=== PATIENT | female | born 1990 | race Caucasian/White ===

== ENCOUNTER 2019-05-21 13:53 | Outpatient (CLI) | payer BC, MEDICAID, SELFPAY ==
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
== END 2019-05-21 13:54 | disposition home or self-care (01) ==
LOC: RADOUTREAD 14:00
PROVIDERS: Family Provider Family Medicine; PCP Family Medicine; Visit Provider Family Medicine
DX: Z76.89 Persons encountering health services in other specified circumstances (principal)

== ENCOUNTER 2019-06-22 12:23 | Emergency (ER) | payer BC, MEDICAID, SELFPAY ==
[2019-06-22 13:18] VITALS: BP 116/65; PULSE 75; RESP 16; TEMP 37.3; O2SAT 98; BMI 34.9
--- NOTE | 2019-06-22 17:03 | USR_ITS ---
PROCEDURE INFORMATION: Exam: US , Limited Exam date and time: 06/22/2019 6:16 PM Age: 29 years old Clinical indication: complicated by abdominal or pelvic pain; Periumbilical; Second trimester; Gestational age or lmp: 14w5d; ; Patient HX: Pain mima-umb and rlq; Additional info: Stabbing periumbilical abdominal pain TECHNIQUE: Imaging protocol: Real-time ultrasound of the maternal uterus with image documentation. Exam focused on the clinical indication. COMPARISON: US OB <= 14 weeks fetus [id number] 05/21/2019 11:31 AM FINDINGS: GESTATION: Gestation: Very limited anatomy assessment this examination. Heart rate: heart rate 150 bpm and regular. Presentation: Fetus in breech presentation. Placenta: Posterior placenta without visible previa or abruption. Amniotic fluid: Amniotic fluid appears qualitatively normal for gestational age. Umbilical cord and insertion: Three-vessel amniotic cord. BIOMETRY: Estimated gestational age: gestational age 14 weeks 4 days with estimated date of delivery 12/17/2019. Appropriate interval growth since last examination 05/21/2019. Estimated weight: Estimated weight 102 g (4 oz) measurements: measurements: measurements: Femur length 14 weeks 4 days. Abdominal circumference 14 weeks 4 days. Biparietal diameter 14 weeks 5 days. Head circumference 14 weeks 4 days. HC/AC ratio 1.20 within normal limits. CI 80.7 within normal limits. MATERNAL: Cervix: Cervix measures 4.7 cm within normal limits. Internal os closed. Left adnexa: Left ovarian dimensions 2.5 cm x 1.9 cm x 2.4 cm with a volume of 5.8 cubic cm. Small involuting corpus luteal cyst left ovary. Right ovarian dimensions 2.5 cm x 1.4 cm x 2.4 cm with a volume of 4.4 cubic cm. Positive arterial flow to Doppler and color-flow assessment both left and right ovaries. No visible adnexal mass or cystic lesion within the field of view image. US/US OB limited [id number] IMPRESSION: 1. Single intrauterine gestation in breech presentation with positive heart activity at 150 bpm. 2. age measured at 14 weeks 4 days with an PINKY of 12/17/2019. 3. Appropriate interval growth since last examination 05/21/2019. 4. weight 4 oz. 5. Both ovaries appear sonographically normal with positive arterial flow to both color Doppler assessment. 6. No visible free fluid in the pelvis.
--- NOTE | 2019-06-22 17:06 | ED_ITS ---
Entered by Symone Maher, acting as scribe for Ori Ronquillo MD Jun 22, 2019 12:23 Documented by User: Ori Ronquillo MD 06/22/19 17:40 HPI - Abdominal Pain General: Chief Complaint: Abdominal Pain Stated Complaint: 15 weeks preg/ abd pain Time Seen by Provider: 06/22/19 17:01 Source: patient Mode of arrival: ambulatory Limitations: no limitations History of Present Illness: HPI narrative: 29 yo female presents with RLQ. pt states this started yesterday. pt states she has ran a fever. pt states movement makes this worse. pt is . pt has had nausea. pt denies any other symptoms at this time. elicited complaint: abdominal pain Onset (ago): day(s) (yesterday) Pain Consistency: constant Radiation: RLQ Migration to: LLQ Relieving factors: movement Associated Symptoms: Reports fever(s) and nausea Related Data: Date of Last Menstrual Period: 03/15/19 Review of Systems General: Reports: 10 or more systems reviewed and unremarkable except in HPI and below Const: Reports: fever GI: Reports: abdominal pain and nausea PFSH ED PFSH: Social History Smoking and tobacco status: never smoked Female Reproductive History: Date of last menstrual period: 03/15/19 Physical Exam Const: COMMON NORMALS: no limitations, alert and well nourished EXAM LIMITATIONS: no altered mental status GENERAL APPEARANCE: cooperative and well developed ORIENTATION/CONSCIOUSNESS: Yes awake; not confused HENMT: COMMON NORMALS: normocephalic, head/scalp atraumatic, external ears normal and external nose normal HEAD & SCALP: normal to inspection, normocephalic and atraumatic FACE & SINUS: face symmetric NOSE: external nose normal EXTERNAL EAR: Yes external ears normal MOUTH: lip normal; no muffled voice Eye: COMMON NORMALS: EOMs intact bilaterally and conjunctivae normal GENERAL EYE: normal appearance of both eyes CONJUNCTIVA: Yes conjunctivae normal Neck/C-Spine: COMMON NORMALS: no JVD GENERAL: Yes normal visual inspection and Yes trachea midline Resp: COMMON NORMALS: normal respiratory effort, no use of accessory muscles and clear to auscultation bilaterally EFFORT & INSPECTION: Yes able to speak in complete sentences and Yes symmetric chest movement AUSCULTATION: clear to auscultation bilaterally Cardio: COMMON NORMALS: no JVD, regular rate and regular rhythm RATE: regular rate RHYTHM: regular rhythm PERIPHERAL PULSES: radial pulses present GI: COMMON NORMALS: soft to palpation INSPECTION: Yes normal to inspection PALPATION: Yes soft and Yes tender (worsened on Right than Left) Details: LLQ and RLQ Back/Pelvis: COMMON NORMALS: thoraco-lumbar ROM normal Extremity: COMMON NORMALS: normal to inspection GENERAL: Yes normal exam except as noted Neuro: COMMON NORMALS: moves all extremities, no focal motor deficits and no sensory deficits noted SENSORIUM/ORIENTATION: Yes alert Psych: COMMON NORMALS: mental status grossly normal, thought process normal, cooperative, affect normal and speech normal SPEECH: Yes normal speech THOUGHT PROCESS: normal thought process Skin: COMMON NORMALS: no rashes or lesions noted, skin turgor normal and no jaundice GENERAL SKIN EXAM: no rashes or lesions noted and turgor normal Course Vital Signs: Vital signs: Vital Signs Temperature 99.1 F 06/22/19 13:18 Pulse Rate 75 06/22/19 13:18 Respiratory Rate 16 06/22/19 13:18 Blood Pressure 116/65 06/22/19 13:18 Pulse Oximetry 98 06/22/19 13:18 MDM - Abdominal Pain Lab Data: Labs: Lab Results 06/22/19 06/22/19 06/22/19 Range/Units 16:12 17:47 17:47 WBC 11.4 H (4.0-10.0) 10^3/ uL RBC 4.29 (4.1-5.3) 10^6/u L Hgb 11.4 L (11.5-15.3) g/dL Hct 36.7 L (37.0-47.0) % MCV 85.5 (81-99) fL MCH 26.6 L (28.0-34.0) pg MCHC 31.1 (30.0-36.0) g/dL RDW 14.4 (12.1-15.1) % Plt Count 399 (130-400) 10^3/c mm MPV 9.6 (7.4-10.4) fL Neut % (Auto) 60.6 % Lymph % (Auto) 31.1 % Garfield % (Auto) 5.7 % Eos % (Auto) 2.0 % Baso % (Auto) 0.3 % Neut # (Auto) 6.9 (1.8-7.7) 10^3/u L Lymph # (Auto) 3.5 (0.8-4.8) 10^3/u L Garfield # (Auto) 0.7 (0.2-0.9) 10^3/u L Eos # (Auto) 0.2 (0.0-0.8) 10^3/u L Baso # (Auto) 0.0 (0.0-0.1) 10^3/u L Nucleated RBC % (a uto) 0 % Nucleated RBCs # 0.0 /100WBC Sodium 135 L (136-145) mmol/L Potassium 3.5 (3.5-5.1) mmol/L Chloride 103 (98-107) mmol/L Carbon Dioxide 20 L (22-29) mmol/L Anion Gap 15.5 (5-19) BUN 5 L (6-20) mg/dL Creatinine 0.6 (0.5-0.9) mg/dL GFR Calculation 116.6 (90-130) mL/min Glucose 81 (65-115) mg/dL Lactate (0.5-2.2) mmol/L Calcium 9.2 (8.5-10.5) mg/dL Total Bilirubin 0.3 (0.15-1.2) mg/dL AST 14 (0-32) U/L ALT 12 (0-33) U/L Alkaline Phosphata se 71 (35-105) IU/L Total Protein 7.1 (6.6-8.7) g/dL Albumin 3.9 (3.5-5.2) g/dL Globulin 3.2 (1.3-4.6) g/dL Lipase 31 (13-60) U/L Urine Color Yellow (Yellow) Urine Appearance Clear (CLEAR) Urine pH 5 (5-7) Ur Specific Gravit y 1.020 (1.005-1.030) Urine Protein Neg (Negative) Urine Glucose (UA) Norm (Normal) Urine Ketones Negative (Negative) Urine Blood Neg (Negative) Urine Nitrate Negative (Negative) Urine Bilirubin Neg (NEGATIVE) Urine Urobilinogen Norm (Negative) mg/dL Ur Leukocyte Mer ase Negative (Negative) 06/22/19 Range/Units 18:43 WBC (4.0-10.0) 10^3/ uL RBC (4.1-5.3) 10^6/u L Hgb (11.5-15.3) g/dL Hct (37.0-47.0) % MCV (81-99) fL MCH (28.0-34.0) pg MCHC (30.0-36.0) g/dL RDW (12.1-15.1) % Plt Count (130-400) 10^3/c mm MPV (7.4-10.4) fL Neut % (Auto) % Lymph % (Auto) % Garfield % (Auto) % Eos % (Auto) % Baso % (Auto) % Neut # (Auto) (1.8-7.7) 10^3/u L Lymph # (Auto) (0.8-4.8) 10^3/u L Garfield # (Auto) (0.2-0.9) 10^3/u L Eos # (Auto) (0.0-0.8) 10^3/u L Baso # (Auto) (0.0-0.1) 10^3/u L Nucleated RBC % (a uto) % Nucleated RBCs # /100WBC Sodium (136-145) mmol/L Potassium (3.5-5.1) mmol/L Chloride (98-107) mmol/L Carbon Dioxide (22-29) mmol/L Anion Gap (5-19) BUN (6-20) mg/dL Creatinine (0.5-0.9) mg/dL GFR Calculation (90-130) mL/min Glucose (65-115) mg/dL Lactate 0.6 (0.5-2.2) mmol/L Calcium (8.5-10.5) mg/dL Total Bilirubin (0.15-1.2) mg/dL AST (0-32) U/L ALT (0-33) U/L Alkaline Phosphata se (35-105) IU/L Total Protein (6.6-8.7) g/dL Albumin (3.5-5.2) g/dL Globulin (1.3-4.6) g/dL Lipase (13-60) U/L Urine Color (Yellow) Urine Appearance (CLEAR) Urine pH (5-7) Ur Specific Gravit y (1.005-1.030) Urine Protein (Negative) Urine Glucose (UA) (Normal) Urine Ketones (Negative) Urine Blood (Negative) Urine Nitrate (Negative) Urine Bilirubin (NEGATIVE) Urine Urobilinogen (Negative) mg/dL Ur Leukocyte Mer ase (Negative) Discharge Plan Discharge Patient Disposition: Home, Self-Care Clinical Impression: Abdominal pain affecting Condition: Stable Discharge Orders: Discharge Order (Routine); Ordered 06/22/19 Ordered By: Cortez Srivastava Referrals: Roque Rios MD [Primary Care Provider] - 1-3 days Discharge Diet: Advance as tolerated Discharge Activity: Resume usual activity Patient Instructions: Abdominal Pain (ED) Coding Level of Care Code ED Bus System Operator for Chg Fwd Exam Comprehensive Documented by User: Cortez Srivastava MD 06/22/19 21:56 HPI - Abdominal Pain General: Chief Complaint: Abdominal Pain Stated Complaint: 15 weeks preg/ abd pain Time Seen by Provider: 06/22/19 17:01 History of Present Illness: Associated Symptoms: Denies chills, diarrhea, dysuria, fever(s), nausea and vomiting Review of Systems Const: Denies: fever, chills, body aches or change in appetite Eyes: Denies: blurry vision or eye discomfort ENMT: Denies: throat pain or dental pain Card: Denies: chest pain Resp: Denies: shortness of breath GI: Denies: abdominal pain, nausea, vomiting or diarrhea : Denies: painful urination Musc: Denies: neck pain or back pain Skin/Breast: Denies: rash Neuro: Denies: headache Psych: Denies: depression Jaime/Lymph: Denies: easy bruising All/Imm: Denies: hives PFS ED PFSH: Social History Smoking and tobacco status: never smoked Course Vital Signs: Vital signs: Vital Signs Temperature 99.1 F 06/22/19 13:18 Pulse Rate 75 06/22/19 13:18 Respiratory Rate 16 06/22/19 13:18 Blood Pressure 116/65 03/02/20 13:18 Pulse Oximetry 98 06/22/19 13:18 MDM - Abdominal Pain MDM Narrative: Medical decision making narrative: Patient presents here with abdominal pain and that is likely round ligament pain. Patient's MRI showed no signs appendicitis. Her pain is improving. Patient has no signs of UTI. Patient is stable for discharge and is to return if worsening. Lab Data: Labs: Lab Results 06/22/19 06/22/19 06/22/19 Range/Units 16:12 17:47 17:47 WBC 11.4 H (4.0-10.0) 10^3/ uL RBC 4.29 (4.1-5.3) 10^6/u L Hgb 11.4 L (11.5-15.3) g/dL Hct 36.7 L (37.0-47.0) % MCV 85.5 (81-99) fL MCH 26.6 L (28.0-34.0) pg MCHC 31.1 (30.0-36.0) g/dL RDW 14.4 (12.1-15.1) % Plt Count 399 (130-400) 10^3/c mm MPV 9.6 (7.4-10.4) fL Neut % (Auto) 60.6 % Lymph % (Auto) 31.1 % Garfield % (Auto) 5.7 % Eos % (Auto) 2.0 % Baso % (Auto) 0.3 % Neut # (Auto) 6.9 (1.8-7.7) 10^3/u L Lymph # (Auto) 3.5 (0.8-4.8) 10^3/u L Garfield # (Auto) 0.7 (0.2-0.9) 10^3/u L Eos # (Auto) 0.2 (0.0-0.8) 10^3/u L Baso # (Auto) 0.0 (0.0-0.1) 10^3/u L Nucleated RBC % (a uto) 0 % Nucleated RBCs # 0.0 /100WBC Sodium 135 L (136-145) mmol/L Potassium 3.5 (3.5-5.1) mmol/L Chloride 103 (98-107) mmol/L Carbon Dioxide 20 L (22-29) mmol/L Anion Gap 15.5 (5-19) BUN 5 L (6-20) mg/dL Creatinine 0.6 (0.5-0.9) mg/dL GFR Calculation 116.6 (90-130) mL/min Glucose 81 (65-115) mg/dL Lactate (0.5-2.2) mmol/L Calcium 9.2 (8.5-10.5) mg/dL Total Bilirubin 0.3 (0.15-1.2) mg/dL AST 14 (0-32) U/L ALT 12 (0-33) U/L Alkaline Phosphata se 71 (35-105) IU/L Total Protein 7.1 (6.6-8.7) g/dL Albumin 3.9 (3.5-5.2) g/dL Globulin 3.2 (1.3-4.6) g/dL Lipase 31 (13-60) U/L Urine Color Yellow (Yellow) Urine Appearance Clear (CLEAR) Urine pH 5 (5-7) Ur Specific Gravit y 1.020 (1.005-1.030) Urine Protein Neg (Negative) Urine Glucose (UA) Norm (Normal) Urine Ketones Negative (Negative) Urine Blood Neg (Negative) Urine Nitrate Negative (Negative) Urine Bilirubin Neg (NEGATIVE) Urine Urobilinogen Norm (Negative) mg/dL Ur Leukocyte Mer ase Negative (Negative) 06/22/19 Range/Units 18:43 WBC (4.0-10.0) 10^3/ uL RBC (4.1-5.3) 10^6/u L Hgb (11.5-15.3) g/dL Hct (37.0-47.0) % MCV (81-99) fL MCH (28.0-34.0) pg MCHC (30.0-36.0) g/dL RDW (12.1-15.1) % Plt Count (130-400) 10^3/c mm MPV (7.4-10.4) fL Neut % (Auto) % Lymph % (Auto) % Garfield % (Auto) % Eos % (Auto) % Baso % (Auto) % Neut # (Auto) (1.8-7.7) 10^3/u L Lymph # (Auto) (0.8-4.8) 10^3/u L Garfield # (Auto) (0.2-0.9) 10^3/u L Eos # (Auto) (0.0-0.8) 10^3/u L Baso # (Auto) (0.0-0.1) 10^3/u L Nucleated RBC % (a uto) % Nucleated RBCs # /100WBC Sodium (136-145) mmol/L Potassium (3.5-5.1) mmol/L Chloride (98-107) mmol/L Carbon Dioxide (22-29) mmol/L Anion Gap (5-19) BUN (6-20) mg/dL Creatinine (0.5-0.9) mg/dL GFR Calculation (90-130) mL/min Glucose (65-115) mg/dL Lactate 0.6 (0.5-2.2) mmol/L Calcium (8.5-10.5) mg/dL Total Bilirubin (0.15-1.2) mg/dL AST (0-32) U/L ALT (0-33) U/L Alkaline Phosphata se (35-105) IU/L Total Protein (6.6-8.7) g/dL Albumin (3.5-5.2) g/dL Globulin (1.3-4.6) g/dL Lipase (13-60) U/L Urine Color (Yellow) Urine Appearance (CLEAR) Urine pH (5-7) Ur Specific Gravit y (1.005-1.030) Urine Protein (Negative) Urine Glucose (UA) (Normal) Urine Ketones (Negative) Urine Blood (Negative) Urine Nitrate (Negative) Urine Bilirubin (NEGATIVE) Urine Urobilinogen (Negative) mg/dL Ur Leukocyte Mer ase (Negative) Imaging Data ^: MRI: Radiologist's impression: Ordering Provider/Ordering MD: Cortez Srivastava MD Date of Service: 06/22/19 Procedure(s): MR abdomen wo con [id number] Accession Number(s): [id number] Report Number: [id number] PROCEDURE INFORMATION: Exam: MR Abdomen Without Contrast Exam date and time: 06/22/2019 7:57 PM Age: 29 years old Clinical indication: Abdominal pain; Localized; Right lower quadrant (rlq); Patient HX: Patient appendix pain; Additional info: Abd pain TECHNIQUE: Imaging protocol: MR of the abdomen without contrast. COMPARISON: MR MRCP [id number] 09/28/2018 1:10 AM FINDINGS: Liver: Limited evaluation. The exam is centered on the pelvis. Gallbladder and bile ducts: Not seen. Pancreas: Partially visualized but unremarkable.. Spleen: Partially visualized, unremarkable Adrenals: Unremarkable. No mass. Kidneys and ureters: Unremarkable. No solid mass. No hydronephrosis. Stomach and bowel: Unremarkable. Intraperitoneal space: No free fluid. Arteries: No abdominal aortic aneurysm. Reproductive: Single gravid intrauterine gestation. The placenta lies in the right fundal portion of the uterus. Bones/joints: The limited exam consist of a single axial and single coronal sequence. The appendix is seen and is normal in size. No obvious surrounding inflammation or fluid collection. Soft tissues: Unremarkable. MR/MR abdomen wo con [id number] IMPRESSION: 1. Limited study, normal-sized appendix without inflammation. 2. Gravid uterus. Discharge Plan Discharge Patient Disposition: Home, Self-Care Clinical Impression: Abdominal pain affecting Condition: Stable Discharge Orders: Discharge Order (Routine); Ordered 06/22/19 Ordered By: Cortez Srivastava Referrals: Roque Rios MD [Primary Care Provider] - 1-3 days Discharge Diet: Advance as tolerated Discharge Activity: Resume usual activity Patient Instructions: Abdominal Pain (ED) Coding Level of Care Code ED Bus System Operator for Chg Fwd Exam Comprehensive
[2019-06-22 17:14] LABS: Add Urine Microscopic? NO
--- NOTE | 2019-06-22 17:18 | USR_ITS ---
PROCEDURE INFORMATION: Exam: US Abdomen Limited, Appendix Exam date and time: 06/22/2019 6:14 PM Age: 29 years old Clinical indication: Abdominal pain; Periumbilical; Patient HX: 15 weeks . Wbc normal. Ob ltd also done. Please put these two exams together; Additional info: Rlq eval for appendicitis, 15 weeks TECHNIQUE: Imaging protocol: Real-time ultrasound of the abdomen with image documentation. Examination was focused on the appendix. COMPARISON: US abdomen limited [id number] 09/27/2018 9:15 PM FINDINGS: Appendix: Limited ultrasound of the right lower quadrant completed to assess for potential appendicitis. An inflamed appendix is not sonographically visible at this time. No visible free fluid/ascites. Uterus: Gravid uterus imaged. Fetus not adequately imaged for diagnostic detail assessment. Placenta appears to be posterior. No gross evidence for previa or abruption. US/US abdomen limited [id number] IMPRESSION: No definitive sonographic evidence to support the diagnosis of appendicitis.
[2019-06-22 17:27] LABS: Urine Appearance Clear (CLEAR); Urine Color Yellow (Yellow)
[2019-06-22 17:28] LABS: Bilirubin Urine Neg (NEGATIVE); Blood Urine Neg (Negative); Glucose Urine UA Norm (Normal); Ketones Urine Negative (Negative); Leukocyte Esterase Urine Negative (Negative); Nitrate Urine Negative (Negative); Protein Urine Neg (Negative); Urobilinogen Urine Norm (Negative); pH Urine 5 (5-7)
--- NOTE | 2019-06-22 17:38 | PC.NURSE ---
Patient denies any vaginal discharge, spotting, or bleeding at this time. Patient states she has been experiencing cramping and pain in the middle lower to right lower abdomen. Pain currently 7/10 after physician palpation/exam.
[2019-06-22] MEDS: acetaminophen 325 mg Tablet 650 MG PO (18:23)
[2019-06-22] MEDS: ondansetron 2 mg/ML SDV 2 mL 4 MG IVP (18:23)
[2019-06-22] MEDS: lactated ringers 1,000 ML 999 ML IV (18:23)
[2019-06-22 18:33] LABS: Basophils % 0.3 %; Eosinophils # 0.2 10^3/uL (0.0-0.8); Hematocrit 36.7 % (37.0-47.0); Hemoglobin 11.4 g/dL (11.5-15.3); Lymphocytes # 3.5 10^3/uL (0.8-4.8); Lymphocytes % 31.1 %; Mean Corpuscular HGB Conc 31.1 g/dL (30.0-36.0); Mean Corpuscular Hemoglobin 26.6 pg (28.0-34.0); Mean Corpuscular Volume 85.5 fL (81-99); Mean Platelet Volume 9.6 fL (7.4-10.4); Monocytes # 0.7 10^3/uL (0.2-0.9); Monocytes % 5.7 %; Neutrophils # 6.9 10^3/uL (1.8-7.7); Neutrophils % 60.6 %; Nucleated Red Blood Cells % 0 %; Platelet Count 399 10^3/cmm (130-400); Red Blood Count 4.29 10^6/uL (4.1-5.3); Red Cell Distribution Width 14.4 % (12.1-15.1); White Blood Count 11.4 10^3/uL (4.0-10.0)
[2019-06-22 18:51] LABS: Alanine Aminotransferase 12 U/L (0-33); Albumin Level 3.9 g/dL (3.5-5.2); Alkaline Phosphatase 71 IU/L (35-105); Anion Gap 15.5 (5-19); Aspartate Amino Transferase 14 U/L (0-32); Blood Urea Nitrogen 5 mg/dL (6-20); Calcium 9.2 mg/dL (8.5-10.5); Carbon Dioxide 20 mmol/L (22-29); Chloride 103 mmol/L (98-107); Globulin 3.2 g/dL (1.3-4.6); Glomerular Filtration Rate 116.6 mL/min (90-130); Glucose 81 mg/dL (65-115); Lipase 31 U/L (13-60); Potassium 3.5 mmol/L (3.5-5.1); Sodium 135 mmol/L (136-145); Total Bilirubin 0.3 mg/dL (0.15-1.2); Total Protein 7.1 g/dL (6.6-8.7)
--- NOTE | 2019-06-22 18:52 | MRR_ITS ---
PROCEDURE INFORMATION: Exam: MR Abdomen Without Contrast Exam date and time: 06/22/2019 7:57 PM Age: 29 years old Clinical indication: Abdominal pain; Localized; Right lower quadrant (rlq); Patient HX: Patient appendix pain; Additional info: Abd pain TECHNIQUE: Imaging protocol: MR of the abdomen without contrast. COMPARISON: MR MRCP [id number] 09/28/2018 1:10 AM FINDINGS: Liver: Limited evaluation. The exam is centered on the pelvis. Gallbladder and bile ducts: Not seen. Pancreas: Partially visualized but unremarkable.. Spleen: Partially visualized, unremarkable Adrenals: Unremarkable. No mass. Kidneys and ureters: Unremarkable. No solid mass. No hydronephrosis. Stomach and bowel: Unremarkable. Intraperitoneal space: No free fluid. Arteries: No abdominal aortic aneurysm. Reproductive: Single gravid intrauterine gestation. The placenta lies in the right fundal portion of the uterus. Bones/joints: The limited exam consist of a single axial and single coronal sequence. The appendix is seen and is normal in size. No obvious surrounding inflammation or fluid collection. Soft tissues: Unremarkable. MR/MR abdomen wo con [id number] IMPRESSION: 1. Limited study, normal-sized appendix without inflammation. 2. Gravid uterus.
[2019-06-22 19:09] LABS: Lactate (Lactic Acid level) 0.6 mmol/L (0.5-2.2)
== END 2019-06-22 22:19 | disposition home or self-care (01) ==
PROVIDERS: Emergency Medicine; Emergency Provider Emergency Medicine; Family Provider Family Medicine; PCP Family Medicine
DX: O26.892 Other specified pregnancy related conditions, second trimester (principal); R10.9 Unspecified abdominal pain; Z3A.14 14 weeks gestation of pregnancy
CPT/HCPCS: 36415; 74181; 76705; 76815; 80053; 81003; 83605; 83690; 85025; 96365; 96375; 99282; 99283; J2405

== ENCOUNTER 2019-08-11 16:52 | Outpatient (CLI) | payer BC, MEDICAID, SELFPAY ==
[2019-08-11 17:01] VITALS: BMI 38.2
[2019-08-11 17:22] VITALS: BP 116/71; PULSE 94
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
[2019-08-11 18:06] VITALS: BP 115/63; PULSE 85
[2019-08-11 18:06] LABS: Bilirubin Urine Neg (NEGATIVE); Blood Urine Neg (Negative); Glucose Urine UA Norm (Normal); Ketones Urine Negative (Negative); Leukocyte Esterase Urine Negative (Negative); Nitrate Urine Negative (Negative); Protein Urine Neg (Negative); Specific Gravity, Urine 1.015 (1.005-1.030); Urine Appearance Clear (CLEAR); Urine Color Yellow (Yellow); Urobilinogen Urine Norm (Negative); pH Urine 7 (5-7)
[2019-08-11 18:09] LABS: Add Urine Culture? No; Bacteria Urine TR; Squamous Epithelial Cell Urine 0-4 (0-5)
== END 2019-08-11 18:10 | disposition home or self-care (01) ==
LOC: OPOB 16:54 → OBGYN 08-12 07:50
PROVIDERS: Family Provider Family Medicine; PCP Family Medicine; Visit Provider Family Medicine
DX: O26.899 Other specified pregnancy related conditions, unspecified trimester (principal); Z3A.00 Weeks of gestation of pregnancy not specified; R10.9 Unspecified abdominal pain
CPT/HCPCS: 81001; 99211

== ENCOUNTER 2019-10-08 10:35 | Outpatient (CLI) | payer BC, MEDICAID, SELFPAY ==
--- NOTE | 2019-10-08 | US_ITS ---
WS: [id number] ABDOMINAL ULTRASOUND LIMITED REASON FOR VISIT: RT SIDED PAIN, CHECK RT KIDNEY AND APPENDIX TECHNIQUE: Grayscale and Doppler ultrasound examination of the abdomen. FINDINGS: The appendix is not well seen. There is small amount of fluid in the right pelvis There appears to be an intrauterine present. Right kidney: Right kidney measures 11.3 cm x 7.2 cm x 5.3 cm. Right kidney cortex measures 1.07 cm. The left kidney measured 11.92 x 7.06 x 5.57 cm. US/US abdomen limited [id number] IMPRESSION: The appendix is poorly seen. Small amount of fluid in the right pelvis but no evidence suspicious of rupture d appendix. A single fetus is seen. Both kidneys were normal. No hydronephrosis.
[2019-10-08 10:49] VITALS: RESP 18; TEMP 37
[2019-10-08 10:50] VITALS: BMI 40.1
[2019-10-08 10:51] VITALS: BP 127/72; PULSE 98
--- NOTE | 2019-10-08 11:06 | US_ITS ---
WS: [id number] [place] [id number] REASON FOR EXAM: RT SIDED PAIN EVALUATE PLACENTA FOR ABRUPTION FINDINGS: Posterior placenta is identified. Extends down to the lower uterus but not through the cerv ix. Cephalic presentation fetus. heart rate 141 beats for minute US/[place] [id number] IMPRESSION: Posterior placenta No definite abruption. Cephalic presentation
[2019-10-08 11:10] LABS: Bilirubin Urine Neg (NEGATIVE); Blood Urine Neg (Negative); Glucose Urine UA Norm (Normal); Ketones Urine Negative (Negative); Leukocyte Esterase Urine Negative (Negative); Nitrate Urine Negative (Negative); Protein Urine Neg (Negative); Urine Appearance Clear (CLEAR); Urine Color Yellow (Yellow); Urobilinogen Urine Norm (Negative); pH Urine 6 (5-7)
[2019-10-08 11:11] LABS: Add Urine Culture? No; Bacteria Urine TRACE; Mucus Urine TRACE; Squamous Epithelial Cell Urine 0-4 (0-5)
[2019-10-08 11:25] VITALS: BP 123/74; PULSE 96
[2019-10-08 11:26] LABS: Basophils % 0.3 %; Eosinophils # 0.1 10^3/uL (0.0-0.8); Hematocrit 30.3 % (37.0-47.0); Hemoglobin 9.1 g/dL (11.5-15.3); Lymphocytes # 2.7 10^3/uL (0.8-4.8); Lymphocytes % 20.6 %; Mean Corpuscular Hemoglobin 24.9 pg (28.0-34.0); Monocytes # 0.6 10^3/uL (0.2-0.9); Monocytes % 4.8 %; Neutrophils # 9.2 10^3/uL (1.8-7.7); Neutrophils % 71.6 %; Nucleated Red Blood Cells % 0 %; Platelet Count 421 10^3/cmm (130-400); Red Blood Count 3.65 10^6/uL (4.1-5.3); White Blood Count 12.8 10^3/uL (4.0-10.0)
[2019-10-08 11:56] VITALS: BP 0/0
[2019-10-08 12:02] VITALS: BP 113/69; PULSE 97
[2019-10-08 12:24] VITALS: BP 113/69; PULSE 97; RESP 20; TEMP 37
== END 2019-10-08 12:10 | disposition home or self-care (01) ==
LOC: OPOB 10:41 → OBGYN 10:42
PROVIDERS: Family Provider Family Medicine; PCP Family Medicine; Visit Provider Family Medicine
DX: O26.899 Other specified pregnancy related conditions, unspecified trimester (principal); Z3A.00 Weeks of gestation of pregnancy not specified; M54.9 Dorsalgia, unspecified
CPT/HCPCS: 36415; 59025; 76705; 76816; 81001; 85025; 99211

== ENCOUNTER 2019-10-09 15:23 | Outpatient (CLI) | payer BC, MEDICAID, SELFPAY ==
[2019-10-09 15:30] VITALS: BP 138/56; PULSE 93; RESP 18; TEMP 36.9; O2SAT 99
[2019-10-09 15:31] VITALS: BMI 36.4
[2019-10-09 16:04] VITALS: BP 138/56; PULSE 93
== END 2019-10-09 15:57 | disposition home or self-care (01) ==
LOC: OPOB 15:24 → OBGYN 15:26
PROVIDERS: Family Provider Family Medicine; PCP Family Medicine; Visit Provider Family Medicine
DX: O36.8190 Decreased fetal movements, unspecified trimester, not applicable or unspecified (principal); Z3A.00 Weeks of gestation of pregnancy not specified; R10.9 Unspecified abdominal pain
CPT/HCPCS: 59025; 99211

== ENCOUNTER 2019-10-09 16:02 | Emergency (ER) | payer BC, MEDICAID, SELFPAY ==
[2019-10-09] VITALS (7 sets, daily range): BP systolic 114–135; BP diastolic 58–75; PULSE 92–108; RESP 16–18; TEMP 36.9; O2SAT 97–100; BMI 40.0
--- NOTE | 2019-10-09 16:39 | USR_ITS ---
PROCEDURE INFORMATION: Exam: US Abdomen Limited, Appendix Exam date and time: 10/09/2019 5:09 PM Age: 29 years old Clinical indication: Abdominal pain; Acute; ; Additional info: Rlq pain TECHNIQUE: Imaging protocol: Real-time ultrasound of the abdomen with image documentation. Examination was focused on the appendix. COMPARISON: No relevant prior studies available. FINDINGS: Appendix: The appendix was not visualized. Intraperitoneal space: No free peritoneal fluid visualized. Uterus: Single intrauterine gestation. US/US appendix [id number] IMPRESSION: Nonvisualized appendix. No abnormality identified.
--- NOTE | 2019-10-09 16:40 | ED_ITS ---
HPI - Abdominal Pain General: Chief Complaint: Abdominal Pain Stated Complaint: 30 WEEKS PREG/SENT BY DR Rios Time Seen by Provider: 10/09/19 16:34 Source: patient Mode of arrival: ambulatory Limitations: no limitations History of Present Illness: HPI narrative: 29-year-old female patient who is 30 weeks , presents to the emergency department with right lower quadrant tenderness. Symptoms started about 3 days ago and have progressively worsened. She had an ultrasound done yesterday after she said she passed a blood clot and there was signs that she may have a kidney stone. She saw her OB today and due to persistence of her symptoms they were concerned about appendicitis so they sent her down here to be evaluated. She denies a fever, appetite has been poor in the last 3 to 5 days. She denies any urinary symptoms. MD elicited complaint: abdominal pain Onset (ago): day(s) (3) Pain Consistency: constant Location: RLQ Severity: severe Quality: stabbing Radiation: none Exacerbating factors: nothing Relieving factors: nothing Associated Symptoms: Reports anorexia; Denies chills, dysuria, fever(s), nausea and vomiting Related Data: Date of Last Menstrual Period: 03/15/19 Review of Systems General: Reports: 10 or more systems reviewed and unremarkable except in HPI and below Const: Denies: fever(s), chills or body aches Eyes: Denies: change in vision or blurry vision ENMT: Denies: throat pain, enlarged tonsils, odynophagia, hoarseness, mouth pain or swelling of lips/tongue Card: Denies: palpitations, irregular heart rhythm, edema or swelling of feet/ankles Resp: Denies: dyspnea, productive cough or non-productive cough GI: Reports: abdominal pain; Denies: nausea or vomiting : Denies: flank pain, difficulty voiding, dysuria, urinary frequency, urinary urgency or urinary hesitancy Musc: Denies: neck pain, back pain or extremity swelling Skin/Breast: Denies: rash, pruritus or erythema Neuro: Denies: headache(s), numbness in extremities or weakness in extremities Endo: Denies: polyuria, polydipsia or tired all the time PFSH ED PFSH: Social History (Reviewed 10/09/19 @ 22:39 by Preston Rivera MD, [facility] [place]) Smoking and tobacco status: never smoked Female Reproductive History: Date of last menstrual period: 03/15/19 Physical Exam Const: COMMON NORMALS: no acute distress, average body habitus, patient oriented x3, no limitations, healthy appearing, alert and well nourished HENMT: COMMON NORMALS: normocephalic, atraumatic and moist oral mucous membranes HEAD & SCALP: normocephalic and atraumatic Neck/C-Spine: COMMON NORMALS: no meningeal signs and no JVD Resp: COMMON NORMALS: normal respiratory effort, No retractions, No use of accessory muscles, clear to auscultation bilaterally and percussion normal AUSCULTATION: clear to auscultation bilaterally PERCUSSION: percussion normal Cardio: COMMON NORMALS: no JVD, regular rate, regular rhythm, S1 normal heart sound present, S2 normal heart sound present, No gallops present (Cardio), No clicks present (Cardio), No murmurs present (Cardio), No rub (Cardio) and Peripheral pulses 2+ throughout RATE: regular rate RHYTHM: regular rhythm HEART SOUNDS: S1 normal heart sound present and S2 normal heart sound present PERIPHERAL PULSES: Peripheral pulses 2+ throughout GI: COMMON NORMALS: Normal to inspection, nondistended, normoactive bowel sounds present, Soft to palpation, No hepatosplenomegaly present, no masses and no bruits PALPATION: Yes Soft to palpation, Yes Tenderness to palpation present (GI) Details: RLQ, Yes Guarding due to palpation present (GI), Yes No hepatosplenomegaly present and Yes Rebound tenderness present Details: McBurney's point : COMMON NORMALS: Yes no CVA tenderness BLADDER/KIDNEY EXAM: Yes no CVA tenderness Back/Pelvis: COMMON NORMALS: no CVA tenderness Extremity: COMMON NORMALS: normal to inspection, full ROM, capillary refill normal, no calf tenderness and no pedal edema Neuro: COMMON NORMALS: patient oriented x3 SENSORIUM/ORIENTATION: Yes alert MENINGEAL SIGNS: Yes no meningeal signs Skin: COMMON NORMALS: no rashes or lesions noted, no wounds, turgor normal, no jaundice, no petechiae and no mottling GENERAL SKIN EXAM: no rashes or lesions noted and turgor normal Course Reevaluation(s): Reevaluation #1: Discussed her lab and imaging findings with her. Ultrasound inconclusive, MRI is not suggestive of acute appendicitis. White cell count elevated especially when compared with yesterday, however CRP is normal and lactic acid is normal. I do not think white cell count elevation is secondary to an infectious or inflammatory process. Warning signs explained to the patient especially fever, worsening abdominal pain, vomiting. If she develops any of the warning signs she needs to return promptly to the emergency department for evaluation. We will discharge her home with no new orders. She voiced understanding and is in agreement with the plan. Time: 20:58 Vital Signs: Vital signs: Vital Signs Temperature 98.4 F 10/09/19 16:15 Pulse Rate 98 10/09/19 21:35 Respiratory Rate 16 10/09/19 21:35 Blood Pressure 117/70 10/09/19 21:35 Pulse Oximetry 97 10/09/19 21:35 MDM - Abdominal Pain MDM Narrative: Medical decision making narrative: 29-year-old female patient who is 30 weeks and was sent to the emergency department for evaluation of right lower quadrant pain. Symptoms have been ongoing for 3 days and an ultrasound on outpatient yesterday was inconclusive. Today a repeat ultrasound was also inconclusive, however with clinical features of right lower quadrant tenderness, guarding and possible rebound and MRI of her abdomen and pelvis was done which was negative for features of appendicitis. CRP was normal, lactic acid normal. These findings to suggest acute appendicitis. However her white cell count jumped up from 12,000 to about 16,000 today. This is likely nonspecific. Patient was given warning signs and asked to return if she develops any of the warning signs or symptoms. She is discharged home with no new orders. I believe her pain may be broad ligament pain. Medical Records: Attestation: I reviewed the patient's medical records. Lab Data: Attestation: I reviewed the patient's lab results. Labs: Lab Results 10/09/19 10/09/19 10/09/19 Range/Units 17:03 17:03 17:03 WBC 16.1 H (4.0-10.0) 10^3/ uL RBC 3.54 L (4.1-5.3) 10^6/u L Hgb 9.0 L (11.5-15.3) g/dL Hct 30.1 L (37.0-47.0) % MCV 85.0 (81-99) fL MCH 25.4 L (28.0-34.0) pg MCHC 29.9 L (30.0-36.0) g/dL RDW 13.9 (12.1-15.1) % Plt Count 385 (130-400) 10^3/c mm MPV 8.7 (7.4-10.4) fL Neut % (Auto) 70.4 % Lymph % (Auto) 20.1 % [place] % (Auto) 6.3 % Eos % (Auto) 1.2 % Baso % (Auto) 0.3 % Neut # (Auto) 11.3 H (1.8-7.7) 10^3/u L Lymph # (Auto) 3.2 (0.8-4.8) 10^3/u L [place] # (Auto) 1.0 H (0.2-0.9) 10^3/u L Eos # (Auto) 0.2 (0.0-0.8) 10^3/u L Baso # (Auto) 0.1 (0.0-0.1) 10^3/u L Nucleated RBC % (a uto) 0 % Nucleated RBCs # 0.0 /100WBC Sodium 135 L (136-145) mmol/L Potassium 3.9 (3.5-5.1) mmol/L Chloride 104 (98-107) mmol/L Carbon Dioxide 20 L (22-29) mmol/L Anion Gap 14.9 (5-19) BUN 4 L (6-20) mg/dL Creatinine 0.4 L (0.5-0.9) mg/dL GFR Calculation 186.2 H (90-130) mL/min Glucose 88 (65-115) mg/dL Calculated Osmolal ity 275 L (285-295) mOsm/k g Lactate 0.6 (0.5-2.2) mmol/L Calcium 8.7 (8.5-10.5) mg/dL Total Bilirubin 0.2 (0.15-1.2) mg/dL AST 10 (0-32) U/L ALT 8 (0-33) U/L Alkaline Phosphata se 89 (35-105) IU/L C-Reactive Protein 3.5 (0.0-4.9) mg/L Total Protein 6.3 L (6.6-8.7) g/dL Albumin 3.4 L (3.5-5.2) g/dL Globulin 2.9 (1.3-4.6) g/dL Lipase 44 (13-60) U/L Urine Color (Yellow) Urine Appearance (CLEAR) Urine pH (5-7) Ur Specific Gravit y (1.005-1.030) Urine Protein (Negative) Urine Glucose (UA) (Normal) Urine Ketones (Negative) Urine Blood (Negative) Urine Nitrate (Negative) Urine Bilirubin (NEGATIVE) Urine Urobilinogen (Negative) mg/dL Ur Leukocyte Mer ase (Negative) 10/09/19 Range/Units 17:50 WBC (4.0-10.0) 10^3/ uL RBC (4.1-5.3) 10^6/u L Hgb (11.5-15.3) g/dL Hct (37.0-47.0) % MCV (81-99) fL MCH (28.0-34.0) pg MCHC (30.0-36.0) g/dL RDW (12.1-15.1) % Plt Count (130-400) 10^3/c mm MPV (7.4-10.4) fL Neut % (Auto) % Lymph % (Auto) % [place] % (Auto) % Eos % (Auto) % Baso % (Auto) % Neut # (Auto) (1.8-7.7) 10^3/u L Lymph # (Auto) (0.8-4.8) 10^3/u L [place] # (Auto) (0.2-0.9) 10^3/u L Eos # (Auto) (0.0-0.8) 10^3/u L Baso # (Auto) (0.0-0.1) 10^3/u L Nucleated RBC % (a uto) % Nucleated RBCs # /100WBC Sodium (136-145) mmol/L Potassium (3.5-5.1) mmol/L Chloride (98-107) mmol/L Carbon Dioxide (22-29) mmol/L Anion Gap (5-19) BUN (6-20) mg/dL Creatinine (0.5-0.9) mg/dL GFR Calculation (90-130) mL/min Glucose (65-115) mg/dL Calculated Osmolal ity (285-295) mOsm/k g Lactate (0.5-2.2) mmol/L Calcium (8.5-10.5) mg/dL Total Bilirubin (0.15-1.2) mg/dL AST (0-32) U/L ALT (0-33) U/L Alkaline Phosphata se (35-105) IU/L C-Reactive Protein (0.0-4.9) mg/L Total Protein (6.6-8.7) g/dL Albumin (3.5-5.2) g/dL Globulin (1.3-4.6) g/dL Lipase (13-60) U/L Urine Color Yellow (Yellow) Urine Appearance Clear (CLEAR) Urine pH 6 (5-7) Ur Specific Gravit y 1.015 (1.005-1.030) Urine Protein Neg (Negative) Urine Glucose (UA) Norm (Normal) Urine Ketones 1+ H (Negative) Urine Blood Neg (Negative) Urine Nitrate Negative (Negative) Urine Bilirubin Neg (NEGATIVE) Urine Urobilinogen Norm (Negative) mg/dL Ur Leukocyte Mer ase Negative (Negative) Imaging Data ^: MRI: Radiologist's impression: [place] [address] Magnetic Resonance Report Signed Patient: Olesya Humphries #: [id number] : 1990Acct#:[id number] Age/Sex: 29 M Date: 10/09/19 Loc: [facility]/Bed: Attending Dr: Ordering Provider/Ordering MD: Preston Rivera MD, [facility] [place] Date of Service: 10/09/19 Procedure(s): MR abdomen wo con [id number] Accession Number(s): [id number] Report Number: [id number] PROCEDURE INFORMATION: Exam: MR Abdomen Without Contrast Exam date and time: 10/09/2019 6:35 PM Age: 29 years old Clinical indication: Abdominal pain; Acute; Additional info: Rlq pain, rebound tenderness, 30 weeks , R/O appendicitis TECHNIQUE: Imaging protocol: MR of the abdomen without contrast. COMPARISON: [place] appendix [id number] 10/09/2019 5:04 PM FINDINGS: Liver: Tiny cyst. No mass. Gallbladder and bile ducts: Unremarkable. No stones. No ductal dilation. Pancreas: Unremarkable. No ductal dilation. Spleen: Unremarkable. No splenomegaly. Adrenals: Unremarkable. No mass. Kidneys and ureters: Unremarkable. No solid mass. No hydronephrosis. Stomach and bowel: Visualized stomach and intestines are unremarkable. Appendix: The appendix is not definitely visualized. There is no inflammation or secondary signs of appendicitis. Intraperitoneal space: No ascites. Arteries: No abdominal aortic aneurysm. Reproductive: Single intrauterine gestation. Bones/joints: Unremarkable. Soft tissues: Unremarkable. MR/MR abdomen wo con [id number] IMPRESSION: 1. The appendix is not visualized. No secondary signs of acute appendicitis. 2. Intrauterine gestation. Dictated By:Teofilo Gao Signed By:Teofilo GaoSignruth ann Date/Time:10/09/191853 DD/ 51 Discharge Plan Discharge Patient Disposition: Home, Self-Care Clinical Impression: Acute right lower quadrant pain Condition: Stable Prescriptions: Continued PNV cmb#95-ferrous fumarate-FA [] 28 mg iron- 800 mcg Tablet 1 tab PO DAILY RF: 0 pantoprazole [Protonix] 40 mg Tablet,Delayed Release (Dr/Ec) 40 mg PO DAILY RF: 0 metformin 500 mg tablet extended release 24 hr 500 mg PO DAILY RF: 0 Discharge Orders: Discharge Order (Routine); Ordered 10/09/19 Ordered By: Preston Rivera Referrals: Roque Rios MD [Primary Care Provider] - 10/12/19 (For further evaluation) Patient Instructions: Abdominal Pain (ED) Activity Restrictions/Additional Instructions: Return for any new or worsening symptoms. Return especially for the following symptoms: Fever, worsening abdominal pain, vomiting. If you have any other concerns please return for further evaluation. Follow-up with Dr. Rios on Saturday. Discharge Date/Time: 10/09/19 21:37 Coding Level of Care Code ED Public Works Director for Chg Fwd Exam Comprehensive
[2019-10-09 17:09] LABS: Basophils # 0.1 10^3/uL (0.0-0.1); Basophils % 0.3 %; Eosinophils # 0.2 10^3/uL (0.0-0.8); Eosinophils % 1.2 %; Hematocrit 30.1 % (37.0-47.0); Lymphocytes # 3.2 10^3/uL (0.8-4.8); Lymphocytes % 20.1 %; Mean Corpuscular HGB Conc 29.9 g/dL (30.0-36.0); Mean Corpuscular Hemoglobin 25.4 pg (28.0-34.0); Mean Platelet Volume 8.7 fL (7.4-10.4); Monocytes % 6.3 %; Neutrophils # 11.3 10^3/uL (1.8-7.7); Neutrophils % 70.4 %; Nucleated Red Blood Cells % 0 %; Platelet Count 385 10^3/cmm (130-400); Red Blood Count 3.54 10^6/uL (4.1-5.3); Red Cell Distribution Width 13.9 % (12.1-15.1); White Blood Count 16.1 10^3/uL (4.0-10.0)
[2019-10-09 17:26] LABS: Alanine Aminotransferase 8 U/L (0-33); Albumin Level 3.4 g/dL (3.5-5.2); Alkaline Phosphatase 89 IU/L (35-105); Anion Gap 14.9 (5-19); Aspartate Amino Transferase 10 U/L (0-32); Blood Urea Nitrogen 4 mg/dL (6-20); Calcium 8.7 mg/dL (8.5-10.5); Carbon Dioxide 20 mmol/L (22-29); Chloride 104 mmol/L (98-107); Globulin 2.9 g/dL (1.3-4.6); Glomerular Filtration Rate 186.2 mL/min (90-130); Glucose 88 mg/dL (65-115); Lipase 44 U/L (13-60); Osmolality Calculated 275 mOsm/kg (285-295); Potassium 3.9 mmol/L (3.5-5.1); Sodium 135 mmol/L (136-145); Total Bilirubin 0.2 mg/dL (0.15-1.2); Total Protein 6.3 g/dL (6.6-8.7)
[2019-10-09 17:27] LABS: Lactate (Lactic Acid level) 0.6 mmol/L (0.5-2.2)
--- NOTE | 2019-10-09 17:33 | MRR_ITS ---
PROCEDURE INFORMATION: Exam: MR Abdomen Without Contrast Exam date and time: 10/09/2019 6:35 PM Age: 29 years old Clinical indication: Abdominal pain; Acute; Additional info: Rlq pain, rebound tenderness, 30 weeks , R/O appendicitis TECHNIQUE: Imaging protocol: MR of the abdomen without contrast. COMPARISON: [place] appendix [id number] 10/09/2019 5:04 PM FINDINGS: Liver: Tiny cyst. No mass. Gallbladder and bile ducts: Unremarkable. No stones. No ductal dilation. Pancreas: Unremarkable. No ductal dilation. Spleen: Unremarkable. No splenomegaly. Adrenals: Unremarkable. No mass. Kidneys and ureters: Unremarkable. No solid mass. No hydronephrosis. Stomach and bowel: Visualized stomach and intestines are unremarkable. Appendix: The appendix is not definitely visualized. There is no inflammation or secondary signs of appendicitis. Intraperitoneal space: No ascites. Arteries: No abdominal aortic aneurysm. Reproductive: Single intrauterine gestation. Bones/joints: Unremarkable. Soft tissues: Unremarkable. MR/MR abdomen wo con [id number] IMPRESSION: 1. The appendix is not visualized. No secondary signs of acute appendicitis. 2. Intrauterine gestation.
[2019-10-09 17:45] LABS: C Reactive Protein 3.5 mg/L (0.0-4.9)
[2019-10-09 17:59] LABS: Add Urine Microscopic? NO
[2019-10-09 18:05] LABS: Glucose Urine UA Norm (Normal); Protein Urine Neg (Negative); Specific Gravity, Urine 1.015 (1.005-1.030); Urine Appearance Clear (CLEAR); Urine Color Yellow (Yellow); pH Urine 6 (5-7)
[2019-10-09 18:06] LABS: Bilirubin Urine Neg (NEGATIVE); Blood Urine Neg (Negative); Ketones Urine 1+ (Negative); Leukocyte Esterase Urine Negative (Negative); Nitrate Urine Negative (Negative); Urobilinogen Urine Norm (Negative)
--- NOTE | 2019-10-09 18:07 | PC.NURSE ---
pt to MRI
== END 2019-10-09 21:37 | disposition home or self-care (01) ==
PROVIDERS: Emergency Provider Family Medicine; Family Provider Family Medicine; PCP Family Medicine
DX: O26.893 Other specified pregnancy related conditions, third trimester (principal); R10.31 Right lower quadrant pain; Z3A.30 30 weeks gestation of pregnancy
CPT/HCPCS: 12345; 36415; 74181; 76705; 80053; 81003; 83605; 83690; 85025; 86140; 99283

== ENCOUNTER 2019-11-01 13:50 | Outpatient (CLI) | payer BC, MEDICAID, SELFPAY ==
[2019-11-01 13:59] VITALS: BP 116/73; PULSE 116
[2019-11-01 14:00] VITALS: RESP 18; TEMP 36.7
--- NOTE | 2019-11-01 14:19 | PC.NURSE ---
Patient given the marker button and educated to push whenever she feels her abdomen tightening. Button pushed at this time to confirm it is working.
[2019-11-01 14:20] VITALS: BMI 40.0
[2019-11-01 14:21] VITALS: BP 0/0; BP 131/77; PULSE 96
[2019-11-01 14:32] LABS: Bilirubin Urine Neg (NEGATIVE); Blood Urine Neg (Negative); Glucose Urine UA Norm (Normal); Ketones Urine Negative (Negative); Leukocyte Esterase Urine Negative (Negative); Nitrate Urine Negative (Negative); Protein Urine Neg (Negative); Urine Appearance Clear (CLEAR); Urine Color Yellow (Yellow); Urobilinogen Urine Norm (Negative); pH Urine 7 (5-7)
[2019-11-01 14:35] LABS: Add Urine Culture? No; Bacteria Urine TRACE; Mucus Urine 1+; Squamous Epithelial Cell Urine 0-4 (0-5); WBC Urine 0-4 /hpf (0-5)
[2019-11-01 14:41] VITALS: BP 130/77; PULSE 102
[2019-11-01 15:01] VITALS: BP 129/75; PULSE 96
[2019-11-01 15:11] LABS: Urine Creatinine 97 mg/dL (28-217); Urine Protein Random 14 mg/dL
--- NOTE | 2019-11-01 15:20 | PC.NURSE ---
Discussed Dr. clark's order of 2 tylenol #3 for the patient to take now. Patient declined taking them now, as she drove herself here today. Patient stated she will pick her prescription up from the pharmacy and take 2 when she gets home.
[2019-11-01 15:21] VITALS: BP 133/76; PULSE 102
--- NOTE | 2019-11-01 15:22 | PC.NURSE ---
Called in pharmacy to patient's pharmacy of choice - [facility] - for tylenol #3 - dispense 20, with the instructions 1-2 Q6H as needed for severe headache.
--- NOTE | 2019-11-01 15:24 | PC.NURSE ---
Discussed that patient has taken tylenol #3 before, denies having any questions regarding this medication at this time.
[2019-11-01 15:35] LABS: UPRO/UCREAT Ratio 0.14 mg/mg CR
== END 2019-11-01 15:34 | disposition home or self-care (01) ==
LOC: OPOB 13:54 → OBGYN 15:22
PROVIDERS: Family Provider Family Medicine; PCP Family Medicine; Visit Provider Family Medicine
DX: O21.9 Vomiting of pregnancy, unspecified (principal); Z3A.00 Weeks of gestation of pregnancy not specified; R51 Headache; R10.9 Unspecified abdominal pain
CPT/HCPCS: 59025; 81001; 82570; 84156; 99211

== ENCOUNTER 2019-11-13 16:16 | Outpatient (CLI) | payer BC, MEDICAID, SELFPAY ==
[2019-11-13 16:26] VITALS: BP 103/65; PULSE 94
[2019-11-13 16:28] VITALS: BMI 39.9
[2019-11-13 17:19] VITALS: BP 130/76; PULSE 96
--- NOTE | 2019-11-13 17:26 | PC.NURSE ---
Prescription called to [place] pharmacy at patient's request. Spoke with staff at [facility] who states it would be ready in just a few minutes.
[2019-11-13 17:28] VITALS: BP 130/76; PULSE 96; RESP 16; TEMP 36.9
== END 2019-11-13 17:24 | disposition home or self-care (01) ==
LOC: OPOB 16:17 → OBGYN 16:20
PROVIDERS: Family Provider Family Medicine; PCP Family Medicine; Visit Provider Family Medicine
DX: O26.899 Other specified pregnancy related conditions, unspecified trimester (principal); Z3A.00 Weeks of gestation of pregnancy not specified; R25.2 Cramp and spasm
CPT/HCPCS: 59025; 99211

== ENCOUNTER 2019-12-02 19:54 | Inpatient (IN) | payer BC, MEDICAID, SELFPAY ==
[2019-12-02] VITALS (7 sets, daily range): BP systolic 100–127; BP diastolic 60–72; PULSE 96–118; RESP 17–18; TEMP 36.9–37.2; O2SAT 98; BMI 40.3
[2019-12-02 21:58] LABS: Glucose Point of Care 81 mg/dL (70-110)
[2019-12-02] MEDS: miSOPROStol 100 mcg tablet 25 MCG VAGINAL (22:12)
[2019-12-02 22:28] LABS: Basophils % 0.3 %; Eosinophils # 0.1 10^3/uL (0.0-0.8); Eosinophils % 0.8 %; Hematocrit 28.5 % (37.0-47.0); Hemoglobin 8.2 g/dL (11.5-15.3); Lymphocytes # 3.3 10^3/uL (0.8-4.8); Lymphocytes % 21.2 %; Mean Corpuscular HGB Conc 28.8 g/dL (30.0-36.0); Mean Corpuscular Volume 76.6 fL (81-99); Mean Platelet Volume 9.7 fL (7.4-10.4); Monocytes # 1.1 10^3/uL (0.2-0.9); Monocytes % 6.7 %; Neutrophils # 11.01 10^3/uL (1.8-7.7); Neutrophils % 69.7 %; Nucleated Red Blood Cells % 0 %; Platelet Count 491 10^3/cmm (130-400); Red Blood Count 3.72 10^6/uL (4.1-5.3); Red Cell Distribution Width 15.9 % (12.1-15.1); White Blood Count 15.8 10^3/uL (4.0-10.0)
[2019-12-02 23:24] LABS: Glucose Point of Care 95 mg/dL (70-110)
[2019-12-03] VITALS (130 sets, daily range): BP systolic 0–136; BP diastolic 0–79; PULSE 81–130; RESP 18; TEMP 36.7–37; O2SAT 97–100
[2019-12-03] MEDS: lactated ringers 1,000 ML 999 ML IV ×4 (00:47→20:23)
[2019-12-03] MEDS: dextrose 5%-lactated ringers 1,000 ML 125 ML IV ×2 (01:50→08:02)
[2019-12-03 02:01] LABS: Glucose Point of Care 84 mg/dL (70-110)
[2019-12-03] MEDS: miSOPROStol 100 mcg tablet 25 MCG VAGINAL ×3 (02:18→13:28)
[2019-12-03 05:52] LABS: Glucose Point of Care 104 mg/dL (70-110)
--- NOTE | 2019-12-03 08:06 | P.HP_ITS ---
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 This patient has been diagnosed with gestational diabetes several weeks prior to admission. She has been placed on metformin and Lantus insulin was added in the evening. Generally her sugar has run in the low to mid 100s and has been doing very well. However, in the past 2 weeks she has had increasing sugars in the evening in spite of changes in insulin dosage and metformin. She has been followed closely with repeat ultrasounds and monitoring and she has been fine. However, as she has gestational diabetes throughout the second half of this the recommendation is induction around 37 to 38 weeks gestation. She has had no major problems through her course. Maternal blood type was A+ with antibody screen negative. Her group B strep was negative. She has a history of long labors and some large babies in the past. Her blood pressure has run a little on the low side at times and her pulse has been a little over 100 most of the time. Present Details : 6 Para: 4 Date of Last Menstrual Period: 03/15/19 Calculated Date of Delivery: 12/20/19 Gestational Age Based on Last Menstrual Period: 37 Labs Rubella: Immune RPR: Negative GBS: Negative Review of Systems Const: Denies: fever(s), chills, body aches, change in appetite or snoring ENMT: Denies: throat pain or oral sores Card: Reports: pre-syncope (Occasional low blood pressure spells.); Denies: chest pain, swelling of feet/ankles or dyspnea on exertion Resp: Denies: dyspnea, productive cough or non-productive cough GI: Denies: abdominal pain, nausea, vomiting, diarrhea or constipation : Denies: flank pain or vaginal discharge Musc: Denies: back pain or joint stiffness Neuro: Denies: headache(s), sensory changes or frequent falls Psych: Reports: anxiety; Denies: depression Medications/Allergies Home Medications Medication Instructions Recorded Confirmed Last Taken Type pantoprazole [Protonix] 40 mg PO DAILY 08/11/19 12/02/19 12/02/19 History 0900 PNV cmb#95-ferrous fumarate-FA 1 tab PO DAILY 10/09/19 12/02/19 12/02/19 History [] 0800 metformin 500 mg PO DAILY 10/09/19 12/02/19 12/02/19 History 1130 insulin glargine [Lantus U-100 20 unit SUBCUT QPM 11/13/19 12/02/19 12/02/19 History Insulin] 2150 Allergies Allergy/AdvReac Type Severity Reaction Status Date / Time No Known Allergies Allergy Verified 11/01/19 14:28 PFSH METAL CONTROL COORDINATOR PFSH: Family History (Updated 12/03/19 @ 00:06 by Anna Beard RN) Mother Diabetes Hypertension Hyperlipidemia Heart disease Osteoporosis Hypothyroid Neuropathy Father Diabetes Hypertension Hyperlipidemia Cancer Neuropathy Grandmother Cancer Osteoporosis Social History Smoking and tobacco status: never smoked History History History 6 Term 4 Miscarriages/Ectopic 1 0 Living Children 4 Vitals/I&O/Wt Last Vital Signs Temp 98.3 F 12/03/19 05:01 Pulse 100 12/03/19 07:50 Resp 18 12/03/19 05:01 BP 102/57 12/03/19 07:50 Pulse Ox 98 12/02/19 22:40 12/02/19 12/03/19 12/03/19 22:59 06:59 14:59 Intake Total 775 / 775 Output Total 1300 / 1300 Balance -1300 / -1300 775 / 775 Weight last 48 hrs Weight 106.594 kg Weight 106.594 kg Weight 235 g Physical Exam Const: COMMON NORMALS: no acute distress, healthy appearing and alert GENERAL APPEARANCE: cooperative and comfortable NUTRITIONAL APPEARANCE: obese HENMT: HEAD & SCALP: normal to inspection FACE & SINUS: normal facial exam Chest: COMMONS NORMALS: normal inspection of the chest Resp: COMMON NORMALS: normal respiratory effort, No retractions, No use of accessory muscles and clear to auscultation bilaterally Cardio: COMMON NORMALS: no JVD, regular rate, regular rhythm and No murmurs present (Cardio) GI: COMMON NORMALS: Soft to palpation and non-tender INSPECTION: Yes central obesity (And ) Extremity: COMMON NORMALS: normal to inspection, full ROM and no pedal edema Neuro: COMMON NORMALS: no focal motor deficits and no sensory deficits noted Psych: COMMON NORMALS: mental status grossly normal and Normal thought process present Data : 12/02/19 21:30 A&P Assessment and plan (1) 37 or more weeks gestation of : Patient has been admitted for cervical ripening and induction secondary to her gestational diabetes. She knows that this is probably going to take a while. We will monitor for problems through labor process. Status: Acute (2) Gestational diabetes: Patient sugar has been in fair control. She has been admitted for induction secondary to her gestational diabetes. Will monitor sugar and continue her usual medications at this time, thus far it has run real good. Status: Acute Attestations Medical Necessity Statement*: This patient has gestational diabetes at 37-1/2 weeks gestation . She has been admitted for induction of labor secondary to her gestational diabetes and risks of going to 40 weeks gestation. She requires a greater than 2 midnight hospital stay. Time Spent in Patient Care: 16 - 35 minutes Coding Level of Care Code Acute Manufacturing Teacher for Chg Fwd Diagnoses 37 or more weeks gestation of Gestational diabetes O24.419
[2019-12-03 10:27] LABS: Glucose Point of Care 105 mg/dL (70-110)
[2019-12-03] MEDS: metformin 500 mg Tablet PO ×2 (12:01→18:04)
[2019-12-03 14:14] LABS: Glucose Point of Care 94 mg/dL (70-110)
[2019-12-03 18:37] LABS: Glucose Point of Care 73 mg/dL (70-110)
--- NOTE | 2019-12-03 20:28 | P.ANESASSM_ITS ---
Documented by User: Saad Lincoln Jr, SOCIAL MEDIA MARKETING ANALYST 12/03/19 20:32 Pre-Anesthetic Assessment Pre-Anesthetic Assessment: Height/Weight: Height 1.63 m Weight 106.594 kg Temp Pulse Resp BP Pulse Ox 98.4 F 114 H 18 136/79 100 12/03/19 18:30 12/03/19 20:14 12/03/19 18:30 12/03/19 20:14 12/03/19 20:23 Preop Diagnosis: Term labor/pain Familial anesthetic complications: SEBASTIAN Was Beta Jeanne taken within 24 hours: N/A Last Intake: 08:00 Exam: Pre-Anes Outpt Exam: alert, oriented x 3, clear to auscultation bilaterally and regular rate & rhythm Airway: Submandibular: WNL Cervical ROM: WNL MP: 2 Dentition: Full History/ROS: No significant history except as noted and No significant complaints Pulmonary: Pulmonary: None reported CV/HEM: Comments: recent orthostatic hypotension : : None reported Hepatic: Hepatic: None reported GI: GI: GERD Metabolic: Metabolic: DM Comments: Gestational Musc/skel: Musc/skel: None reported Neuropsych: Neuropsych: None reported Anesthetic Plan: ASA status: 2 Anesthesia: Anesthesia Evaluation and Regio nal (specify below) Other: SEBASTIAN Risk of > 500 ml blood loss (7ml/kg in children): No Meds/Allergies Current Medications: Current Medications Generic Name Dose Route Start Last Admin Trade Name Freq PRN Reason Stop Dose Admin Dextrose/Lactated Ringer's 1,000 mls @ 125 m ls/hr 12/02/19 21:05 12/03/19 09:18 Dextrose 5%-Lact ated Ringers IV 0 mls/hr .Q8H PRN Infusion per label comment s Lactated Ringer's 1,000 mls @ 125 m ls/hr 12/03/19 00:32 12/03/19 20:23 Lactated Ringers IV 999 mls/hr .Q8H PRN Administration LABOR INDUCTION Lactated Ringer's 1,000 mls @ 999 m ls/hr 12/03/19 17:58 12/03/19 20:25 Lactated Ringers IV Infused .Q1H1M PRN Infusion per Ropivacaine 200 mg in 100 mls @ 13 mls/hr 12/03/19 18:00 12/03/19 20:23 Naropin Premix EPIDURAL 11 mls/hr .Q7H42M MARIXA Administration Insulin Aspart 0 unit 12/02/19 21:30 12/03/19 15:54 Novolog SUBCUT Not Given Q4H MARIXA Protocol Metformin HCl 500 mg 12/03/19 12:00 12/03/19 18:04 Glucophage PO 500 mg BIDWM MARIXA Administration Misoprostol 25 mcg 12/03/19 13:15 12/03/19 18:25 Cytotec VAGINAL 12/03/19 21:16 Not Given Q4H MARIXA Lantus Pen 20 each 12/02/19 21:30 12/02/19 21:46 SUBCUT 20 each BEDTIME MARIXA Administration PFSH Anesthesia PFSH: Family History (Updated 12/03/19 @ 00:06 by Anna Beard RN) Mother Diabetes Hypertension Hyperlipidemia Heart disease Osteoporosis Hypothyroid Neuropathy Father Diabetes Hypertension Hyperlipidemia Cancer Neuropathy Grandmother Cancer Osteoporosis Social History (Reviewed 10/09/19 @ 22:39 by Preston Rivera MD, [facility] [place] Smoking and tobacco status: never smoked Female Reproductive History: Date of last menstrual period: 03/15/19 : 6 Data Anesthesia CBC & Chem 7: 12/02/19 21:30 Other Labs: Laboratory Results - last 48 hr 12/02/19 12/02/19 12/02/19 21:30 21:43 23:17 WBC 15.8 H RBC 3.72 L Hgb 8.2 L Hct 28.5 L MCV 76.6 L MCH 22.0 L MCHC 28.8 L RDW 15.9 H Plt Count 491 H MPV 9.7 Neut % (Auto) 69.7 Lymph % (Auto) 21.2 [place] % (Auto) 6.7 Eos % (Auto) 0.8 Baso % (Auto) 0.3 Neut # (Auto) 11.01 H Lymph # (Auto) 3.3 [place] # (Auto) 1.1 H Eos # (Auto) 0.1 Baso # (Auto) 0.0 Nucleated RBC % (auto) 0 Nucleated RBCs # 0.0 POC Glucose 81 95 12/03/19 12/03/19 12/03/19 01:50 05:47 10:23 WBC RBC Hgb Hct MCV MCH MCHC RDW Plt Count MPV Neut % (Auto) Lymph % (Auto) [place] % (Auto) Eos % (Auto) Baso % (Auto) Neut # (Auto) Lymph # (Auto) [place] # (Auto) Eos # (Auto) Baso # (Auto) Nucleated RBC % (auto) Nucleated RBCs # POC Glucose 84 104 105 12/03/19 12/03/19 14:09 18:32 WBC RBC Hgb Hct MCV MCH MCHC RDW Plt Count MPV Neut % (Auto) Lymph % (Auto) [place] % (Auto) Eos % (Auto) Baso % (Auto) Neut # (Auto) Lymph # (Auto) [place] # (Auto) Eos # (Auto) Baso # (Auto) Nucleated RBC % (auto) Nucleated RBCs # POC Glucose 94 73 Cardiac Studies: No Data to Display Documented by User: Melinda Vale 12/04/19 11:57 PFSH Anesthesia PFSH: Family History (Updated 12/03/19 @ 00:06 by Anna Beard RN) Mother Diabetes Hypertension Hyperlipidemia Heart disease Osteoporosis Hypothyroid Neuropathy Father Diabetes Hypertension Hyperlipidemia Cancer Neuropathy Grandmother Cancer Osteoporosis Social History (Reviewed 10/09/19 @ 22:39 by Preston Rivera MD, [facility] [place] Smoking and tobacco status: never smoked Data Anesthesia CBC & Chem 7: 12/02/19 21:30 Cardiac Studies: No Data to Display
--- NOTE | 2019-12-03 20:32 | ANES.PROC ---
Anesthesia Procedures Procedure/Date: 12/03/19 Epidural: Time Out Performed: Yes Consents Signed: Procedure Consent Consent: requested by attending/covering physician, from patient, risks and benefits reviewed and patient agrees to proceed Lumbar Level: L2-L3 Epidural position: sitting Epidural procedure: sterile prep of area, 1% lidocaine to numb the area, 18 g needle, negative for paresthesia passed, test dose given, 1.5% xylocaine 1:200k epi, 0.2% Ropivacaine bolus ml, placed PCEA, no systemic response, sterile dressing applied, L.U.D. no apparent complications and 0.2% Ropiavacaine @ mls/hr Additional Comments: KHARI at 7cm. Bolus Ropiv 0.2% 6cc and fentanyl 100 mcg. Ropiv 0.2% infusion started at 10cc/hour
[2019-12-03] MEDS: oxytocin 30 UNIT/500 ML BAG IV (21:25)
[2019-12-03 21:41] LABS: Glucose Point of Care 77 mg/dL (70-110)
[2019-12-04] VITALS (61 sets, daily range): BP systolic 0–142; BP diastolic 0–78; PULSE 83–124; RESP 13–18; TEMP 36.3–37; O2SAT 94–100
[2019-12-04 01:50] LABS: Glucose Point of Care 81 mg/dL (70-110)
--- NOTE | 2019-12-04 04:41 | PM.DELIVERY ---
Delivery Note: Date of delivery: December 04, 2019 this 29-year-old 6 now para 5 female was admitted on 12/02/2019 for misoprostol cervical ripening for induction purposes secondary to gestational diabetes and 37-1/2 weeks gestation. The patient received misoprostel x3 doses followed by Pitocin augmentation. She did receive epidural anesthesia yesterday evening prior to beginning the Pitocin. Initially, she was pretty thick and about 1 and half centimeters dilated and required 3 doses of misoprostol as stated above. Upon dilating to 3 cm dilatation she received epidural anesthesia and Pitocin augmentation was begun. The patient dilated to complete cervical dilatation and this physician was called. She had a fairly prolonged deceleration at complete cervical dilatation prior to this physician being called. However that recovered nicely. Active labor was actually pretty rapid and she delivered by spontaneous vaginal delivery a healthy, viable female weighing 7 pounds 13 ounces at 0406 AM. Upon delivery of the head the mouth and nose were suctioned and she was found to have no nuchal cord. Shoulders delivered without problems and the remainder of the infant. The was then suctioned again and placed on mother's abdomen where after approximately 1 minute the 's father cut the umbilical cord. The umbilical cord had 3 blood vessels. Infant did very well and cried very well. Infant Apgars were 9 and 9 at 1 and 5 minutes respectively. There was a midline second-degree perineal laceration which was repaired with Vicryl suture. Sweep of the vaginal vault found several clots but those passed easily and the fundus presently is firm. The placenta did deliver spontaneously at 04 12. Estimated blood loss was approximately 174 mL. Pre-Delivery Course: This patient was followed by this physician throughout her entire . There was no major problems or concerns throughout the except her gestational diabetes which was found at glucose rating at 28 weeks gestation. She was initially begun on metformin but sugar was staying in the 200s. Lantus insulin was added in the evening and her blood sugars responded very well with average blood sugars usually in the low 100s. She also underwent fairly frequent screening with ultrasound and monitoring which were normal. However, with history of large infants and gestational diabetes decision was made to proceed with misoprostol cervical ripening for induction at 37-1/2 weeks gestation per recommendations from ACOG. The patient did discuss with this physician and with Dr. Harman her desire for tubal ligation. Benefits and risks were discussed with the patient and permit forms were signed. She continues to wish to proceed with that and Dr. Harman has been consulted. Delivery: Spontaneous vaginal delivery. A&P Assessment and plan (1) Gestational diabetes: Patient will continue her metformin and Lantus insulin at this time. Monitor sugars 4 times daily. Status: Acute (2) Normal spontaneous vaginal delivery: Plan routine postdelivery care. Status: Acute (3) tubal ligation planned: tubal ligation planned, Dr. Harman has been consulted. Status: Acute Coding Level of Care Code Acute Therapist'S Assistant for Chg Fwd Diagnoses Gestational diabetes O24.419 Normal spontaneous vaginal delivery O80 tubal ligation planned
[2019-12-04 05:02] LABS: Glucose Point of Care 104 mg/dL (70-110)
--- NOTE | 2019-12-04 07:15 | PC.NURSE ---
PT unable to ambulate at this time R/T left leg heaviness.
[2019-12-04] MEDS: lanolin oint 7 gm 1 APPLIC TOPICAL (08:20)
[2019-12-04] MEDS: benzocaine-menthol 78 gm Canister 1 SPRAY TOPICAL (08:21)
[2019-12-04] MEDS: pantoprazole DR 40 mg Tablet PO (08:22)
[2019-12-04] MEDS: prenatal vitamin Capsule 1 CAP PO (08:23)
[2019-12-04 08:50] LABS: Glucose Point of Care 95 mg/dL (70-110)
--- NOTE | 2019-12-04 11:57 | P.ANESASSM_ITS ---
Pre-Anesthetic Assessment Pre-Anesthetic Assessment: Height/Weight: Height 1.63 m Weight 106.594 kg Temp Pulse Resp BP Pulse Ox 97.4 F L 98 18 108/71 97 12/04/19 11:54 12/04/19 11:54 12/04/19 11:54 12/04/19 11:54 12/04/19 11:54 Preop Diagnosis: Term labor/pain Proposed Procedure: Operation Date: 12/04/19 12:15 Proposed Procedures p Bilateral Tubal Ligation(Bilateral) - Aysha Harman MD Familial anesthetic complications: Low BP with previous epidurals Last intake: Water w/ meds at 0800 NPO since yesterday morning Social: Social History: No alcohol and No tobacco Exam: Pre-Anes Outpt Exam: alert, oriented x 3, clear to auscultation bilaterally and regular rate & rhythm Airway: Cervical ROM: WNL MP: 3 Dentition: Full Metabolic: Metabolic: DM (gestationnal) and Morbid obesity Anesthetic Plan: ASA status: 2 Anesthesia: Regional (specify below) Other: Epidural Risk of > 500 ml blood loss (7ml/kg in children): No Meds/Allergies Current Medications: Current Medications Generic Name Dose Route Start Last Admin Trade Name Freq PRN Reason Stop Dose Admin Benzocaine 1 spray 12/04/19 04:34 12/04/19 08:21 Dermoplast TOPICAL 1 can PRN PRN Administration PAIN Docusate Sodium 100 mg 12/04/19 09:00 12/04/19 08:21 Colace PO Not Given BID MARIXA Oxytocin 30 unit in 500 ml s @ 1 mls/hr 12/03/19 18:15 12/04/19 04:42 Pitocin IV 60 milliunit/min .Q24H MARIXA 60 mls/hr Titration Protocol 1 MILLIUNIT/MIN Ibuprofen 800 mg 12/04/19 09:00 12/04/19 08:22 Motrin PO 800 mg TID MARIXA Administration Lanolin 1 applic 12/04/19 04:34 12/04/19 08:20 Lanolin Oint TOPICAL 1 tube PRN PRN Administration DRYNESS Pantoprazole Sodiu m 40 mg 12/04/19 09:00 12/04/19 08:22 Protonix PO 40 mg DAILY MARIXA Administration Multivit/ Folic Acid/Iron 1 cap 12/04/19 09:00 12/04/19 08:23 -U PO 1 cap DAILY MARIXA Administration PFSH Anesthesia PFSH: Family History (Updated 12/03/19 @ 00:06 by Anna Beard RN) Mother Diabetes Hypertension Hyperlipidemia Heart disease Osteoporosis Hypothyroid Neuropathy Father Diabetes Hypertension Hyperlipidemia Cancer Neuropathy Grandmother Cancer Osteoporosis Social History Smoking and tobacco status: never smoked Female Reproductive History: Date of last menstrual period: 03/15/19 : 6 Data Anesthesia CBC & Chem 7: 12/02/19 21:30 Other Labs: Laboratory Results - last 48 hr 12/02/19 12/02/19 12/02/19 21:30 21:43 23:17 WBC 15.8 H RBC 3.72 L Hgb 8.2 L Hct 28.5 L MCV 76.6 L MCH 22.0 L MCHC 28.8 L RDW 15.9 H Plt Count 491 H MPV 9.7 Neut % (Auto) 69.7 Lymph % (Auto) 21.2 [place] % (Auto) 6.7 Eos % (Auto) 0.8 Baso % (Auto) 0.3 Neut # (Auto) 11.01 H Lymph # (Auto) 3.3 [place] # (Auto) 1.1 H Eos # (Auto) 0.1 Baso # (Auto) 0.0 Nucleated RBC % (auto) 0 Nucleated RBCs # 0.0 POC Glucose 81 95 12/03/19 12/03/19 12/03/19 01:50 05:47 10:23 WBC RBC Hgb Hct MCV MCH MCHC RDW Plt Count MPV Neut % (Auto) Lymph % (Auto) [place] % (Auto) Eos % (Auto) Baso % (Auto) Neut # (Auto) Lymph # (Auto) [place] # (Auto) Eos # (Auto) Baso # (Auto) Nucleated RBC % (auto) Nucleated RBCs # POC Glucose 84 104 105 12/03/19 12/03/19 12/03/19 14:09 18:32 21:16 WBC RBC Hgb Hct MCV MCH MCHC RDW Plt Count MPV Neut % (Auto) Lymph % (Auto) [place] % (Auto) Eos % (Auto) Baso % (Auto) Neut # (Auto) Lymph # (Auto) [place] # (Auto) Eos # (Auto) Baso # (Auto) Nucleated RBC % (auto) Nucleated RBCs # POC Glucose 94 73 77 12/04/19 12/04/19 12/04/19 01:33 04:58 08:38 WBC RBC Hgb Hct MCV MCH MCHC RDW Plt Count MPV Neut % (Auto) Lymph % (Auto) [place] % (Auto) Eos % (Auto) Baso % (Auto) Neut # (Auto) Lymph # (Auto) [place] # (Auto) Eos # (Auto) Baso # (Auto) Nucleated RBC % (auto) Nucleated RBCs # POC Glucose 81 104 95 Cardiac Studies: No Data to Display
[2019-12-04] MEDS: sodium chloride 0.9% 1,000 ML 30 ML IV (12:17)
--- NOTE | 2019-12-04 13:43 | PM.OP ---
Operative Report Date of procedure: December 04, 2019 Pre-op Diagnosis: Desired surgical sterilization Post-op diagnosis: same Procedure Done: bilateral tubal ligation Specimens removed/disposition: Segments of right and left fallopian tubes Anesthesia: General Estimated blood loss (mL): 4 IV fluids (mL): 800 Condition: stable Disposition: floor Procedure: After informed consent the patient was taken to the OR where she was prepped and draped in normal sterile fashion in dorsal supine position. An attempt at epidural anesthesia was made using her existing epidural however this failed so general anesthesia was applied. A curvilinear infraumbilical incision was made using the scalpel and carried through bluntly to the underlying fascia using a hemostat. The fascia was then grasped with Allis clamps and entered sharply using the Metzenbaums. The peritoneum was entered bluntly. The patient's adnexa was very edematous and the tubes were quite soft and unable to be palpated. However after a good time searching, I was able to move the omentum and visualize the tubes. The right fallopian tube was then grasped with a Edwin and brought into the operative field. A midportion of the tube was ligated and excised. The cut portions of the tube were coagulated using the Bovie and then returned to the abdomen. The same process was repeated on the left side. The left fallopian tube was then grasped with a Edwin and brought into the operative field. A midportion of the tube was ligated and excised. Specimen was sent to pathology. The cut portions of the tube were coagulated using the Bovie and then returned to the abdomen. The fascia was then reapproximated using 0 Vicryl in a running fashion. The skin was then reapproximated using 4-0 Vicryl in a running fashion. 10 mL of lidocaine was injected circumferentially around the incision. Steri-Strips and a pressure bandage were applied patient was awakened and went to recovery in stable condition Sponge instrument and needle counts were correct
[2019-12-04] MEDS: HYDROcodone-acetaminophen 5-325 mg Tablet PO ×2 (14:10→21:46)
[2019-12-04 14:48] LABS: Glucose Point of Care 79 mg/dL (70-110)
[2019-12-04] MEDS: metformin XR 500 MG Tablet PO (17:40)
[2019-12-04 19:36] LABS: Glucose Point of Care 109 mg/dL (70-110)
[2019-12-04] MEDS: docusate sodium 100 mg Capsule PO (21:48)
[2019-12-04 21:54] LABS: Glucose Point of Care 79 mg/dL (70-110)
[2019-12-05 01:00] VITALS: BP 110/72; PULSE 92; RESP 18; O2SAT 96
[2019-12-05 01:32] LABS: Glucose Point of Care 112 mg/dL (70-110)
[2019-12-05 02:23] LABS: Hematocrit 23.9 % (37.0-47.0); Hemoglobin 6.7 g/dL (11.5-15.3); Mean Corpuscular Hemoglobin 22.1 pg (28.0-34.0); Mean Corpuscular Volume 78.9 fL (81-99); Mean Platelet Volume 9.4 fL (7.4-10.4); Platelet Count 386 10^3/cmm (130-400); Red Blood Count 3.03 10^6/uL (4.1-5.3); Red Cell Distribution Width 16.3 % (12.1-15.1); White Blood Count 12.8 10^3/uL (4.0-10.0)
[2019-12-05 04:45] VITALS: BP 102/42; PULSE 105; RESP 18; TEMP 36.5
[2019-12-05 05:35] LABS: Glucose Point of Care 79 mg/dL (70-110)
[2019-12-05] MEDS: HYDROcodone-acetaminophen 5-325 mg Tablet PO (07:18)
--- NOTE | 2019-12-05 08:50 | ANE.PACU2 ---
Inpatient post-anesthesia follow up: Airway intact: Yes Vital signs: Temperature 97.7 F Pulse Rate 105 Respiratory Rate 18 Blood Pressure 102/42 Pulse Oximetry 96 Oxygen Delivery Me thod Room Air Oxygen Flow Rate 6 Fraction of Inspir ed Oxygen Hydration adequate: Yes Nausea and vomiting: No Pain level: 4 Mental status: Baseline Additional Comments: epidural site with no signs of infection, no LE weakness/numbness, no headaches
[2019-12-05] MEDS: docusate sodium 100 mg Capsule PO (08:54)
[2019-12-05] MEDS: pantoprazole DR 40 mg Tablet PO (08:54)
[2019-12-05] MEDS: prenatal vitamin Capsule 1 CAP PO (08:55)
[2019-12-05 09:00] VITALS: BP 101/64; PULSE 99; RESP 17; TEMP 36.9; O2SAT 98
[2019-12-05 09:12] LABS: Glucose Point of Care 104 mg/dL (70-110)
--- NOTE | 2019-12-05 09:36 | P.DS_ITS ---
Discharge Providers PAPER CORE MACHINE OPERATOR Date of Admission: 12/02/19 19:54 Date of Discharge: 12/05/19 Attending Provider at Admission: Roque Rios MD Attending Provider at Discharge: Roque Rios MD Primary Care Provider: Roque Rios MD Diagnoses at Discharge Discharge Diagnosis (1) Gestational diabetes: Status: Acute Problem details: Patient sugar has been stable. She is doing well at this time. (2) Normal spontaneous vaginal delivery: Status: Acute Problem details: Patient has had just mild lochia with no significant clots. She is ambulating well and tolerating a regular diet. (3) tubal ligation planned: Status: Acute Problem details: Patient is now day #1 status post tubal ligation. She has moderate discomfort in her abdomen around the tubal site but otherwise is doing well. Reason for Visit Reason for Visit: induction Hospital Course Hospital Course: Patient delivered by vaginal delivery earlier yesterday morning. She underwent tubal ligation in the early afternoon hours and that went well. She is having some moderate pain but is ambulating well and tolerating a regular diet. She is breast-feeding fairly well. She is felt to be stable for discharge this morning. Information Peripartum Data: Delivery Method: Vaginal Physical Exam Const: COMMON NORMALS: no acute distress and patient oriented x3 GENERAL APPEARANCE: cooperative Resp: COMMON NORMALS: normal respiratory effort, No retractions, No use of accessory muscles and clear to auscultation bilaterally AUSCULTATION: clear to auscultation bilaterally Cardio: COMMON NORMALS: regular rate, regular rhythm and No murmurs present (Cardio) RATE: regular rate RHYTHM: regular rhythm GI: COMMON NORMALS: Soft to palpation PALPATION: Yes Soft to palpation and Yes Tenderness to palpation present (GI) (Mild to moderate periumbilical tenderness. Fundus is firm.) Extremity: COMMON NORMALS: normal to inspection, full ROM and no pedal edema Neuro: COMMON NORMALS: patient oriented x3, CN's II-XII intact bilaterally, no focal motor deficits and no sensory deficits noted Psych: COMMON NORMALS: mental status grossly normal, Normal thought process present, cooperative and normal affect THOUGHT PROCESS: Normal thought process present Urinary Catheter Management^: Stuart: Cath Placed During This Visit: yes Urinary Catheter Date of Insertion: 12/03/19 Urinary Catheter Time of Insertion: 21:25 Discharge Data Data Completed and Pending: Pending at discharge Category Date Time Status Pathology: Surgic al [PTH] Routine Pth 12/04/19 13:10 Received Labs from last 24 hours 12/05/19 12/05/19 12/05/19 08:57 05:30 01:50 WBC 12.8 H RBC 3.03 L Hgb 6.7 L Hct 23.9 L MCV 78.9 L MCH 22.1 L MCHC 28.0 L RDW 16.3 H Plt Count 386 MPV 9.4 POC Glucose 104 79 12/05/19 12/04/19 12/04/19 01:28 21:44 19:29 WBC RBC Hgb Hct MCV MCH MCHC RDW Plt Count MPV POC Glucose 112 79 109 12/04/19 14:41 WBC RBC Hgb Hct MCV MCH MCHC RDW Plt Count MPV POC Glucose 79 Vitals: Last Vital Signs Temp 98.4 F 12/05/19 09:00 Pulse 99 12/05/19 09:00 Resp 17 12/05/19 09:00 BP 101/64 12/05/19 09:00 Pulse Ox 98 12/05/19 09:00 Discharge Plan Discharge Patient Disposition: Home Condition: Stable Prescriptions: New hydrocodone-acetaminophen 5-325 mg Tablet 1 - 2 tab PO Q6H PRN (Reason: Moderate To Severe Pain) Qty: 40 RF: 0 docusate sodium 100 mg Capsule 100 mg PO BID Qty: 60 RF: 1 ibuprofen 800 mg Tablet 800 mg PO TID Qty: 90 RF: 2 Continued PNV cmb#95-ferrous fumarate-FA [] 28 mg iron- 800 mcg Tablet 1 tab PO DAILY RF: 0 Lantus U-100 Insulin 100 unit/mL Solution 20 unit SUBCUT QPM RF: 0 pantoprazole [Protonix] 40 mg Tablet,Delayed Release (Dr/Ec) 40 mg PO DAILY RF: 0 metformin 500 mg tablet extended release 24 hr 500 mg PO DAILY RF: 0 Discharge Orders: Discharge Order (Routine); Ordered 12/05/19 Ordered By: Roque Rios Referrals: Roque Rios MD [Primary Care Provider] - (In approximately 6 weeks and as needed.) Discharge Diet: Usual diet Discharge Activity: Resume usual activity Patient Instructions: , Vitamins (By mouth), Your Baby (DC), OB Discharge Report, OB Food/Drug Interaction Guide, OB Home Care, OB Proud Parent Packet, OB Vaginal Deliveries Discharge Attestations PAPER CORE MACHINE OPERATOR Time Spent in Discharge Care*: less than 30 min Specific Discharge Activities: Specific discharge activities: educating patient, documenting/other paperwork and evaluating patient/reviewing data Status at Discharge: Cognitive status at discharge: cognitively intact , Behavioral status at discharge: cooperative , Functional status at discharge: independent ambulation Coding Level of Care Code Acute Accounts Payable Representative for Chg Fwd Exam Detailed Diagnoses Gestational diabetes O24.419 Normal spontaneous vaginal delivery O80 tubal ligation planned
[2019-12-05 09:56] VITALS: BP 108/72; PULSE 98; RESP 18; TEMP 36.8; O2SAT 96
[2019-12-05 10:44] VITALS: BP 108/72; PULSE 98; RESP 18; TEMP 36.8; O2SAT 96
== END 2019-12-05 10:52 | disposition home or self-care (01) | DRG 798 ==
PROVIDERS: Family Medicine; Admitting Provider Family Medicine; PCP Family Medicine; Visit Provider Family Medicine
PROC: 0U574ZZ Destruction of Bilateral Fallopian Tubes, Percutaneous Endoscopic Approach (ICD-10-PCS; CPT 58605; principal; 2019-12-04 12:15)
DX: O24.424 Gestational diabetes mellitus in childbirth, insulin controlled (principal); Z37.0 Single live birth; O76 Abnormality in fetal heart rate and rhythm complicating labor and delivery; Z3A.37 37 weeks gestation of pregnancy
CPT/HCPCS: 12345; 36415; 36416; 51702; 59409; 82962; 85025; 85027; 88302; 96372; 96374; J2405; J2704; J2795; J3010; J3490; J7030

== ENCOUNTER 2019-12-11 11:11 | Outpatient (CLI) | payer BC, MEDICAID, SELFPAY ==
--- NOTE | 2019-12-11 11:21 | USCV_ITS ---
Olesya Humphries Age: 29 Gender: F : 1990 Exam Date: 12/11/2019 11:46 Ordering Phys: Roque Rios MD Technologist: Yisel Chavarria Exam Location: [facility] [place] Indication: bilateral edema HISTORY: Bilateral lower extremity edema. One week post PROCEDURES: Bilaterally, the common femoral, superficial femoral, profunda femoral, popliteal, posterior tibial, greater saphenous veins, and the peroneal trunk were identified and interrogated in the standard fashion. These veins were found to be easily compressible with spontaneous blood flow. FINDINGS: Normal 2-D Doppler and augmentation and compressibility throughout the lower extremity venous structures. Additional imaging through the proximal calf veins also reveals no thrombus. Limited evaluation of the greater saphenous vein is patent with no thrombus.. CONCLUSIONS No DVT bilateral lower extremities. Dr. Barbara Mitchell DO (Electronically Signed) Final Date: 11 December 2019 13:01 S
== END 2019-12-11 11:12 | disposition home or self-care (01) ==
LOC: RAD 11:14
PROVIDERS: PCP Family Medicine; Visit Provider Family Medicine
DX: R60.0 Localized edema (principal)
CPT/HCPCS: 93970

== ENCOUNTER 2020-04-16 10:15 | Emergency (ER) | payer BC, MEDICAID, SELFPAY ==
[2020-04-16 10:26] VITALS: BP 119/79; PULSE 90; RESP 18; TEMP 36.7; O2SAT 98; BMI 38.0
--- NOTE | 2020-04-16 10:27 | W.ED.ABDPA2 ---
HPI - Abdominal Pain General: Chief Complaint: Abdominal Pain Stated Complaint: ABDOMINAL PAIN, VOMITING Time Seen by Provider: 04/16/20 10:25 History of Present Illness: HPI narrative: 29-year-old female presents emergency room complaint abdominal pain vomiting. She has a history of diabetes mellitus. She is not had any vomiting here she is having pain largely in the epigastric area radiating up into the chest at times. After she been here for a time she started getting severe coughing. She states her blood sugars have been decently controlled she is not had any fever sweats chills cough sweats flulike symptoms dysuria urgency or frequency. MD elicited complaint: abdominal pain Pertinent past history: gastrointestinal bleeding Onset (ago): hour(s) Pain Consistency: constant Location: Epigastric Severity: moderate Quality: cramping Radiation: LUQ Exacerbating factors: eating, vomiting and movement Relieving factors: rest Associated Symptoms: Reports anorexia, bloating, GI cramping and hematemesis (Streaks); Denies belching, change in bowel habits, change in stool character, chills, coffee ground emesis, constipation, diarrhea, dyspepsia, dysuria, excessive flatus, fever(s), heartburn, hematochezia, hematuria, fecal incontinence, loose stools, melena, nausea, poor appetite, syncope and vomiting Related Data: Date of Last Menstrual Period: 03/15/19 Review of Systems Const: Denies: chills ENMT: Denies: throat pain, ear or mastoid pain, nasal discharge or nasal congestion Card: Denies: syncope Resp: Denies: dyspnea, productive cough or non-productive cough GI: Reports: hematemesis (Streaks), bloating and GI cramping; Denies: nausea, vomiting, coffee ground emesis, heartburn, diarrhea, constipation, belching, excessive flatus, fecal incontinence, change in bowel habits, change in stool character, hematochezia or melena : Denies: dysuria or hematuria Skin/Breast: Denies: rash or pruritus PFSH ED PFSH: Family History (Updated 12/03/19 @ 00:06 by Anna Beard RN) Mother Diabetes Hypertension Hyperlipidemia Heart disease Osteoporosis Hypothyroid Neuropathy Father Diabetes Hypertension Hyperlipidemia Cancer Neuropathy Grandmother Cancer Osteoporosis Social History (Reviewed 10/09/19 @ 22:39 by Preston Rivera MD, [facility] [place] [facility] [place] Smoking and tobacco status: never smoked Female Reproductive History: Date of last menstrual period: 03/15/19 Physical Exam Const: COMMON NORMALS: no acute distress GENERAL APPEARANCE: cooperative and comfortable ORIENTATION/CONSCIOUSNESS: Yes awake, Yes oriented to person, Yes oriented to place and Yes oriented to time HENMT: COMMON NORMALS: normocephalic, atraumatic and hearing grossly normal bilaterally HEAD & SCALP: normocephalic and atraumatic Neck/C-Spine: COMMON NORMALS: no JVD Resp: COMMON NORMALS: normal respiratory effort, No retractions, No use of accessory muscles and clear to auscultation bilaterally AUSCULTATION: clear to auscultation bilaterally Cardio: COMMON NORMALS: no JVD, regular rate, regular rhythm and No murmurs present (Cardio) RATE: regular rate RHYTHM: regular rhythm GI: COMMON NORMALS: Soft to palpation and No hepatosplenomegaly present AUSCULTATION: Yes normoactive bowel sounds PALPATION: Yes Soft to palpation, No Tenderness to palpation present (GI), No Guarding due to palpation present (GI) and Yes No hepatosplenomegaly present Extremity: COMMON NORMALS: normal to inspection, capillary refill normal, no clubbing, cyanosis or edema, no calf tenderness and no pedal edema Neuro: SENSORIUM/ORIENTATION: Yes oriented to person, Yes oriented to place and Yes oriented to time Skin: COMMON NORMALS: no rashes or lesions noted GENERAL SKIN EXAM: no rashes or lesions noted Course Vital Signs: Vital signs: Vital Signs Temperature 98.1 F 04/16/20 10:26 Pulse Rate 71 04/16/20 13:59 Respiratory Rate 20 H 04/16/20 13:59 Blood Pressure 115/71 04/16/20 13:59 Pulse Oximetry 100 04/16/20 13:59 MDM - Abdominal Pain MDM Narrative: Medical decision making narrative: Patient improved afteR GI cocktail. CT is unremarkable we will discharge her home on Carafate and Protonix. Clear liquid diet for 48 hours and bland diet after that follow-up with primary care return if worsens. Lab Data: Labs: Lab Results 04/16/20 04/16/20 04/16/20 Range/Units 11:15 11:15 11:15 WBC 7.1 (4.0-10.0) 10^3/ uL RBC 4.63 (4.1-5.3) 10^6/u L Hgb 10.4 L (11.5-15.3) g/dL Hct 35.7 L (37.0-47.0) % MCV 77.1 L (81-99) fL MCH 22.5 L (28.0-34.0) pg MCHC 29.1 L (30.0-36.0) g/dL RDW 15.1 (12.1-15.1) % Plt Count 595 H (130-400) 10^3/c mm MPV 8.7 (7.4-10.4) fL Neut % (Auto) 54.3 % Lymph % (Auto) 37.3 % [place] % (Auto) 5.5 % Eos % (Auto) 2.1 % Baso % (Auto) 0.7 % Neut # (Auto) 3.87 (1.8-7.7) 10^3/u L Lymph # (Auto) 2.7 (0.8-4.8) 10^3/u L [place] # (Auto) 0.4 (0.2-0.9) 10^3/u L Eos # (Auto) 0.2 (0.0-0.8) 10^3/u L Baso # (Auto) 0.1 (0.0-0.1) 10^3/u L Nucleated RBC % (a uto) 0 % Nucleated RBCs # 0.0 /100WBC Sodium 140 (136-145) mmol/L Potassium 4.6 (3.5-5.1) mmol/L Chloride 107 (98-107) mmol/L Carbon Dioxide 24 (22-29) mmol/L Anion Gap 13.6 (5-19) BUN 8 (6-20) mg/dL Creatinine 0.7 (0.5-0.9) mg/dL GFR Calculation 97.6 (90-130) mL/min Glucose 99 (65-115) mg/dL Calculated Osmolal ity 288 (285-295) mOsm/k g Calcium 8.8 (8.5-10.5) mg/dL Total Bilirubin 0.2 (0.15-1.2) mg/dL AST 18 (0-32) U/L ALT 19 (0-33) U/L Alkaline Phosphata se 116 H (35-105) IU/L Total Protein 7.4 (6.6-8.7) g/dL Albumin 4.0 (3.5-5.2) g/dL Globulin 3.4 (1.3-4.6) g/dL Lipase 42 (13-60) U/L HCG, Qual Negative (Negative) Urine Color (Yellow) Urine Appearance (CLEAR) Urine pH (5-7) Ur Specific Gravit y (1.005-1.030) Urine Protein (Negative) Urine Glucose (UA) (Normal) Urine Ketones (Negative) Urine Blood (Negative) Urine Nitrate (Negative) Urine Bilirubin (Negative) Urine Urobilinogen (Negative) mg/dL Ur Leukocyte Mer ase (Negative) Urine RBC (0-2) /hpf Urine WBC (0-5) /hpf Ur Squamous Epith Cells (0-5) /hpf Amorphous Sediment Urine Bacteria (NONE) /hpf 12//20 Range/Units 11:15 WBC (4.0-10.0) 10^3/ uL RBC (4.1-5.3) 10^6/u L Hgb (11.5-15.3) g/dL Hct (37.0-47.0) % MCV (81-99) fL MCH (28.0-34.0) pg MCHC (30.0-36.0) g/dL RDW (12.1-15.1) % Plt Count (130-400) 10^3/c mm MPV (7.4-10.4) fL Neut % (Auto) % Lymph % (Auto) % [place] % (Auto) % Eos % (Auto) % Baso % (Auto) % Neut # (Auto) (1.8-7.7) 10^3/u L Lymph # (Auto) (0.8-4.8) 10^3/u L [place] # (Auto) (0.2-0.9) 10^3/u L Eos # (Auto) (0.0-0.8) 10^3/u L Baso # (Auto) (0.0-0.1) 10^3/u L Nucleated RBC % (a uto) % Nucleated RBCs # /100WBC Sodium (136-145) mmol/L Potassium (3.5-5.1) mmol/L Chloride (98-107) mmol/L Carbon Dioxide (22-29) mmol/L Anion Gap (5-19) BUN (6-20) mg/dL Creatinine (0.5-0.9) mg/dL GFR Calculation (90-130) mL/min Glucose (65-115) mg/dL Calculated Osmolal ity (285-295) mOsm/k g Calcium (8.5-10.5) mg/dL Total Bilirubin (0.15-1.2) mg/dL AST (0-32) U/L ALT (0-33) U/L Alkaline Phosphata se (35-105) IU/L Total Protein (6.6-8.7) g/dL Albumin (3.5-5.2) g/dL Globulin (1.3-4.6) g/dL Lipase (13-60) U/L HCG, Qual (Negative) Urine Color Yellow (Yellow) Urine Appearance Clear (CLEAR) Urine pH 5 (5-7) Ur Specific Gravit y 1.015 (1.005-1.030) Urine Protein Neg (Negative) Urine Glucose (UA) Norm (Normal) Urine Ketones Negative (Negative) Urine Blood 3+ H (Negative) Urine Nitrate Negative (Negative) Urine Bilirubin Neg (Negative) Urine Urobilinogen 1 H (Negative) mg/dL Ur Leukocyte Mer ase Negative (Negative) Urine RBC 15-25 H (0-2) /hpf Urine WBC 0-4 H (0-5) /hpf Ur Squamous Epith Cells 0-4 H (0-5) /hpf Amorphous Sediment Not Reportable Urine Bacteria Trace (NONE) /hpf Discharge Plan Discharge Patient Disposition: Home Clinical Impression: Gastroesophageal reflux disease with esophagitis Condition: Stable Prescriptions: New Protonix 40 mg tablet,delayed release (DR/EC) 40 mg PO DAILY 28 Days Qty: 30 RF: 0 Carafate 1 gram tablet 1 g PO Q6H 28 Days Qty: 112 RF: 0 No Action Lantus U-100 Insulin 100 unit/mL Solution 20 unit SUBCUT QPM RF: 0 metformin 500 mg tablet extended release 24 hr 500 mg PO DAILY RF: 0 cyclobenzaprine 10 mg Tablet 10 mg PO DAILY PRN (Reason: Muscle Pain) RF: 0 ibuprofen 800 mg tablet 800 mg PO TID PRN (Reason: Pain) RF: 0 Discharge Orders: Discharge ED (Routine); Ordered 04/16/20 Ordered By: Keshawn Mtz Referrals: Roque Rios MD [Primary Care Provider] - Discharge Diet: Clear Liquid Coding Level of Care Code ED [employer] Supervisor for Chg Lv
--- NOTE | 2020-04-16 10:44 | CTR_ITS ---
PROCEDURE INFORMATION: Exam: CT Abdomen And Pelvis With Contrast Exam date and time: 04/16/2020 11:47 AM Age: 29 years old Clinical indication: Abdominal pain; Epigastric; Prior surgery; Surgery type: Gb; Additional info: Abd pain TECHNIQUE: Imaging protocol: Computed tomography of the abdomen and pelvis with intravenous contrast. Radiation optimization: All CT scans at this facility use at least one of these dose optimization techniques: automated exposure control; mA and/or kV adjustment per patient size (includes targeted exams where dose is matched to clinical indication); or iterative reconstruction. Contrast material: OMNI 300; Contrast volume: 95 ml; Contrast route: INTRAVENOUS (IV); COMPARISON: CT abdomen pelvis w con* [id number] 10/31/2018 8:49 PM RADIATION DOSE METRICS: Total DLP (mGy-cm): 1347.18 FINDINGS: Mediastinal space: Small hiatal hernia. Liver: There are several subcentimeter cystic hepatic lesions with benign features, stable from the prior CT scan. Follow-up is not necessary. Gallbladder and bile ducts: The gallbladder has been removed. Pancreas: Normal. No ductal dilation. Spleen: Normal. No splenomegaly. Adrenal glands: Normal. No mass. Kidneys and ureters: Normal. No hydronephrosis. Stomach and bowel: There is diverticulosis of the colon without evidence of diverticulitis. Appendix: A normal appendix is identified. Intraperitoneal space: Unremarkable. No free air. No significant fluid collection. Vasculature: Unremarkable. No abdominal aortic aneurysm. Lymph nodes: Unremarkable. No enlarged lymph nodes. Urinary bladder: Unremarkable as visualized. Reproductive: There is a tampon in the vagina. Bones/joints: Unremarkable. No acute fracture. Soft tissues: Unremarkable. CT/CT abdomen pelvis w con* [id number] IMPRESSION: No acute findings.Non acute findings as described above. Radiation Dose CTDIVOL = (mGy): DLP = 1347.18 (mGy-cm)
[2020-04-16] MEDS: sodium chloride 0.9% 1,000 ML 999 ML IV (11:20)
[2020-04-16 11:21] VITALS: RESP 20
[2020-04-16] MEDS: ondansetron 2 mg/ML SDV 2 mL 4 MG IVP (11:21)
[2020-04-16] MEDS: morphine 4 mg/mL SDV 1 mL IVP (11:21)
[2020-04-16 11:28] LABS: Basophils # 0.1 10^3/uL (0.0-0.1); Basophils % 0.7 %; Eosinophils # 0.2 10^3/uL (0.0-0.8); Eosinophils % 2.1 %; Hematocrit 35.7 % (37.0-47.0); Hemoglobin 10.4 g/dL (11.5-15.3); Lymphocytes # 2.7 10^3/uL (0.8-4.8); Lymphocytes % 37.3 %; Mean Corpuscular HGB Conc 29.1 g/dL (30.0-36.0); Mean Corpuscular Hemoglobin 22.5 pg (28.0-34.0); Mean Corpuscular Volume 77.1 fL (81-99); Mean Platelet Volume 8.7 fL (7.4-10.4); Monocytes # 0.4 10^3/uL (0.2-0.9); Monocytes % 5.5 %; Neutrophils # 3.87 10^3/uL (1.8-7.7); Neutrophils % 54.3 %; Nucleated Red Blood Cells % 0 %; Platelet Count 595 10^3/cmm (130-400); Red Blood Count 4.63 10^6/uL (4.1-5.3); Red Cell Distribution Width 15.1 % (12.1-15.1); White Blood Count 7.1 10^3/uL (4.0-10.0)
[2020-04-16 11:42] LABS: HCG, Serum Qual Negative (Negative)
[2020-04-16] MEDS: LORazepam 2 mg/mL INJ 1 mL 1 MG IVP (11:44)
[2020-04-16 11:51] LABS: Alanine Aminotransferase 19 U/L (0-33); Alkaline Phosphatase 116 IU/L (35-105); Anion Gap 13.6 (5-19); Aspartate Amino Transferase 18 U/L (0-32); Blood Urea Nitrogen 8 mg/dL (6-20); Calcium 8.8 mg/dL (8.5-10.5); Carbon Dioxide 24 mmol/L (22-29); Chloride 107 mmol/L (98-107); Globulin 3.4 g/dL (1.3-4.6); Glomerular Filtration Rate 97.6 mL/min (90-130); Glucose 99 mg/dL (65-115); Lipase 42 U/L (13-60); Osmolality Calculated 288 mOsm/kg (285-295); Potassium 4.6 mmol/L (3.5-5.1); Sodium 140 mmol/L (136-145); Total Bilirubin 0.2 mg/dL (0.15-1.2); Total Protein 7.4 g/dL (6.6-8.7)
[2020-04-16] MEDS: lidocaine 2% viscous 15 ML, aluminum-mag hydrox-simethicon 30 ML, sucralfate oral liq 1 GM PO (11:59)
[2020-04-16 12:00] LABS: Add Urine Microscopic? YES; Bilirubin Urine Neg (Negative); Blood Urine 3+ (Negative); Glucose Urine UA Norm (Normal); Ketones Urine Negative (Negative); Leukocyte Esterase Urine Negative (Negative); Nitrate Urine Negative (Negative); Protein Urine Neg (Negative); RBC Urine 15-25 /hpf (0-2); Specific Gravity, Urine 1.015 (1.005-1.030); Urine Appearance Clear (CLEAR); Urine Color Yellow (Yellow); Urobilinogen Urine 1 mg/dL (Negative); pH Urine 5 (5-7)
[2020-04-16 12:01] LABS: Add Urine Culture? Yes; Bacteria Urine TRACE /hpf; Squamous Epithelial Cell Urine 0-4 /hpf (0-5); WBC Urine 0-4 /hpf (0-5)
[2020-04-16] MEDS: iohexol 300 mg/mL 100 mL Btl IV (12:22)
[2020-04-16 13:59] VITALS: BP 115/71; PULSE 71; RESP 20; O2SAT 100
== END 2020-04-16 13:59 | disposition home or self-care (01) ==
PROVIDERS: Emergency Provider Family Medicine; PCP Family Medicine
DX: K21.00 Gastro-esophageal reflux disease with esophagitis, without bleeding (principal); Z79.4 Long term (current) use of insulin
CPT/HCPCS: 12345; 74177; 80053; 81001; 83690; 84703; 85025; 87086; 96361; 96374; 96375; 99282; 99284; J2060; J2270; J2405; J7030; Q9967

== ENCOUNTER 2020-05-22 11:44 | Emergency (ER) | payer BC, MEDICAID, SELFPAY ==
[2020-05-22 11:52] VITALS: BP 128/81; PULSE 97; RESP 16; TEMP 36.9; O2SAT 98; BMI 35.9
--- NOTE | 2020-05-22 12:18 | ED_ITS ---
HPI - Abdominal Pain General: Chief Complaint: Abdominal Pain Stated Complaint: Lower ABD Pain Time Seen by Provider: 05/22/20 12:03 Source: patient Mode of arrival: ambulatory Limitations: no limitations History of Present Illness: HPI narrative: 30-year-old female who states she has been having abdominal pain along with nausea vomiting over the last 5 days. States her pain is been sharp in nature and in her left lower quadrant. He states she is concerned she may be as she is 9 days late for her period. She has had a tubal ligation. She had nausea vomiting. Denies any fever. States that her pain is improved with rest and worse with movement. MD elicited complaint: abdominal pain Associated Symptoms: Reports nausea and vomiting; Denies chills, diarrhea, dysuria and fever(s) Related Data: Date of Last Menstrual Period: 04/15/20 Review of Systems Const: Denies: fever(s), chills, body aches or change in appetite Eyes: Denies: blurry vision or eye discomfort ENMT: Denies: throat pain or dental pain Card: Denies: chest pain Resp: Denies: dyspnea GI: Reports: abdominal pain, nausea and vomiting; Denies: diarrhea : Denies: dysuria Musc: Denies: neck pain or back pain Skin/Breast: Denies: rash Neuro: Denies: headache(s) Psych: Denies: depression Jaime/Lymph: Denies: easy bruising All/Imm: Denies: urticaria PFSH ED PFSH: Family History Mother Diabetes Hypertension Hyperlipidemia Heart disease Osteoporosis Hypothyroid Neuropathy Father Diabetes Hypertension Hyperlipidemia Cancer Neuropathy Grandmother Cancer Osteoporosis Social History Smoking and tobacco status: never smoked Female Reproductive History: Date of last menstrual period: 04/15/20 Physical Exam Const: COMMON NORMALS: no acute distress, patient oriented x3 and healthy appearing HENMT: COMMON NORMALS: normocephalic and atraumatic HEAD & SCALP: normocephalic and atraumatic Eye: COMMON NORMALS: Equal, round and reactive pupils present and EOMs intact bilaterally PUPIL: Yes Equal, round and reactive pupils present Neck/C-Spine: COMMON NORMALS: full ROM and supple Chest: COMMONS NORMALS: normal inspection of the chest and normal palpation of entire chest wall Resp: COMMON NORMALS: normal respiratory effort, No retractions, No use of accessory muscles and clear to auscultation bilaterally AUSCULTATION: clear to auscultation bilaterally Cardio: COMMON NORMALS: regular rate, regular rhythm and No murmurs present (Cardio) RATE: regular rate RHYTHM: regular rhythm GI: COMMON NORMALS: Normal to inspection, nondistended, normoactive bowel sounds present, Soft to palpation, non-tender and no masses PALPATION: Yes Soft to palpation and Yes Tenderness to palpation present (GI) Details: LLQ Extremity: COMMON NORMALS: normal to inspection and full ROM Neuro: COMMON NORMALS: patient oriented x3, moves all extremities and no focal motor deficits Psych: COMMON NORMALS: mental status grossly normal, Normal thought process present and cooperative THOUGHT PROCESS: Normal thought process present Skin: COMMON NORMALS: no rashes or lesions noted and no wounds GENERAL SKIN EXAM: no rashes or lesions noted Course Vital Signs: Vital signs: Vital Signs Temperature 98.4 F 05/22/20 11:52 Pulse Rate 97 05/22/20 11:52 Respiratory Rate 17 05/22/20 13:36 Blood Pressure 103/68 05/22/20 13:36 Pulse Oximetry 98 05/22/20 11:52 MDM - Abdominal Pain MDM Narrative: Medical decision making narrative: Kary presents here with abdominal pain. Her CT scan here showed no acute findings and her blood work is all normal. Her pain is improved and exam at discharge is benign. Will place her on pain meds and she is to follow-up with PCP in 2 to 4 days return to the ER if worsening. She understands and agrees to plan. Lab Data: Labs: Lab Results 05/22/20 05/22/20 05/22/20 Range/Units 12:20 12:20 12:20 WBC 8.3 (4.0-10.0) 10^3/ uL RBC 4.96 (4.1-5.3) 10^6/u L Hgb 10.8 L (11.5-15.3) g/dL Hct 37.4 (37.0-47.0) % MCV 75.4 L (81-99) fL MCH 21.8 L (28.0-34.0) pg MCHC 28.9 L (30.0-36.0) g/dL RDW 15.8 H (12.1-15.1) % Plt Count 531 H (130-400) 10^3/c mm MPV 8.8 (7.4-10.4) fL Neut % (Auto) 57.7 % Lymph % (Auto) 33.4 % [place] % (Auto) 7.0 % Eos % (Auto) 1.1 % Baso % (Auto) 0.6 % Neut # (Auto) 4.81 (1.8-7.7) 10^3/u L Lymph # (Auto) 2.8 (0.8-4.8) 10^3/u L [place] # (Auto) 0.6 (0.2-0.9) 10^3/u L Eos # (Auto) 0.1 (0.0-0.8) 10^3/u L Baso # (Auto) 0.1 (0.0-0.1) 10^3/u L Nucleated RBC % (a uto) 0 % Nucleated RBCs # 0.0 /100WBC Sodium 137 (136-145) mmol/L Potassium 4.0 (3.5-5.1) mmol/L Chloride 103 (98-107) mmol/L Carbon Dioxide 25 (22-29) mmol/L Anion Gap 13.0 (5-19) BUN 16 (6-20) mg/dL Creatinine 0.7 (0.5-0.9) mg/dL GFR Calculation 97.0 (90-130) mL/min Glucose 97 (65-115) mg/dL Calculated Osmolal ity 285 (285-295) mOsm/k g Calcium 9.2 (8.5-10.5) mg/dL Total Bilirubin 0.3 (0.15-1.2) mg/dL AST 16 (0-32) U/L ALT 16 (0-33) U/L Alkaline Phosphata se 111 H (35-105) IU/L Total Protein 8.0 (6.6-8.7) g/dL Albumin 4.4 (3.5-5.2) g/dL Globulin 3.6 (1.3-4.6) g/dL Lipase 56 (13-60) U/L HCG, Qual Negative (Negative) Urine Color (Yellow) Urine Appearance (CLEAR) Urine pH (5-7) Ur Specific Gravit y (1.005-1.030) Urine Protein (Negative) Urine Glucose (UA) (Normal) Urine Ketones (Negative) Urine Blood (Negative) Urine Nitrate (Negative) Urine Bilirubin (Negative) Urine Urobilinogen (Negative) mg/dL Ur Leukocyte Mer ase (Negative) 05/22/20 Range/Units 13:35 WBC (4.0-10.0) 10^3/ uL RBC (4.1-5.3) 10^6/u L Hgb (11.5-15.3) g/dL Hct (37.0-47.0) % MCV (81-99) fL MCH (28.0-34.0) pg MCHC (30.0-36.0) g/dL RDW (12.1-15.1) % Plt Count (130-400) 10^3/c mm MPV (7.4-10.4) fL Neut % (Auto) % Lymph % (Auto) % [place] % (Auto) % Eos % (Auto) % Baso % (Auto) % Neut # (Auto) (1.8-7.7) 10^3/u L Lymph # (Auto) (0.8-4.8) 10^3/u L [place] # (Auto) (0.2-0.9) 10^3/u L Eos # (Auto) (0.0-0.8) 10^3/u L Baso # (Auto) (0.0-0.1) 10^3/u L Nucleated RBC % (a uto) % Nucleated RBCs # /100WBC Sodium (136-145) mmol/L Potassium (3.5-5.1) mmol/L Chloride (98-107) mmol/L Carbon Dioxide (22-29) mmol/L Anion Gap (5-19) BUN (6-20) mg/dL Creatinine (0.5-0.9) mg/dL GFR Calculation (90-130) mL/min Glucose (65-115) mg/dL Calculated Osmolal ity (285-295) mOsm/k g Calcium (8.5-10.5) mg/dL Total Bilirubin (0.15-1.2) mg/dL AST (0-32) U/L ALT (0-33) U/L Alkaline Phosphata se (35-105) IU/L Total Protein (6.6-8.7) g/dL Albumin (3.5-5.2) g/dL Globulin (1.3-4.6) g/dL Lipase (13-60) U/L HCG, Qual (Negative) Urine Color Yellow (Yellow) Urine Appearance Clear (CLEAR) Urine pH 5 (5-7) Ur Specific Gravit y 1.025 (1.005-1.030) Urine Protein Neg (Negative) Urine Glucose (UA) Norm (Normal) Urine Ketones Negative (Negative) Urine Blood Neg (Negative) Urine Nitrate Negative (Negative) Urine Bilirubin Neg (Negative) Urine Urobilinogen Norm (Negative) mg/dL Ur Leukocyte Mer ase Negative (Negative) Imaging Data ^: CT Abd/Pel: Attestation: I personally reviewed and interpreted this imaging study as follows: Radiologist's impression: [place] [id number] CT Scan Report Signed Patient: Olesya Humphries Unit #: [id number] : 1990 Age/Sex: 30 / F ADM Date: 05/22/20 Loc: ER Room/Bed: Attending Dr: Ordering Provider/Ordering MD: Cortez Srivastava MD Date of Service: 05/22/20 Procedure(s): CT abdomen pelvis w con* [id number] Accession Number(s): [id number] Report Number: [id number] PROCEDURE INFORMATION: Exam: CT Abdomen And Pelvis With Contrast Exam date and time: 05/22/2020 1:02 PM Age: 30 years old Clinical indication: Abdominal pain; Localized; Left lower quadrant (llq); Prior surgery; Surgery date: 6+ months; Surgery type: Gb, tubal; Patient HX: C/O llq abd pain w n/v TECHNIQUE: Imaging protocol: Computed tomography of the abdomen and pelvis with contrast. Radiation optimization: All CT scans at this facility use at least one of these dose optimization techniques: automated exposure control; mA and/or kV adjustment per patient size (includes targeted exams where dose is matched to clinical indication); or iterative reconstruction. Contrast material: OMNI 300; Contrast volume: 95 ml; Contrast route: INTRAVENOUS (IV); COMPARISON: CT abdomen pelvis w con* [id number] 04/16/2020 12:11 PM RADIATION DOSE METRICS: Total DLP (mGy-cm): 1258.97 FINDINGS: Liver: There is a tiny benign subcentimeter cyst in the right lobe of the liver. Otherwise liver is unremarkable. Gallbladder and bile ducts: Cholecystectomy. Normal bile ducts. Pancreas: Normal. No ductal dilation. Spleen: Normal. No splenomegaly. Adrenal glands: Normal. No mass. Kidneys and ureters: Normal. No hydronephrosis. Stomach and bowel: There is mild diverticulosis but no evidence of acute diverticulitis. There is no bowel obstruction or significant dilatation. Appendix: The appendix is seen and is normal. Intraperitoneal space: There is a trace amount of free fluid in the pelvis which may be physiologic. Vasculature: Unremarkable. No abdominal aortic aneurysm. Lymph nodes: Unremarkable. No enlarged lymph nodes. Urinary bladder: Unremarkable as visualized. Reproductive: There is a 1.8 cm right ovarian follicle with rim enhancement which may represent a recently collapsed follicle. Bones/joints: Unremarkable. No acute fracture. Soft tissues: Unremarkable. CT/CT abdomen pelvis w con* [id number] IMPRESSION: 1. Mild diverticulosis. 2. Probable partially collapsed right ovarian follicle. 3. No other acute abnormalities are seen in the abdomen and pelvis. Discharge Plan Discharge Patient Disposition: Home Clinical Impression: Abdominal pain Qualifiers: Abdominal location: left lower quadrant Qualified Code(s): R10.32 - Left lower quadrant pain Condition: Stable Prescriptions: [place] 5-325 mg tablet 1 tab PO Q6H PRN (Reason: pain) Qty: 14 RF: 0 ondansetron 4 mg tablet,disintegrating 4 mg PO Q6H PRN (Reason: nausea and vomiting) Qty: 14 RF: 0 No Action metoclopramide HCl 5 mg tablet 5 mg PO TID PRN (Reason: migraines) RF: 0 pantoprazole 40 mg tablet,delayed release (DR/EC) 40 mg PO BID RF: 0 desvenlafaxine succinate 50 mg tablet extended release 24 hr 50 mg PO DAILY RF: 0 cyclobenzaprine 10 mg Tablet 10 mg PO DAILY PRN (Reason: Muscle Pain) RF: 0 ibuprofen 800 mg tablet 800 mg PO TID PRN (Reason: Pain) RF: 0 Discharge Orders: Discharge ED (Routine); Ordered 05/22/20 Ordered By: Cortez Srivastava Referrals: Roque Rios MD [Primary Care Provider] - 1-3 days Discharge Diet: Advance as tolerated Discharge Activity: Resume usual activity Patient Instructions: Abdominal Pain (ED) Coding Level of Care Code ED Edge Beader for Chg Fwd Exam Comprehensive
[2020-05-22 12:29] LABS: Basophils # 0.1 10^3/uL (0.0-0.1); Basophils % 0.6 %; Eosinophils # 0.1 10^3/uL (0.0-0.8); Eosinophils % 1.1 %; Hematocrit 37.4 % (37.0-47.0); Hemoglobin 10.8 g/dL (11.5-15.3); Lymphocytes # 2.8 10^3/uL (0.8-4.8); Lymphocytes % 33.4 %; Mean Corpuscular HGB Conc 28.9 g/dL (30.0-36.0); Mean Corpuscular Hemoglobin 21.8 pg (28.0-34.0); Mean Corpuscular Volume 75.4 fL (81-99); Mean Platelet Volume 8.8 fL (7.4-10.4); Monocytes # 0.6 10^3/uL (0.2-0.9); Neutrophils # 4.81 10^3/uL (1.8-7.7); Neutrophils % 57.7 %; Nucleated Red Blood Cells % 0 %; Platelet Count 531 10^3/cmm (130-400); Red Blood Count 4.96 10^6/uL (4.1-5.3); Red Cell Distribution Width 15.8 % (12.1-15.1); White Blood Count 8.3 10^3/uL (4.0-10.0)
[2020-05-22 12:30] VITALS: RESP 17
[2020-05-22] MEDS: morphine 4 mg/mL SDV 1 mL IVP (12:30)
[2020-05-22] MEDS: ondansetron 2 mg/ML SDV 2 mL 4 MG IVP (12:30)
[2020-05-22 12:44] LABS: HCG Qualitative Urine. Negative (Negative)
[2020-05-22 12:50] LABS: Alanine Aminotransferase 16 U/L (0-33); Albumin Level 4.4 g/dL (3.5-5.2); Alkaline Phosphatase 111 IU/L (35-105); Aspartate Amino Transferase 16 U/L (0-32); Blood Urea Nitrogen 16 mg/dL (6-20); Calcium 9.2 mg/dL (8.5-10.5); Carbon Dioxide 25 mmol/L (22-29); Chloride 103 mmol/L (98-107); Globulin 3.6 g/dL (1.3-4.6); Glucose 97 mg/dL (65-115); Lipase 56 U/L (13-60); Osmolality Calculated 285 mOsm/kg (285-295); Sodium 137 mmol/L (136-145); Total Bilirubin 0.3 mg/dL (0.15-1.2)
--- NOTE | 2020-05-22 12:52 | CTR_ITS ---
PROCEDURE INFORMATION: Exam: CT Abdomen And Pelvis With Contrast Exam date and time: 05/22/2020 1:02 PM Age: 30 years old Clinical indication: Abdominal pain; Localized; Left lower quadrant (llq); Prior surgery; Surgery date: 6+ months; Surgery type: Gb, tubal; Patient HX: C/O llq abd pain w n/v TECHNIQUE: Imaging protocol: Computed tomography of the abdomen and pelvis with contrast. Radiation optimization: All CT scans at this facility use at least one of these dose optimization techniques: automated exposure control; mA and/or kV adjustment per patient size (includes targeted exams where dose is matched to clinical indication); or iterative reconstruction. Contrast material: OMNI 300; Contrast volume: 95 ml; Contrast route: INTRAVENOUS (IV); COMPARISON: CT abdomen pelvis w con* [id number] 04/16/2020 12:11 PM RADIATION DOSE METRICS: Total DLP (mGy-cm): 1258.97 FINDINGS: Liver: There is a tiny benign subcentimeter cyst in the right lobe of the liver. Otherwise liver is unremarkable. Gallbladder and bile ducts: Cholecystectomy. Normal bile ducts. Pancreas: Normal. No ductal dilation. Spleen: Normal. No splenomegaly. Adrenal glands: Normal. No mass. Kidneys and ureters: Normal. No hydronephrosis. Stomach and bowel: There is mild diverticulosis but no evidence of acute diverticulitis. There is no bowel obstruction or significant dilatation. Appendix: The appendix is seen and is normal. Intraperitoneal space: There is a trace amount of free fluid in the pelvis which may be physiologic. Vasculature: Unremarkable. No abdominal aortic aneurysm. Lymph nodes: Unremarkable. No enlarged lymph nodes. Urinary bladder: Unremarkable as visualized. Reproductive: There is a 1.8 cm right ovarian follicle with rim enhancement which may represent a recently collapsed follicle. Bones/joints: Unremarkable. No acute fracture. Soft tissues: Unremarkable. CT/CT abdomen pelvis w con* [id number] IMPRESSION: 1. Mild diverticulosis. 2. Probable partially collapsed right ovarian follicle. 3. No other acute abnormalities are seen in the abdomen and pelvis. Radiation Dose CTDIVOL = (mGy): DLP = 1258.97 (mGy-cm)
[2020-05-22] MEDS: iohexol 300 mg/mL 100 mL Btl IV (13:13)
[2020-05-22 13:36] VITALS: BP 103/68; RESP 17
[2020-05-22 13:43] LABS: Add Urine Microscopic? NO
[2020-05-22 13:52] LABS: Urine Appearance Clear (CLEAR); Urine Color Yellow (Yellow)
[2020-05-22 13:53] LABS: Bilirubin Urine Neg (Negative); Blood Urine Neg (Negative); Glucose Urine UA Norm (Normal); Ketones Urine Negative (Negative); Leukocyte Esterase Urine Negative (Negative); Nitrate Urine Negative (Negative); Protein Urine Neg (Negative); Specific Gravity, Urine 1.025 (1.005-1.030); Urobilinogen Urine Norm (Negative); pH Urine 5 (5-7)
[2020-05-22 14:15] VITALS: BP 119/73
== END 2020-05-22 14:13 | disposition home or self-care (01) ==
PROVIDERS: Emergency Provider Emergency Medicine; PCP Family Medicine
DX: R10.32 Left lower quadrant pain (principal)
CPT/HCPCS: 12345; 74177; 80053; 81003; 81025; 83690; 84702; 85025; 96361; 96374; 96375; 99282; 99283; J2270; J2405; Q9967

== ENCOUNTER 2020-06-26 18:30 | Emergency (ER) | payer MEDICAID, SELFPAY ==
--- NOTE | 2020-06-26 03:22 | XRR_ITS ---
PROCEDURE INFORMATION: Exam: XR Chest Exam date and time: 06/26/2020 8:02 PM Age: 30 years old Clinical indication: Cough TECHNIQUE: Imaging protocol: XR of the chest Views: 1 view. COMPARISON: CR Chest 1 [place] [id number] 05/15/2016 8:21 PM FINDINGS: The lungs are clear of infiltrate. There are no pleural effusions or pneumothorax. The heart size and pulmonary vascularity are normal. XR/XR chest 1V portable [id number] IMPRESSION: No active disease.
[2020-06-26 18:45] VITALS: BP 126/77; PULSE 83; RESP 18; TEMP 36.8; O2SAT 100; BMI 35.4
[2020-06-26 19:50] VITALS: O2SAT 100
[2020-06-26] MEDS: dexamethasone 4 mg Tablet 10 MG PO (20:11)
--- NOTE | 2020-06-26 20:29 | ED_ITS ---
HPI - COVID General: Chief Complaint: COVID symptoms Stated Complaint: COUGH/HEADACHE/LOSS OF SMELL&TASTE Time Seen by Provider: 06/26/20 19:22 Triage information: Has fever, cough or shortness of breath . No known COVID + exposure last 14 days History of Present Illness: HPI Narrative: 30-year-old female, with a history of asthma. She presents with cough that started yesterday and loss of taste and smell that started today. She has not had a significant fever. She has body aches, and a headache. No shortness of breath at rest, but she notes she is very tired. 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 MD complaint: has COVID symptoms Prior covid testing: no COVID 19 common symptoms: positive cough, non-productive cough, fatigue, body aches, headache(s), loss of sense of smell and/or taste, nasal congestion, nausea and diarrhea; negative throat pain or vomiting COVID 19 other sytmptoms: negative chest pain COVID Results: Nasal/Oral Coronavirus 2019 PCR Pending 06/26/20 19:56 06/26/20 Review of Systems Const: Reports: body aches and fatigue ENMT: Reports: nasal congestion; Denies: throat pain Card: Denies: chest pain Resp: Reports: non-productive cough GI: Reports: nausea and diarrhea; Denies: vomiting Neuro: Reports: headache(s) PFSH ED PFSH: Family History Mother Diabetes Hypertension Hyperlipidemia Heart disease Osteoporosis Hypothyroid Neuropathy Father Diabetes Hypertension Hyperlipidemia Cancer Neuropathy Grandmother Cancer Osteoporosis Social History Smoking and tobacco status: never smoked Female Reproductive History: Date of last menstrual period: 04/15/20 Physical Exam Const: GENERAL APPEARANCE: well developed ORIENTATION/CONSCIOUSNESS: Yes oriented to person, Yes oriented to place and Yes oriented to time HENMT: COMMON NORMALS: normocephalic, external ears normal and Normal external nose present HEAD & SCALP: normocephalic FACE & SINUS: normal facial exam NOSE: Normal external nose present and No nasal discharge present EXTERNAL EAR: Yes external ears normal Eye: COMMON NORMALS: Equal, round and reactive pupils present, EOMs intact bilaterally and conjunctivae normal EYELID: eyelids normal CONJUNCTIVA: Yes conjunctivae normal PUPIL: Yes Equal, round and reactive pupils present Neck/C-Spine: GENERAL: No tracheal deviation Chest: COMMONS NORMALS: normal inspection of the chest CHEST: No tenderness Resp: COMMON NORMALS: clear to auscultation bilaterally EFFORT & INSPECTION: No tachypneic, No respiratory distress, No retractions, No uses accessory muscles and No tracheal deviation AUSCULTATION: clear to auscultation bilaterally, no rhonchi, no wheezes and lung sounds not diminished Cardio: COMMON NORMALS: regular rate and regular rhythm RATE: regular rate RHYTHM: regular rhythm HEART SOUNDS: no murmurs PERIPHERAL PULSES: radial pulses present GI: INSPECTION: No abdominal distension AUSCULTATION: No Hyperactive bowel sounds present and No Hypoactive bowel sounds present PALPATION: No Guarding due to palpation present (GI) and No Rigid due to palpation PERCUSSION: no dullness to percussion and no tympanic to percussion Neuro: SENSORIUM/ORIENTATION: Yes oriented to person, Yes oriented to place and Yes oriented to time Psych: COMMON NORMALS: mental status grossly normal Skin: COMMON NORMALS: no rashes or lesions noted GENERAL SKIN EXAM: no rashes or lesions noted Course Vital Signs: Vital signs: Vital Signs Temperature 98.3 F 06/26/20 18:45 Pulse Rate 71 06/26/20 20:57 Respiratory Rate 14 06/26/20 20:57 Blood Pressure 101/74 06/26/20 20:57 Pulse Oximetry 98 06/26/20 20:57 MDM - COVID MDM Narrative: Medical decision making narrative: Patient is not hypoxic. Chest x-ray is normal. She is swabbed by PCR. She will quarantine. Steroids and inhaler given because of history of asthma COVID Results: Nasal/Oral Coronavirus 2019 PCR Pending 06/26/20 19:56 06/26/20 Discharge Plan Discharge Patient Disposition: Home Clinical Impression: Suspected severe acute respiratory syndrome coronavirus 2 (SARS-CoV-2) infection, Viral infection Condition: Stable Prescriptions: New albuterol sulfate 90 mcg/actuation aero powdr breath act w/sensor 2 inh inhalation Q6H PRN (Reason: shortness of breath or wheezing) Qty: 1 RF: 0 dexamethasone 6 mg tablet 6 mg PO DAILY Qty: 5 RF: 0 No Action metoclopramide HCl 5 mg tablet 5 mg PO TID PRN (Reason: migraines) RF: 0 pantoprazole 40 mg tablet,delayed release (DR/EC) 40 mg PO BID RF: 0 desvenlafaxine succinate 50 mg tablet extended release 24 hr 50 mg PO DAILY RF: 0 [place] 5-325 mg tablet 1 tab PO Q6H PRN (Reason: pain) Qty: 14 RF: 0 ondansetron 4 mg tablet,disintegrating 4 mg PO Q6H PRN (Reason: nausea and vomiting) Qty: 14 RF: 0 cyclobenzaprine 10 mg Tablet 10 mg PO DAILY PRN (Reason: Muscle Pain) RF: 0 ibuprofen 800 mg tablet 800 mg PO TID PRN (Reason: Pain) RF: 0 Discharge Orders: Discharge ED (Routine); Ordered 06/26/20 Ordered By: Karson Brewster Referrals: Roque Rios MD [Primary Care Provider] - 4-7 days Discharge Diet: Usual diet Discharge Activity: Limit activity as instructed Activity Restrictions/Additional Instructions: You should quarantine at home for 10 days from this date. If your test comes back negative, you may contact your doctor to see if you could go back early. Return for worsening shortness of breath, vomiting liquids or medications, inability to control fever, any other concerning symptoms. 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
[2020-06-26 20:57] VITALS: BP 101/74; PULSE 71; RESP 14; O2SAT 98
[2020-06-27 16:51] LABS: Coronavirus Test Green County Detected
--- NOTE | 2020-06-28 08:30 | PC.NURSE ---
PT CALLED AND GIVEN THE RESULTS OF HER COVID TEST
== END 2020-06-26 21:18 | disposition home or self-care (01) ==
PROVIDERS: Emergency Provider Emergency Medicine; PCP Family Medicine
DX: U07.1 COVID-19 (principal)
CPT/HCPCS: 71045; 87635; 99283; J8540

== ENCOUNTER 2020-09-11 17:53 | Emergency (ER) | payer OTHER, MEDICAID, SELFPAY ==
[2020-09-11 17:58] VITALS: BP 109/78; PULSE 95; RESP 18; TEMP 37.1; O2SAT 98; BMI 37.5
--- NOTE | 2020-09-11 18:06 | XRR_ITS ---
PROCEDURE INFORMATION: Exam: XR Left Wrist Exam date and time: 09/11/2020 6:13 PM Age: 30 years old Clinical indication: Injury or trauma; Fall; Blunt trauma (contusions or hematomas); Wrist; Left TECHNIQUE: Imaging protocol: XR Left wrist. Views: 3 or more views. COMPARISON: No relevant prior studies available. FINDINGS: Bones/joints: Normal. Soft tissues: Normal. XR/XR wrist LT min 3V* [id number] IMPRESSION: No acute findings.
--- NOTE | 2020-09-11 18:11 | XRR_ITS ---
PROCEDURE INFORMATION: Exam: XR Left Hand Exam date and time: 09/11/2020 6:13 PM Age: 30 years old Clinical indication: Injury or trauma; Fall; Blunt trauma (contusions or hematomas); Hand; Left TECHNIQUE: Imaging protocol: XR Left hand. Views: 3 or more views. COMPARISON: No relevant prior studies available. FINDINGS: Bones/joints: Normal. Soft tissues: Dorsal soft tissue swelling. XR/XR hand LT min 3V* [id number] IMPRESSION: No fracture identified.
--- NOTE | 2020-09-11 18:18 | W.ED.EXTPRO ---
HPI - Extremity Problem General: Chief complaint: Extremity Injury, Upper Stated complaint: left Wrist injury Time Seen by Provider: 09/11/20 18:06 Source: patient Mode of arrival: ambulatory Limitations: no limitations History of Present Illness: HPI Narrative: 30-year-old female states she fell an hour ago and fell on her left hand. States she has had hand and wrist pain since the event she rates a 6 out of 10. She does have contusion over the dorsum of her left hand. She denies any other injuries. Denies hitting her head. Complaint: extremity pain Associated symptoms: Deny chest pain, fever(s) or rash Review of Systems Const: Denies: fever(s), chills, body aches or change in appetite Eyes: Denies: blurry vision or eye discomfort ENMT: Denies: throat pain or dental pain Card: Denies: chest pain Resp: Denies: dyspnea GI: Denies: abdominal pain, nausea, vomiting or diarrhea : Denies: dysuria Musc: Reports: extremity pain; Denies: neck pain or back pain Skin/Breast: Denies: rash Neuro: Denies: headache(s) Psych: Denies: depression Jaime/Lymph: Denies: easy bruising All/Imm: Denies: urticaria PFSH ED PFSH: Family History Mother Diabetes Hypertension Hyperlipidemia Heart disease Osteoporosis Hypothyroid Neuropathy Father Diabetes Hypertension Hyperlipidemia Cancer Neuropathy Grandmother Cancer Osteoporosis Social History Smoking and tobacco status: never smoked Female Reproductive History: Date of last menstrual period: 09/11/20 Physical Exam Const: COMMON NORMALS: no acute distress, patient oriented x3 and healthy appearing HENMT: COMMON NORMALS: normocephalic and atraumatic HEAD & SCALP: normocephalic and atraumatic Eye: COMMON NORMALS: Equal, round and reactive pupils present and EOMs intact bilaterally PUPIL: Yes Equal, round and reactive pupils present Neck/C-Spine: COMMON NORMALS: full ROM and supple Chest: COMMONS NORMALS: normal inspection of the chest and normal palpation of entire chest wall Resp: COMMON NORMALS: normal respiratory effort, No retractions, No use of accessory muscles and clear to auscultation bilaterally AUSCULTATION: clear to auscultation bilaterally Cardio: COMMON NORMALS: regular rate, regular rhythm and No murmurs present (Cardio) RATE: regular rate RHYTHM: regular rhythm GI: COMMON NORMALS: Normal to inspection, nondistended, normoactive bowel sounds present, Soft to palpation, non-tender and no masses PALPATION: Yes Soft to palpation Extremity: COMMON NORMALS: full ROM NARRATIVE EXTREMITY EXAM: Contusion and swelling with tenderness to left hand and wrist Neuro: COMMON NORMALS: patient oriented x3, moves all extremities and no focal motor deficits Psych: COMMON NORMALS: mental status grossly normal, Normal thought process present and cooperative THOUGHT PROCESS: Normal thought process present Skin: COMMON NORMALS: no rashes or lesions noted and no wounds GENERAL SKIN EXAM: no rashes or lesions noted Course Vital Signs: Vital signs: Vital Signs Temperature 98.7 F 09/11/20 17:58 Pulse Rate 95 09/11/20 17:58 Respiratory Rate 18 09/11/20 17:58 Blood Pressure 109/78 09/11/20 17:58 Pulse Oximetry 98 09/11/20 17:58 MDM - Extremity (Nontraumatic) MDM Narrative: Medical decision making narrative: Patient presents here with wrist sprain from a fall. His x-ray here shows no acute fractures. She is to ice and we will Sudhir wrap and placed on Naprosyn. She is to follow-up with primary care doctor in 5 to 7 days return if worsening. Imaging Data^: xr wrist: Attestation: I personally reviewed and interpreted this imaging study as follows: My impression: no acute fx xr L hand: Attestation: I personally reviewed and interpreted this imaging study as follows: My impression: no acute fx Discharge Plan Discharge Patient Disposition: Home Clinical Impression: Sprain and strain of wrist Condition: Stable Prescriptions: New Naprosyn 500 mg tablet 500 mg PO BID PRN (Reason: pain) Qty: 20 RF: 0 No Action metoclopramide HCl 5 mg tablet 5 mg PO TID PRN (Reason: migraines) RF: 0 desvenlafaxine succinate 50 mg tablet extended release 24 hr 100 mg PO DAILY RF: 0 albuterol sulfate 90 mcg/actuation aero powdr breath act w/sensor 2 inh inhalation Q6H PRN (Reason: shortness of breath or wheezing) Qty: 1 RF: 0 cyclobenzaprine 10 mg Tablet 10 mg PO DAILY PRN (Reason: Muscle Pain) RF: 0 ibuprofen 800 mg tablet 800 mg PO TID PRN (Reason: Pain) RF: 0 Protonix 1 tab PO BID RF: 0 Discharge Orders: Discharge ED (Routine); Ordered 09/11/20 Ordered By: Cortez Srivastava Referrals: Roque Rios MD [Primary Care Provider] - 1-3 days Discharge Diet: Advance as tolerated Discharge Activity: Resume usual activity Patient Instructions: Wrist Sprain (ED) Coding Level of Care Code 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
[2020-09-11] MEDS: HYDROcodone-acetaminophen 5-325 mg Tablet 1 TAB PO (18:54)
[2020-09-11 19:32] VITALS: BP 120/76; PULSE 91; RESP 18; TEMP 36.8; O2SAT 97
== END 2020-09-11 19:34 | disposition home or self-care (01) ==
PROVIDERS: Emergency Provider Emergency Medicine; PCP Family Medicine
DX: S63.502A Unspecified sprain of left wrist, initial encounter (principal); S66.912A Strain of unspecified muscle, fascia and tendon at wrist and hand level, left hand, initial encounter; W19.XXXA Unspecified fall, initial encounter
CPT/HCPCS: 73110; 73130; 99283

== ENCOUNTER 2020-11-11 09:18 | Outpatient (CLI) | payer OTHER, MEDICAID, SELFPAY ==
--- NOTE | 2020-11-11 09:27 | USCV_ITS ---
Olesya Humphries Age: 30 Gender: F : 1990 Exam Date: 11/11/2020 09:58 Ordering Phys: Roque Rios MD Technologist: [place] [facility] [place]: ? PE HISTORY: Lower extremity swelling. PROCEDURES: The venous duplex Doppler examination of both lower extremities was performed in the standard fashion. The following venous structures were evaluated: common femoral vein, profunda vein, proximal portion of the greater saphenous vein, superficial femoral vein, and the popliteal vein. Bilaterally, the common femoral, superficial femoral, profunda femoral, popliteal, posterior tibial, greater saphenous veins, and the peroneal trunk were identified and interrogated in the standard fashion. These veins were found to be easily compressible with spontaneous blood flow. No evidence of insufficiency or thrombus noted. FINDINGS: Normal 2-D Doppler and augmentation and compressibility throughout the lower extremity venous structures. Additional imaging through the proximal calf veins also reveals no thrombus. Limited evaluation of the greater saphenous vein is patent with no thrombus.. CONCLUSIONS No evidence of right lower extremity DVT. No evidence of left lower extremity DVT. Phi Power MD (Electronically Signed) Final Date: 11 November 2020 10:26 S
--- NOTE | 2020-11-11 09:27 | CT_ITS ---
WS: [id number] CTA OF THE CHEST WITH PULMONARY EMBOLISM PROTOCOL TECHNIQUE: High-resolution contrast enhanced CTA of the chest with coronal and sagittal reformatted i mages with pulmonary embolism protocol. MIP images are also reviewed. CLINICAL INFORMATION: DYSPNEA W/EXERTION/CHEST PAIN SUDDEN COMPARISON: None. DLP: 1154.[address] scans at [facility] use at least one of these dose optimization techniques: automat ed exposure control; mA and/or kV adjustment per patient size (includes targeted exams where dose is matched to clinical indication); or iterative reconstruction. FINDINGS: Normal inspiration.Lungs well aerated. No acute pulmonary infiltrates. No consolidation or pleural fl uid. Proximal main pulmonary arteries are normal. Normal segmental and subsegmental pulmonary arteries. No evidence of pulmonary embolus. Normal thoracic aorta. Normal caliber thoracic aorta. No mediastinal or hilar lymphadenopathy. No axillary lymphadenopathy. Cholecystectomy clips. A few presumed tiny right hepatic cysts. Normal GE junction. Adrenal glands ar e normal. CT/CT angio chest PE protcl [id number] IMPRESSION: 1. No evidence of pulmonary embolus. 2. Both lungs are well aerated. No acute pulmonary infiltrates. No focal conso lidation or pleural fluid. 3. No other significant findings.
[2020-11-11] MEDS: iohexol 350 mg/mL 100 mL Btl IV (09:54)
== END 2020-11-11 09:19 | disposition home or self-care (01) ==
PROVIDERS: PCP Family Medicine; Visit Provider Family Medicine
DX: M79.661 Pain in right lower leg (principal); M79.662 Pain in left lower leg; R06.00 Dyspnea, unspecified; R07.9 Chest pain, unspecified
CPT/HCPCS: 71275; 93970

== ENCOUNTER 2020-11-12 12:47 | Emergency (ER) | payer OTHER, SELFPAY ==
[2020-11-12 13:25] VITALS: BP 115/83; PULSE 85; RESP 18; TEMP 37.3; O2SAT 98; BMI 37.5
--- NOTE | 2020-11-12 13:45 | W.ED.CHESTPA ---
HPI - Chest Pain General: Chief Complaint: Chest Pain Stated Complaint: DUE FOR IRON INF ON .26:WEAK,CP W/BREATHING Time Seen by Provider: 11/12/20 13:42 History of Present Illness: HPI narrative: 30-year-old female presents to the emergency room complaining of rapid heart rate and chest discomfort. States rapid heart rate occurs when she is standing. Patient was seen yesterday with similar symptoms by her primary care provider had a venous duplex lower extremity as well as a CTA of the chest. CTA was negative as well as a venous duplex. She has had problems with anemia in the past she denies any recent medication melena hematemesis Luna emesis and hematuria. No heavy menses. MD complaint: chest pain Onset (ago): hour(s) Timing of current episode: episodic Prior episodes: Yes Onset: during rest Pain location: left chest and right chest Pain radiation: none Severity: moderate Quality: sharp Relieving factors: rest Exacerbating factors: inspiration Associated symptoms: Reports dyspnea and palpitations; Deny abdominal pain, diaphoresis, fever(s), leg edema, nausea, sense of impending doom, syncope or vomiting Treatment prior to arrival: none Review of Systems Const: Denies: fever(s) or diaphoresis ENMT: Denies: throat pain, ear or mastoid pain, nasal discharge or nasal congestion Card: Reports: palpitations; Denies: syncope Resp: Reports: dyspnea GI: Denies: abdominal pain, nausea or vomiting : Denies: flank pain, difficulty voiding, dysuria, urinary frequency or urinary urgency Skin/Breast: Denies: rash or pruritus [facility] ED PFSH: Family History Mother Diabetes Hypertension Hyperlipidemia Heart disease Osteoporosis Hypothyroid Neuropathy Father Diabetes Hypertension Hyperlipidemia Cancer Neuropathy Grandmother Cancer Osteoporosis Social History Smoking and tobacco status: never smoked Female Reproductive History: Date of last menstrual period: 09/11/20 Physical Exam Const: COMMON NORMALS: no acute distress GENERAL APPEARANCE: cooperative and comfortable ORIENTATION/CONSCIOUSNESS: Yes awake, Yes oriented to person, Yes oriented to place and Yes oriented to time HENMT: COMMON NORMALS: normocephalic, atraumatic and hearing grossly normal bilaterally HEAD & SCALP: normocephalic and atraumatic Neck/C-Spine: COMMON NORMALS: no JVD Resp: COMMON NORMALS: normal respiratory effort, No retractions, No use of accessory muscles and clear to auscultation bilaterally AUSCULTATION: clear to auscultation bilaterally Cardio: COMMON NORMALS: no JVD, regular rate, regular rhythm and No murmurs present (Cardio) RATE: regular rate RHYTHM: regular rhythm GI: COMMON NORMALS: Soft to palpation and No hepatosplenomegaly present AUSCULTATION: Yes normoactive bowel sounds PALPATION: Yes Soft to palpation, No Tenderness to palpation present (GI), No Guarding due to palpation present (GI) and Yes No hepatosplenomegaly present Extremity: COMMON NORMALS: normal to inspection, capillary refill normal, no clubbing, cyanosis or edema, no calf tenderness and no pedal edema Neuro: SENSORIUM/ORIENTATION: Yes oriented to person, Yes oriented to place and Yes oriented to time Skin: COMMON NORMALS: no rashes or lesions noted GENERAL SKIN EXAM: no rashes or lesions noted Course Vital Signs: Vital signs: Vital Signs Temperature 99.2 F 11/12/20 13:25 Pulse Rate 81 11/12/20 17:11 Respiratory Rate 16 11/12/20 17:11 Blood Pressure 123/83 11/12/20 17:11 Pulse Oximetry 97 11/12/20 17:11 MDM - Chest Pain MDM Narrative: Medical decision making narrative: Pain sounds more pleuritic in nature. She has chronic anemia but does not require an iron infusion emergently reviewed this with her reviewed the other lab findings will discharge home with pain medications as well as steroids follow-up with her primary care doctor. Lab Data: Labs: Lab Results 11/12/20 11/12/20 11/12/20 Range/Units 14:30 14:30 14:30 WBC 11.8 H (4.0-10.0) 10^3/ uL RBC 4.76 (4.1-5.3) 10^6/u L Hgb 11.2 L (11.5-15.3) g/dL Hct 37.5 (37.0-47.0) % MCV 78.8 L (81-99) fL MCH 23.5 L (28.0-34.0) pg MCHC 29.9 L (30.0-36.0) g/dL RDW 15.9 H (12.1-15.1) % Plt Count 524 H (130-400) 10^3/c mm MPV 8.4 (7.4-10.4) fL Neut % (Auto) 57.0 % Lymph % (Auto) 36.4 % [place] % (Auto) 5.2 % Eos % (Auto) 0.6 % Baso % (Auto) 0.5 % Neut # (Auto) 6.74 (1.8-7.7) 10^3/u L Lymph # (Auto) 4.3 (0.8-4.8) 10^3/u L [place] # (Auto) 0.6 (0.2-0.9) 10^3/u L Eos # (Auto) 0.1 (0.0-0.8) 10^3/u L Baso # (Auto) 0.1 (0.0-0.1) 10^3/u L Nucleated RBC % (a uto) 0 % Nucleated RBCs # 0.0 /100WBC D-Dimer 0.78 H (0-0.59) ug/mIFE U Sodium 139 (136-145) mmol/L Potassium 4.1 (3.5-5.1) mmol/L Chloride 104 (98-107) mmol/L Carbon Dioxide 25 (22-29) mmol/L Anion Gap 14.1 (5-19) BUN 10 (6-20) mg/dL Creatinine 0.7 (0.5-0.9) mg/dL GFR Calculation 97.0 (90-130) mL/min Glucose 82 (65-115) mg/dL Calculated Osmolal ity 286 (285-295) mOsm/k g Calcium 8.6 (8.5-10.5) mg/dL Total Bilirubin 0.2 (0.15-1.2) mg/dL AST 13 (0-32) U/L ALT 12 (0-33) U/L Alkaline Phosphata se 97 (35-105) IU/L Total Protein 7.1 (6.6-8.7) g/dL Albumin 4.0 (3.5-5.2) g/dL Globulin 3.1 (1.3-4.6) g/dL Urine Color (Yellow) Urine Appearance (CLEAR) Urine pH (5-7) Ur Specific Gravit y (1.005-1.030) Urine Protein (Negative) Urine Glucose (UA) (Normal) Urine Ketones (Negative) Urine Blood (Negative) Urine Nitrate (Negative) Urine Bilirubin (Negative) Urine Urobilinogen (Negative) mg/dL Ur Leukocyte Mer ase (Negative) Urine RBC (0-2) /hpf Urine WBC (0-5) /hpf Ur Squamous Epith Cells (0-5) /hpf Amorphous Sediment Urine Bacteria (NONE) /hpf Urine Mucus /hpf SARS-CoV-2 Ag (Rap id) (Negative) 11/12/20 11/12/20 Range/Units 15:37 Unknown WBC (4.0-10.0) 10^3/ uL RBC (4.1-5.3) 10^6/u L Hgb (11.5-15.3) g/dL Hct (37.0-47.0) % MCV (81-99) fL MCH (28.0-34.0) pg MCHC (30.0-36.0) g/dL RDW (12.1-15.1) % Plt Count (130-400) 10^3/c mm MPV (7.4-10.4) fL Neut % (Auto) % Lymph % (Auto) % [place] % (Auto) % Eos % (Auto) % Baso % (Auto) % Neut # (Auto) (1.8-7.7) 10^3/u L Lymph # (Auto) (0.8-4.8) 10^3/u L [place] # (Auto) (0.2-0.9) 10^3/u L Eos # (Auto) (0.0-0.8) 10^3/u L Baso # (Auto) (0.0-0.1) 10^3/u L Nucleated RBC % (a uto) % Nucleated RBCs # /100WBC D-Dimer (0-0.59) ug/mIFE U Sodium (136-145) mmol/L Potassium (3.5-5.1) mmol/L Chloride (98-107) mmol/L Carbon Dioxide (22-29) mmol/L Anion Gap (5-19) BUN (6-20) mg/dL Creatinine (0.5-0.9) mg/dL GFR Calculation (90-130) mL/min Glucose (65-115) mg/dL Calculated Osmolal ity (285-295) mOsm/k g Calcium (8.5-10.5) mg/dL Total Bilirubin (0.15-1.2) mg/dL AST (0-32) U/L ALT (0-33) U/L Alkaline Phosphata se (35-105) IU/L Total Protein (6.6-8.7) g/dL Albumin (3.5-5.2) g/dL Globulin (1.3-4.6) g/dL Urine Color Yellow (Yellow) Urine Appearance Clear (CLEAR) Urine pH 5 (5-7) Ur Specific Gravit y 1.025 (1.005-1.030) Urine Protein 1+ H (Negative) Urine Glucose (UA) Trace H (Normal) Urine Ketones Negative (Negative) Urine Blood 2+ H (Negative) Urine Nitrate Positive H (Negative) Urine Bilirubin 1+ H (Negative) Urine Urobilinogen 1 H (Negative) mg/dL Ur Leukocyte Mer ase Trace H (Negative) Urine RBC 0-4 H (0-2) /hpf Urine WBC 0-4 H (0-5) /hpf Ur Squamous Epith Cells 5-10 H (0-5) /hpf Amorphous Sediment Not Reportable Urine Bacteria 2+ H (NONE) /hpf Urine Mucus 1+ /hpf SARS-CoV-2 Ag (Rap id) Negative (Negative) Discharge Plan Discharge Patient Disposition: Home Clinical Impression: Pleuritic chest pain, Mild chronic anemia Condition: Stable Prescriptions: New hydrocodone-acetaminophen 5-325 mg tablet 1 tab PO Q6H PRN (Reason: pain) Qty: 10 RF: 0 Medrol (Arun) 4 mg tablets,dose pack See Rx Instructions .ROUTE .COMPLEX Qty: 21 RF: 0 No Action metoclopramide HCl 5 mg tablet 5 mg PO TID PRN (Reason: migraines) RF: 0 desvenlafaxine succinate 50 mg tablet extended release 24 hr 100 mg PO DAILY RF: 0 albuterol sulfate 90 mcg/actuation aero powdr breath act w/sensor 2 inh inhalation Q6H PRN (Reason: shortness of breath or wheezing) Qty: 1 RF: 0 cyclobenzaprine 10 mg Tablet 10 mg PO DAILY PRN (Reason: Muscle Pain) RF: 0 ibuprofen 800 mg tablet 800 mg PO TID PRN (Reason: Pain) RF: 0 Protonix 40 mg PO BID RF: 0 naproxen [Naprosyn] 500 mg tablet 500 mg PO BID PRN (Reason: pain) Qty: 20 RF: 0 Discharge Orders: Discharge ED (Routine); Ordered 11/12/20 Ordered By: Keshawn Mtz Referrals: Roque Rios MD [Primary Care Provider] - Patient Instructions: Opioid Safety Coding Level of Care Code ED 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
--- NOTE | 2020-11-12 13:51 | XRR_ITS ---
PROCEDURE INFORMATION: Exam: XR Chest Exam date and time: 11/12/2020 1:51 PM Age: 30 years old Clinical indication: Cough and dyspnea; Additional info: Dyspnea/cough TECHNIQUE: Imaging protocol: XR of the chest. Views: 1 view. COMPARISON: CT angio chest PE protcl [id number] 11/11/2020 9:48 AM FINDINGS: Lungs: Unremarkable. No consolidation. Pleural spaces: Unremarkable. No pleural effusion. No pneumothorax. Heart/Mediastinum: Unremarkable. No cardiomegaly. Bones/joints: Unremarkable. XR/XR chest 1V portable [id number] IMPRESSION: No acute findings.
[2020-11-12 14:31] VITALS: BP 119/74; PULSE 72; RESP 14; O2SAT 98
[2020-11-12 14:38] LABS: Basophils # 0.1 10^3/uL (0.0-0.1); Basophils % 0.5 %; Eosinophils # 0.1 10^3/uL (0.0-0.8); Eosinophils % 0.6 %; Hematocrit 37.5 % (37.0-47.0); Hemoglobin 11.2 g/dL (11.5-15.3); Lymphocytes # 4.3 10^3/uL (0.8-4.8); Lymphocytes % 36.4 %; Mean Corpuscular HGB Conc 29.9 g/dL (30.0-36.0); Mean Corpuscular Hemoglobin 23.5 pg (28.0-34.0); Mean Corpuscular Volume 78.8 fL (81-99); Mean Platelet Volume 8.4 fL (7.4-10.4); Monocytes # 0.6 10^3/uL (0.2-0.9); Monocytes % 5.2 %; Neutrophils # 6.74 10^3/uL (1.8-7.7); Nucleated Red Blood Cells % 0 %; Platelet Count 524 10^3/cmm (130-400); Red Blood Count 4.76 10^6/uL (4.1-5.3); Red Cell Distribution Width 15.9 % (12.1-15.1); White Blood Count 11.8 10^3/uL (4.0-10.0)
[2020-11-12 15:01] LABS: D Dimer 0.78 ug/mIFEU (0-0.59)
[2020-11-12 15:02] LABS: Alanine Aminotransferase 12 U/L (0-33); Alkaline Phosphatase 97 IU/L (35-105); Anion Gap 14.1 (5-19); Aspartate Amino Transferase 13 U/L (0-32); Blood Urea Nitrogen 10 mg/dL (6-20); Calcium 8.6 mg/dL (8.5-10.5); Carbon Dioxide 25 mmol/L (22-29); Chloride 104 mmol/L (98-107); Globulin 3.1 g/dL (1.3-4.6); Glucose 82 mg/dL (65-115); Osmolality Calculated 286 mOsm/kg (285-295); Potassium 4.1 mmol/L (3.5-5.1); Sodium 139 mmol/L (136-145); Total Bilirubin 0.2 mg/dL (0.15-1.2); Total Protein 7.1 g/dL (6.6-8.7)
[2020-11-12 15:52] LABS: SARS Covid-2 Antigen Negative (Negative)
[2020-11-12 16:00] LABS: Urine Appearance Clear (CLEAR); Urine Color Yellow (Yellow); pH Urine 5 (5-7)
[2020-11-12 16:01] LABS: Add Urine Microscopic? YES; Bilirubin Urine 1+ (Negative); Blood Urine 2+ (Negative); Glucose Urine UA Trace (Normal); Ketones Urine Negative (Negative); Leukocyte Esterase Urine Trace (Negative); Nitrate Urine Positive (Negative); Protein Urine 1+ (Negative); Specific Gravity, Urine 1.025 (1.005-1.030); Urobilinogen Urine 1 mg/dL (Negative)
[2020-11-12 16:02] LABS: Add Urine Culture? Yes; Bacteria Urine 2+ /hpf; Mucus Urine 1+ /hpf; RBC Urine 0-4 /hpf (0-2); WBC Urine 0-4 /hpf (0-5)
[2020-11-12 16:11] VITALS: BP 124/87; PULSE 89; O2SAT 100
[2020-11-12] MEDS: sodium chloride 0.9% 1,000 ML 999 ML IV (16:16)
[2020-11-12 17:11] VITALS: BP 123/83; PULSE 81; RESP 16; O2SAT 97
== END 2020-11-12 17:18 | disposition home or self-care (01) ==
PROVIDERS: Emergency Provider Family Medicine; PCP Family Medicine
DX: R07.81 Pleurodynia (principal); D64.9 Anemia, unspecified
CPT/HCPCS: 71045; 80053; 81001; 85025; 85378; 87086; 87426; 96360; 99284; J7030

== ENCOUNTER 2020-11-18 08:56 | Outpatient (RCR) | payer OTHER, MEDICAID, SELFPAY ==
[2020-11-14 09:32] VITALS: BP 122/77; PULSE 78; RESP 18; TEMP 36.8; O2SAT 99
[2020-11-14] MEDS: iron sucrose 200 MG in sodium chloride 0.9% (100 ml) 100 ML 220 MG IV (09:39)
[2020-11-16 11:04] VITALS: BP 126/68; PULSE 74; RESP 18; TEMP 36.2; O2SAT 99
[2020-11-16] MEDS: iron sucrose 200 MG in sodium chloride 0.9% (100 ml) 100 ML 295 MG IV (11:30)
--- NOTE | 2020-11-16 12:00 | PC.NURSE ---
Pt back this Saturday for additional Venofer infusion and requests IV to be left in place. IV to left forearm flushed with NS and secured with Coban. Pt tolerated infusion well.
[2020-11-18 09:02] VITALS: BP 117/69; PULSE 83; RESP 18; TEMP 36.2; O2SAT 98
[2020-11-18] MEDS: iron sucrose 200 MG in sodium chloride 0.9% (100 ml) 100 ML 220 MG IV (09:14)
== END 2020-11-19 23:59 | disposition home or self-care (01) ==
LOC: GILAB 08:56
PROVIDERS: PCP Family Medicine; Visit Provider Family Medicine
DX: D50.9 Iron deficiency anemia, unspecified (principal)
CPT/HCPCS: 96365; J1756

== ENCOUNTER 2020-11-23 08:43 | Outpatient (RCR) | payer OTHER, MEDICAID, SELFPAY ==
[2020-11-21 10:08] VITALS: BP 109/69; PULSE 71; RESP 20; TEMP 36.4; O2SAT 100; BMI 37.5
[2020-11-21] MEDS: iron sucrose 200 MG in sodium chloride 0.9% (100 ml) 100 ML 160 MG IV (10:12)
[2020-11-23] MEDS: iron sucrose 200 MG in sodium chloride 0.9% (100 ml) 100 ML 220 MG IV (08:46)
[2020-11-23 08:53] VITALS: BP 120/67; PULSE 80; RESP 18; TEMP 36.6; O2SAT 97
== END 2020-12-20 23:59 | disposition home or self-care (01) ==
LOC: GILAB 08:43
PROVIDERS: PCP Family Medicine; Visit Provider Family Medicine
DX: D50.9 Iron deficiency anemia, unspecified (principal)
CPT/HCPCS: 96365; J1756

== ENCOUNTER 2021-04-24 16:40 | Emergency (ER) | payer OTHER, MEDICAID, SELFPAY ==
[2021-04-24 18:11] VITALS: BP 108/70; PULSE 137; RESP 20; TEMP 38.2; O2SAT 97; BMI 35.7
--- NOTE | 2021-04-24 18:46 | ED_ITS ---
HPI - General Adult General: Chief complaint: Fever Stated complaint: FEVER, H/A, EARACHE, BODY ACHES, 2ND SHOT RELATED Time Seen by Provider: 04/24/21 18:32 History of Present Illness: HPI narrative: CC: Shortness of breath, fever and generalized weakness HPI: This is a [30] yo patient w/ no PMH presenting to the ED with malaise, generalized weakness, cough sputum production, and fever at home x 3days which started after receiving her second vaccine. Since onset of symptoms, has had some shortness of breath and decreased PO intake. NO recent travel. Endorses no sick contacts around. Reports nausea but denies vomiting/diarrhea. Denies diaphoresis, other GI or complaints. Denies any pleuritic chest pain, recent surgery/immobilization/travel, or hematemesis or hx of VTE in the past. Patient underwent covid at home testing yesterday which was negative. 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 Patient also reports R arm pain and redness at the site of covid injection. Onset: 3 days ago Duration: ongoing for the last 3 days Location: home Severity: moderate Review of Systems Narrative: Constitutional: +subjective fever, +generalized weakness/+fatigue HEENT: No vision changes CV: No chest pain, no palpitations PULM: +cough, +dyspnea. GI: No abdominal pain, no N/V/D. : No dysuria MSKEL: No muscle pain SKIN: +erythema and pain over the covid vaccine injection site NEURO: No headache, no focal weakness. HEME: No visible bruises PSYCH: Normal mood PFSH ED PFSH: Family History Mother Diabetes Hypertension Hyperlipidemia Heart disease Osteoporosis Hypothyroid Neuropathy Father Diabetes Hypertension Hyperlipidemia Cancer Neuropathy Grandmother Cancer Osteoporosis Social History Smoking and tobacco status: never smoked Female Reproductive History: Date of last menstrual period: 09/11/20 Physical Exam Narrative: EXAM NARRATIVE: Head: Atraumatic Eyes: PERRL, conjunctiva without injection ENT: Mucous membrane dry NECK: Supple without lymphadenopathy LUNGS: LCTAB CV: Sinus tachycardia ABDOMEN: Soft, nontender in all quadrants EXTREMITY: Normal ROM SKIN: +macular rash around the covid injection site measuring 5cm in diameter without any induration, fluctuance, +ttp over the lesion NEURO: Awake and alert. No focal motor deficits. PSYCH: Normal mood and affect. Course Vital Signs: Vital signs: Vital Signs Temperature 98.6 F 04/24/21 18:47 Pulse Rate 95 04/24/21 18:47 Respiratory Rate 18 04/24/21 18:47 Blood Pressure 102/54 04/24/21 18:47 Pulse Oximetry 96 04/24/21 18:47 MDM - General Adult MDM Narrative: Medical decision making narrative: [30]yo patient presenting with cough, dyspnea, fever, generalized weakness, and fatigue x 3 days. Likely drug reaction vs active covid infection. Presentation not consistent with PE, COPD exacerbation, Pneumothorax, TB, Atypical ACS, Esophageal Rupture, Toxic Exposure, Foreign Body Airway Obstruction. No supsicion for necrotizing soft tissue infection. Workup: CBC, BMP CXR Chest, COVID Intervention: Tylenol 1gram, PO challenge, serial reassessment, GI cocktail On reassessment at 9:40 PM, patient received IVF, Toradol, Pepcid, Maalox, and Tylenol. Patient reports headache symptomatically improved. Patient feels like her fatigue is improved. Patient has been to tolerate p.o. without any difficulty. Leukocytosis of 16.8 likely reactive. I have instructed patient to follow-up with closely with her primary care provider for next 48 to 72 hours for reassessment to ensure that her symptoms are improving. I have given patient follow up with our bilingual patient support caseworker to be seen by her PCP for reassessment in the next 48-72 hrs. Patient aware of a call from our bilingual patient support caseworker to schedule for appointment(s) and verbalizes understanding of the importance of following up. Rx tylenol PRN abd pain, maalox/pepcid PRN dyspepsia, and zofran PRN nausea/vomiting Disposition: Discharge. Patient is given strict follow up with PCP in 24-48 hrs for reassessment. Patient agrees with everything discussed today. Lab Data: Labs: Lab Results 04/24/21 04/24/21 04/24/21 18:59 18:59 18:59 WBC 16.8 10^3/uL H 10 ^3/uL (4.0-10.0) RBC 4.79 10^6/uL 10^6 /uL (4.1-5.3) Hgb 13.9 g/dL g/dL (11.5-15.3) Hct 42.9 % % (37.0-47.0) MCV 89.6 fl fl (81-99) MCH 29.0 pg pg (28.0-34.0) MCHC 32.4 g/dL g/dL (30.0-36.0) RDW 13.4 % % (12.1-15.1) Plt Count 342 10^3/cmm 10^3 /cmm (130-400) MPV 9.1 fL fL (7.4-10.4) Neut % (Auto) 78.8 % % Lymph % (Auto) 12.4 % % [place] % (Auto) 7.6 % % Eos % (Auto) 0.3 % % Baso % (Auto) 0.4 % % Neut # (Auto) 13.23 10^3/uL H 1 0^3/uL (1.8-7.7) Lymph # (Auto) 2.1 10^3/uL 10^3/ uL (0.8-4.8) [place] # (Auto) 1.3 10^3/uL H 10^ 3/uL (0.2-0.9) Eos # (Auto) 0.1 10^3/uL 10^3/ uL (0.0-0.8) Baso # (Auto) 0.1 10^3/uL 10^3/ uL (0.0-0.1) Nucleated RBC % (a uto) 0 % % Nucleated RBCs # 0.0 /100WBC /100W BC Sodium 136 mmol/L mmol/L (136-145) Potassium 3.9 mmol/L mmol/L (3.5-5.1) Chloride 100 mmol/L mmol/L (98-107) Carbon Dioxide 24 mmol/L mmol/L (22-29) Anion Gap 15.9 (5-19) BUN 7 mg/dL mg/dL (6-20) Creatinine 0.7 mg/dL mg/dL (0.5-0.9) GFR Calculation 97.0 mL/min mL/mi n (90-130) Glucose 91 mg/dL mg/dL (65-115) Calculated Osmolal ity 280 mOsm/kg L mOs m/kg (285-295) Calcium 8.4 mg/dL L mg/dL (8.5-10.5) Ser , Kavitha i-Qnt 0.50 mIU/mL mIU/m L Discharge Plan Discharge Patient Disposition: Home Clinical Impression: Fever, Generalized weakness, Fatigue Condition: Stable Prescriptions: New Zofran 4 mg tablet 4 mg PO TID PRN (Reason: nausea and vomiting) 4 Days Qty: 12 RF: 0 acetaminophen 500 mg tablet 500 mg PO Q6H PRN (Reason: pain) 5 Days Qty: 20 RF: 0 Pepcid 20 mg tablet 20 mg PO BID PRN (Reason: abdominal pain) 10 Days Qty: 20 RF: 0 Maalox Advanced 1,000-60 mg tablet,chewable 1 tab PO TID PRN (Reason: abdominal pain) 7 Days Qty: 21 RF: 0 No Action metoclopramide HCl 5 mg tablet 5 mg PO TID PRN (Reason: migraines) RF: 0 desvenlafaxine succinate 50 mg tablet extended release 24 hr 100 mg PO DAILY RF: 0 albuterol sulfate 90 mcg/actuation aero powdr breath act w/sensor 2 inh inhalation Q6H PRN (Reason: shortness of breath or wheezing) Qty: 1 RF: 0 prednisone 10 mg Tablet 10 mg PO DAILY RF: 0 hydrocodone-acetaminophen 5-325 mg tablet 1 tab PO Q6H PRN (Reason: pain) Qty: 10 RF: 0 cyclobenzaprine 10 mg Tablet 10 mg PO DAILY PRN (Reason: Muscle Pain) RF: 0 ibuprofen 800 mg tablet 800 mg PO TID PRN (Reason: Pain) RF: 0 Protonix 40 mg PO BID RF: 0 naproxen [Naprosyn] 500 mg tablet 500 mg PO BID PRN (Reason: pain) Qty: 20 RF: 0 Discharge Orders: Discharge ED (Routine); Ordered 04/24/21 Ordered By: Юлия Adam Referrals: Roque Rios MD [Primary Care Provider] - Discharge Diet: Advance as tolerated Discharge Activity: Increase activity as tolerated Patient Instructions: COVID-19 (Coronavirus Disease 2019) (ED) Activity Restrictions/Additional Instructions: Come back to the emergency room if your symptoms worsen, have any shortness of breath, fever/chills, dehydration, inability tolerate p.o., any difficulty breathing, or any new or concerning complaints. Follow-up with your primary care provider the next 48 to 72 hours for reassessment. Come back if to the emergency room if have any swelling in the face, difficulty breathing, signs of dehydration, or any new or concerning complaints Stand Alone Forms: Work/School Release Coding Level of Care Code ED Night Clerk for Clayton Awan
[2021-04-24 18:47] VITALS: BP 102/54; PULSE 95; RESP 18; TEMP 37; O2SAT 96
[2021-04-24] MEDS: famotidine 20 mg/2 mL INJ IVP (19:00)
[2021-04-24] MEDS: acetaminophen 500 mg Tablet 1000 MG PO (19:00)
[2021-04-24] MEDS: ketorolac 30 mg/mL INJ IVP (19:00)
[2021-04-24] MEDS: sodium chloride 0.9% 1,000 ML 999 ML IV ×3 (19:22→19:25)
[2021-04-24 19:34] LABS: Basophils # 0.1 10^3/uL (0.0-0.1); Basophils % 0.4 %; Eosinophils # 0.1 10^3/uL (0.0-0.8); Eosinophils % 0.3 %; Hematocrit 42.9 % (37.0-47.0); Hemoglobin 13.9 g/dL (11.5-15.3); Lymphocytes # 2.1 10^3/uL (0.8-4.8); Lymphocytes % 12.4 %; Mean Corpuscular HGB Conc 32.4 g/dL (30.0-36.0); Mean Corpuscular Volume 89.6 fl (81-99); Mean Platelet Volume 9.1 fL (7.4-10.4); Monocytes # 1.3 10^3/uL (0.2-0.9); Monocytes % 7.6 %; Neutrophils # 13.23 10^3/uL (1.8-7.7); Neutrophils % 78.8 %; Nucleated Red Blood Cells % 0 %; Platelet Count 342 10^3/cmm (130-400); Red Blood Count 4.79 10^6/uL (4.1-5.3); Red Cell Distribution Width 13.4 % (12.1-15.1); White Blood Count 16.8 10^3/uL (4.0-10.0)
[2021-04-24 19:50] LABS: Anion Gap 15.9 (5-19); Blood Urea Nitrogen 7 mg/dL (6-20); Calcium 8.4 mg/dL (8.5-10.5); Carbon Dioxide 24 mmol/L (22-29); Chloride 100 mmol/L (98-107); Glucose 91 mg/dL (65-115); Osmolality Calculated 280 mOsm/kg (285-295); Potassium 3.9 mmol/L (3.5-5.1); Sodium 136 mmol/L (136-145)
[2021-04-24 22:38] LABS: Adenovirus Not Detected (NOT DETECT); Chlamydia Pneumoniae Not Detected (NOT DETECT); Coronavirus 229E,HKU1,NL63,OC4 Not Detected (NOT DETECT); Human Metapneumovirus Not Detected (NOT DETECT); Human Rhinovirus/Enterovirus Not Detected (NOT DETECT); Influenza A Not Detected (NOT DETECT); Influenza A H1 Not Detected (NOT DETECT); Influenza A H1-2009 Not Detected (NOT DETECT); Influenza A H3 Not Detected (NOT DETECT); Influenza B Not Detected (NOT DETECT); Mycoplasma Pneumoniae Not Detected (NOT DETECT); Parainfluenza Virus Type 1 Not Detected (NOT DETECT); Parainfluenza Virus Type 2 Not Detected (NOT DETECT); Parainfluenza Virus Type 3 Not Detected (NOT DETECT); Parainfluenza Virus Type 4 Not Detected (NOT DETECT); Respiratory Syncytial Virus A Not Detected (NOT DETECT); Respiratory Syncytial Virus B Not Detected (NOT DETECT); SARS-COV-2 Not Detected (NOT DETECT)
--- NOTE | 2021-04-25 12:36 | DCPLANNER ---
telecom network manager had message to speak with patient about getting a follow up appointment with primary care physician. telecom network manager spoke with patient, she stated that she would take care of scheduling a follow up appointment. No case management services at this time.
== END 2021-04-24 21:22 | disposition home or self-care (01) ==
PROVIDERS: Emergency Provider Emergency Medicine; PCP Family Medicine
DX: R50.9 Fever, unspecified (principal); R53.1 Weakness; R53.83 Other fatigue; Z20.822 Contact with and (suspected) exposure to COVID-19
CPT/HCPCS: 80048; 84702; 85025; 87635; 96374; 96375; 99284; 99291; J1885; J3490; J7030

== ENCOUNTER 2021-05-11 18:29 | Emergency (ER) | payer OTHER, MEDICAID, SELFPAY ==
[2021-05-11 19:29] VITALS: BP 128/86; PULSE 75; RESP 16; TEMP 36.6; O2SAT 100; BMI 36.8
[2021-05-11 20:14] LABS: Basophils # 0.1 10^3/uL (0.0-0.1); Basophils % 0.7 %; Eosinophils # 0.3 10^3/uL (0.0-0.8); Eosinophils % 2.6 %; Hematocrit 44.6 % (37.0-47.0); Hemoglobin 14.3 g/dL (11.5-15.3); Lymphocytes # 4.6 10^3/uL (0.8-4.8); Lymphocytes % 44.3 %; Mean Corpuscular HGB Conc 32.1 g/dL (30.0-36.0); Mean Corpuscular Hemoglobin 28.9 pg (28.0-34.0); Mean Corpuscular Volume 90.1 fl (81-99); Mean Platelet Volume 8.8 fL (7.4-10.4); Monocytes # 0.6 10^3/uL (0.2-0.9); Monocytes % 5.3 %; Neutrophils % 46.9 %; Nucleated Red Blood Cells % 0 %; Platelet Count 514 10^3/cmm (130-400); Red Blood Count 4.95 10^6/uL (4.1-5.3); Red Cell Distribution Width 13.4 % (12.1-15.1); White Blood Count 10.4 10^3/uL (4.0-10.0)
[2021-05-11 20:51] LABS: Alanine Aminotransferase 36 U/L (0-33); Albumin Level 4.4 g/dL (3.5-5.2); Alkaline Phosphatase 87 IU/L (35-105); Anion Gap 19.3 (5-19); Aspartate Amino Transferase 23 U/L (0-32); Blood Urea Nitrogen 10 mg/dL (6-20); Calcium 8.8 mg/dL (8.5-10.5); Carbon Dioxide 22 mmol/L (22-29); Chloride 101 mmol/L (98-107); Globulin 3.5 g/dL (1.3-4.6); Glomerular Filtration Rate 142.1 mL/min (90-130); Glucose 103 mg/dL (65-115); Lipase 47 U/L (13-60); Osmolality Calculated 285 mOsm/kg (285-295); Potassium 4.3 mmol/L (3.5-5.1); Sodium 138 mmol/L (136-145); Total Bilirubin 0.2 mg/dL (0.15-1.2); Total Protein 7.9 g/dL (6.6-8.7)
== END 2021-05-11 21:29 | disposition left against medical advice (07) ==
PROVIDERS: Emergency Medicine; Emergency Provider Family Medicine; PCP Family Medicine
DX: Z53.21 Procedure and treatment not carried out due to patient leaving prior to being seen by health care provider (principal)
CPT/HCPCS: 80053; 83690; 85025

== ENCOUNTER 2021-05-12 15:07 | Emergency (ER) | payer OTHER, MEDICAID, SELFPAY ==
--- NOTE | 2021-05-12 15:11 | CTR_ITS ---
PROCEDURE INFORMATION: Exam: CT Abdomen And Pelvis With Contrast Exam date and time: 05/12/2021 3:11 PM Age: 31 years old Clinical indication: Abdominal pain; Rebound pain; Right lower quadrant (rlq); Prior surgery; Surgery date: 6+ months; Surgery type: Gb, tubal; Additional info: R abdominal pain; Concern for appy TECHNIQUE: Imaging protocol: Computed tomography of the abdomen and pelvis with contrast. Radiation optimization: All CT scans at this facility use at least one of these dose optimization techniques: automated exposure control; mA and/or kV adjustment per patient size (includes targeted exams where dose is matched to clinical indication); or iterative reconstruction. Contrast material: OMNI 300; Contrast volume: 95 ml; Contrast route: INTRAVENOUS (IV); COMPARISON: No relevant prior studies available. RADIATION DOSE METRICS: Total DLP (mGy-cm): 1733.63 FINDINGS: Liver: A few scattered subcentimeter cysts noted. Gallbladder and bile ducts: Cholecystectomy. No ductal dilation. Pancreas: Normal. No ductal dilation. Spleen: Normal. No splenomegaly. Adrenal glands: Normal. No mass. Kidneys and ureters: Normal. No hydronephrosis. Stomach and bowel: Unremarkable. No obstruction. No mucosal thickening. Appendix: No evidence of appendicitis. Intraperitoneal space: Unremarkable. No free air. No significant fluid collection. Vasculature: Unremarkable. No abdominal aortic aneurysm. Lymph nodes: Unremarkable. No enlarged lymph nodes. Urinary bladder: Bladder under distended and grossly unremarkable. Reproductive: Unremarkable as visualized. Bones/joints: No acute fracture. Soft tissues: Unremarkable. CT/CT abdomen pelvis w con* [id number] IMPRESSION: No acute findings. Negative for appendicitis.
[2021-05-12 15:44] VITALS: BP 119/79; PULSE 93; RESP 14; TEMP 36.7; O2SAT 98; BMI 37.7
--- NOTE | 2021-05-12 16:13 | ED_ITS ---
Documented by User: MAAME Gardner 05/12/21 16:56 HPI - Abdominal Pain General: Chief Complaint: Abdominal Pain Stated Complaint: Dr. Wiley sent for poss Acute appendicitis Time Seen by Provider: 05/12/21 16:03 Source: patient Mode of arrival: ambulatory Limitations: no limitations History of Present Illness: HPI narrative: Patient is a nice 31-year-old female who presents to ED today with a complaint of right-sided abdominal pain. Patient tells me she noticed pain starting yesterday around her periumbilical region and noticed an aversion for food along with accompanying nausea and vomiting x 3. Patient states since that time pain has seemed to migrate over to her right side. She has continued to feel very nauseous and has had one episode of vomiting today. She reports chronic loose stools secondary to previous cholecystectomy. She has not had any changes in the stools. Denies fevers, chills, body aches. Denies dysuria, frequency, hematuria. Patient states she just finished with her menstrual cycle and has no concerns for . Previous abdominal surgeries include cholecystectomy and tubal ligation. MD elicited complaint: abdominal pain Onset (ago): day(s) (yesterday) Pain Consistency: constant Location: RLQ Severity: severe Quality: sharp Exacerbating factors: nothing Relieving factors: nothing Associated Symptoms: Reports nausea and vomiting; Denies change in bowel habits, change in stool character, chills, dysuria, fever(s), hematochezia, hematuria, hematemesis and melena Review of Systems Const: Denies: fever(s), chills, body aches, fatigue or malaise Card: Denies: chest pain Resp: Denies: dyspnea GI: Reports: abdominal pain, nausea and vomiting; Denies: hematemesis, change in bowel habits, change in stool character, hematochezia or melena : Denies: flank pain, dysuria, hematuria, vaginal bleeding or vaginal discharge Musc: Denies: neck pain, back pain, extremity pain or joint pain Skin/Breast: Denies: rash Neuro: Denies: headache(s), numbness in extremities, weakness in extremities, sensory changes or dizziness Physical Exam Const: COMMON NORMALS: no acute distress, patient oriented x3, no limitations and alert GENERAL APPEARANCE: cooperative NUTRITIONAL APPEARANCE: obese ORIENTATION/CONSCIOUSNESS: Yes awake, Yes oriented to person, Yes oriented to place and Yes oriented to time HENMT: COMMON NORMALS: normocephalic and atraumatic HEAD & SCALP: normal to inspection, normocephalic and atraumatic Resp: COMMON NORMALS: normal respiratory effort and clear to auscultation bilaterally AUSCULTATION: clear to auscultation bilaterally Cardio: COMMON NORMALS: regular rate and regular rhythm RATE: regular rate RHYTHM: regular rhythm GI: COMMON NORMALS: Normal to inspection, nondistended, normoactive bowel sounds present, Soft to palpation, No hepatosplenomegaly present and no masses INSPECTION: Yes normal to inspection PALPATION: Yes Soft to palpation, Yes Tenderness to palpation present (GI) and Yes No hepatosplenomegaly present OTHER: exam is limited secondary to patient being seated in a recliner but she is tender to the right of periumbilical region and into RLQ; guarding present; does not appear to have any lower pelvic pain : COMMON NORMALS: Yes no CVA tenderness BLADDER/KIDNEY EXAM: Yes no CVA tenderness Back/Pelvis: COMMON NORMALS: no CVA tenderness Extremity: COMMON NORMALS: normal to inspection Neuro: COMMON NORMALS: patient oriented x3 SENSORIUM/ORIENTATION: Yes alert, Yes oriented to person, Yes oriented to place and Yes oriented to time Skin: COMMON NORMALS: no rashes or lesions noted GENERAL SKIN EXAM: no rashes or lesions noted Course Vital Signs: Vital signs: Vital Signs Temperature 98.4 F 05/12/21 18:39 Pulse Rate 73 05/12/21 18:39 Respiratory Rate 16 05/12/21 18:39 Blood Pressure 106/73 05/12/21 18:39 Pulse Oximetry 98 05/12/21 18:39 MDM - Abdominal Pain Lab Data: Labs: Lab Results 05/12/21 05/12/21 05/12/21 16:15 16:15 16:15 WBC 9.8 10^3/uL 10^3/ uL (4.0-10.0) RBC 4.73 10^6/uL 10^6 /uL (4.1-5.3) Hgb 13.7 g/dL g/dL (11.5-15.3) Hct 42.6 % % (37.0-47.0) MCV 90.1 fl fl (81-99) MCH 29.0 pg pg (28.0-34.0) MCHC 32.2 g/dL g/dL (30.0-36.0) RDW 13.3 % % (12.1-15.1) Plt Count 509 10^3/cmm H 10 ^3/cmm (130-400) MPV 9.0 fL fL (7.4-10.4) Neut % (Auto) 50.0 % % Lymph % (Auto) 40.2 % % [place] % (Auto) 6.4 % % Eos % (Auto) 2.5 % % Baso % (Auto) 0.7 % % Neut # (Auto) 4.90 10^3/uL 10^3 /uL (1.8-7.7) Lymph # (Auto) 3.9 10^3/uL 10^3/ uL (0.8-4.8) [place] # (Auto) 0.6 10^3/uL 10^3/ uL (0.2-0.9) Eos # (Auto) 0.3 10^3/uL 10^3/ uL (0.0-0.8) Baso # (Auto) 0.1 10^3/uL 10^3/ uL (0.0-0.1) Nucleated RBC % (a uto) 0 % % Nucleated RBCs # 0.0 /100WBC /100W BC Sodium 136 mmol/L mmol/L (136-145) Potassium 3.9 mmol/L mmol/L (3.5-5.1) Chloride 101 mmol/L mmol/L (98-107) Carbon Dioxide 25 mmol/L mmol/L (22-29) Anion Gap 13.9 (5-19) BUN 11 mg/dL mg/dL (6-20) Creatinine 0.6 mg/dL mg/dL (0.5-0.9) GFR Calculation 115.1 mL/min mL/m in (90-130) Glucose 87 mg/dL mg/dL (65-115) Calculated Osmolal ity 281 mOsm/kg L mOs m/kg (285-295) Calcium 9.4 mg/dL mg/dL (8.5-10.5) Total Bilirubin 0.2 mg/dL mg/dL (0.15-1.2) AST 18 U/L U/L (0-32) ALT 29 U/L U/L (0-33) Alkaline Phosphata se 81 IU/L IU/L (35-105) Total Protein 7.3 g/dL g/dL (6.6-8.7) Albumin 4.0 g/dL g/dL (3.5-5.2) Globulin 3.3 g/dL g/dL (1.3-4.6) Lipase 43 U/L U/L (13-60) HCG, Qual Negative (Negative) Urine Color Urine Appearance Urine pH Ur Specific Gravit y Urine Protein Urine Glucose (UA) Urine Ketones Urine Blood Urine Nitrate Urine Bilirubin Urine Urobilinogen Ur Leukocyte Mer ase Urine RBC Urine WBC Ur Squamous Epith Cells Amorphous Sediment Urine Bacteria Urine Mucus 05/12/21 16:15 WBC RBC Hgb Hct MCV MCH MCHC RDW Plt Count MPV Neut % (Auto) Lymph % (Auto) [place] % (Auto) Eos % (Auto) Baso % (Auto) Neut # (Auto) Lymph # (Auto) [place] # (Auto) Eos # (Auto) Baso # (Auto) Nucleated RBC % (a uto) Nucleated RBCs # Sodium Potassium Chloride Carbon Dioxide Anion Gap BUN Creatinine GFR Calculation Glucose Calculated Osmolal ity Calcium Total Bilirubin AST ALT Alkaline Phosphata se Total Protein Albumin Globulin Lipase HCG, Qual Urine Color Yellow (Yellow) Urine Appearance Clear (CLEAR) Urine pH 5 (5-7) Ur Specific Gravit y 1.025 (1.005-1.030) Urine Protein Neg (Negative) Urine Glucose (UA) Norm (Normal) Urine Ketones Negative (Negative) Urine Blood Trace H (Negative) Urine Nitrate Negative (Negative) Urine Bilirubin Neg (Negative) Urine Urobilinogen Norm mg/dL mg/dL (Negative) Ur Leukocyte Mer ase Negative (Negative) Urine RBC 0-4 /hpf H /hpf (0-2) Urine WBC 0-4 /hpf H /hpf (0-5) Ur Squamous Epith Cells 5-10 /hpf H /hpf (0-5) Amorphous Sediment Not Reportable Urine Bacteria Trace /hpf /hpf (NONE) Urine Mucus 2+ /hpf /hpf Imaging Data ^: CT Abd/Pel: Radiologist's impression: [address] [id number] Scan ReportSigned Patient: Enoch Humphries #: [id number]: 1990Acct#:[id number]/Sex: 31 / FADM Date: 05/12/21Loc: ERRoom/Bed:Attending Dr: Ordering Provider/Ordering MD: Eunice Rojo Date of Service: 05/12/21 Procedure(s): CT abdomen pelvis w con* [id number] Accession Number(s): [id number] Report Number: [id number] PROCEDURE INFORMATION: Exam: CT Abdomen And Pelvis With Contrast Exam date and time: 05/12/2021 3:11 PM Age: 31 years old Clinical indication: Abdominal pain; Rebound pain; Right lower quadrant (rlq); Prior surgery; Surgery date: 6+ months; Surgery type: Gb, tubal; Additional info: R abdominal pain; Concern for appy TECHNIQUE: Imaging protocol: Computed tomography of the abdomen and pelvis with contrast. Radiation optimization: All CT scans at this facility use at least one of these dose optimization techniques: automated exposure control; mA and/or kV adjustment per patient size (includes targeted exams where dose is matched to clinical indication); or iterative reconstruction. Contrast material: OMNI 300; Contrast volume: 95 ml; Contrast route: INTRAVENOUS (IV); COMPARISON: No relevant prior studies available. RADIATION DOSE METRICS: Total DLP (mGy-cm): 1733.63 FINDINGS: Liver: A few scattered subcentimeter cysts noted. Gallbladder and bile ducts: Cholecystectomy. No ductal dilation. Pancreas: Normal. No ductal dilation. Spleen: Normal. No splenomegaly. Adrenal glands: Normal. No mass. Kidneys and ureters: Normal. No hydronephrosis. Stomach and bowel: Unremarkable. No obstruction. No mucosal thickening. Appendix: No evidence of appendicitis. Intraperitoneal space: Unremarkable. No free air. No significant fluid collection. Vasculature: Unremarkable. No abdominal aortic aneurysm. Lymph nodes: Unremarkable. No enlarged lymph nodes. Urinary bladder: Bladder under distended and grossly unremarkable. Reproductive: Unremarkable as visualized. Bones/joints: No acute fracture. Soft tissues: Unremarkable. CT/CT abdomen pelvis w con* [id number] IMPRESSION: No acute findings. Negative for appendicitis. Dictated By:Lizandro Reynolds DOSigned By:Lizandro Reynolds DOSigned Date/Time:05/12/21 1649DD/ 1511 Discharge Plan Discharge Patient Disposition: Home Clinical Impression: Abdominal pain Qualifiers: Abdominal location: right lower quadrant Qualified Code(s): R10.31 - Right lower quadrant pain Condition: Stable Discharge Orders: Discharge ED (Routine); Ordered 05/12/21 Ordered By: Virgil Love Patient Instructions: Abdominal Pain (ED), Opioid Safety Activity Restrictions/Additional Instructions: Home and rest. Drink plenty of fluids. Acetaminophen or ibuprofen as needed for pain. Activity as tolerated. Monitor for fever greater than 100.4, monitor for blood in vomit or stool, return to the ER for persistent vomiting or uncontrolled pain. Follow-up with primary care for further evaluation and treatment. Sign Out Sign Out Data: Patient Sign Out occurred on 05/12/21 at 17:09. Patient's care was discussed, and care was transferred from to Virgil Love. Coding Level of Care Code ED Jewelry Jobber for Chg Fwd Exam Comprehensive Documented by User: MORENO Nichols 05/12/21 19:17 HPI - Abdominal Pain General: Chief Complaint: Abdominal Pain Stated Complaint: Dr. Wiley sent for poss Acute appendicitis Time Seen by Provider: 05/12/21 16:03 Course Vital Signs: Vital signs: Vital Signs Temperature 98.4 F 05/12/21 18:39 Pulse Rate 73 05/12/21 18:39 Respiratory Rate 16 05/12/21 18:39 Blood Pressure 106/73 05/12/21 18:39 Pulse Oximetry 98 05/12/21 18:39 MDM - Abdominal Pain MDM Narrative: Medical decision making narrative: 31-year-old female comes in today with complaints of right lower quadrant abdominal pain. On exam patient had some tenderness in the right lower quadrant of her abdomen. Respirations were even lungs are clear to auscultation. Vital signs are normal. Differential diagnosis includes but not limited to urinary tract infection, appendicitis, renal calculi, ovarian cyst. CT of the abdomen pelvis was unremarkable. Ultrasound transvaginal was negative for any abnormality. Urinalysis was unremarkable. CBC and CMP was basically normal. We ruled out a surgical abdomen. Patient may just have either a viral syndrome or some mild constipation. I recommended the patient monitor for fever or uncontrolled pain. Return as needed. Patient reported understanding agreed to plan. Lab Data: Labs: Lab Results 05/12/21 05/12/21 05/12/21 16:15 16:15 16:15 WBC 9.8 10^3/uL 10^3/ uL (4.0-10.0) RBC 4.73 10^6/uL 10^6 /uL (4.1-5.3) Hgb 13.7 g/dL g/dL (11.5-15.3) Hct 42.6 % % (37.0-47.0) MCV 90.1 fl fl (81-99) MCH 29.0 pg pg (28.0-34.0) MCHC 32.2 g/dL g/dL (30.0-36.0) RDW 13.3 % % (12.1-15.1) Plt Count 509 10^3/cmm H 10 ^3/cmm (130-400) MPV 9.0 fL fL (7.4-10.4) Neut % (Auto) 50.0 % % Lymph % (Auto) 40.2 % % [place] % (Auto) 6.4 % % Eos % (Auto) 2.5 % % Baso % (Auto) 0.7 % % Neut # (Auto) 4.90 10^3/uL 10^3 /uL (1.8-7.7) Lymph # (Auto) 3.9 10^3/uL 10^3/ uL (0.8-4.8) [place] # (Auto) 0.6 10^3/uL 10^3/ uL (0.2-0.9) Eos # (Auto) 0.3 10^3/uL 10^3/ uL (0.0-0.8) Baso # (Auto) 0.1 10^3/uL 10^3/ uL (0.0-0.1) Nucleated RBC % (a uto) 0 % % Nucleated RBCs # 0.0 /100WBC /100W BC Sodium 136 mmol/L mmol/L (136-145) Potassium 3.9 mmol/L mmol/L (3.5-5.1) Chloride 101 mmol/L mmol/L (98-107) Carbon Dioxide 25 mmol/L mmol/L (22-29) Anion Gap 13.9 (5-19) BUN 11 mg/dL mg/dL (6-20) Creatinine 0.6 mg/dL mg/dL (0.5-0.9) GFR Calculation 115.1 mL/min mL/m in (90-130) Glucose 87 mg/dL mg/dL (65-115) Calculated Osmolal ity 281 mOsm/kg L mOs m/kg (285-295) Calcium 9.4 mg/dL mg/dL (8.5-10.5) Total Bilirubin 0.2 mg/dL mg/dL (0.15-1.2) AST 18 U/L U/L (0-32) ALT 29 U/L U/L (0-33) Alkaline Phosphata se 81 IU/L IU/L (35-105) Total Protein 7.3 g/dL g/dL (6.6-8.7) Albumin 4.0 g/dL g/dL (3.5-5.2) Globulin 3.3 g/dL g/dL (1.3-4.6) Lipase 43 U/L U/L (13-60) HCG, Qual Negative (Negative) Urine Color Urine Appearance Urine pH Ur Specific Gravit y Urine Protein Urine Glucose (UA) Urine Ketones Urine Blood Urine Nitrate Urine Bilirubin Urine Urobilinogen Ur Leukocyte Mer ase Urine RBC Urine WBC Ur Squamous Epith Cells Amorphous Sediment Urine Bacteria Urine Mucus 05/12/21 16:15 WBC RBC Hgb Hct MCV MCH MCHC RDW Plt Count MPV Neut % (Auto) Lymph % (Auto) [place] % (Auto) Eos % (Auto) Baso % (Auto) Neut # (Auto) Lymph # (Auto) [place] # (Auto) Eos # (Auto) Baso # (Auto) Nucleated RBC % (a uto) Nucleated RBCs # Sodium Potassium Chloride Carbon Dioxide Anion Gap BUN Creatinine GFR Calculation Glucose Calculated Osmolal ity Calcium Total Bilirubin AST ALT Alkaline Phosphata se Total Protein Albumin Globulin Lipase HCG, Qual Urine Color Yellow (Yellow) Urine Appearance Clear (CLEAR) Urine pH 5 (5-7) Ur Specific Gravit y 1.025 (1.005-1.030) Urine Protein Neg (Negative) Urine Glucose (UA) Norm (Normal) Urine Ketones Negative (Negative) Urine Blood Trace H (Negative) Urine Nitrate Negative (Negative) Urine Bilirubin Neg (Negative) Urine Urobilinogen Norm mg/dL mg/dL (Negative) Ur Leukocyte Mer ase Negative (Negative) Urine RBC 0-4 /hpf H /hpf (0-2) Urine WBC 0-4 /hpf H /hpf (0-5) Ur Squamous Epith Cells 5-10 /hpf H /hpf (0-5) Amorphous Sediment Not Reportable Urine Bacteria Trace /hpf /hpf (NONE) Urine Mucus 2+ /hpf /hpf Discharge Plan Discharge Patient Disposition: Home Clinical Impression: Abdominal pain Qualifiers: Abdominal location: right lower quadrant Qualified Code(s): R10.31 - Right lo wer quadrant pain Condition: Stable Discharge Orders: Discharge ED (Routine); Ordered 05/12/21 Ordered By: Virgil Love Patient Instructions: Abdominal Pain (ED), Opioid Safety Activity Restrictions/Additional Instructions: Home and rest. Drink plenty of fluids. Acetaminophen or ibuprofen as needed for pain. Activity as tolerated. Monitor for fever greater than 100.4, monitor for blood in vomit or stool, return to the ER for persistent vomiting or uncontrolled pain. Follow-up with primary care for further evaluation and treat ment. Sign Out Sign Out Data: Patient Sign Out occurred on 05/12/21 at 17:09. Patient's care was discussed, and care was transferred from to Virgil Love. Coding Level of Care Code ED Jewelry Jobber for [place] Fwd Exam Comprehensive
[2021-05-12] MEDS: iohexol 300 mg/mL 100 mL Btl IV (16:32)
[2021-05-12 16:34] LABS: Basophils # 0.1 10^3/uL (0.0-0.1); Basophils % 0.7 %; Eosinophils # 0.3 10^3/uL (0.0-0.8); Eosinophils % 2.5 %; Hematocrit 42.6 % (37.0-47.0); Hemoglobin 13.7 g/dL (11.5-15.3); Lymphocytes # 3.9 10^3/uL (0.8-4.8); Lymphocytes % 40.2 %; Mean Corpuscular HGB Conc 32.2 g/dL (30.0-36.0); Mean Corpuscular Volume 90.1 fl (81-99); Monocytes # 0.6 10^3/uL (0.2-0.9); Monocytes % 6.4 %; Nucleated Red Blood Cells % 0 %; Platelet Count 509 10^3/cmm (130-400); Red Blood Count 4.73 10^6/uL (4.1-5.3); Red Cell Distribution Width 13.3 % (12.1-15.1); White Blood Count 9.8 10^3/uL (4.0-10.0)
[2021-05-12 16:52] LABS: Alanine Aminotransferase 29 U/L (0-33); Alkaline Phosphatase 81 IU/L (35-105); Anion Gap 13.9 (5-19); Aspartate Amino Transferase 18 U/L (0-32); Blood Urea Nitrogen 11 mg/dL (6-20); Calcium 9.4 mg/dL (8.5-10.5); Carbon Dioxide 25 mmol/L (22-29); Chloride 101 mmol/L (98-107); Globulin 3.3 g/dL (1.3-4.6); Glomerular Filtration Rate 115.1 mL/min (90-130); Glucose 87 mg/dL (65-115); Lipase 43 U/L (13-60); Osmolality Calculated 281 mOsm/kg (285-295); Potassium 3.9 mmol/L (3.5-5.1); Sodium 136 mmol/L (136-145); Total Bilirubin 0.2 mg/dL (0.15-1.2); Total Protein 7.3 g/dL (6.6-8.7)
--- NOTE | 2021-05-12 16:55 | USR_ITS ---
PROCEDURE INFORMATION: Exam: US Pelvis, Transvaginal Exam date and time: 05/12/2021 4:55 PM Age: 31 years old Clinical indication: Pelvic pain; Prior surgery; Surgery date: 6+ months; Surgery type: Tubes tied; Additional info: R pelvic/abdominal pain TECHNIQUE: Imaging protocol: Real-time transvaginal pelvic ultrasound with image documentation. Transvaginal imaging was used for better evaluation of the endometrium, adnexa, and/or cervix. COMPARISON: CT abdomen pelvis w con* [id number] 05/12/2021 4:33 PM FINDINGS: Uterus: The uterus measures 8.6 x 3.7 x 5.9 cm. Endometrial thickness 4.9 mm. No focal lesion. Cervix: The cervix is well visualized with a few tiny nabothian cysts. No focal lesion. Right ovary/adnexa: The right ovary measures 3.1 x 1.7 x 3.2 cm with small follicles and normal blood flow. Left ovary/adnexa: The left ovary measures 2.0 x 1.7 x 1.9 cm with small follicles and normal blood flow. Intraperitoneal space: Small amount of physiologic fluid in the cul-de-sac. US/US transvaginal [id number] IMPRESSION: 1. No acute findings.
[2021-05-12 17:24] LABS: HCG Qualitative Urine. Negative (Negative)
[2021-05-12 17:31] VITALS: RESP 18
[2021-05-12] MEDS: ondansetron 2 mg/ML SDV 2 mL 4 MG IVP (17:31)
[2021-05-12] MEDS: morphine 4 mg/mL SDV 1 mL IVP (17:31)
[2021-05-12 18:39] VITALS: BP 106/73; PULSE 73; RESP 16; TEMP 36.9; O2SAT 98
[2021-05-12 19:03] LABS: Add Urine Microscopic? YES; Bilirubin Urine Neg (Negative); Blood Urine Trace (Negative); Glucose Urine UA Norm (Normal); Ketones Urine Negative (Negative); Leukocyte Esterase Urine Negative (Negative); Nitrate Urine Negative (Negative); Protein Urine Neg (Negative); Specific Gravity, Urine 1.025 (1.005-1.030); Urine Appearance Clear (CLEAR); Urine Color Yellow (Yellow); Urobilinogen Urine Norm (Negative); pH Urine 5 (5-7)
[2021-05-12 19:14] LABS: Add Urine Culture? No; Bacteria Urine TRACE /hpf; Mucus Urine 2+ /hpf; RBC Urine 0-4 /hpf (0-2); WBC Urine 0-4 /hpf (0-5)
[2021-05-12 19:17] VITALS: BP 103/71; PULSE 66; RESP 16; O2SAT 97
== END 2021-05-12 19:18 | disposition home or self-care (01) ==
PROVIDERS: Emergency Medicine; Emergency Provider Nurse Practitioner Family
DX: R10.31 Right lower quadrant pain (principal); Z90.49 Acquired absence of other specified parts of digestive tract; Z98.51 Tubal ligation status
CPT/HCPCS: 12345; 74177; 76830; 80053; 81001; 81025; 83690; 85025; 96374; 96375; 99284; J2270; J2405; Q9967

== ENCOUNTER 2021-05-14 12:04 | Emergency (ER) | payer OTHER, MEDICAID, SELFPAY ==
[2021-05-14 12:33] VITALS: BP 118/70; PULSE 105; RESP 20; TEMP 36.8; O2SAT 98; BMI 37.3
--- NOTE | 2021-05-14 13:13 | W.ED.ABDPA2 ---
Documented by User: MORENO Espinoza 05/14/21 15:38 HPI - Abdominal Pain General: Chief Complaint: Abdominal Pain Stated Complaint: abdomen pain Time Seen by Provider: 05/14/21 12:40 History of Present Illness: HPI narrative: Patient presents with ongoing abdominal discomfort since earlier this week. Patient was seen here in the ER. I had a CT of the abdomen and transvaginal ultrasound which were both negative for any any significant findings. Sounded show incidental ovarian cyst. Patient was seen by her primary care provider and told follow-up here if worsening symptoms and she provides here today with right lower quadrant pain that migrates over to the left. Patient is in tears patient also that she has had fever. She has had nausea vomiting diarrhea also. MD elicited complaint: abdominal pain Onset (ago): day(s) Pain Consistency: constant Location: RLQ Severity: severe Quality: cramping, stabbing and aching Migration to: LLQ Exacerbating factors: eating and movement Relieving factors: nothing Associated Symptoms: Reports chills, fever(s), loose stools, nausea and vomiting Related Data: Date of Last Menstrual Period: 05/07/21 Review of Systems Const: Reports: fever(s) and chills Eyes: Denies: change in vision or blurry vision ENMT: Denies: throat pain or nasal congestion Card: Denies: chest pain or dyspnea on exertion Resp: Denies: dyspnea, productive cough or non-productive cough GI: Reports: abdominal pain, nausea and vomiting Musc: Denies: extremity pain Skin/Breast: Denies: rash Neuro: Denies: headache(s) Psych: Denies: anxiety or depression Jaime/Lymph: Denies: easy bruising PFSH ED PFSH: Family History Mother Diabetes Hypertension Hyperlipidemia Heart disease Osteoporosis Hypothyroid Neuropathy Father Diabetes Hypertension Hyperlipidemia Cancer Neuropathy Grandmother Cancer Osteoporosis Social History (System 05/15/21 @ 16:17 by Dina Hightower) Smoking and tobacco status: never smoked Female Reproductive History: Date of last menstrual period: 05/07/21 Physical Exam Const: COMMON NORMALS: average body habitus, patient oriented x3 and healthy appearing GENERAL APPEARANCE: cooperative OTHER: Is holding her abdomen HENMT: COMMON NORMALS: normocephalic HEAD & SCALP: normal to inspection and normocephalic FACE & SINUS: normal facial exam Eye: COMMON NORMALS: conjunctivae normal GENERAL EYE: appearance normal, both eyes and all related structures CONJUNCTIVA: Yes conjunctivae normal Neck/C-Spine: COMMON NORMALS: no JVD Chest: COMMONS NORMALS: normal inspection of the chest Resp: COMMON NORMALS: normal respiratory effort and clear to auscultation bilaterally AUSCULTATION: clear to auscultation bilaterally Cardio: COMMON NORMALS: no JVD, regular rate and regular rhythm RATE: regular rate RHYTHM: regular rhythm GI: PALPATION: Yes Tenderness to palpation present (GI) (Does have guarding) Extremity: COMMON NORMALS: normal to inspection and full ROM Neuro: COMMON NORMALS: patient oriented x3 Course Vital Signs: Vital signs: Vital Signs Temperature 98.3 F 05/14/21 12:33 Pulse Rate 87 05/14/21 15:38 Respiratory Rate 20 H 05/14/21 15:38 Blood Pressure 117/75 05/14/21 15:38 Pulse Oximetry 99 05/14/21 15:38 MDM - Abdominal Pain MDM Narrative Medical decision making narrative: Patient presents here with right lower quadrant pain that is rating over to the left side. Patient has had a couple work-ups done this week and were negative. Laboratory studies here were negative for except for possible mild UTI. I reviewed the patient's radiology studies over the last year and a half and she has had multiple work-ups for abdominal pain and right lower quadrant and no findings were found. When repeated CT today see if there is change from yesterday. CT does not show any acute findings. Advised patient that she should follow-up with specialist to see if there is need for laparoscopic exploration to find the cause of her abdominal pain. Patient was advised to stop present medications besides Protonix and to take Phenergan in place of Zofran. Believes she has chronic right lower quadrant pain more likely from mean endometriosis or scar tissue. Lab Data Result diagrams: 05/14/21 13:40 05/14/21 13:40 Labs: Lab Results 05/14/21 05/14/21 05/14/21 12:41 12:41 13:40 WBC 7.3 10^3/uL 10^3/uL (4.0-10.0) RBC 4.79 10^6/uL 10^6/uL (4.1-5.3) Hgb 13.8 g/dL g/dL (11.5-15.3) Hct 43.3 % % (37.0-47.0) MCV 90.4 fl fl (81-99) MCH 28.8 pg pg (28.0-34.0) MCHC 31.9 g/dL g/dL (30.0-36.0) RDW 13.2 % % (12.1-15.1) Plt Count 473 10^3/cmm H 10^3/cmm (130-400) MPV 8.4 fL fL (7.4-10.4) Neut % (Auto) 46.3 % % Lymph % (Auto) 43.6 % % Rooks % (Auto) 6.4 % % Eos % (Auto) 2.7 % % Baso % (Auto) 0.7 % % Neut # (Auto) 3.38 10^3/uL 10^3/uL (1.8-7.7) Lymph # (Auto) 3.2 10^3/uL 10^3/uL (0.8-4.8) Rooks # (Auto) 0.5 10^3/uL 10^3/uL (0.2-0.9) Eos # (Auto) 0.2 10^3/uL 10^3/uL (0.0-0.8) Baso # (Auto) 0.1 10^3/uL 10^3/uL (0.0-0.1) Nucleated RBC % (auto) 0 % % Nucleated RBCs # 0.0 /100WBC /100WBC Sodium Potassium Chloride Carbon Dioxide Anion Gap BUN Creatinine GFR Calculation Glucose Calculated Osmolality Calcium Total Bilirubin AST ALT Alkaline Phosphatase Total Protein Albumin Globulin Lipase HCG, Qual Negative (Negative) Urine Color Straw (Yellow) Urine Appearance Clear (CLEAR) Urine pH 5 (5-7) Ur Specific [place] 1.015 (1.005-1.030) Urine Protein Neg (Negative) Urine Glucose (UA) Norm (Normal) Urine Ketones Negative (Negative) Urine Blood Trace H (Negative) Urine Nitrate Negative (Negative) Urine Bilirubin Neg (Negative) Urine Urobilinogen Norm mg/dL mg/dL (Negative) Ur Leukocyte Esterase 1+ H (Negative) Urine RBC 0-4 /hpf H /hpf (0-2) Urine WBC 10-15 /hpf H /hpf (0-5) Ur Squamous Epith Cells 5-10 /hpf H /hpf (0-5) Amorphous Sediment Not Reportable Urine Bacteria Trace /hpf /hpf (NONE) 05/14/21 13:40 WBC RBC Hgb Hct MCV MCH MCHC RDW Plt Count MPV Neut % (Auto) Lymph % (Auto) Rooks % (Auto) Eos % (Auto) Baso % (Auto) Neut # (Auto) Lymph # (Auto) Rooks # (Auto) Eos # (Auto) Baso # (Auto) Nucleated RBC % (auto) Nucleated RBCs # Sodium 135 mmol/L L mmol/L (136-145) Potassium 4.3 mmol/L mmol/L (3.5-5.1) Chloride 101 mmol/L mmol/L (98-107) Carbon Dioxide 22 mmol/L mmol/L (22-29) Anion Gap 16.3 (5-19) BUN 9 mg/dL mg/dL (6-20) Creatinine 0.6 mg/dL mg/dL (0.5-0.9) GFR Calculation 115.1 mL/min mL/min (90-130) Glucose 80 mg/dL mg/dL (65-115) Calculated Osmolality 278 mOsm/kg L mOsm/kg (285-295) Calcium 9.2 mg/dL mg/dL (8.5-10.5) Total Bilirubin 0.4 mg/dL mg/dL (0.15-1.2) AST 18 U/L U/L (0-32) ALT 23 U/L U/L (0-33) Alkaline Phosphatase 85 IU/L IU/L (35-105) Total Protein 7.4 g/dL g/dL (6.6-8.7) Albumin 4.1 g/dL g/dL (3.5-5.2) Globulin 3.3 g/dL g/dL (1.3-4.6) Lipase 32 U/L U/L (13-60) HCG, Qual Urine Color Urine Appearance Urine pH Ur Specific [place] Urine Protein Urine Glucose (UA) Urine Ketones Urine Blood Urine Nitrate Urine Bilirubin Urine Urobilinogen Ur Leukocyte Esterase Urine RBC Urine WBC Ur Squamous Epith Cells Amorphous Sediment Urine Bacteria Discharge Plan Discharge Patient Disposition: Home Clinical Impression: Abdominal pain, chronic, right lower quadrant Condition: Stable Prescriptions: New promethazine 25 mg tablet 25 mg PO TID PRN (Reason: nausea and vomiting) Qty: 14 0RF Celebrex 100 mg capsule 100 mg PO BID Qty: 20 0RF Discontinued metoclopramide HCl 5 mg tablet 5 mg PO TID PRN (Reason: migraines) 0RF prednisone 10 mg Tablet 10 mg PO DAILY 0RF cyclobenzaprine 10 mg Tablet 10 mg PO DAILY PRN (Reason: Muscle Pain) 0RF ibuprofen 800 mg tablet 800 mg PO TID PRN (Reason: Pain) 0RF naproxen [Naprosyn] 500 mg tablet 500 mg PO BID PRN (Reason: pain) Qty: 20 0RF No Action desvenlafaxine succinate 50 mg tablet extended release 24 hr 100 mg PO DAILY 0RF Rx Instructions: SEE PHARMACY COMMENT albuterol sulfate 90 mcg/actuation aero powdr breath act w/sensor 2 inh inhalation Q6H PRN (Reason: shortness of breath or wheezing) Qty: 1 0RF hydrocodone-acetaminophen 5-325 mg tablet 1 tab PO Q6H PRN (Reason: pain) Qty: 10 0RF Protonix 40 mg PO BID 0RF Discharge Orders: Discharge ED (Routine); Ordered 05/14/21 Ordered By: Cory Caceres Referrals: Roque Rios MD [Primary Care Provider] - Discharge Diet: Advance as tolerated Discharge Activity: Resume usual activity Activity Restrictions/Additional Instructions: Follow-up with medical provider as directed. Take medications as prescribed. Return to the ER or your medical provider if condition worsens. Please read and understand discharge instructions. If any questions ask please. I suggest that patient sees about getting a referral to a specialist for possible endometriosis or scar tissue. Because of patient's chronic abdominal pain she needs to have more definitive work-up done. Coding Level of Care Code ED Merchandise Flow Associate for Chg Fwd Exam Comprehensive Documented by User: Jitendra Beltre MD 05/19/21 20:24 HPI - Abdominal Pain General: Chief Complaint: Abdominal Pain Stated Complaint: abdomen pain Time Seen by Provider: 05/14/21 12:40 PFSH ED PFSH: Family History Mother Diabetes Hypertension Hyperlipidemia Heart disease Osteoporosis Hypothyroid Neuropathy Father Diabetes Hypertension Hyperlipidemia Cancer Neuropathy Grandmother Cancer Osteoporosis Social History (System 05/15/21 @ 16:17 by Dina Hightower) Smoking and tobacco status: never smoked Course Vital Signs: Vital signs: Vital Signs Temperature 98.3 F 05/14/21 12:33 Pulse Rate 87 05/14/21 15:38 Respiratory Rate 20 H 05/14/21 15:38 Blood Pressure 117/75 05/14/21 15:38 Pulse Oximetry 99 05/14/21 15:38 MDM - Abdominal Pain MDM Narrative Medical decision making narrative: I reviewed documentation by Cory Caceres NP. Jitendra Beltre MD Emergency Medicine Lab Data Result diagrams: 05/14/21 13:40 05/14/21 13:40 Labs: Lab Results 05/14/21 05/14/21 05/14/21 12:41 12:41 13:40 WBC 7.3 10^3/uL 10^3/uL (4.0-10.0) RBC 4.79 10^6/uL 10^6/uL (4.1-5.3) Hgb 13.8 g/dL g/dL (11.5-15.3) Hct 43.3 % % (37.0-47.0) MCV 90.4 fl fl (81-99) MCH 28.8 pg pg (28.0-34.0) MCHC 31.9 g/dL g/dL (30.0-36.0) RDW 13.2 % % (12.1-15.1) Plt Count 473 10^3/cmm H 10^3/cmm (130-400) MPV 8.4 fL fL (7.4-10.4) Neut % (Auto) 46.3 % % Lymph % (Auto) 43.6 % % Rooks % (Auto) 6.4 % % Eos % (Auto) 2.7 % % Baso % (Auto) 0.7 % % Neut # (Auto) 3.38 10^3/uL 10^3/uL (1.8-7.7) Lymph # (Auto) 3.2 10^3/uL 10^3/uL (0.8-4.8) Rooks # (Auto) 0.5 10^3/uL 10^3/uL (0.2-0.9) Eos # (Auto) 0.2 10^3/uL 10^3/uL (0.0-0.8) Baso # (Auto) 0.1 10^3/uL 10^3/uL (0.0-0.1) Nucleated RBC % (auto) 0 % % Nucleated RBCs # 0.0 /100WBC /100WBC Sodium Potassium Chloride Carbon Dioxide Anion Gap BUN Creatinine GFR Calculation Glucose Calculated Osmolality Calcium Total Bilirubin AST ALT Alkaline Phosphatase Total Protein Albumin Globulin Lipase HCG, Qual Negative (Negative) Urine Color Straw (Yellow) Urine Appearance Clear (CLEAR) Urine pH 5 (5-7) Ur Specific [place] 1.015 (1.005-1.030) Urine Protein Neg (Negative) Urine Glucose (UA) Norm (Normal) Urine Ketones Negative (Negative) Urine Blood Trace H (Negative) Urine Nitrate Negative (Negative) Urine Bilirubin Neg (Negative) Urine Urobilinogen Norm mg/dL mg/dL (Negative) Ur Leukocyte Esterase 1+ H (Negative) Urine RBC 0-4 /hpf H /hpf (0-2) Urine WBC 10-15 /hpf H /hpf (0-5) Ur Squamous Epith Cells 5-10 /hpf H /hpf (0-5) Amorphous Sediment Not Reportable Urine Bacteria Trace /hpf /hpf (NONE) 05/14/21 13:40 WBC RBC Hgb Hct MCV MCH MCHC RDW Plt Count MPV Neut % (Auto) Lymph % (Auto) Rooks % (Auto) Eos % (Auto) Baso % (Auto) Neut # (Auto) Lymph # (Auto) Rooks # (Auto) Eos # (Auto) Baso # (Auto) Nucleated RBC % (auto) Nucleated RBCs # Sodium 135 mmol/L L mmol/L (136-145) Potassium 4.3 mmol/L mmol/L (3.5-5.1) Chloride 101 mmol/L mmol/L (98-107) Carbon Dioxide 22 mmol/L mmol/L (22-29) Anion Gap 16.3 (5-19) BUN 9 mg/dL mg/dL (6-20) Creatinine 0.6 mg/dL mg/dL (0.5-0.9) GFR Calculation 115.1 mL/min mL/min (90-130) Glucose 80 mg/dL mg/dL (65-115) Calculated Osmolality 278 mOsm/kg L mOsm/kg (285-295) Calcium 9.2 mg/dL mg/dL (8.5-10.5) Total Bilirubin 0.4 mg/dL mg/dL (0.15-1.2) AST 18 U/L U/L (0-32) ALT 23 U/L U/L (0-33) Alkaline Phosphatase 85 IU/L IU/L (35-105) Total Protein 7.4 g/dL g/dL (6.6-8.7) Albumin 4.1 g/dL g/dL (3.5-5.2) Globulin 3.3 g/dL g/dL (1.3-4.6) Lipase 32 U/L U/L (13-60) HCG, Qual Urine Color Urine Appearance Urine pH Ur Specific [place] Urine Protein Urine Glucose (UA) Urine Ketones Urine Blood Urine Nitrate Urine Bilirubin Urine Urobilinogen Ur Leukocyte Esterase Urine RBC Urine WBC Ur Squamous Epith Cells Amorphous Sediment Urine Bacteria Discharge Plan Discharge Patient Disposition: Home Clinical Impression: Abdominal pain, chronic, right lower quadrant Condition: Stable Prescriptions: New promethazine 25 mg tablet 25 mg PO TID PRN (Reason: nausea and vomiting) Qty: 14 0RF Celebrex 100 mg capsule 100 mg PO BID Qty: 20 0RF Discontinued metoclopramide HCl 5 mg tablet 5 mg PO TID PRN (Reason: migraines) 0RF prednisone 10 mg Tablet 10 mg PO DAILY 0RF cyclobenzaprine 10 mg Tablet 10 mg PO DAILY PRN (Reason: Muscle Pain) 0RF ibuprofen 800 mg tablet 800 mg PO TID PRN (Reason: Pain) 0RF naproxen [Naprosyn] 500 mg tablet 500 mg PO BID PRN (Reason: pain) Qty: 20 0RF No Action desvenlafaxine succinate 50 mg tablet extended release 24 hr 100 mg PO DAILY 0RF Rx Instructions: SEE PHARMACY COMMENT albuterol sulfate 90 mcg/actuation aero powdr breath act w/sensor 2 inh inhalation Q6H PRN (Reason: shortness of breath or wheezing) Qty: 1 0RF hydrocodone-acetaminophen 5-325 mg tablet 1 tab PO Q6H PRN (Reason: pain) Qty: 10 0RF Protonix 40 mg PO BID 0RF Discharge Orders: Discharge ED (Routine); Ordered 05/14/21 Ordered By: Cory Caceres Referrals: Roque Rios MD [Primary Care Provider] - Discharge Diet: Advance as tolerated Discharge Activity: Resume usual activity Activity Restrictions/Additional Instructions: Follow-up with medical provider as directed. Take medications as prescribed. Return to the ER or your medical provider if condition worsens. Please read and understand discharge instructions. If any questions ask please. I suggest that patient sees about getting a referral to a specialist for possible endometriosis or scar tissue. Because of patient's chronic abdominal pain she needs to have more definitive work-up done. Coding Level of Care Code ED Merchandise Flow Associate for [facility] Fwmalachi Exam Comprehensive
[2021-05-14 13:47] VITALS: RESP 22
[2021-05-14 13:47] LABS: Basophils # 0.1 10^3/uL (0.0-0.1); Basophils % 0.7 %; Eosinophils # 0.2 10^3/uL (0.0-0.8); Eosinophils % 2.7 %; Hematocrit 43.3 % (37.0-47.0); Hemoglobin 13.8 g/dL (11.5-15.3); Lymphocytes # 3.2 10^3/uL (0.8-4.8); Lymphocytes % 43.6 %; Mean Corpuscular HGB Conc 31.9 g/dL (30.0-36.0); Mean Corpuscular Hemoglobin 28.8 pg (28.0-34.0); Mean Corpuscular Volume 90.4 fl (81-99); Mean Platelet Volume 8.4 fL (7.4-10.4); Monocytes # 0.5 10^3/uL (0.2-0.9); Monocytes % 6.4 %; Neutrophils # 3.38 10^3/uL (1.8-7.7); Neutrophils % 46.3 %; Nucleated Red Blood Cells % 0 %; Platelet Count 473 10^3/cmm (130-400); Red Blood Count 4.79 10^6/uL (4.1-5.3); Red Cell Distribution Width 13.2 % (12.1-15.1); White Blood Count 7.3 10^3/uL (4.0-10.0)
[2021-05-14] MEDS: ondansetron 2 mg/ML SDV 2 mL 4 MG IVP ×2 (13:47→14:33)
[2021-05-14] MEDS: morphine 4 mg/mL SDV 1 mL IVP (13:47)
[2021-05-14] MEDS: sodium chloride 0.9% 1,000 ML 999 ML IV (13:48)
[2021-05-14 13:53] LABS: HCG Qualitative Urine. Negative (Negative)
[2021-05-14 14:03] LABS: Alanine Aminotransferase 23 U/L (0-33); Albumin Level 4.1 g/dL (3.5-5.2); Alkaline Phosphatase 85 IU/L (35-105); Anion Gap 16.3 (5-19); Aspartate Amino Transferase 18 U/L (0-32); Blood Urea Nitrogen 9 mg/dL (6-20); Calcium 9.2 mg/dL (8.5-10.5); Carbon Dioxide 22 mmol/L (22-29); Chloride 101 mmol/L (98-107); Globulin 3.3 g/dL (1.3-4.6); Glomerular Filtration Rate 115.1 mL/min (90-130); Glucose 80 mg/dL (65-115); Lipase 32 U/L (13-60); Osmolality Calculated 278 mOsm/kg (285-295); Potassium 4.3 mmol/L (3.5-5.1); Sodium 135 mmol/L (136-145); Total Bilirubin 0.4 mg/dL (0.15-1.2); Total Protein 7.4 g/dL (6.6-8.7)
[2021-05-14 14:05] LABS: Add Urine Microscopic? YES; Bacteria Urine TRACE /hpf; Bilirubin Urine Neg (Negative); Blood Urine Trace (Negative); Glucose Urine UA Norm (Normal); Ketones Urine Negative (Negative); Leukocyte Esterase Urine 1+ (Negative); Nitrate Urine Negative (Negative); Protein Urine Neg (Negative); RBC Urine 0-4 /hpf (0-2); Specific Gravity, Urine 1.015 (1.005-1.030); Urine Appearance Clear (CLEAR); Urine Color Straw (Yellow); Urobilinogen Urine Norm (Negative); pH Urine 5 (5-7)
[2021-05-14 14:06] LABS: Add Urine Culture? No
--- NOTE | 2021-05-14 14:19 | CTR_ITS ---
PROCEDURE INFORMATION: Exam: CT Abdomen And Pelvis With Contrast Exam date and time: 05/14/2021 2:19 PM Age: 31 years old Clinical indication: Abdominal pain; Localized; Lower; Prior surgery; Surgery date: 6+ months; Surgery type: Gb; Patient HX: C/O continued worsening abd pain TECHNIQUE: Imaging protocol: Computed tomography of the abdomen and pelvis with contrast. Radiation optimization: All CT scans at this facility use at least one of these dose optimization techniques: automated exposure control; mA and/or kV adjustment per patient size (includes targeted exams where dose is matched to clinical indication); or iterative reconstruction. Contrast material: OMNI 300; Contrast volume: 95 ml; Contrast route: INTRAVENOUS (IV); COMPARISON: CT abdomen pelvis w con* [id number] 05/22/2020 1:04 PM RADIATION DOSE METRICS: Total DLP (mGy-cm): 1768.32 FINDINGS: Liver: A couple subcentimeter cysts are noted within the right hepatic lobe. Gallbladder and bile ducts: Cholecystectomy. No ductal dilation. Pancreas: Normal. No ductal dilation. Spleen: Normal. No splenomegaly. Adrenal glands: Normal. No mass. Kidneys and ureters: Normal. No hydronephrosis. Stomach and bowel: A few sigmoid colonic diverticula noted. No obstruction. No mucosal thickening. Appendix: No evidence of appendicitis. Intraperitoneal space: Unremarkable. No free air. No significant fluid collection. Vasculature: Unremarkable. No abdominal aortic aneurysm. Lymph nodes: Unremarkable. No enlarged lymph nodes. Urinary bladder: Unremarkable as visualized. Reproductive: Unremarkable as visualized. Bones/joints: No acute fracture. Soft tissues: Unremarkable. CT/CT abdomen pelvis w con* [id number] IMPRESSION: No acute findings.
[2021-05-14] MEDS: ketorolac 30 mg/mL INJ IVP (14:33)
[2021-05-14] MEDS: cefTRIAXone 1,000 MG in sodium chloride 0.9% (plus) 50 ML 100 MG IV (14:34)
[2021-05-14] MEDS: iohexol 300 mg/mL 100 mL Btl IV (15:06)
[2021-05-14 15:38] VITALS: BP 117/75; PULSE 87; RESP 20; O2SAT 99
== END 2021-05-14 15:47 | disposition home or self-care (01) ==
PROVIDERS: Emergency Provider Nurse Practitioner Family; PCP Family Medicine
DX: G89.29 Other chronic pain (principal); R10.31 Right lower quadrant pain
CPT/HCPCS: 74177; 80053; 81001; 81025; 83690; 85025; 96365; 96375; 96376; 99284; J0696; J1885; J2270; J2405; J7030; Q9967

== ENCOUNTER 2021-08-25 13:01 | Outpatient (CLI) | payer MEDICAID, SELFPAY ==
--- NOTE | 2021-08-25 13:16 | US_ITS ---
WS: [id number] TRANSABDOMINAL PELVIC AND TRANSVAGINAL PELVIC ULTRASOUND HISTORY: PELVIC and perineal PAIN/+ TEST S/P TUBAL LIG COMPARISON: None available. Uterus: 9.4 cm x 5.9 cm x 4.8 cm. Uterus is very slightly enlarged and anteverted. Seen only on a few images is an 8mm hypoechoic nodule in the anterior myometrium which is probably a small developing f ibroid. This does not touch the endometrium. Endometrium: 0.6 cm. There is a small amount of fluid within the endometrial canal. No gestational sa c identified. Right ovary: 2.8 cm x 2.8 cm x 1.6 cm. Normal size and echogenicity. No adnexal mass. Left ovary: 3.4 cm x 1.9 cm x 2.8 cm. LEFT ovary is difficult to visualize but there is no adnexal ma ss. No free fluid US/US pelvic with transvaginal IMPRESSION: 1. There is a very small amount of fluid within the endometrial canal but no g estational sac. 2. No free fluid. 3. No adnexal masses other than the ovaries. 4. Without confirming an intrauterine gestation cannot exclude ectopic. Recomm end serial follow-up beta hCG levels.
== END 2021-08-25 13:02 | disposition home or self-care (01) ==
PROVIDERS: PCP Family Medicine; Visit Provider Family Medicine
DX: R10.2 Pelvic and perineal pain (principal); Z98.51 Tubal ligation status; Z33.1 Pregnant state, incidental
CPT/HCPCS: 76830; 76856

== ENCOUNTER 2021-10-31 17:49 | Emergency (ER) | payer MEDICAID, SELFPAY ==
[2021-10-31 18:20] VITALS: BP 135/78; PULSE 85; RESP 14; TEMP 37.1; O2SAT 100
--- NOTE | 2021-10-31 18:40 | W.ED.GENADLT ---
HPI - General Adult General: Chief complaint: Headache Stated complaint: headache, ringing in ears, dizzy Time Seen by Provider: 10/31/21 18:22 History of Present Illness: Patient is a 31-year-old female with history of migraine presents the emergency room with complaints of acute on chronic headache. Patient tells me for the last 3 days she has been having bifrontal headaches with vision changes, ear ringing, and nausea. Patient tells me that the headache has been persistent up until yesterday night. Around 8 PM yesterday, patient noticed that she had sudden onset right posterior headache. Patient said that headaches very sharp and she almost passed out from and lasting for 15 seconds at a time. In addition, patient noted around 6 AM this morning has had another episode of sharp intense right posterior headache that caused her to have loss of consciousness. Patient says that she briefly lost consciousness for 10 seconds. Patient continues to have persistent frontal headache at this time. Patient presents the emergency room for further evaluation. Patient denies any fever or chills, abdominal complaints, diarrhea, melena/hematochezia, chest pain shortness breath or palpitation. Patient tells me that she has heavy vaginal bleeding and passage of clots for which she has follow-up appointment with her OB provider tomorrow. Patient tells me that she has a family history of aneurysms in her mother. Onset: acutely 2 episodes in the last 2 days, chronically headache x 30 days Duration:ongoing Location:home Severity:moderate Associated symptoms: Reports headache(s) and nausea; Deny chest pain, dyspnea, rash, palpitations or vomiting Review of Systems Const: Denies: fever(s) or chills Eyes: Denies: change in vision ENMT: Reports: other (+tinnitis with headache); Denies: mouth pain Card: Denies: chest pain or palpitations Resp: Denies: dyspnea or non-productive cough GI: Reports: nausea; Denies: abdominal pain, vomiting or diarrhea : Reports: other (+heavy vaginal bleeding and passage of clots); Denies: dysuria Musc: Denies: extremity pain Skin/Breast: Denies: rash or new lesions Neuro: Reports: headache(s); Denies: weakness in extremities Psych: Reports: other (Normal mood) Jaime/Lymph: Denies: easy bruising PFS ED PFSH: Medical History (Updated 11/08/21 @ 00:00 by ) Cholecystectomy planned (~04/22/18) Migraine No pertinent past medical history Denies asthma, hypertension, seizures, DVT/PE PCP: Dr. Rios Surgical History (Updated 11/02/21 @ 14:37 by Radha Figueroa MD) S/P tubal ligation 12/04/2019--laparoscopic procedure [place] teeth extracted (~04/22/17) Family History Mother Diabetes Hypertension Hyperlipidemia Heart disease Thyroid condition Brain aneurysm Father Diabetes Hypertension Hyperlipidemia Family/Other Diabetes paternal uncles Uterine cancer maternal aunt, age at diagnosis unknown Grandmother Breast cancer maternal, diagnosed in her 40s Stroke paternal Denies family history of Colon cancer Ovarian cancer Social History Smoking and tobacco status: never smoked Physical Exam Const: COMMON NORMALS: alert HENMT: COMMON NORMALS: atraumatic HEAD & SCALP: atraumatic MOUTH: moist mucous membranes not abnormal Eye: COMMON NORMALS: EOMs intact bilaterally and conjunctivae normal CONJUNCTIVA: Yes conjunctivae normal Neck/C-Spine: COMMON NORMALS: full ROM and supple OTHER: +no nuchal rigidity Resp: COMMON NORMALS: normal respiratory effort and clear to auscultation bilaterally AUSCULTATION: clear to auscultation bilaterally Cardio: COMMON NORMALS: regular rate RATE: regular rate GI: COMMON NORMALS: Soft to palpation and non-tender PALPATION: Yes Soft to palpation OTHER: No focal TTP. NO guarding rebound, guarding, rigidity. No CVA tenderness to percussion. Neg Jones/Neg McBurney's point tenderness, no suprabupic tenderness to palpation. Extremity: COMMON NORMALS: full ROM Neuro: SENSORIUM/ORIENTATION: Yes alert MOTOR EXAM: No Abnormal motor strength present and Other motor observations present (no focal motor deficits) OTHER: A&O x 3. Sensation intact. Motor strength 5/5 all extremeties. Vsjxoe-vx-mrre intact. No pronator drift. Normal gait w/o ataxia. No nystagmus noted. CN 2-12 intact as follows: CN2: VIsion intact, pupils equal, bilaterally reactive to light CN3: EOMI CN4: Down and lateral EOMI CN5: V1,V2,V3 w/ sensation intact to LT CN6: Lateral eye movements intact CN7: Symetric smile CN8: Pt hears finger rubbing equally b/l CN9/10: Pt elevates posterior palate equally. No uvular deviation CN11: Shoulder shrug w/ 5/5 strength b/l CN12: Tongue protrudes equally and mobile bidrectionally ======= Mental status? Awake, alert, and oriented to self, year, month, location, and situation.? Following simple axial and appendicular commands.? Has appropriate fund of knowledge, comprehension, and insight.? Able to recall and understands pertinent aspects of medical history and current treatment status.? ? Language? Speech is fluent without word-finding difficulties.? 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 ? Cranial nerves? 2,3,4,6: PERRL, EOMI with no nystagmus. 5: Intact sensation to light touch, symmetric? 7: Smile symmetrical, no facial droop.? 8: Hearing grossly intact.? 9,10: Normal palate movement.? 11: Normal strength in trapezius bilaterally 12: Tongue protrudes midline.? ? Motor examination? Normal bulk & tone. Strength as follows (R/L): Delts (5/5), Biceps (5/5), Triceps (5/5), Wrist ext (5/5), hip flexors (5/5), plantarflexors (5/5), dorsiflexors (5/5). ? Sensation? Light Touch: Grossly intact and equal in upper and lower extremities bilaterally? Romberg: Negative.? Distal joint position sense intact ? Coordination? Cdftgi-ie-trfz-finger movements intact without dysmetria or past-pointing.? Rapid fingertaps: preserved amplitude without decriment.? No tremor, myoclonus or truncal ataxia.? ? Gait/stance? Steady, normal narrow base gait with appropriate arm swing and turning.? Tandem gait without hesitation or loss of balance. Psych: COMMON NORMALS: speech normal SPEECH: Yes normal speech MOOD & AFFECT: Yes euthymic mood Course Vital Signs: Vital signs: Vital Signs Temperature 98.7 F 10/31/21 18:20 Pulse Rate 83 10/31/21 21:25 Respiratory Rate 20 H 10/31/21 21:25 Blood Pressure 110/78 10/31/21 21:25 Pulse Oximetry 99 10/31/21 21:25 MDM - General Adult Medical Decision Making 31-year-old female with a history of chronic migraines presenting to the emergency room with acute on chronic episodes of migraine associate with syncope. Patient has 10 to sharp episodes of headache with syncope in the setting of ongoing migraine for the last 30 days. On exam, patient has no meningismus sign. Neurological exam is intact. Incidental findings of thyroid nodule and frontal cystic lesion discussed extensively with patient. Patient received a copy of the CT report with the documented findings. Patient is instructed to follow up urgently with specialists. I have given patient follow up with our lead case manager to be seen by our outpatient Neurology for frontal lesion. Patient aware of a call from our lead case manager to schedule for appointment(s) and verbalizes understanding of the importance of following up. We will make a PCP appointment to follow up on the thyroid nodule. On reassessment, patient reports that her headache improved after cocktail. I doubt that this is subarachnoid bleed given no finding of additional CT, headache lasting for 4 seconds at a time and patient does not have any nuchal rigidity at this time. Rx: Magnesium oxide, Tylenol, Reglan as needed for headache Disposition: Discharge. Patient counseled regarding diagnostic impression, treatment plan. Patient given ED strict return precautions to return for continuation, worsening, or development of new symptoms. Instructed to f/u w/ PCP regarding symptoms today. Patient verbalized understanding. Lab Data : 10/31/21 18:30 10/31/21 18:[address] 10/31/21 18:53 IMPRESSION: 1. Negative for intracranial hemorrhage. 2. Left frontal 4.4 cm cystic lesion suggestive of chronic encephalomalacia, consider further evaluation with MRI. Head/Neck CTA 10/31/21 18:53 IMPRESSION: 1. No large artery occlusion or stenosis. 2. No visible aneurysm. IMPRESSION: 1. No arterial occlusion or stenosis. 2. 1.7 cm right thyroid nodule. Ultrasound follow-up is recommended. COMMENTS: Consistent with the [place] [employer]'s Incidental Findings Committee white paper (J Am Sylvia Radiol 2015): In patients under 35 years old with an incidental thyroid nodule equal to or greater than [address], MRI or extrathyroidal US, further evaluation with dedicated thyroid US is recommended for patients with normal life expectancy and without comorbidities. For smaller nodules without suspicious features, no further evaluation or follow up is recommended. REFERENCES: NASCET CRITERIA. The degree of internal carotid artery stenosis is based on NASCET criteria. Normal is no stenosis. Mild is less than 50% stenosis. Moderate is 50-69% stenosis. Severe is 70% to 99% stenosis. Total occlusion is no detectable patent lumen. Laboratory Results WBC 12.1 10^3/uL (4.0-10.0) H 10/31/21 18:30 RBC 4.71 10^6/uL (4.1-5.3) 10/31/21 18:30 Hgb 13.6 g/dL (11.5-15.3) 10/31/21: Hct 41.5 % (37.0-47.0) 10/31/21:30 MCV 88.1 fl (81-99) 10/31/21: MCH 28.9 pg (28.0-34.0) 10/31/21 18: MCHC 32.8 g/dL (30.0-36.0) 10/31/21 18: RDW 13.1 % (12.1-15.1) 10/31/21: Plt Count 460 10^3/cmm (130-400) H 10/31/21 18:30 MPV 9.1 fL (7.4-10.4) 10/31/21 18:30 Neut % (Auto) 57.3 % 10/31/21 18: Lymph % (Auto) 34.8 % 10/31/21 18:30 Eaton % (Auto) 5.9 % 10/31/21 18:30 Eos % (Auto) 1.1 % 10/31/21: Baso % (Auto) 0.5 % 10/31/21:30 Neut # (Auto) 6.95 10^3/uL (1.8-7.7) 10/31/21 18:30 Lymph # (Auto) 4.2 10^3/uL (0.8-4.8) 10/31/21 18:30 Eaton # (Auto) 0.7 10^3/uL (0.2-0.9) 10/31/21 18:30 Eos # (Auto) 0.1 10^3/uL (0.0-0.8) 10/31/21 18:30 Baso # (Auto) 0.1 10^3/uL (0.0-0.1) 10/31/21 18:30 Nucleated RBC % (auto) 0 % 10/31/21 18:30 Nucleated RBCs # 0.0 /100WBC 10/31/21 18:30 Sodium 135 mmol/L (136-145) L 10/31/21 18:30 Potassium 4.1 mmol/L (3.5-5.1) 10/31/21 18:30 Chloride 100 mmol/L (98-107) 10/31/21 18:30 Carbon Dioxide 24 mmol/L (22-29) 10/31/21 18:30 Anion Gap 15.1 (5-19) 10/31/21 18:30 BUN 11 mg/dL (6-20) 10/31/21 18:30 Creatinine 0.7 mg/dL (0.5-0.9) 10/31/21 18:30 GFR Calculation 96.4 mL/min (90-130) 10/31/21 18:30 Glucose 89 mg/dL (65-115) 10/31/21 18:30 Calculated Osmolality 279 mOsm/kg (285-295) L 10/31/21 18:30 Calcium 9.3 mg/dL (8.5-10.5) 10/31/21 18:30 HCG, Qual Negative (Negative) 10/31/21 19:35 Imaging Data Other Imaging: Radiologist's impression: [address] [address] [address] Scan Report Signed Patient: Olesya Humphries Unit #: [id number] : 1990 Age/Sex: 31 / F ADM Date: 10/31/21 Loc: ER Room/Bed: Attending Dr: Ordering Provider/Ordering MD: Юлия Adam MD Date of Service: 10/31/21 Procedure(s): CT head wo con* [id number] Accession Number(s): [id number] Report Number: [id number] PROCEDURE INFORMATION: Exam: CT Head Without Contrast Exam date and time: 10/31/2021 7:08 PM Age: 31 years old Clinical indication: Pain; Headache; Other: Posterior with right hearing loss -- no known trauma; Additional info: Headache with RT hearing loss-- ( patient hears whirring in her RT ear and becomes dizzy) TECHNIQUE: Imaging protocol: Computed tomography of the head without contrast. Radiation optimization: All CT scans at this facility use at least one of these dose optimization techniques: automated exposure control; mA and/or kV adjustment per patient size (includes targeted exams where dose is matched to clinical indication); or iterative reconstruction. COMPARISON: No relevant prior studies available. RADIATION DOSE METRICS: Total DLP (mGy-cm): 1052.22 FINDINGS: Brain: Left frontal 4.4 cm cystic lesion suggestive of chronic encephalomalacia, consider further evaluation with MRI. Cerebral ventricles: No ventriculomegaly. Paranasal sinuses: Visualized sinuses are unremarkable. No fluid levels. Mastoid air cells: Visualized mastoid air cells are well aerated. Bones/joints: Unremarkable. No acute fracture. Soft tissues: Unremarkable. CT/CT head wo con* [id number] IMPRESSION: 1. Negative for intracranial hemorrhage. 2. Left frontal 4.4 cm cystic lesion suggestive of chronic encephalomalacia, consider further evaluation with MRI. ? Dictated By: Dilip Meadows MD Signed By: Dilip Meadows MD Signed Date/Time: 10/31/212003 DD/ [address] [address] [address] Scan Report Signed Patient: Olesya Humphries Unit #: [id number] : 1990 Age/Sex: 31 / F ADM Date: 10/31/21 Loc: ER Room/Bed: Attending Dr: Ordering Provider/Ordering MD: Юлия Adam MD Date of Service: 10/31/21 Procedure(s): CT angio headneck* [id number] Accession Number(s): [id number] Report Number: [id number] PROCEDURE INFORMATION: Exam: CTA Head With Contrast, Arteries Exam date and time: 10/31/2021 7:14 PM Age: 31 years old Clinical indication: Syncope and collapse; Patient HX: RT hearing loss--- patient hears whirring noise in right ear with a huge headache; Additional info: Family HX of aneurysm, sudden headache/syncope x 2 TECHNIQUE: Imaging protocol: Computed tomographic angiography of the head with contrast. 3D rendering (Not supervised by radiologist): MIP and/or 3D reconstructed images were created by the technologist. Radiation optimization: All CT scans at this facility use at least one of these dose optimization techniques: automated exposure control; mA and/or kV adjustment per patient size (includes targeted exams where dose is matched to clinical indication); or iterative reconstruction. Contrast material: OMNIPAQUE 350; Contrast volume: 90 ml; Contrast route: INTRAVENOUS (IV);? COMPARISON: CT head wo con* [id number] 10/31/2021 7:08 PM RADIATION DOSE METRICS: Total DLP (mGy-cm): 1052.22 FINDINGS: ANTERIOR CIRCULATION: Right internal carotid artery: Unremarkable. Intracranial segment is patent with no significant stenosis. No aneurysm. Right middle cerebral artery: Unremarkable. No occlusion or significant stenosis. No aneurysm.? Right anterior cerebral artery: Unremarkable. No occlusion or significant stenosis. No aneurysm.? Left internal carotid artery: Unremarkable. Intracranial segment is patent with no significant stenosis. No aneurysm. Left middle cerebral artery: Unremarkable. No occlusion or significant stenosis. No aneurysm.? Left anterior cerebral artery: Unremarkable. No occlusion or significant stenosis. No aneurysm.? POSTERIOR CIRCULATION: Right vertebral artery: Unremarkable. No occlusion or significant stenosis. No aneurysm.? 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 Basilar artery: Unremarkable. No occlusion or significant stenosis. No aneurysm. Right posterior cerebral artery: Unremarkable. No occlusion or significant stenosis. No aneurysm.? Left posterior cerebral artery: Unremarkable. No occlusion or significant stenosis. No aneurysm.? Brain: Stable wedge-shaped CSF density defect or encephalomalacia in the left frontal lobe. Cerebral ventricles: No ventriculomegaly. Parotid and submandibular glands: The left submandibular gland is absent or atrophic. Bones/joints: Unremarkable. No acute fracture. Soft tissues: Unremarkable. PROCEDURE INFORMATION: Exam: CTA Neck With Contrast Exam date and time: 10/31/2021 7:14 PM Age: 31 years old Clinical indication: Syncope and collapse; Patient HX: RT hearing loss--- patient hears whirring noise in right ear with a huge headache; Additional info: Family HX of aneurysm, sudden headache/syncope x 2 TECHNIQUE: Imaging protocol: Computed tomographic angiography of the neck with contrast. 3D rendering (Not supervised by radiologist): MIP and/or 3D reconstructed images were created by the technologist. Radiation optimization: All CT scans at this facility use at least one of these dose optimization techniques: automated exposure control; mA and/or kV adjustment per patient size (includes targeted exams where dose is matched to clinical indication); or iterative reconstruction. Contrast material: OMNIPAQUE 350; Contrast volume: 90 ml; Contrast route: INTRAVENOUS (IV);? COMPARISON: CT angio chest PE protcl [id number] 11/11/2020 9:48 AM RADIATION DOSE METRICS: Total DLP (mGy-cm): 1052.22 FINDINGS: Right common carotid artery: No stenosis. No dissection or occlusion. Right internal carotid artery: No stenosis of the extracranial segment. No dissection or occlusion. Right external carotid artery: No occlusion or stenosis of the origin.? Left common carotid artery: No stenosis. No dissection or occlusion. Left internal carotid artery: No stenosis of the extracranial segment. No dissection or occlusion. Left external carotid artery: No occlusion or stenosis of the origin.? Right vertebral artery: No stenosis. No dissection or occlusion. Left vertebral artery: No stenosis. No dissection or occlusion. Thyroid: 1.7 cm right thyroid nodule. Soft tissues: Normal. No significant soft tissue swelling. Bones/joints: No acute fracture. CT/CT angio headneck* [id number] IMPRESSION: 1. No large artery occlusion or stenosis. 2. No visible aneurysm. ? IMPRESSION: 1. No arterial occlusion or stenosis. 2. 1.7 cm right thyroid nodule. Ultrasound follow-up is recommended. ? COMMENTS: Consistent with the [place] [employer]'s Incidental Findings Committee white paper (J Am Sylvia Radiol 2015): In patients under 35 years old with an incidental thyroid nodule equal to or greater than [address], MRI or extrathyroidal US, further evaluation with dedicated thyroid US is recommended for patients with normal life expectancy and without comorbidities. For smaller nodules without suspicious features, no further evaluation or follow up is recommended. ? REFERENCES: NASCET CRITERIA. The degree of internal carotid artery stenosis is based on NASCET criteria. Normal is no stenosis. Mild is less than 50% stenosis. Moderate is 50-69% stenosis. Severe is 70% to 99% stenosis. Total occlusion is no detectable patent lumen. ? Dictated By: Teofilo Gao Signed By: Teofilo Gao Signed Date/Time: 10/31/212025 DD/ 13 Discharge Plan Discharge Patient Disposition: Home Clinical Impression: Headache Condition: Stable Prescriptions: No Action levonorgestrel-ethinyl estrad [Aviane] 0.1-20 mg-mcg tablet 1 tab PO DAILY Qty: 28 12RF desvenlafaxine succinate 50 mg tablet extended release 24 hr 100 mg PO DAILY 0RF albuterol sulfate 90 mcg/actuation aero powdr breath act w/sensor 2 inh inhalation Q6H PRN (Reason: shortness of breath or wheezing) Qty: 1 0RF pantoprazole 40 mg Tablet,Delayed Release (Dr/Ec) 40 mg PO BID 0RF magnesium oxide 400 mg magnesium capsule 400 mg PO DAILY 0RF ondansetron 4 mg tablet,disintegrating 4 mg PO Q8H PRN (Reason: nausea and vomiting) Qty: 15 0RF Topamax 100 mg tablet 100 mg PO DAILY Qty: 30 0RF Discharge Orders: Discharge ED (Routine); Ordered 10/31/21 Ordered By: Юлия Adam Referrals: Roque Rios MD [Primary Care Provider] - Discharge Diet: Advance as tolerated Discharge Activity: Increase activity as tolerated Patient Instructions: General Headache (ED) Activity Restrictions/Additional Instructions: Please come back to the emergency room you have any fever chills, worsening headache, focal weakness, nausea/vomiting, inability to perform daily activity, or any new concerning complaints. Here's a copy of your CT report: Launch?Image [email or web address] [address] [place] [address] CT Scan Report Signed Patient: Olesya Humphries Unit #: [id number] : 1990 Age/Sex: 31 / F ADM Date: 10/31/21 Loc: ER Room/Bed: Attending Dr: Ordering Provider/Ordering MD: Юлия Adam MD Date of Service: 10/31/21 Procedure(s): CT angio headneck* [id number] Accession Number(s): [id number] Report Number: [id number] PROCEDURE INFORMATION: Exam: CTA Head With Contrast, Arteries Exam date and time: 10/31/2021 7:14 PM Age: 31 years old Clinical indication: Syncope and collapse; Patient HX: RT hearing loss--- patient hears whirring noise in right ear with a huge headache; Additional info: Family HX of aneurysm, sudden headache/syncope x 2 TECHNIQUE: Imaging protocol: Computed tomographic angiography of the head with contrast. 3D rendering (Not supervised by radiologist): MIP and/or 3D reconstructed images were created by the technologist. Radiation optimization: All CT scans at this facility use at least one of these dose optimization techniques: automated exposure control; mA and/or kV adjustment per patient size (includes targeted exams where dose is matched to clinical indication); or iterative reconstruction. Contrast material: OMNIPAQUE 350; Contrast volume: 90 ml; Contrast route: INTRAVENOUS (IV);? COMPARISON: CT head wo [facility]* [id number] 10/31/2021 7:08 PM RADIATION DOSE METRICS: Total DLP (mGy-cm): 1052.22 FINDINGS: ANTERIOR CIRCULATION: Right internal carotid artery: Unremarkable. Intracranial segment is patent with no significant stenosis. No aneurysm. Right middle cerebral artery: Unremarkable. No occlusion or significant stenosis. No aneurysm.? Right anterior cerebral artery: Unremarkable. No occlusion or significant stenosis. No aneurysm.? Left internal carotid artery: Unremarkable. Intracranial segment is patent with no significant stenosis. No aneurysm. Left middle cerebral artery: Unremarkable. No occlusion or significant stenosis. No aneurysm.? Left anterior cerebral artery: Unremarkable. No occlusion or significant stenosis. No aneurysm.? POSTERIOR CIRCULATION: Right vertebral artery: Unremarkable. No occlusion or significant stenosis. No aneurysm.? 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 Basilar artery: Unremarkable. No occlusion or significant stenosis. No aneurysm. Right posterior cerebral artery: Unremarkable. No occlusion or significant stenosis. No aneurysm.? Left posterior cerebral artery: Unremarkable. No occlusion or significant stenosis. No aneurysm.? Brain: Stable wedge-shaped CSF density defect or encephalomalacia in the left frontal lobe. Cerebral ventricles: No ventriculomegaly. Parotid and submandibular glands: The left submandibular gland is absent or atrophic. Bones/joints: Unremarkable. No acute fracture. Soft tissues: Unremarkable. PROCEDURE INFORMATION: Exam: CTA Neck With Contrast Exam date and time: 10/31/2021 7:14 PM Age: 31 years old Clinical indication: Syncope and collapse; Patient HX: RT hearing loss--- patient hears whirring noise in right ear with a huge headache; Additional info: Family HX of aneurysm, sudden headache/syncope x 2 TECHNIQUE: Imaging protocol: Computed tomographic angiography of the neck with contrast. 3D rendering (Not supervised by radiologist): MIP and/or 3D reconstructed images were created by the technologist. Radiation optimization: All CT scans at this facility use at least one of these dose optimization techniques: automated exposure control; mA and/or kV adjustment per patient size (includes targeted exams where dose is matched to clinical indication); or iterative reconstruction. Contrast material: OMNIPAQUE 350; Contrast volume: 90 ml; Contrast route: INTRAVENOUS (IV);? COMPARISON: CT angio chest PE protcl [id number] 11/11/2020 9:48 AM RADIATION DOSE METRICS: Total DLP (mGy-cm): 1052.22 FINDINGS: Right common carotid artery: No stenosis. No dissection or occlusion. Right internal carotid artery: No stenosis of the extracranial segment. No dissection or occlusion. Right external carotid artery: No occlusion or stenosis of the origin.? Left common carotid artery: No stenosis. No dissection or occlusion. Left internal carotid artery: No stenosis of the extracranial segment. No dissection or occlusion. Left external carotid artery: No occlusion or stenosis of the origin.? Right vertebral artery: No stenosis. No dissection or occlusion. Left vertebral artery: No stenosis. No dissection or occlusion. Thyroid: 1.7 cm right thyroid nodule. Soft tissues: Normal. No significant soft tissue swelling. Bones/joints: No acute fracture. CT/CT angio headneck* [id number] IMPRESSION: 1. No large artery occlusion or stenosis. 2. No visible aneurysm. ? IMPRESSION: 1. No arterial occlusion or stenosis. 2. 1.7 cm right thyroid nodule. Ultrasound follow-up is recommended. ? COMMENTS: Consistent with the [employer] [place] [employer]'s Incidental Findings Committee white paper (J Am Sylvia Radiol 2015): In patients under 35 years old with an incidental thyroid nodule equal to or greater than [address], MRI or extrathyroidal US, further evaluation with dedicated thyroid US is recommended for patients with normal life expectancy and without comorbidities. For smaller nodules without suspicious features, no further evaluation or follow up is recommended. ? REFERENCES: NASCET CRITERIA. The degree of internal carotid artery stenosis is based on NASCET criteria. Normal is no stenosis. Mild is less than 50% stenosis. Moderate is 50-69% stenosis. Severe is 70% to 99% stenosis. Total occlusion is no detectable patent lumen. ? Dictated By: Teofilo Gao Signed By: Teofilo Gao Signed Date/Time: 10/31/212025 DD/ [address] [address] [address] Scan Report Signed Patient: Olesya Humphries Unit #: [id number] : 1990 Age/Sex: 31 / F ADM Date: 10/31/21 Loc: ER Room/Bed: Attending Dr: Ordering Provider/Ordering MD: Юлия Adam MD Date of Service: 10/31/21 Procedure(s): CT head wo con* [id number] Accession Number(s): [id number] Report Number: [id number] PROCEDURE INFORMATION: Exam: CT Head Without Contrast Exam date and time: 10/31/2021 7:08 PM Age: 31 years old Clinical indication: Pain; Headache; Other: Posterior with right hearing loss -- no known trauma; Additional info: Headache with RT hearing loss-- ( patient hears whirring in her RT ear and becomes dizzy) TECHNIQUE: Imaging protocol: Computed tomography of the head without contrast. Radiation optimization: All CT scans at this facility use at least one of these dose optimization techniques: automated exposure control; mA and/or kV adjustment per patient size (includes targeted exams where dose is matched to clinical indication); or iterative reconstruction. COMPARISON: No relevant prior studies available. RADIATION DOSE METRICS: Total DLP (mGy-cm): 1052.22 FINDINGS: Brain: Left frontal 4.4 cm cystic lesion suggestive of chronic encephalomalacia, consider further evaluation with MRI. Cerebral ventricles: No ventriculomegaly. Paranasal sinuses: Visualized sinuses are unremarkable. No fluid levels. Mastoid air cells: Visualized mastoid air cells are well aerated. Bones/joints: Unremarkable. No acute fracture. Soft tissues: Unremarkable. CT/CT head wo con* [id number] IMPRESSION: 1. Negative for intracranial hemorrhage. 2. Left frontal 4.4 cm cystic lesion suggestive of chronic encephalomalacia, consider further evaluation with MRI. ? Dictated By: Dilip Meadows MD Signed By: Dilip Meadows MD Signed Date/Time: 10/31/212003 DD/ 1908 Coding Level of Care Code ED Business Process Analyst for Chg Fwd Exam Comprehensive
--- NOTE | 2021-10-31 18:53 | CTR_ITS ---
PROCEDURE INFORMATION: Exam: CTA Head With Contrast, Arteries Exam date and time: 10/31/2021 7:14 PM Age: 31 years old Clinical indication: Syncope and collapse; Patient HX: RT hearing loss--- patient hears whirring noise in right ear with a huge headache; Additional info: Family HX of aneurysm, sudden headache/syncope x 2 TECHNIQUE: Imaging protocol: Computed tomographic angiography of the head with contrast. 3D rendering (Not supervised by radiologist): MIP and/or 3D reconstructed images were created by the technologist. Radiation optimization: All CT scans at this facility use at least one of these dose optimization techniques: automated exposure control; mA and/or kV adjustment per patient size (includes targeted exams where dose is matched to clinical indication); or iterative reconstruction. Contrast material: OMNIPAQUE 350; Contrast volume: 90 ml; Contrast route: INTRAVENOUS (IV); COMPARISON: CT head wo con* [id number] 10/31/2021 7:08 PM RADIATION DOSE METRICS: Total DLP (mGy-cm): 1052.22 FINDINGS: ANTERIOR CIRCULATION: Right internal carotid artery: Unremarkable. Intracranial segment is patent with no significant stenosis. No aneurysm. Right middle cerebral artery: Unremarkable. No occlusion or significant stenosis. No aneurysm. Right anterior cerebral artery: Unremarkable. No occlusion or significant stenosis. No aneurysm. Left internal carotid artery: Unremarkable. Intracranial segment is patent with no significant stenosis. No aneurysm. Left middle cerebral artery: Unremarkable. No occlusion or significant stenosis. No aneurysm. Left anterior cerebral artery: Unremarkable. No occlusion or significant stenosis. No aneurysm. POSTERIOR CIRCULATION: Right vertebral artery: Unremarkable. No occlusion or significant stenosis. No aneurysm. 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 Basilar artery: Unremarkable. No occlusion or significant stenosis. No aneurysm. Right posterior cerebral artery: Unremarkable. No occlusion or significant stenosis. No aneurysm. Left posterior cerebral artery: Unremarkable. No occlusion or significant stenosis. No aneurysm. Brain: Stable wedge-shaped CSF density defect or encephalomalacia in the left frontal lobe. Cerebral ventricles: No ventriculomegaly. Parotid and submandibular glands: The left submandibular gland is absent or atrophic. Bones/joints: Unremarkable. No acute fracture. Soft tissues: Unremarkable. PROCEDURE INFORMATION: Exam: CTA Neck With Contrast Exam date and time: 10/31/2021 7:14 PM Age: 31 years old Clinical indication: Syncope and collapse; Patient HX: RT hearing loss--- patient hears whirring noise in right ear with a huge headache; Additional info: Family HX of aneurysm, sudden headache/syncope x 2 TECHNIQUE: Imaging protocol: Computed tomographic angiography of the neck with contrast. 3D rendering (Not supervised by radiologist): MIP and/or 3D reconstructed images were created by the technologist. Radiation optimization: All CT scans at this facility use at least one of these dose optimization techniques: automated exposure control; mA and/or kV adjustment per patient size (includes targeted exams where dose is matched to clinical indication); or iterative reconstruction. Contrast material: OMNIPAQUE 350; Contrast volume: 90 ml; Contrast route: INTRAVENOUS (IV); COMPARISON: CT angio chest PE protcl [id number] 11/11/2020 9:48 AM RADIATION DOSE METRICS: Total DLP (mGy-cm): 1052.22 FINDINGS: Right common carotid artery: No stenosis. No dissection or occlusion. Right internal carotid artery: No stenosis of the extracranial segment. No dissection or occlusion. Right external carotid artery: No occlusion or stenosis of the origin. Left common carotid artery: No stenosis. No dissection or occlusion. Left internal carotid artery: No stenosis of the extracranial segment. No dissection or occlusion. Left external carotid artery: No occlusion or stenosis of the origin. Right vertebral artery: No stenosis. No dissection or occlusion. Left vertebral artery: No stenosis. No dissection or occlusion. Thyroid: 1.7 cm right thyroid nodule. Soft tissues: Normal. No significant soft tissue swelling. Bones/joints: No acute fracture. CT/CT angio headneck* [id number] IMPRESSION: 1. No large artery occlusion or stenosis. 2. No visible aneurysm. IMPRESSION: 1. No arterial occlusion or stenosis. 2. 1.7 cm right thyroid nodule. Ultrasound follow-up is recommended. COMMENTS: Consistent with the [place] [employer]'s Incidental Findings Committee white paper (J Am Sylvia Radiol 2015): In patients under 35 years old with an incidental thyroid nodule equal to or greater than [address], MRI or extrathyroidal US, further evaluation with dedicated thyroid US is recommended for patients with normal life expectancy and without comorbidities. For smaller nodules without suspicious features, no further evaluation or follow up is recommended. REFERENCES: NASCET CRITERIA. The degree of internal carotid artery stenosis is based on NASCET criteria. Normal is no stenosis. Mild is less than 50% stenosis. Moderate is 50-69% stenosis. Severe is 70% to 99% stenosis. Total occlusion is no detectable patent lumen.
--- NOTE | 2021-10-31 18:53 | CTR_ITS ---
PROCEDURE INFORMATION: Exam: CT Head Without Contrast Exam date and time: 10/31/2021 7:08 PM Age: 31 years old Clinical indication: Pain; Headache; Other: Posterior with right hearing loss -- no known trauma; Additional info: Headache with RT hearing loss-- ( patient hears whirring in her RT ear and becomes dizzy) TECHNIQUE: Imaging protocol: Computed tomography of the head without contrast. Radiation optimization: All CT scans at this facility use at least one of these dose optimization techniques: automated exposure control; mA and/or kV adjustment per patient size (includes targeted exams where dose is matched to clinical indication); or iterative reconstruction. COMPARISON: No relevant prior studies available. RADIATION DOSE METRICS: Total DLP (mGy-cm): 1052.22 FINDINGS: Brain: Left frontal 4.4 cm cystic lesion suggestive of chronic encephalomalacia, consider further evaluation with MRI. Cerebral ventricles: No ventriculomegaly. Paranasal sinuses: Visualized sinuses are unremarkable. No fluid levels. Mastoid air cells: Visualized mastoid air cells are well aerated. Bones/joints: Unremarkable. No acute fracture. Soft tissues: Unremarkable. CT/CT head wo con* [id number] IMPRESSION: 1. Negative for intracranial hemorrhage. 2. Left frontal 4.4 cm cystic lesion suggestive of chronic encephalomalacia, consider further evaluation with MRI.
[2021-10-31 18:59] LABS: Basophils # 0.1 10^3/uL (0.0-0.1); Basophils % 0.5 %; Eosinophils # 0.1 10^3/uL (0.0-0.8); Eosinophils % 1.1 %; Hematocrit 41.5 % (37.0-47.0); Hemoglobin 13.6 g/dL (11.5-15.3); Lymphocytes # 4.2 10^3/uL (0.8-4.8); Lymphocytes % 34.8 %; Mean Corpuscular HGB Conc 32.8 g/dL (30.0-36.0); Mean Corpuscular Hemoglobin 28.9 pg (28.0-34.0); Mean Corpuscular Volume 88.1 fl (81-99); Mean Platelet Volume 9.1 fL (7.4-10.4); Monocytes # 0.7 10^3/uL (0.2-0.9); Monocytes % 5.9 %; Neutrophils # 6.95 10^3/uL (1.8-7.7); Neutrophils % 57.3 %; Nucleated Red Blood Cells % 0 %; Platelet Count 460 10^3/cmm (130-400); Red Blood Count 4.71 10^6/uL (4.1-5.3); Red Cell Distribution Width 13.1 % (12.1-15.1); White Blood Count 12.1 10^3/uL (4.0-10.0)
[2021-10-31] MEDS: sodium chloride 0.9% 1,000 ML 999 ML IV (19:05)
[2021-10-31] MEDS: morphine 4 mg/mL SDV 1 mL 2 MG IVP (19:06)
[2021-10-31] MEDS: metoclopramide 5 mg/mL SDV 2 mL 10 MG IVP (19:06)
[2021-10-31] MEDS: acetaminophen 500 mg Tablet PO (19:06)
[2021-10-31 19:09] LABS: Anion Gap 15.1 (5-19); Blood Urea Nitrogen 11 mg/dL (6-20); Calcium 9.3 mg/dL (8.5-10.5); Carbon Dioxide 24 mmol/L (22-29); Chloride 100 mmol/L (98-107); Glomerular Filtration Rate 96.4 mL/min (90-130); Glucose 89 mg/dL (65-115); Osmolality Calculated 279 mOsm/kg (285-295); Potassium 4.1 mmol/L (3.5-5.1); Sodium 135 mmol/L (136-145)
[2021-10-31 19:56] VITALS: BP 119/70; PULSE 88; O2SAT 94
[2021-10-31 20:00] VITALS: BP 115/77; O2SAT 99
[2021-10-31 20:00] LABS: HCG, Serum Qual Negative (Negative)
[2021-10-31 21:00] VITALS: BP 110/78; PULSE 83; RESP 16; O2SAT 99
[2021-10-31 21:25] VITALS: BP 110/78; PULSE 83; RESP 20; O2SAT 99
--- NOTE | 2021-11-03 08:06 | DCPLANNER ---
Addendum entered by Aaliyah Corral 11/14/21 11:44: Patient had a follow up appointment scheduled for 11.09.[address] Hodges at neurology - patient did attend appointment. Original Note: account manager trainee had message to schedule a follow up appointment for patient with neurology. account manager trainee sent patients information to the front office staff at neurology. Patients information will be printed and reviewed. Clinic will call patient with appointment information.
--- NOTE | 2021-11-03 10:28 | DCPLANNER ---
compensation and benefits manager had message to speak with patient about getting a follow up appointment for patient with primary care physician. compensation and benefits manager spoke with patient, she stated that she has a follow up appointment scheduled with a her pcp. No CM needs at this time.
== END 2021-10-31 21:26 | disposition home or self-care (01) ==
PROVIDERS: Emergency Provider Emergency Medicine; PCP Family Medicine
DX: R51.9 Headache, unspecified (principal)
CPT/HCPCS: 70450; 70496; 70498; 80048; 84703; 85025; 96361; 96374; 96375; 99285; J2270; J2765; J7030; Q9967

== ENCOUNTER 2021-11-02 13:02 | Emergency (ER) | payer MEDICAID, SELFPAY ==
[2021-11-02 13:07] VITALS: BP 111/71; PULSE 94; RESP 16; TEMP 36.8; O2SAT 96
--- NOTE | 2021-11-02 13:19 | ED_ITS ---
HPI - Headache General: Chief Complaint: Headache Stated Complaint: headache Time Seen by Provider: 11/02/21 13:11 History of Present Illness: Ms. Humphries is a 31-year-old lady with history of headaches who presents to the emergency department due to uncontrolled headache. She reports onset of symptoms approximately 1 month ago without known specific provoking factor. She reports daily symptoms which have been near continuous. She presented to the ED 2 days ago and had moderate relief of symptoms but they did not go completely away and have returned. Additionally new symptoms include syncope which occurred while she was sitting on the bed. She endorses a whooshing or throbbing sensation in bilateral ears. Additionally she has had variably blurriness and 1 episode of loss of vision which was short-lived in the left eye. Pain is primarily frontal although also diffuse. She describes severe stabbing sensation in the right frontal region. Overall course of symptoms has persisted. She denies similar headaches this bad in the past. Denies fevers or neck stiffness. No remote history of head trauma. No other specific changes in health, exacerbating, or alleviating factors identified. Onset (ago): week(s) Onset description: suddenly Location: frontal and diffuse Severity: severe Quality & Timing: aching and throbbing Relieving factors: rest, prescription medication and dark room Associated symptoms: Reports loss of vision (Intermittent, now blurry and variable), nausea, photophobia, sound sensitivity, syncope and vomiting; Deny fever(s) or neck stiffness Review of Systems General: Reports: 10 or more systems reviewed and unremarkable except in HPI and below Const: Denies: fever(s) Card: Reports: syncope GI: Reports: nausea and vomiting [facility] ED PFSH: Medical History Cholecystectomy planned (~04/22/18) Migraine No pertinent past medical history Denies asthma, hypertension, seizures, DVT/PE PCP: Dr. Rios Surgical History S/P tubal ligation 12/04/2019--laparoscopic procedure [place] teeth extracted (~04/22/17) Family History Mother Diabetes Hypertension Hyperlipidemia Heart disease Thyroid condition Brain aneurysm Father Diabetes Hypertension Hyperlipidemia Family/Other Diabetes paternal uncles Uterine cancer maternal aunt, age at diagnosis unknown Grandmother Breast cancer maternal, diagnosed in her 40s Stroke paternal Denies family history of Colon cancer Ovarian cancer Social History Smoking and tobacco status: never smoked Physical Exam Const: COMMON NORMALS: patient oriented x3 and alert GENERAL APPEARANCE: cooperative and well developed HENMT: COMMON NORMALS: normocephalic and atraumatic HEAD & SCALP: normocephalic and atraumatic Eye: COMMON NORMALS: conjunctivae normal CONJUNCTIVA: Yes conjunctivae normal SCLERA: sclerae normal DIRECT OPHTHALMOSCOPY: Yes photophobia Neck/C-Spine: COMMON NORMALS: supple GENERAL: Yes trachea midline Resp: COMMON NORMALS: normal respiratory effort and clear to auscultation bilaterally EFFORT & INSPECTION: Yes able to speak in complete sentences AUSCULTATION: clear to auscultation bilaterally Cardio: COMMON NORMALS: regular rate and regular rhythm RATE: regular rate RHYTHM: regular rhythm GI: COMMON NORMALS: Soft to palpation PALPATION: Yes Soft to palpation and No Tenderness to palpation present (GI) Extremity: GENERAL: Yes normal exam except as noted and No edema Neuro: COMMON NORMALS: patient oriented x3, CN's II-XII intact bilaterally, moves all extremities, no focal motor deficits and no sensory deficits noted SENSORIUM/ORIENTATION: Yes alert and No Orientation impaired Psych: COMMON NORMALS: mental status grossly normal and Normal thought process present THOUGHT PROCESS: Normal thought process present Course ED course: - Patient was seen and evaluated by me at bedside - Patient placed on cardiac monitors, IV access obtained - Initial evaluation notable for exam as above - Labs and xrays personally interpreted by me -Migraine treatment given - Labs notable for leukocytosis. No metabolic abnormalities. hCG from 2 days prior negative. - Given persistent/refractory symptoms including visual disturbance with finding abnormal on CT. MRI is warrented. Imaging notable for no evidence of stroke or other acute abnormality, cyst appears benign or longstanding. - Upon serial reexamination after treatment the patient was improved - Based on patient history, evaluation, and testing as interpreted the most likely cause of the patient's condition is status migranosis. Plan to initiate of topamax and have neurology followup. - The results of ED evaluation were discussed with the patient including prescriptions and/or symptomatic cares (if applicable) including appropriate and responsible use, followup plan, and return precautions. The patient verbalized understanding and felt safe for discharge. - Patient discharged in satisfactory condition. Note: Click bubbles or prepopulated jackson in note writing are used for assistance with data collection and billing and are inherently more limited than narrative and other text portions of this note. Please use narrative for additional clinical history and defer to narrative/free test for any case of contradictory information. If information appears in only free text or click bubble it should be considered present or absent as reported. Please contact note teletypewriter installer for clarifications of clinical information or contradictory information. MDM is a brief summary, contradictory or erroneous seeming information should be clarified and full note should be reviewed. Vital Signs: Vital signs: Vital Signs Temperature 98.0 F 11/02/21 17:50 Pulse Rate 80 11/02/21 17:50 Respiratory Rate 16 11/02/21 17:50 Blood Pressure 103/59 11/02/21 17:50 Pulse Oximetry 99 11/02/21 17:50 MDM - Headache Medical Decision Making 31-year-old lady presenting with continued headache and concern for visual disturbance. Prior CT cyst noted. MRI negative for acute stroke. Satisfactory given improvement in symptoms for outpatient management. Plan follow-up with neurology and initiation of Topamax. Medical Records I reviewed the patient's medical records. Lab Data I reviewed the patient's lab results. : 11/02/21 15:22 11/02/21 15:22 Radiology Impressions Head MRI 11/02/21 13:37 IMPRESSION: 1. No evidence of restricted diffusion to suggest acute ischemia. 2. Benign congenital or long-standing LEFT frontal convexity arachnoid cyst measuring 6.7 x 3.1 x 3.1 CM. Small amount of surrounding gliosis. Associated encephalomalacia with chronic appearing volume loss in the LEFT frontal lobe. Minimal mass effect on the underlying brain parenchyma. 3. Normal lateral ventricles. Incidental cavum septum pellucidum and vergae 4. No abnormal gadolinium enhancement. 5. No other suspicious findings. Laboratory Results WBC 11.1 10^3/uL (4.0-10.0) H 11/02/21 15:22 RBC 4.66 10^6/uL (4.1-5.3) 11/02/21 15:22 Hgb 13.5 g/dL (11.5-15.3) 11/02/21 15: Hct 40.9 % (37.0-47.0) 11/02/21 15: MCV 87.8 fl (81-99) 11/02/21 15: MCH 29.0 pg (28.0-34.0) 11/02/21 15: MCHC 33.0 g/dL (30.0-36.0) 11/02/21 15: RDW 13.1 % (12.1-15.1) 11/02/21 15: Plt Count 447 10^3/cmm (130-400) H 11/02/21 15: MPV 8.8 fL (7.4-10.4) 11/02/21 15: Neut % (Auto) 70.6 % 11/02/21 15: Lymph % (Auto) 22.5 % 11/02/21: [place] % (Auto) 4.9 % 11/02/21: Eos % (Auto) 1.0 % 11/02/21: Baso % (Auto) 0.5 % 11/02/21: Neut # (Auto) 7.84 10^3/uL (1.8-7.7) H 11/02/21 15: Lymph # (Auto) 2.5 10^3/uL (0.8-4.8) 11/02/21 15: [place] # (Auto) 0.5 10^3/uL (0.2-0.9) 11/02/21: Eos # (Auto) 0.1 10^3/uL (0.0-0.8) 11/02/21: Baso # (Auto) 0.1 10^3/uL (0.0-0.1) 11/02/21: Nucleated RBC % (auto) 0 % 11/02/21: Nucleated RBCs # 0.0 /100WBC 11/02/21 15: Sodium 137 mmol/L (136-145) 11/02/21 15: Potassium 4.0 mmol/L (3.5-5.1) 11/02/21 15: Chloride 104 mmol/L (98-107) 11/02/21 15: Carbon Dioxide 26 mmol/L (22-29) 11/02/21 15:22 Anion Gap 11.0 (5-19) 11/02/21 15:22 BUN 7 mg/dL (6-20) 11/02/21 15:22 Creatinine 0.7 mg/dL (0.5-0.9) 11/02/21 15:22 GFR Calculation 96.4 mL/min (90-130) 11/02/21 15: Glucose 99 mg/dL (65-115) 11/02/21 15:22 Calculated Osmolality 282 mOsm/kg (285-295) L 11/02/21 15:22 Calcium 8.6 mg/dL (8.5-10.5) 11/02/21 15:22 Total Bilirubin 0.3 mg/dL (0.15-1.2) 11/02/21 15:22 AST 13 U/L (0-32) 11/02/21 15:22 ALT 15 U/L (0-33) 11/02/21 15:22 Alkaline Phosphatase 84 IU/L (35-105) 11/02/21 15:22 Total Protein 7.7 g/dL (6.6-8.7) 11/02/21 15:22 Albumin 4.3 g/dL (3.5-5.2) 11/02/21 15:22 Globulin 3.4 g/dL (1.3-4.6) 11/02/21 15:22 Discharge Plan Discharge Patient Disposition: Home Clinical Impression: Status migrainosus, Arachnoid cyst Condition: Stable Prescriptions: New ondansetron 4 mg tablet,disintegrating 4 mg PO Q8H PRN (Reason: nausea and vomiting) Qty: 15 0RF Topamax 100 mg tablet 100 mg PO DAILY Qty: 30 0RF No Action levonorgestrel-ethinyl estrad [Aviane] 0.1-20 mg-mcg tablet 1 tab PO DAILY Qty: 28 12RF Emgality Pen 120 mg/mL pen injector 120 mg SUBCUT ONCE Qty: 1 2RF Emgality Pen 120 mg/mL pen injector 240 mg SUBCUT ONCE Qty: 2 0RF Rx Instructions: Loading dose first desvenlafaxine succinate 50 mg tablet extended release 24 hr 100 mg PO DAILY 0RF albuterol sulfate 90 mcg/actuation aero powdr breath act w/sensor 2 inh inhalation Q6H PRN (Reason: shortness of breath or wheezing) Qty: 1 0RF pantoprazole 40 mg Tablet,Delayed Release (Dr/Ec) 40 mg PO BID 0RF magnesium oxide 400 mg magnesium capsule 400 mg PO DAILY 0RF Discharge Orders: Discharge ED (Routine); Ordered 11/02/21 Ordered By: Jitendra Beltre Referrals: Roque Rios MD [Primary Care Provider] - Discharge Diet: Usual diet Discharge Activity: Increase activity as tolerated Patient Instructions: Topiramate (By mouth), Migraine Headache (ED) Activity Restrictions/Additional Instructions: Thank you for visiting the emergency department. You were seen and evaluated for headache. The exact cause of your symptoms is unclear though likely related to migraine headache. I will message case management for follow-up with neurology. Please return to the emergency department for worsening symptoms, any new neurologic deficits, or anything else that you are concerned about a feel needs emergency department evaluation. 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
--- NOTE | 2021-11-02 13:37 | MR_ITS ---
WS: [id number] MRI HEAD WITH CONTRAST TECHNIQUE: Sagittal T1, T2 axial, T2 axial FLAIR, axial susceptibility weighted imaging, axial diffus ion weighted images, and coronal T2 images were obtained. Pre and post-T1 axial and post T1 coronal i mages. ADC and FSPGR images. CLINICAL INFORMATION: intractable headache, abnormal CT, L eye visual disturbance COMPARISON: CT October 31, 2021 FINDINGS: No evidence of restricted diffusion to suggest acute ischemia. Ventricular system and basal cisterns are patent. Benign cavum septum pellucidum and vergae. Normal posterior fossa. Normal vascular flow v oids at the skull base. Visualized orbits appear normal. Mild mucosal thickening ethmoid air cells. Mastoid air cells well ae rated. Normal posterior nasopharynx. Normal parapharyngeal fat. No hemosiderin on susceptibly weighte d images. Large benign extra-axial arachnoid cyst overlying the LEFT frontal convexity. This follows CSF on all sequences. No abnormal gadolinium enhancement. Chronic remodeling of the underlying frontal calvariu m suggest long-standing or congenital lesion. Arachnoid cyst measures approximately 6.7 x 3.1 x 3.1 c m AP by transverse by craniocaudal. Tiny amount of surrounding gliosis. Associated chronic encephalom alacia with minimal if any mass effect on the localized brain parenchyma. Normal ventricular system. No hydrocephalus. Normal optic chiasm and pituitary infundibulum. Normal cavernous sinuses and Meckel's cave. No abnorm al intracranial enhancement. Normal visualized dural venous sinuses. MR/MR head wo/w con [id number] IMPRESSION: 1. No evidence of restricted diffusion to suggest acute ischemia. 2. Benign congenital or long-standing LEFT frontal convexity arachnoid cyst me asuring 6.7 x 3.1 x 3.1 CM. Small amount of surrounding gliosis. Associated enc ephalomalacia with chronic appearing volume loss in the LEFT frontal lobe. Mini mal mass effect on the underlying brain parenchyma. 3. Normal lateral ventricles. Incidental cavum septum pellucidum and vergae 4. No abnormal gadolinium enhancement. 5. No other suspicious findings.
[2021-11-02] MEDS: sodium chloride 0.9% 1,000 ML 999 ML IV (13:46)
[2021-11-02] MEDS: diphenhydrAMINE 50 mg/mL SDV 1mL 25 MG IVP (13:48)
[2021-11-02] MEDS: metoclopramide 5 mg/mL SDV 2 mL 10 MG IVP (13:48)
[2021-11-02] MEDS: ketorolac 30 mg/mL INJ 15 MG IVP (13:48)
[2021-11-02 14:10] VITALS: BP 138/70; PULSE 94; RESP 16; TEMP 36.8; O2SAT 96
--- NOTE | 2021-11-02 14:31 | PC.NURSE ---
Pt left via wheelchair to MRI with desktop technician at this time. IV saline locked.
[2021-11-02] MEDS: gadobenate dimeglumine 20 mL vial IV (14:47)
[2021-11-02 15:34] LABS: Basophils # 0.1 10^3/uL (0.0-0.1); Basophils % 0.5 %; Eosinophils # 0.1 10^3/uL (0.0-0.8); Hematocrit 40.9 % (37.0-47.0); Hemoglobin 13.5 g/dL (11.5-15.3); Lymphocytes # 2.5 10^3/uL (0.8-4.8); Lymphocytes % 22.5 %; Mean Corpuscular Volume 87.8 fl (81-99); Mean Platelet Volume 8.8 fL (7.4-10.4); Monocytes # 0.5 10^3/uL (0.2-0.9); Monocytes % 4.9 %; Neutrophils # 7.84 10^3/uL (1.8-7.7); Neutrophils % 70.6 %; Nucleated Red Blood Cells % 0 %; Platelet Count 447 10^3/cmm (130-400); Red Blood Count 4.66 10^6/uL (4.1-5.3); Red Cell Distribution Width 13.1 % (12.1-15.1); White Blood Count 11.1 10^3/uL (4.0-10.0)
[2021-11-02 15:52] LABS: Alanine Aminotransferase 15 U/L (0-33); Albumin Level 4.3 g/dL (3.5-5.2); Alkaline Phosphatase 84 IU/L (35-105); Aspartate Amino Transferase 13 U/L (0-32); Blood Urea Nitrogen 7 mg/dL (6-20); Calcium 8.6 mg/dL (8.5-10.5); Carbon Dioxide 26 mmol/L (22-29); Chloride 104 mmol/L (98-107); Globulin 3.4 g/dL (1.3-4.6); Glomerular Filtration Rate 96.4 mL/min (90-130); Glucose 99 mg/dL (65-115); Osmolality Calculated 282 mOsm/kg (285-295); Sodium 137 mmol/L (136-145); Total Bilirubin 0.3 mg/dL (0.15-1.2); Total Protein 7.7 g/dL (6.6-8.7)
[2021-11-02] MEDS: acetaminophen 500 mg Tablet 1000 MG PO (16:02)
[2021-11-02 16:30] VITALS: BP 98/64; PULSE 89; RESP 16; TEMP 36.8; O2SAT 96
[2021-11-02] MEDS: prochlorperazine 10 mg/2 mL Inj IVP (16:38)
[2021-11-02] MEDS: dexamethasone 10 mg/mL INJ IVP (16:38)
[2021-11-02 17:49] VITALS: BP 103/59; PULSE 80; RESP 16; TEMP 36.7; O2SAT 99
[2021-11-02 17:50] VITALS: BP 103/59; PULSE 80; RESP 16; TEMP 36.7; O2SAT 99
--- NOTE | 2021-11-03 11:36 | DCPLANNER ---
Addendum entered by Aaliyah Corral 11/14/21 11:56: Patient had a follow up appointment scheduled for 11.09.21 with neurology - patient did attend appointment. Original Note: manager film had a message to schedule a follow up appointment for patient with neurology. manager film sent patients information to the front office staff at neurology. Patients information will be printed and reviewed. Clinic will call patient with appointment information.
== END 2021-11-02 17:51 | disposition home or self-care (01) ==
PROVIDERS: Emergency Provider Emergency Medicine; PCP Family Medicine
DX: G43.901 Migraine, unspecified, not intractable, with status migrainosus (principal); G93.0 Cerebral cysts
CPT/HCPCS: 36415; 70553; 80053; 85025; 96365; 96375; 99285; A9577; J0780; J1100; J1200; J1885; J2765; J3475; J7030

== ENCOUNTER → 2021-11-09 11:49 | Outpatient (BNVA) | payer MEDICAID, SELFPAY | PROVIDERS: PCP Family Medicine; Referring Provider Emergency Medicine; Visit Provider Specialist | DX: G43.711 Chronic migraine without aura, intractable, with status migrainosus (principal); R56.9 Unspecified convulsions; G93.0 Cerebral cysts; H40.9 Unspecified glaucoma; Z62.819 Personal history of unspecified abuse in childhood | CPT/HCPCS: 99204; 99205 ==

== ENCOUNTER → 2021-11-13 07:33 | Outpatient (BNVA) | payer MEDICAID, SELFPAY | PROVIDERS: PCP Family Medicine; Referring Provider Specialist; Visit Provider Specialist | DX: R56.9 Unspecified convulsions (principal); G43.711 Chronic migraine without aura, intractable, with status migrainosus | CPT/HCPCS: 95812; 95816 ==

== ENCOUNTER 2021-12-08 07:22 | Emergency (ER) | payer MEDICAID, SELFPAY ==
[2021-12-08 07:30] VITALS: BP 132/79; PULSE 86; RESP 18; TEMP 36.8; O2SAT 98; BMI 38.7
--- NOTE | 2021-12-08 07:42 | ED_ITS ---
HPI - General Adult General: Chief complaint: General Medical Stated complaint: throat pain Time Seen by Provider: 12/08/21 07:30 History of Present Illness: Ms. Humphries is a 31-year-old lady with history of seizures, thyroid nodule, headaches who presents to the emergency department due to throat pain. She endorses symptoms onset woke up this morning. She endorses throat pain that is worse with swallowing and palpation as well as range of motion of the neck. Overall intensity symptoms is moderate to severe. Course has persisted. Denies choking episode or known provoking factor. She does endorse approximately 1 month history of cough intermittently which is mild and nonproductive as well is occasional bloody sputum. No other specific changes in health, exacerbating, or alleviating factors identified. Onset (ago): hour(s) Severity: moderate Quality: stabbing, aching and sharp Pain Consistency: constant Exacerbating factors: other Review of Systems General: Reports: 10 or more systems reviewed and unremarkable except in HPI and below PFSH ED PFSH: Medical History Cholecystectomy planned (~04/22/18) Migraine No pertinent past medical history Denies asthma, hypertension, seizures, DVT/PE PCP: Dr. Rios Surgical History S/P tubal ligation 12/04/2019--laparoscopic procedure [place] teeth extracted (~04/22/17) Family History Mother Diabetes Hypertension Hyperlipidemia Heart disease Thyroid condition Brain aneurysm Father Diabetes Hypertension Hyperlipidemia Family/Other Diabetes paternal uncles Uterine cancer maternal aunt, age at diagnosis unknown Grandmother Breast cancer maternal, diagnosed in her 40s Stroke paternal Denies family history of Colon cancer Ovarian cancer Social History Smoking and tobacco status: never smoked Female Reproductive History: Date of last menstrual period: 11/29/21 Physical Exam Const: COMMON NORMALS: alert GENERAL APPEARANCE: cooperative and well developed HENMT: COMMON NORMALS: normocephalic and atraumatic HEAD & SCALP: normocephalic and atraumatic THROAT: posterior oropharynx normal Eye: COMMON NORMALS: conjunctivae normal CONJUNCTIVA: Yes conjunctivae normal SCLERA: sclerae normal Neck/C-Spine: COMMON NORMALS: supple GENERAL: Yes trachea midline OTHER: Tenderness palpation of the trachea without appreciable fluid collection or overlying skin lesions. No bogginess. No lymph node adenopathy Resp: COMMON NORMALS: normal respiratory effort EFFORT & INSPECTION: Yes able to speak in complete sentences Cardio: COMMON NORMALS: regular rate and regular rhythm RATE: regular rate RHYTHM: regular rhythm GI: COMMON NORMALS: Soft to palpation PALPATION: Yes Soft to palpation and No Tenderness to palpation present (GI) PERCUSSION: normal to percussion Extremity: GENERAL: Yes normal exam except as noted and No edema Neuro: COMMON NORMALS: moves all extremities SENSORIUM/ORIENTATION: Yes alert and No Orientation impaired Psych: COMMON NORMALS: mental status grossly normal and Normal thought process present THOUGHT PROCESS: Normal thought process present Course ED course: - Patient was seen and evaluated by me at bedside - Patient placed on cardiac monitors, IV access obtained - Initial evaluation notable for exam as above. - Labs personally interpreted by me - Fluids, analgesia, and antiemetic given. Steroid given. - Labs notable for no leukocytosis, normal hemoglobin. Negative strep. Metabolic panel without acute electrolyte derangement. - Imaging warranted to evaluate for deep space pathology given degree of tenderness on physical exam. Imaging notable for no acute pathology identified. - Upon serial reexamination after treatment the patient was improved - Based on patient history, evaluation, and testing as interpreted the most likely cause of the patient's condition is bronchitis and pharyngitis - The results of ED evaluation were discussed with the patient including prescriptions and/or symptomatic cares (if applicable) including appropriate and responsible use, followup plan, and return precautions. The patient verbalized understanding and felt safe for discharge. - Patient discharged in satisfactory condition. Note: Click bubbles or prepopulated jackson in note writing are used for assistance with data collection and billing and are inherently more limited than narrative and other text portions of this note. Please use narrative for additional clinical history and defer to narrative/free test for any case of contradictory information. If information appears in only free text or click bubble it should be considered present or absent as reported. Please contact note communications writer for clarifications of clinical information or contradictory information. MDM is a brief summary, contradictory or erroneous seeming information should be clarified and full note should be reviewed. Vital Signs: Vital signs: Vital Signs Temperature 98.3 F 12/08/21 07:30 Pulse Rate 82 12/08/21 12:05 Respiratory Rate 16 12/08/21 12:05 Blood Pressure 124/73 12/08/21 12:05 Pulse Oximetry 97 12/08/21 12:05 Oxygen Delivery Me thod 12/08/21 08:52 MDM - General Adult Medical Decision Making 31-year-old lady presenting with extended history of worsening neck pain and other associated symptoms. Laboratory studies without acute pathology. CT scan negative for acute pathology requiring invention. Known followup for thyroid nodule. Improved with treatment. Satisfactory for outpatient management. Medical Records I reviewed the patient's medical records. Lab Data I reviewed the patient's lab results. : 12/08/21 08:00 12/08/21 08:[address] 12/08/21 08:58 IMPRESSION: 1. No acute abnormality identified in the neck. 2. No retropharyngeal abscess identified. Laboratory Results WBC 9.6 10^3/uL (4.0-10.0) 12/08/21 08:00 RBC 4.63 10^6/uL (4.1-5.3) 12/08/21 08:00 Hgb 13.4 g/dL (11.5-15.3) 12/08/21 08:00 Hct 42.0 % (37.0-47.0) 12/08/21 08:00 MCV 90.7 fl (81-99) 12/08/21 08:00 MCH 28.9 pg (28.0-34.0) 12/08/21 08:00 MCHC 31.9 g/dL (30.0-36.0) 12/08/21 08:00 RDW 13.0 % (12.1-15.1) 12/08/21 08:00 Plt Count 399 10^3/cmm (130-400) 12/08/21 08:00 MPV 8.9 fL (7.4-10.4) 12/08/21 08:00 Neut % (Auto) 63.1 % 12/08/21 08:00 Lymph % (Auto) 29.2 % 12/08/21 08:00 [place] % (Auto) 5.6 % 12/08/21 08:00 Eos % (Auto) 1.5 % 12/08/21 08:00 Baso % (Auto) 0.3 % 12/08/21 08:00 Neut # (Auto) 6.04 10^3/uL (1.8-7.7) 12/08/21 08:00 Lymph # (Auto) 2.8 10^3/uL (0.8-4.8) 12/08/21 08:00 [place] # (Auto) 0.5 10^3/uL (0.2-0.9) 12/08/21 08:00 Eos # (Auto) 0.1 10^3/uL (0.0-0.8) 12/08/21 08:00 Baso # (Auto) 0.0 10^3/uL (0.0-0.1) 12/08/21 08:00 Nucleated RBC % (auto) 0 % 12/08/21 08:00 Nucleated RBCs # 0.0 /100WBC 12/08/21 08:00 ESR 32 mm/hr (0-15) H 12/08/21 08:00 Sodium 137 mmol/L (136-145) 12/08/21 08:00 Potassium 4.4 mmol/L (3.5-5.1) 12/08/21 08:00 Chloride 103 mmol/L (98-107) 12/08/21 08:00 Carbon Dioxide 24 mmol/L (22-29) 12/08/21 08:00 Anion Gap 14.4 (5-19) 12/08/21 08:00 BUN 13 mg/dL (6-20) 12/08/21 08:00 Creatinine 0.7 mg/dL (0.5-0.9) 12/08/21 08:00 GFR Calculation 96.4 mL/min (90-130) 12/08/21 08:00 Glucose 101 mg/dL (65-115) 12/08/21 08:00 Calculated Osmolality 284 mOsm/kg (285-295) L 12/08/21 08:00 Calcium 9.0 mg/dL (8.5-10.5) 12/08/21 08:00 C-Reactive Protein 3.6 mg/L (0.0-4.9) 12/08/21 08:00 Group A Strep Rapid Negative (Negative) 12/08/21 08:26 Discharge Plan Discharge Patient Disposition: Home Clinical Impression: Acute sore throat, Bronchitis Condition: Stable Prescriptions: New oxycodone 5 mg tablet 5 mg PO Q4H PRN (Reason: pain) Qty: 10 0RF No Action levonorgestrel-ethinyl estrad [Aviane] 0.1-20 mg-mcg tablet 1 tab PO DAILY Qty: 28 12RF Emgality Pen 120 mg/mL pen injector 120 mg SUBCUT ONCE Qty: 1 2RF Emgality Pen 120 mg/mL pen injector 240 mg SUBCUT ONCE Qty: 2 0RF Rx Instructions: Loading dose first desvenlafaxine succinate 50 mg tablet extended release 24 hr 100 mg PO DAILY albuterol sulfate 90 mcg/actuation aero powdr breath act w/sensor 2 inh inhalation Q6H PRN (Reason: shortness of breath or wheezing) Qty: 1 0RF pantoprazole 40 mg Tablet,Delayed Release (Dr/Ec) 40 mg PO BID magnesium oxide 400 mg magnesium capsule 400 mg PO DAILY ondansetron 4 mg tablet,disintegrating 4 mg PO Q8H PRN (Reason: nausea and vomiting) Qty: 15 0RF Topamax 100 mg tablet 100 mg PO DAILY Qty: 30 0RF Discharge Orders: Discharge ED (Routine); Ordered 12/08/21 Ordered By: Jitendra Beltre Referrals: Roque Rios MD [Primary Care Provider] - Discharge Diet: Advance as tolerated and Clear Liquid Discharge Activity: Increase activity as tolerated Patient Instructions: Pharyngitis (ED), Acute Bronchitis (ED), Opioid Safety Activity Restrictions/Additional Instructions: Thank you for visiting the emergency department. You were seen and evaluated for throat soreness. The exact cause of your symptoms is unclear though may be related to tracheal/bronchial inflammation and irritation. This will be treated with steroids, antibiotics. Additionally will prescribe a short course of pain control. You should use [id number] medications as well however please do not exceed the daily recommended dosage. Please follow-up with your primary care provider. Return to the emergency department for worsening symptoms, difficulty breathing, inability to tolerate oral secretions, or anything else that you are concerned about a feel needs emergency department evaluation. Stand Alone Forms: Work/School Release Coding Level of Care Code ED [employer] for [employer] Exam Comprehensive
--- NOTE | 2021-12-08 07:44 | PC.NURSE ---
Pt reports intermittently over the last month has been coughing up bloody phlegm. Persistent cough for last month. reports yesterday coughed up blood. States today she woke up around 0500 this morning feeling like something is stuck in her throat and feels like a choking feeling. Reports pain to anterior throat with movement, increased pain with swallowing. Reports she has a nodule on her thyroid that she is scheduled to get biopsied next week. Reports had soup for dinner last night and does not remember choking on any foods. Pt speaking in complete sentences without difficulty. Voice sounds hoarse.
[2021-12-08 08:12] LABS: Basophils % 0.3 %; Eosinophils # 0.1 10^3/uL (0.0-0.8); Eosinophils % 1.5 %; Hemoglobin 13.4 g/dL (11.5-15.3); Lymphocytes # 2.8 10^3/uL (0.8-4.8); Lymphocytes % 29.2 %; Mean Corpuscular HGB Conc 31.9 g/dL (30.0-36.0); Mean Corpuscular Hemoglobin 28.9 pg (28.0-34.0); Mean Corpuscular Volume 90.7 fl (81-99); Mean Platelet Volume 8.9 fL (7.4-10.4); Monocytes # 0.5 10^3/uL (0.2-0.9); Monocytes % 5.6 %; Neutrophils # 6.04 10^3/uL (1.8-7.7); Neutrophils % 63.1 %; Nucleated Red Blood Cells % 0 %; Platelet Count 399 10^3/cmm (130-400); Red Blood Count 4.63 10^6/uL (4.1-5.3); White Blood Count 9.6 10^3/uL (4.0-10.0)
[2021-12-08] MEDS: sodium chloride 0.9% 1,000 ML 999 ML IV (08:13)
[2021-12-08] MEDS: ketorolac 30 mg/mL INJ 15 MG IVP (08:15)
[2021-12-08] MEDS: ondansetron 2 mg/ML SDV 2 mL 4 MG IVP (08:19)
[2021-12-08] MEDS: lidocaine 2% viscous 15 ML, aluminum-mag hydrox-simethicon 30 ML, sucralfate oral liq 1 GM PO (08:24)
[2021-12-08] MEDS: acetaminophen 500 mg Tablet 1000 MG PO (08:24)
[2021-12-08 08:26] LABS: Erythrocyte Sedimentation Rate 32 mm/hr (0-15)
[2021-12-08 08:33] LABS: Anion Gap 14.4 (5-19); Blood Urea Nitrogen 13 mg/dL (6-20); C Reactive Protein 3.6 mg/L (0.0-4.9); Carbon Dioxide 24 mmol/L (22-29); Chloride 103 mmol/L (98-107); Glomerular Filtration Rate 96.4 mL/min (90-130); Glucose 101 mg/dL (65-115); Osmolality Calculated 284 mOsm/kg (285-295); Potassium 4.4 mmol/L (3.5-5.1); Sodium 137 mmol/L (136-145)
[2021-12-08 08:52] VITALS: BP 125/68; PULSE 77; O2SAT 100
[2021-12-08 08:56] LABS: Rapid Strep A Test Negative (Negative)
--- NOTE | 2021-12-08 08:58 | CTR_ITS ---
PROCEDURE INFORMATION: Exam: CT Neck With Contrast Exam date and time: 12/08/2021 9:40 AM Age: 31 years old Clinical indication: Painful swallowing; Patient HX: Tracheal pain; Additional info: Tracheal pain, eval rpa vs other TECHNIQUE: Imaging protocol: Computed tomography of the neck with contrast. Radiation optimization: All CT scans at this facility use at least one of these dose optimization techniques: automated exposure control; mA and/or kV adjustment per patient size (includes targeted exams where dose is matched to clinical indication); or iterative reconstruction. Contrast material: [id number]; Contrast volume: 80 ml; Contrast route: INTRAVENOUS (IV); COMPARISON: CT angio headneck* [id number] 10/31/2021 7:14 PM RADIATION DOSE METRICS: Total DLP (mGy-cm): 302.21 FINDINGS: Brain: The visualized brain parenchyma appears normal. Mastoid air cells: The visualized mastoid air cells are well aerated. Pharynx: Unremarkable. No significant tonsillar enlargement. Larynx: Unremarkable. Prevertebral and retropharyngeal spaces: Unremarkable. Salivary glands: Normal. Glands are normal in size. Thyroid: The thyroid gland is unremarkable. Lymph nodes: No significant lymphadenopathy is identified. Trachea: The visualized trachea is unremarkable. Lungs: The visualized portions of the apical lung parenchyma appear normal. Mediastinal space: The visualized superior mediastinum appears normal. Esophagus: The visualized portions of the esophagus are unremarkable. Bones/joints: Mild reversal of the normal cervical lordotic curvature. Vasculature: The left vertebral artery is diminutive compared to the right and does not significantly contribute to the basilar artery. Soft tissues: Unremarkable. CT/CT neck w con* [id number] IMPRESSION: 1. No acute abnormality identified in the neck. 2. No retropharyngeal abscess identified.
[2021-12-08] MEDS: iohexol 350 mg/mL 100 mL Btl IV (09:52)
[2021-12-08 10:41] VITALS: BP 105/68; PULSE 80; RESP 18; O2SAT 99
[2021-12-08 10:49] VITALS: RESP 18; O2SAT 100
[2021-12-08] MEDS: morphine 4 mg/mL SDV 1 mL IVP (10:49)
[2021-12-08 12:05] VITALS: BP 124/73; PULSE 82; RESP 16; O2SAT 97
== END 2021-12-08 12:06 | disposition home or self-care (01) ==
PROVIDERS: Emergency Provider Emergency Medicine; PCP Family Medicine
DX: J02.9 Acute pharyngitis, unspecified (principal); J40 Bronchitis, not specified as acute or chronic
CPT/HCPCS: 70491; 80048; 85025; 85651; 86140; 87081; 87880; 96374; 96375; 99285; J1885; J2270; J2405; J2930; J7030; Q9967

== ENCOUNTER 2021-12-15 07:52 | Outpatient (CLI) | payer MEDICAID, SELFPAY ==
--- NOTE | 2021-12-15 07:59 | US_ITS ---
WS: [id number] ULTRASOUND-GUIDED RIGHT THYROID NODULE FNA HISTORY: RIGHT thyroid nodule. Procedure, risks, and complications were explained to the patient. Consent has been obtained. Prior imaging study 11/09/2021 reviewed. The skin is cleansed with ChloraPrep and anesthetized with 1% buffered lidocaine. FNA performed with 25 gauge needles. vascular technologist sonographer is present to fix slides. There is a small amount of bleeding during and postprocedure. The amount of bleeding did not increase during observation 25 minutes after the biopsy. US/US biopsy/FNA thyroid [id number] IMPRESSION: Uncomplicated FNA of a RIGHT thyroid nodule. Final pathology results pending.
== END 2021-12-15 07:53 | disposition home or self-care (01) ==
PROVIDERS: PCP Family Medicine; Visit Provider Family Medicine
DX: E04.1 Nontoxic single thyroid nodule (principal)
CPT/HCPCS: 10005; 88108

== ENCOUNTER → 2022-01-10 11:09 | Outpatient (BNVA) | payer MEDICAID, SELFPAY | PROVIDERS: PCP Family Medicine; Visit Provider Nurse Practitioner Family | DX: R50.9 Fever, unspecified (principal); R05.9 Cough, unspecified | CPT/HCPCS: 87400; 87426; 87880 ==

== ENCOUNTER 2022-02-19 17:35 | Emergency (ER) | payer MEDICAID, SELFPAY ==
--- NOTE | 2022-02-19 18:03 | XRR_ITS ---
PROCEDURE INFORMATION: Exam: XR Right Hip Exam date and time: 02/19/2022 6:06 PM Age: 31 years old Clinical indication: Hip pain; Right hip TECHNIQUE: Imaging protocol: Radiologic exam of the Right hip. Views: 1 view hip with pelvis when performed. COMPARISON: CT abdomen pelvis w con* [id number] 05/14/2021 3:07 PM FINDINGS: Bones/joints: Unremarkable. No acute fracture. Soft tissues: Unremarkable. XR/XR hip RT 2-3V wo/w pel* [id number] IMPRESSION: No acute findings.
[2022-02-19 18:39] VITALS: BP 126/77; PULSE 87; RESP 14; TEMP 36.8; O2SAT 100; BMI 38.4
--- NOTE | 2022-02-19 22:00 | ED_ITS ---
HPI - Extremity Problem General: Chief complaint: Extremity Problem,Nontraumatic Stated complaint: right hip/leg pain Time Seen by Provider: 02/19/22 22:00 History of Present Illness: 31-year-old female comes in today for complaints of right hip pain. Patient reports that on Saturday she went to get up out of the chair and felt a pain in her right inguinal area. Throughout Saturday patient had increasing pain and discomfort that radiated around to her right buttocks. Patient reports increasing pain and discomfort with movement of the hip joint. Patient appears nontoxic. Patient appears in mild to moderate pain at rest. Patient has increased pain with weightbearing. Patient has had a previous injury to the right hip reporting a hip dislocation during childbirth. Associated symptoms: Deny fever(s) Review of Systems Const: Denies: fever(s) Resp: Denies: dyspnea GI: Denies: nausea or vomiting Musc: Reports: joint pain (Right hip) PFS ED PFSH: Medical History Cholecystectomy planned (~04/22/18) Migraine No pertinent past medical history Denies asthma, hypertension, seizures, DVT/PE PCP: Dr. Rios Surgical History S/P tubal ligation 12/04/2019--laparoscopic procedure [place] teeth extracted (~04/22/17) Family History Mother Diabetes Hypertension Hyperlipidemia Heart disease Thyroid condition Brain aneurysm Father Diabetes Hypertension Hyperlipidemia Family/Other Diabetes paternal uncles Uterine cancer maternal aunt, age at diagnosis unknown Grandmother Breast cancer maternal, diagnosed in her 40s Stroke paternal Denies family history of Colon cancer Ovarian cancer Social History Smoking and tobacco status: current every day smoker Female Reproductive History: Date of last menstrual period: 11/29/21 Physical Exam Const: COMMON NORMALS: alert HENMT: COMMON NORMALS: normocephalic HEAD & SCALP: normocephalic Neck/C-Spine: COMMON NORMALS: full ROM Resp: COMMON NORMALS: normal respiratory effort Cardio: COMMON NORMALS: regular rate RATE: regular rate : COMMON NORMALS: Yes no CVA tenderness BLADDER/KIDNEY EXAM: Yes no CVA tenderness Back/Pelvis: COMMON NORMALS: no CVA tenderness SACROILIAC JOINTS: Yes SI joint(s) abnormal SI joint details: tender to palpation (Right side) Extremity: RIGHT LOWER EXTREMITY: Yes hip joint (Inguinal tenderness) Right hip: Yes inspection, Yes palpation and Yes ROM (Decreased range of motion due to pain) Neuro: SENSORIUM/ORIENTATION: Yes alert Skin: COMMON NORMALS: turgor normal GENERAL SKIN EXAM: turgor normal Course Vital Signs: Vital signs: Vital Signs Temperature 98.2 F 02/19/22 18:39 Pulse Rate 87 02/19/22 18:39 Respiratory Rate 14 02/19/22 18:39 Blood Pressure 126/77 02/19/22 18:39 Pulse Oximetry 100 02/19/22 18:39 Oxygen Delivery Me thod 02/19/22 18:39 MDM - Extremity (Nontraumatic) Medical Decision Making 31-year-old female comes in today with complaints of right hip pain. On exam patient has tenderness to the right sacroiliac area of the hip and buttock area. Patient also has tenderness on palpation of the inguinal right side. Decreased range of motion due to pain. Distal pulses and sensation are intact. No calf or popliteal angle tenderness is noted. Patient has normal range of motion of the knee. Differential diagnosis includes but not limited to lumbar radiculopathy, intervertebral disc disease, facet arthropathy, strain, dislocation. X-ray of the hip indicated no significant abnormality. Patient was treated for pain with 30 mg of Toradol IM along with 10 mg of dexamethasone for inflammation. Patient was also given 1 tablet of hydrocodone. Patient patient was recommended to follow-up with primary care for further instructions and evaluation. Lab Data Radiology Impressions Hip/Pelvis X-Ray 02/19/22 18:03 IMPRESSION: No acute findings. Discharge Plan Discharge Patient Disposition: Home Clinical Impression: Strain of fascia of muscle of hip Condition: Stable Prescriptions: New diclofenac sodium 75 mg tablet,delayed release (DR/EC) 75 mg PO BID Qty: 20 0RF hydrocodone-acetaminophen 5-325 mg tablet 1 tab PO Q6H PRN (Reason: pain) Qty: 10 0RF Discontinued prednisone 20 mg tablet 20 mg PO BID 4 Days Qty: 8 0RF oxycodone 5 mg tablet 5 mg PO Q4H PRN (Reason: pain) Qty: 10 0RF No Action levonorgestrel-ethinyl estrad [Aviane] 0.1-20 mg-mcg tablet 1 tab PO DAILY Qty: 28 12RF Emgality Pen 120 mg/mL pen injector 120 mg SUBCUT ONCE Qty: 1 2RF Emgality Pen 120 mg/mL pen injector 240 mg SUBCUT ONCE Qty: 2 0RF Rx Instructions: Loading dose first desvenlafaxine succinate 50 mg tablet extended release 24 hr 100 mg PO DAILY albuterol sulfate 90 mcg/actuation aero powdr breath act w/sensor 2 inh inhalation Q6H PRN (Reason: shortness of breath or wheezing) Qty: 1 0RF pantoprazole 40 mg Tablet,Delayed Release (Dr/Ec) 40 mg PO BID magnesium oxide 400 mg magnesium capsule 400 mg PO DAILY ondansetron 4 mg tablet,disintegrating 4 mg PO Q8H PRN (Reason: nausea and vomiting) Qty: 15 0RF Topamax 100 mg tablet 100 mg PO DAILY Qty: 30 0RF Discharge Orders: Discharge ED (Routine); Ordered 02/19/22 Ordered By: Virgil Love Referrals: Roque Rios MD [Primary Care Provider] - Discharge Diet: Usual diet Discharge Activity: Increase activity as tolerated Patient Instructions: Musculoskeletal Pain (ED), Opioid Safety Activity Restrictions/Additional Instructions: Maintain activity as much as possible. Gentle stretching and range of motion exercises. Ice or heat for further pain relief. Drink plenty of fluids. Follow-up with primary care for further instruction. Return to ED for new concerns. 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
[2022-02-19] MEDS: HYDROcodone-acetaminophen 10-325 mg Tablet 1 TAB PO (22:19)
[2022-02-19] MEDS: ketorolac 30 mg/mL INJ IM (22:19)
[2022-02-19] MEDS: dexamethasone 10 mg/mL INJ IM (22:19)
== END 2022-02-19 22:27 | disposition home or self-care (01) ==
PROVIDERS: Emergency Provider Nurse Practitioner Family; PCP Family Medicine
DX: F17.210 Nicotine dependence, cigarettes, uncomplicated (principal)
CPT/HCPCS: 73502; 96372; 99284; J1100; J1885

== ENCOUNTER 2022-03-01 18:02 | Emergency (ER) | payer MEDICAID, SELFPAY ==
[2022-03-01 18:33] VITALS: BP 115/77; PULSE 75; RESP 16; TEMP 36.8; O2SAT 98; BMI 38.9
--- NOTE | 2022-03-01 20:13 | XRR_ITS ---
PROCEDURE INFORMATION: Exam: XR Left Shoulder Exam date and time: 03/01/2022 8:27 PM Age: 31 years old Clinical indication: Pain; Shoulder; Left TECHNIQUE: Imaging protocol: Radiologic exam of the Left shoulder. Views: 2 or more views. COMPARISON: CT neck w con* [id number] 12/08/2021 9:40 AM FINDINGS: Bones/joints: Normal. Soft tissues: Normal. XR/XR shoulder LT min 2V* [id number] IMPRESSION: No acute findings.
--- NOTE | 2022-03-01 21:18 | ED_ITS ---
HPI - Extremity Problem General: Chief complaint: Extremity Problem,Nontraumatic Stated complaint: Shoulder pain, spotting, late on period Time Seen by Provider: 03/01/22 20:13 Source: patient Mode of arrival: ambulatory Limitations: no limitations History of Present Illness: 31-year-old female who states that she is concerned she may be she states she is roughly 7 days late on her menstruation and started having some bleeding today. States she does have some lower abdominal cramping and some slight bleeding denies passing any clots. States she is also been having some left shoulder pain denies any injury she rates her pain a 4 out of 10. Associated symptoms: Deny chest pain, fever(s) or rash Review of Systems Const: Denies: fever(s), chills, body aches or change in appetite Eyes: Denies: blurry vision or eye discomfort ENMT: Denies: throat pain or dental pain Card: Denies: chest pain Resp: Denies: dyspnea GI: Denies: abdominal pain, nausea, vomiting or diarrhea : Reports: vaginal bleeding Musc: Reports: extremity pain Skin/Breast: Denies: rash Neuro: Denies: headache(s) Psych: Denies: depression Jaime/Lymph: Denies: easy bruising All/Imm: Denies: urticaria PFSH ED PFSH: Medical History Cholecystectomy planned (~04/22/18) Migraine No pertinent past medical history Denies asthma, hypertension, seizures, DVT/PE PCP: Dr. Rios Surgical History S/P tubal ligation 12/04/2019--laparoscopic procedure [place] teeth extracted (~04/22/17) Family History Mother Diabetes Hypertension Hyperlipidemia Heart disease Thyroid condition Brain aneurysm Father Diabetes Hypertension Hyperlipidemia Family/Other Diabetes paternal uncles Uterine cancer maternal aunt, age at diagnosis unknown Grandmother Breast cancer maternal, diagnosed in her 40s Stroke paternal Denies family history of Colon cancer Ovarian cancer Social History Smoking and tobacco status: current every day smoker Female Reproductive History: Date of last menstrual period: 11/29/21 Physical Exam Const: COMMON NORMALS: no acute distress, patient oriented x3 and healthy appearing HENMT: COMMON NORMALS: normocephalic and atraumatic HEAD & SCALP: normocephalic and atraumatic Eye: COMMON NORMALS: conjunctivae normal CONJUNCTIVA: Yes conjunctivae normal Neck/C-Spine: COMMON NORMALS: full ROM and supple Chest: COMMONS NORMALS: normal inspection of the chest Resp: COMMON NORMALS: normal respiratory effort Cardio: COMMON NORMALS: regular rate and No murmurs present (Cardio) RATE: regular rate GI: INSPECTION: Yes normal to inspection Extremity: COMMON NORMALS: normal to inspection NARRATIVE EXTREMITY EXAM: Some tenderness over the left shoulder no obvious deformity Neuro: COMMON NORMALS: patient oriented x3, moves all extremities and no focal motor deficits Psych: COMMON NORMALS: mental status grossly normal, Normal thought process present and cooperative THOUGHT PROCESS: Normal thought process present Skin: COMMON NORMALS: no rashes or lesions noted and no wounds GENERAL SKIN EXAM: no rashes or lesions noted Course Vital Signs: Vital signs: Vital Signs Temperature 98.2 F 03/01/22 18:33 Pulse Rate 75 03/01/22 18:33 Respiratory Rate 16 03/01/22 18:33 Blood Pressure 115/77 03/01/22 18:33 Pulse Oximetry 98 03/01/22 18:33 Oxygen Delivery Me thod 03/01/22 18:33 MDM - Extremity (Nontraumatic) Medical Decision Making Patient presents with shoulder pain likely muscular in nature x-ray is normal her urine shows negative for likely having her menstruation she is stable for discharge she is to follow-up with PCP and return if worsening. Lab Data Radiology Impressions Shoulder X-Ray 03/01/22 20:13 IMPRESSION: No acute findings. Laboratory Results HCG, Qual Negative (Negative) 03/01/22 21:38 Discharge Plan Discharge Patient Disposition: Home Clinical Impression: Left shoulder pain, Vaginal bleeding Condition: Stable Prescriptions: New Naprosyn 500 mg tablet 500 mg PO BID PRN (Reason: pain) Qty: 20 0RF No Action levonorgestrel-ethinyl estrad [Aviane] 0.1-20 mg-mcg tablet 1 tab PO DAILY Qty: 28 12RF Emgality Pen 120 mg/mL pen injector 120 mg SUBCUT ONCE Qty: 1 2RF Emgality Pen 120 mg/mL pen injector 240 mg SUBCUT ONCE Qty: 2 0RF Rx Instructions: Loading dose first desvenlafaxine succinate 50 mg tablet extended release 24 hr 100 mg PO DAILY albuterol sulfate 90 mcg/actuation aero powdr breath act w/sensor 2 inh inhalation Q6H PRN (Reason: shortness of breath or wheezing) Qty: 1 0RF pantoprazole 40 mg Tablet,Delayed Release (Dr/Ec) 40 mg PO BID magnesium oxide 400 mg magnesium capsule 400 mg PO DAILY ondansetron 4 mg tablet,disintegrating 4 mg PO Q8H PRN (Reason: nausea and vomiting) Qty: 15 0RF Topamax 100 mg tablet 100 mg PO DAILY Qty: 30 0RF diclofenac sodium 75 mg tablet,delayed release (DR/EC) 75 mg PO BID Qty: 20 0RF hydrocodone-acetaminophen 5-325 mg tablet 1 tab PO Q6H PRN (Reason: pain) Qty: 10 0RF Discharge Orders: Discharge ED (Routine); Ordered 03/01/22 Ordered By: Cortez Srivastava Referrals: Roque Rios MD [Primary Care Provider] - 1-3 days Discharge Diet: Advance as tolerated Discharge Activity: Resume usual activity Patient Instructions: Arthralgia (ED) Coding Level of Care Code ED Director News for [place] Fwd Exam Comprehensive
[2022-03-01 21:46] LABS: HCG Qualitative Urine. Negative (Negative)
== END 2022-03-01 21:58 | disposition home or self-care (01) ==
PROVIDERS: Emergency Provider Emergency Medicine; PCP Family Medicine
DX: N93.9 Abnormal uterine and vaginal bleeding, unspecified (principal); M25.512 Pain in left shoulder; F17.210 Nicotine dependence, cigarettes, uncomplicated
CPT/HCPCS: 73030; 81025; 99283

== ENCOUNTER 2022-04-16 13:18 | Emergency (ER) | payer MEDICAID, SELFPAY ==
[2022-04-16 14:46] VITALS: BP 128/69; PULSE 104; RESP 13; TEMP 36.9; O2SAT 99; BMI 37.2
--- NOTE | 2022-04-16 17:12 | ED_ITS ---
HPI - Back Pain/Injury General: Chief Complaint: Back Pain/Injury Stated Complaint: neck/back pain Time Seen by Provider: 04/16/22 17:09 History of Present Illness: Patient comes in for neck pain and discomfort for one month. Over the last 2 days has had increased discomfort. Patient has a history of neck and back pain, and migraine syndrome. Associated symptoms: Deny fever(s) Review of Systems Const: Denies: fever(s) ENMT: Denies: throat pain Resp: Denies: dyspnea Musc: Reports: neck pain PFSH ED PFSH: Medical History Cholecystectomy planned (~04/22/18) Migraine No pertinent past medical history Denies asthma, hypertension, seizures, DVT/PE PCP: Dr. Rios Surgical History S/P tubal ligation 12/04/2019--laparoscopic procedure [place] teeth extracted (~04/22/17) Family History Mother Diabetes Hypertension Hyperlipidemia Heart disease Thyroid condition Brain aneurysm Father Diabetes Hypertension Hyperlipidemia Family/Other Diabetes paternal uncles Uterine cancer maternal aunt, age at diagnosis unknown Grandmother Breast cancer maternal, diagnosed in her 40s Stroke paternal Denies family history of Colon cancer Ovarian cancer Social History Smoking and tobacco status: current every day smoker Female Reproductive History: Date of last menstrual period: 11/29/21 Physical Exam Const: COMMON NORMALS: alert HENMT: COMMON NORMALS: normocephalic HEAD & SCALP: normocephalic Neck/C-Spine: CERVICAL SPINE: Yes Paracervical muscle tenderness, Yes Paracervical spasm and Yes other (decreased ROM of neck) Resp: COMMON NORMALS: normal respiratory effort and clear to auscultation bilaterally AUSCULTATION: clear to auscultation bilaterally Cardio: COMMON NORMALS: regular rate RATE: regular rate Extremity: COMMON NORMALS: normal to inspection Neuro: SENSORIUM/ORIENTATION: Yes alert Skin: COMMON NORMALS: turgor normal GENERAL SKIN EXAM: turgor normal Course Vital Signs: Vital signs: Vital Signs Temperature 98.5 F 04/16/22 14:46 Pulse Rate 104 H 04/16/22 14:46 Respiratory Rate 13 04/16/22 14:46 Blood Pressure 128/69 04/16/22 14:46 Pulse Oximetry 99 04/16/22 14:46 Oxygen Delivery Me thod 04/16/22 14:46 MDM - Back Pain/Injury Medical Decision Making Patient comes in for persistent neck pain and discomfort. Patient report urgent care referred for care and possible MRI. Muscle spasm paracervical spine muscles. Different DX includes cervical radiculopathy, myofascial strain, disc disease, facet arthropathy. Reviewed exam with patient. Recommend f/u with ortho spine. Patient reports understanding. Discharge Plan Discharge Patient Disposition: Home Clinical Impression: Cervical radiculopathy Condition: Stable Prescriptions: New prednisone 20 mg tablet 40 mg PO DAILY 6 Days Qty: 12 0RF Continued hydrocodone-acetaminophen 5-325 mg tablet 1 tab PO Q6H PRN (Reason: pain) Qty: 10 0RF diclofenac sodium 75 mg tablet,delayed release (DR/EC) 75 mg PO BID Qty: 20 0RF No Action levonorgestrel-ethinyl estrad [Aviane] 0.1-20 mg-mcg tablet 1 tab PO DAILY Qty: 28 12RF Emgality Pen 120 mg/mL pen injector 120 mg SUBCUT ONCE Qty: 1 2RF Emgality Pen 120 mg/mL pen injector 240 mg SUBCUT ONCE Qty: 2 0RF Rx Instructions: Loading dose first desvenlafaxine succinate 50 mg tablet extended release 24 hr 100 mg PO DAILY albuterol sulfate 90 mcg/actuation aero powdr breath act w/sensor 2 inh inhalation Q6H PRN (Reason: shortness of breath or wheezing) Qty: 1 0RF pantoprazole 40 mg Tablet,Delayed Release (Dr/Ec) 40 mg PO BID Naprosyn 500 mg tablet 500 mg PO BID PRN (Reason: pain) Qty: 20 0RF magnesium oxide 400 mg magnesium capsule 400 mg PO DAILY ondansetron 4 mg tablet,disintegrating 4 mg PO Q8H PRN (Reason: nausea and vomiting) Qty: 15 0RF Topamax 100 mg tablet 100 mg PO DAILY Qty: 30 0RF Discharge Orders: Discharge ED (Routine); Ordered 04/16/22 Ordered By: Virgil Love Referrals: Roque Rios MD [Primary Care Provider] - Discharge Diet: Usual diet Discharge Activity: Increase activity as tolerated Patient Instructions: Cervical Radiculopathy (ED), Opioid Safety, Pain Management Activity Restrictions/Additional Instructions: Gentle stretching and range of motion of exercise. Use ice and heat for further comfort. Take diclofenac and acetaminophen for pain control. Follow-up with primary care. Case management will contact with appointment for further evaluation by surgical business applications specialist. Coding Level of Care Code ED Computer Operations Manager for [facility] Fwd Exam Detailed
[2022-04-16 17:51] VITALS: RESP 14
[2022-04-16] MEDS: HYDROmorphone 1 mg/mL INJ 1 mL IM (17:51)
[2022-04-16] MEDS: ketorolac 30 mg/mL INJ IM (17:53)
[2022-04-16] MEDS: predniSONE 20 mg Tablet 40 MG PO (18:03)
--- NOTE | 2022-04-17 08:32 | DCPLANNER ---
Addendum entered by Aaliyah Corral 04/27/22 10:14: Patient had a follow up appointment scheduled with ortho - patient did attend appointment. Addendum entered by Aaliyah Corral 04/17/22 15:08: Patient has an appointment scheduled for Sunday, April 17, 2022 at 3:15 with Jones Felipe at ortho. Clinic will call patient with appointment information. Original Note: manager animal had message to schedule a follow up appointment for patient with ortho. manager animal sent patients information to the front office staff at ortho. Patients information will be printed and reviewed. Clinic will call patient with appointment information.
== END 2022-04-16 18:11 | disposition home or self-care (01) ==
PROVIDERS: Emergency Provider Nurse Practitioner Family; PCP Family Medicine
DX: M54.12 Radiculopathy, cervical region (principal); F17.210 Nicotine dependence, cigarettes, uncomplicated
CPT/HCPCS: 96372; 99284; J1170; J1885; J7512

== ENCOUNTER 2022-04-23 12:15 | Emergency (ER) | payer MEDICAID, SELFPAY ==
[2022-04-23 12:44] VITALS: BP 117/80; PULSE 85; RESP 14; TEMP 36.8; O2SAT 98; BMI 40.7
--- NOTE | 2022-04-23 13:20 | CTR_ITS ---
PROCEDURE INFORMATION: Exam: CT Cervical Spine Without Contrast Exam date and time: 04/23/2022 2:10 PM Age: 31 years old Clinical indication: Patient HX: Neck pain from the base of the skull to between shoulder blades. Loss of ue motor/sensory function. PT has a known benign mass on the right side of thyroid. ; Additional info: Neck pain; Loss of ue motor/sensory function TECHNIQUE: Imaging protocol: Computed tomography of the cervical spine without contrast. Axial, coronal and sagittal reformatted images were created and reviewed. Radiation optimization: All CT scans at this facility use at least one of these dose optimization techniques: automated exposure control; mA and/or kV adjustment per patient size (includes targeted exams where dose is matched to clinical indication); or iterative reconstruction. COMPARISON: CR XR cervical spine 4-5V [id number] 03/12/2022 1:07 PM RADIATION DOSE METRICS: Total DLP (mGy-cm): 229.47 FINDINGS: Bones/joints: Mild reversal of the normal cervical lordosis. No CT evidence of acute fracture, dislocation or subluxation. Minimal anterolisthesis of C4 on C5. Alignment otherwise anatomic. Mild dextroscoliosis. Vertebral body heights maintained. Lungs: Grossly unremarkable. Thyroid gland: 1.9 cm low-density right thyroid nodule. Soft tissues: Grossly unremarkable. CT/CT cervical spin wo con* [id number] IMPRESSION: No CT evidence of acute cervical spine pathology.
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
[2022-04-23 16:35] VITALS: BP 120/83; PULSE 81; RESP 13; O2SAT 96
--- NOTE | 2022-04-24 08:53 | DCPLANNER ---
Addendum entered by Aaliyah Corral 07/04/22 07:42: This appointment was cancelled Addendum entered by Aaliyah Corral 04/26/22 10:38: Patient has a follow up appointment scheduled for Saturday, June 11, 2022 at 12:[address] Hodges at neurology. Clinic will call patient with appointment information. Original Note: manager consumer had message to schedule a follow up appointment for patient with neurology. manager consumer sent patients information to the front office staff at neurology. Patients information will be printed and reviewed. Clinic will call patient with appointment information. manager consumer also had message to call centralized scheduling and check on MRI that was ordered by MAAME Felipe. manager consumer called centralized scheduling, spoke with Jazlyn, was told that centralized scheduling will call patient and schedule the MRI. manager consumer informed the ER physician.
== END 2022-04-23 16:37 | disposition home or self-care (01) ==
PROVIDERS: Emergency Provider Physician Assistant; PCP Family Medicine
DX: M54.12 Radiculopathy, cervical region (principal); F17.210 Nicotine dependence, cigarettes, uncomplicated
CPT/HCPCS: 72125; 99284

== ENCOUNTER 2022-05-01 07:12 | Outpatient (CLI) | payer MEDICAID, SELFPAY ==
--- NOTE | 2022-05-01 07:15 | MR_ITS ---
WS: [id number] MRI CERVICAL SPINE NONCONTRAST HISTORY: severe neck pain COMPARISON: 04/23/2022 CT. Technique: Multiplanar, multisequence noncontrast imaging of the cervical spine. Straightening and slight reversal of normal cervical lordosis. Reversal is centered at C5-6. Very min imal narrowing of the C5-6 disc space. No marrow edema or fracture. Signal within the cervical cord is normal. Visualized posterior fossa is unremarkable. Craniocervical junction, C1 and C2 relationship, odontoid process and soft tissues are normal. C2-C3: Normal. C3-C4: Normal. C4-C5: Small vertebral body osteophytes. No significant stenosis. C5-C6: Mild disc bulging with a very small central disc protrusion. Mild encroachment upon the ventra l thecal sac and cord but no high-grade stenosis or compression. Mild bilateral facet joint arthritis . C6-C7: Small bilateral vertebral body osteophytes. No stenosis. C7-T1: Normal. Paraspinal soft tissue are normal. MR/MR cervical spin wo con* [id number] IMPRESSION: 1. No high-grade cervical spine stenosis. 2. Straightening and slight reversal of the normal cervical lordosis centered at C5-6. 3. Mild disc bulging with a small central disc protrusion at C5-6. No cord con tact. Mild facet joint arthritis at C5-6.
== END 2022-05-01 07:13 | disposition home or self-care (01) ==
PROVIDERS: Visit Provider Physician Assistant
DX: M50.222 Other cervical disc displacement at C5-C6 level (principal); M47.812 Spondylosis without myelopathy or radiculopathy, cervical region
CPT/HCPCS: 72141

== ENCOUNTER 2022-05-06 00:14 | Emergency (ER) | payer BC, MEDICAID, SELFPAY ==
[2022-05-06 00:33] VITALS: BP 115/78; PULSE 111; RESP 18; TEMP 37.2; O2SAT 97; BMI 40.0
--- NOTE | 2022-05-06 00:41 | XRR_ITS ---
PROCEDURE INFORMATION: Exam: XR Cervical Spine Exam date and time: 05/06/2022 12:48 AM Age: 32 years old Clinical indication: Pain and injury or trauma; Fall; Blunt trauma; Neck pain TECHNIQUE: Imaging protocol: Radiologic exam of the cervical spine. Views: 2 or 3 views. COMPARISON: MR cervical spin wo con* [id number] 05/01/2022 7:38 AM FINDINGS: Bones/joints: Normal. No acute fracture. Normal alignment. Soft tissues: Unremarkable. XR/XR cervical spine 3V* [id number] IMPRESSION: No acute findings.
--- NOTE | 2022-05-06 00:45 | ED_ITS ---
HPI - Extremity Problem General: Chief complaint: Extremity Injury, Upper Stated complaint: neck and right shoulder pain Time Seen by Provider: 05/06/22 00:40 Source: patient Mode of arrival: ambulatory Limitations: no limitations History of Present Illness: 32-year-old female states she been having chronic neck pain since February she states that she has had follow-up with Dr. Hodges she had an MRI they are setting up with neurosurgery in [place] her MRI showed some slight disc protrusion no other findings states she fell 2 days ago and been having worsening right-sided neck pain since then states pain is sharp in nature and goes down her right arm she has right shoulder pain as well. Associated symptoms: Deny chest pain, fever(s) or rash Review of Systems Const: Denies: fever(s), chills, body aches or change in appetite Eyes: Denies: blurry vision or eye discomfort ENMT: Denies: throat pain or dental pain Card: Denies: chest pain Resp: Denies: dyspnea GI: Denies: abdominal pain, nausea, vomiting or diarrhea : Denies: dysuria Musc: Reports: neck pain Skin/Breast: Denies: rash Neuro: Denies: headache(s) Psych: Denies: depression Jaime/Lymph: Denies: easy bruising All/Imm: Denies: urticaria PFSH ED PFSH: Medical History (Updated 05/06/22 @ 01:41 by Cortez Srivastava MD) Bilateral arm pain Cholecystectomy planned (~04/22/18) Migraine No pertinent past medical history Denies asthma, hypertension, seizures, DVT/PE PCP: Dr. Rios Surgical History S/P tubal ligation 12/04/2019--laparoscopic procedure [place] teeth extracted (~04/22/17) Family History Mother Diabetes Hypertension Hyperlipidemia Heart disease Thyroid condition Brain aneurysm Father Diabetes Hypertension Hyperlipidemia Family/Other Diabetes paternal uncles Uterine cancer maternal aunt, age at diagnosis unknown Grandmother Breast cancer maternal, diagnosed in her 40s Stroke paternal Denies family history of Colon cancer Ovarian cancer Social History Smoking and tobacco status: current every day smoker Female Reproductive History: Date of last menstrual period: 11/29/21 Physical Exam Const: COMMON NORMALS: no acute distress, patient oriented x3 and healthy appearing HENMT: COMMON NORMALS: normocephalic and atraumatic HEAD & SCALP: normocephalic and atraumatic Eye: COMMON NORMALS: Equal, round and reactive pupils present and EOMs intact bilaterally PUPIL: Yes Equal, round and reactive pupils present Neck/C-Spine: COMMON NORMALS: full ROM and supple OTHER: No midline tenderness tenderness along right side the neck along the trapezius muscle Chest: COMMONS NORMALS: normal inspection of the chest and normal palpation of entire chest wall Resp: COMMON NORMALS: normal respiratory effort, No retractions, No use of accessory muscles and clear to auscultation bilaterally AUSCULTATION: clear to auscultation bilaterally Cardio: COMMON NORMALS: regular rate, regular rhythm and No murmurs present (Cardio) RATE: regular rate RHYTHM: regular rhythm GI: COMMON NORMALS: Normal to inspection, nondistended, normoactive bowel sounds present, Soft to palpation, non-tender and no masses PALPATION: Yes Soft to palpation Extremity: COMMON NORMALS: normal to inspection and full ROM Neuro: COMMON NORMALS: patient oriented x3, moves all extremities and no focal motor deficits Psych: COMMON NORMALS: mental status grossly normal, Normal thought process present and cooperative THOUGHT PROCESS: Normal thought process present Skin: COMMON NORMALS: no rashes or lesions noted and no wounds GENERAL SKIN EXAM: no rashes or lesions noted Course Vital Signs: Vital signs: Vital Signs Temperature 98.9 F 05/06/22 00:33 Pulse Rate 111 H 05/06/22 00:33 Respiratory Rate 18 05/06/22 00:33 Blood Pressure 115/78 05/06/22 00:33 Pulse Oximetry 97 05/06/22 00:33 Oxygen Delivery Me thod 05/06/22 00:33 MDM - Extremity (Nontraumatic) Medical Decision Making Patient presents with right-sided neck pain that is chronic in nature x-rays here are normal she is stable for discharge she is to follow-up with PCP and return if worsening she understands agrees to plan. Lab Data Radiology Impressions Cervical Spine X-Ray 05/06/22 00:41 IMPRESSION: No acute findings. Shoulder X-Ray 01/15/23 00:45 IMPRESSION: No acute findings. Discharge Plan Discharge Patient Disposition: Home Clinical Impression: Neck Pain Condition: Stable Prescriptions: New methocarbamol 750 mg tablet 750 mg PO Q6H PRN (Reason: spasms) Qty: 20 0RF Naprosyn 500 mg tablet 500 mg PO BID PRN (Reason: pain) Qty: 20 0RF No Action levonorgestrel-ethinyl estrad [Aviane] 0.1-20 mg-mcg tablet 1 tab PO DAILY Qty: 28 12RF diazepam [Valium] 5 mg tablet 5 mg PO TID PRN (Reason: muscle spasm) Qty: 60 0RF Emgality Pen 120 mg/mL pen injector 120 mg SUBCUT ONCE Qty: 1 2RF Emgality Pen 120 mg/mL pen injector 240 mg SUBCUT ONCE Qty: 2 0RF Rx Instructions: Loading dose first desvenlafaxine succinate 50 mg tablet extended release 24 hr 100 mg PO DAILY albuterol sulfate 90 mcg/actuation aero powdr breath act w/sensor 2 inh inhalation Q6H PRN (Reason: shortness of breath or wheezing) Qty: 1 0RF pantoprazole 40 mg Tablet,Delayed Release (Dr/Ec) 40 mg PO BID Naprosyn 500 mg tablet 500 mg PO BID PRN (Reason: pain) Qty: 20 0RF hydrocodone-acetaminophen 5-325 mg tablet 1 tab PO Q6H PRN (Reason: pain) Qty: 10 0RF diclofenac sodium 75 mg tablet,delayed release (DR/EC) 75 mg PO BID Qty: 20 0RF magnesium oxide 400 mg magnesium capsule 400 mg PO DAILY ondansetron 4 mg tablet,disintegrating 4 mg PO Q8H PRN (Reason: nausea and vomiting) Qty: 15 0RF Topamax 100 mg tablet 100 mg PO DAILY Qty: 30 0RF Discharge Orders: Discharge ED (Routine); Ordered 05/06/22 Ordered By: Cortez Srivastava Referrals: Roque Rios MD [Primary Care Provider] - 1-3 days Discharge Diet: Advance as tolerated Discharge Activity: Resume usual activity Patient Instructions: Neck Pain (ED) Coding Level of Care Code ED Senior Financial Reporting Analyst for Chg Fwd Exam Comprehensive
--- NOTE | 2022-05-06 00:45 | XRR_ITS ---
PROCEDURE INFORMATION: Exam: XR Right Shoulder Exam date and time: 05/06/2022 12:58 AM Age: 32 years old Clinical indication: Injury or trauma; Fall; Blunt trauma (contusions or hematomas); Shoulder; Right TECHNIQUE: Imaging protocol: Radiologic exam of the Right shoulder. Views: 2 or more views. COMPARISON: CR (NECK, ) 05/06/2022 12:48 AM FINDINGS: Bones/joints: Normal. Soft tissues: Normal. XR/XR shoulder RT min 2V* [id number] IMPRESSION: No acute findings.
[2022-05-06] MEDS: methocarbamol 750 mg Tablet 1500 MG PO (01:02)
[2022-05-06] MEDS: diazePAM 5 mg Tablet PO (01:03)
[2022-05-06] MEDS: ketorolac 60 mg/2 mL INJ IM (01:04)
[2022-05-06 02:25] VITALS: PULSE 85; RESP 16; O2SAT 98
== END 2022-05-06 02:25 | disposition home or self-care (01) ==
PROVIDERS: Emergency Provider Emergency Medicine; PCP Family Medicine
DX: M54.2 Cervicalgia (principal)
CPT/HCPCS: 72040; 73030; 96372; 99284; J1885

== ENCOUNTER 2022-06-06 10:41 | Emergency (ER) | payer BC, MEDICAID, SELFPAY ==
[2022-06-06 10:44] VITALS: BP 130/84; PULSE 98; TEMP 36.6; O2SAT 99; BMI 40.7
--- NOTE | 2022-06-06 10:58 | ED_ITS ---
HPI - GI Bleed General: Chief complaint: GI Bleed Stated complaint: Presence of blood in V/D Time Seen by Provider: 06/06/22 10:46 Source: patient Mode of arrival: ambulatory Limitations: no limitations History of Present Illness: Patient is a 32-year-old female presents to ED today with a complaint of bloody emesis and bloody diarrhea. Patient states symptoms began about 3 days ago when she began noticing what she refers to as projectile bloody vomit . She states blood was bright red in color. She states she was seen at a walk-in clinic and recommended to go to the ED however patient wanted to wait it out . She states she has had approximately 8 episodes of bloody emesis total. She is complaining of diffuse upper abdominal pain. Patient denies heavy alcohol use or chronic/large amount of NSAID use. No history of GI bleeding. Patient states yesterday evening she had one episode of fecal incontinence that she described as bright red bloody diarrhea and states it looked like her stool had coffee grounds in it. MD complaint: gross hematemesis and gross hematochezia Onset (ago): day(s) Pain Consistency: constant Severity: severe Relieving factors: none Exacerbating factors: eating Associated symptoms: Reports abdominal pain, nausea and vomiting; Denies chills, fever(s), headache(s), malaise or rash Treatments Prior to Arrival: none Review of Systems Const: Denies: fever(s), chills, body aches, fatigue or malaise Card: Denies: chest pain Resp: Denies: dyspnea GI: Reports: abdominal pain, nausea, vomiting, hematemesis, diarrhea and hematochezia; Denies: melena : Denies: flank pain, difficulty voiding, dysuria, hematuria or pelvic pain Musc: Denies: neck pain, back pain, extremity pain or joint pain Skin/Breast: Denies: rash Neuro: Denies: headache(s), numbness in extremities, weakness in extremities or sensory changes PFS ED PFSH: Medical History Bilateral arm pain Cholecystectomy planned (~04/22/18) Migraine No pertinent past medical history Denies asthma, hypertension, seizures, DVT/PE PCP: Dr. Rios Surgical History S/P tubal ligation 12/04/2019--laparoscopic procedure [place] teeth extracted (~04/22/17) Family History Mother Diabetes Hypertension Hyperlipidemia Heart disease Thyroid condition Brain aneurysm Father Diabetes Hypertension Hyperlipidemia Family/Other Diabetes paternal uncles Uterine cancer maternal aunt, age at diagnosis unknown Grandmother Breast cancer maternal, diagnosed in her 40s Stroke paternal Denies family history of Colon cancer Ovarian cancer Social History Smoking and tobacco status: current every day smoker Female Reproductive History: Date of last menstrual period: 11/29/21 Physical Exam Const: COMMON NORMALS: no acute distress, patient oriented x3, no limitations and alert GENERAL APPEARANCE: cooperative NUTRITIONAL APPEARANCE: obese ORIENTATION/CONSCIOUSNESS: Yes awake, Yes oriented to person, Yes oriented to place and Yes oriented to time HENMT: COMMON NORMALS: normocephalic and atraumatic HEAD & SCALP: normal to inspection, normocephalic and atraumatic Neck/C-Spine: COMMON NORMALS: full ROM, no lymphadenopathy, supple and no meningeal signs Chest: COMMONS NORMALS: normal inspection of the chest Resp: COMMON NORMALS: normal respiratory effort and clear to auscultation bilaterally AUSCULTATION: clear to auscultation bilaterally Cardio: COMMON NORMALS: regular rate and regular rhythm RATE: regular rate RHYTHM: regular rhythm GI: COMMON NORMALS: Normal to inspection, nondistended, normoactive bowel sounds present, Soft to palpation, No hepatosplenomegaly present and no masses INSPECTION: Yes normal to inspection AUSCULTATION: Yes normoactive bowel sounds PALPATION: Yes Soft to palpation, Yes Tenderness to palpation present (GI) (throughout upper abdomen ), No Guarding due to palpation present (GI), No Rigid due to palpation and Yes No hepatosplenomegaly present RECTAL EXAM: visual inspection normal, normal sphincter tone and heme negative stool : COMMON NORMALS: Yes no CVA tenderness BLADDER/KIDNEY EXAM: Yes no CVA tenderness Back/Pelvis: COMMON NORMALS: no CVA tenderness, thoracic and lumbar spine normal to inspection, no thoracic nor lumbar tenderness and thoraco-lumbar ROM normal Extremity: COMMON NORMALS: normal to inspection GENERAL: Yes normal exam except as noted Neuro: [place] COMA SCALE: document GCS findings [place] coma scale eye opening: Spontaneous [place] coma scale verbal response: Orientated [place] coma scale motor response: Obey commands [place] coma scale total score: 15 COMMON NORMALS: patient oriented x3, moves all extremities, no focal motor deficits and no sensory deficits noted SENSORIUM/ORIENTATION: Yes alert, Yes oriented to person, Yes oriented to place and Yes oriented to time MENINGEAL SIGNS: Yes no meningeal signs Skin: COMMON NORMALS: no rashes or lesions noted GENERAL SKIN EXAM: no rashes or lesions noted Course Vital Signs: Vital signs: Vital Signs Temperature 97.9 F 06/06/22 10:44 Pulse Rate 86 06/06/22 13:53 Respiratory Rate 15 06/06/22 13:53 Blood Pressure 113/78 06/06/22 13:53 Pulse Oximetry 99 06/06/22 13:53 Oxygen Delivery Me thod 06/06/22 11:22 MDM - GI Bleed Medical Decision Making Patient has not had any episodes of emesis or stool while here. Hemoccult was negative. Her vital signs are perfect. Labs overall are unremarkable. She has a normal H/H. Lipase is slightly elevated at 90. CT scan of her abdomen and pelvis showed no acute abnormalities. At this time we will have her continue her Protonix that she states she takes for acid reflux and have her follow-up with general surgery to evaluate the need for endoscopy/colonoscopy. Lab Data 06/06/22 11:23 06/06/22 11:23 Radiology Impressions Abdomen/Pelvis CT 06/06/22 11:10 IMPRESSION: 1. No acute abdominal or pelvic abnormalities identified. 2. Prior cholecystectomy. 3. No colitis or GI tract obstruction. 4. Normal appendix. Laboratory Results WBC 9.4 10^3/uL (4.0-10.0) 06/06/22 11:23 RBC 4.45 10^6/uL (4.1-5.3) 06/06/22 11:23 Hgb 12.5 g/dL (11.5-15.3) 06/06/22 11:23 Hct 39.6 % (37.0-47.0) 06/06/22 11:23 MCV 89.0 fl (81-99) 06/06/22 11: MCH 28.1 pg (28.0-34.0) 06/06/22 11:23 MCHC 31.6 g/dL (30.0-36.0) 06/06/22 11: RDW 13.1 % (12.1-15.1) 06/06/22 11: Plt Count 374 10^3/cmm (130-400) 06/06/22 11:23 MPV 9.1 fL (7.4-10.4) 06/06/22 11:23 Neut % (Auto) 60.0 % 06/06/22 11:23 Lymph % (Auto) 31.0 % 06/06/22 11:23 [place] % (Auto) 6.0 % 06/06/22 11:23 Eos % (Auto) 2.1 % 06/06/22 11:23 Baso % (Auto) 0.4 % 06/06/22 11:23 Neut # (Auto) 5.65 10^3/uL (1.8-7.7) 06/06/22 11:23 Lymph # (Auto) 2.9 10^3/uL (0.8-4.8) 06/06/22 11:23 [place] # (Auto) 0.6 10^3/uL (0.2-0.9) 06/06/22 11:23 Eos # (Auto) 0.2 10^3/uL (0.0-0.8) 06/06/22 11:23 Baso # (Auto) 0.0 10^3/uL (0.0-0.1) 06/06/22 11: Nucleated RBC % (auto) 0 % 06/06/22 11: Nucleated RBCs # 0.0 /100WBC 06/06/22 11:23 Sodium 139 mmol/L (136-145) 06/06/22 11:23 Potassium 4.1 mmol/L (3.5-5.1) 06/06/22 11: Chloride 108 mmol/L (98-107) H 06/06/22 11:23 Carbon Dioxide 23 mmol/L (22-29) 06/06/22 11:23 Anion Gap 12.1 (5-19) 06/06/22 11:23 BUN 11 mg/dL (6-20) 06/06/22 11:23 Creatinine 0.7 mg/dL (0.5-0.9) 06/06/22 11:23 GFR Calculation 95.8 mL/min (90-130) 06/06/22 11: Glucose 95 mg/dL (65-115) 06/06/22 11: Calculated Osmolality 287 mOsm/kg (285-295) 06/06/22 11:23 Calcium 8.1 mg/dL (8.5-10.5) L 06/06/22 11: Total Bilirubin 0.2 mg/dL (0.15-1.2) 06/06/22 11: AST 20 U/L (0-32) 06/06/22 11: ALT 14 U/L (0-33) 06/06/22 11: Alkaline Phosphatase 70 U/L (35-105) 06/06/22 11: Total Protein 6.6 g/dL (6.6-8.7) 06/06/22 11: Albumin 3.6 g/dL (3.5-5.2) 06/06/22 11: Globulin 3.0 g/dL (1.3-4.6) 06/06/22 11: Lipase 90 U/L (13-60) H 06/06/22 11:23 HCG, Qual Negative (Negative) 06/06/22 11: Urine Color Yellow (Yellow) 06/06/22 11: Urine Appearance Clear (CLEAR) 06/06/22 11: Urine pH 6 (5-7) 06/06/22 11: Ur Specific [place] 1.005 (1.005-1.030) 06/06/22 11: Urine Protein Neg (Negative) 06/06/22 11: Urine Glucose (UA) Norm (Normal) 06/06/22 11:23 Urine Ketones Negative (Negative) 06/06/22 11: Urine Blood Neg (Negative) 06/06/22 11: Urine Nitrate Negative (Negative) 06/06/22 11: Urine Bilirubin Neg (Negative) 06/06/22 11: Urine Urobilinogen Neg mg/dL (Negative) 06/06/22 11: Ur Leukocyte Esterase Negative (Negative) 06/06/22 11: Discharge Plan Discharge Patient Disposition: Home Clinical Impression: Bloody emesis Qualifiers: Nausea presence: with nausea Qualified Code(s): K92.0 - Hematemesis Condition: Stable Prescriptions: New ondansetron 4 mg tablet,disintegrating 4 mg PO Q8H PRN (Reason: nausea and vomiting) Qty: 14 0RF No Action diazepam [Valium] 5 mg tablet 5 mg PO TID PRN (Reason: muscle spasm) Qty: 60 0RF albuterol sulfate 90 mcg/actuation aero powdr breath act w/sensor 2 inh inhalation Q6H PRN (Reason: shortness of breath or wheezing) Qty: 1 0RF pantoprazole 40 mg Tablet,Delayed Release (Dr/Ec) 40 mg PO BID hydrocodone-acetaminophen 5-325 mg tablet 1 tab PO Q6H PRN (Reason: pain) Qty: 10 0RF methocarbamol 750 mg tablet 750 mg PO Q6H PRN (Reason: spasms) Qty: 20 0RF naproxen [Naprosyn] 500 mg tablet 500 mg PO BID PRN (Reason: pain) Qty: 20 0RF Emgality Pen 120 mg/mL pen injector 120 mg SUBCUT Q30D Vitamin D2 1,250 mcg (50,000 unit) Capsule 1,250 mcg PO Q7D Rx Instructions: On duloxetine 60 mg Capsule,Delayed Release(Dr/Ec) 60 mg PO DAILY ondansetron 4 mg tablet,disintegrating 4 mg PO Q8H PRN (Reason: nausea and vomiting) Qty: 15 0RF Discharge Orders: Discharge ED (Routine); Ordered 06/06/22 Ordered By: Eunice Rojo Referrals: Roque Rios MD [Primary Care Provider] - Activity Restrictions/Additional Instructions: As we discussed continue your Protonix twice daily as scheduled. Case management should contact you shortly to set you up with a general surgery follow-up appointment so they can evaluate the need for an en doscopy/colonoscopy. As we discussed you need to return to the emergency department for repetitive episodes of bloody vomit or bloody stools, lightheadedness/dizziness/passing out episodes, racing heart rate, generally feeling worse or unwell, severe abdominal pains, or any other concerns you may h ave. Stand Alone Forms: Work/School Release Coding Level of Care Code ED Speech Therapist for Clayton Awan
--- NOTE | 2022-06-06 11:10 | CT_ITS ---
WS: [id number] CT ABDOMEN AND PELVIS WITH CONTRAST HISTORY: upper abdominal pain, reports bloody vomit and diarrhea TECHNIQUE: Imaging performed of the abdomen and pelvis with IV contrast. Single phase imaging of the abdomen. Coronal and sagittal reformats are submitted. All CT scans at [facility] use at [address] one of these dose optimization techniques: automated exposure control; mA and/or kV adjustment per patient size (includes targeted exams where dose is matched to clinical indication); or iterative re construction. IV CONTRAST: Omnipaque 350; 95 mL IV. Oral contrast: No DLP: 1054.40 mGy.cm COMPARISON: 05/14/2021, 05/12/2021 Lower thorax: Lung bases are clear. Heart is normal size. No hiatal hernia. Liver/biliary system: Normal size with no intrahepatic dilatation. Gallbladder: Status post cholecystectomy. Pancreas: Normal size pancreas and pancreatic duct. No adjacent inflammation. Spleen: Normal size spleen. No mass or infarct. Adrenal glands: Normal. Right kidney: Normal. Left kidney: Normal. Aorta: Normal. Lymphadenopathy: None. Free fluid: None. GI tract: Unremarkable. Normally distended stomach. No small bowel obstruction. Normal appendix. No c olitis. There are diffuse distal colonic diverticula. Abdominal wall: Unremarkable abdominal wall. No hernia. Pelvis: No free fluid or adenopathy within the pelvis. Bones: Unremarkable. CT/CT abdomen pelvis w con* [id number] IMPRESSION: 1. No acute abdominal or pelvic abnormalities identified. 2. Prior cholecystectomy. 3. No colitis or GI tract obstruction. 4. Normal appendix.
[2022-06-06 11:22] VITALS: BP 131/91; PULSE 83; RESP 16; O2SAT 98
[2022-06-06] MEDS: ondansetron 2 mg/ML SDV 2 mL 4 MG IVP (11:25)
[2022-06-06] MEDS: pantoprazole 40 mg SDV IVP (11:25)
[2022-06-06 11:26] VITALS: RESP 21; O2SAT 99
[2022-06-06] MEDS: morphine 4 mg/mL SDV 1 mL IVP (11:26)
[2022-06-06] MEDS: sodium chloride 0.9% 1,000 ML 999 ML IV (11:27)
[2022-06-06 11:37] LABS: Basophils % 0.4 %; Eosinophils # 0.2 10^3/uL (0.0-0.8); Eosinophils % 2.1 %; Hematocrit 39.6 % (37.0-47.0); Hemoglobin 12.5 g/dL (11.5-15.3); Lymphocytes # 2.9 10^3/uL (0.8-4.8); Mean Corpuscular HGB Conc 31.6 g/dL (30.0-36.0); Mean Corpuscular Hemoglobin 28.1 pg (28.0-34.0); Mean Platelet Volume 9.1 fL (7.4-10.4); Monocytes # 0.6 10^3/uL (0.2-0.9); Neutrophils # 5.65 10^3/uL (1.8-7.7); Nucleated Red Blood Cells % 0 %; Platelet Count 374 10^3/cmm (130-400); Red Blood Count 4.45 10^6/uL (4.1-5.3); Red Cell Distribution Width 13.1 % (12.1-15.1); White Blood Count 9.4 10^3/uL (4.0-10.0)
[2022-06-06 11:41] LABS: Add Urine Microscopic? NO; Charge for UA Resulting for Rev
[2022-06-06 11:45] LABS: Bilirubin Urine Neg (Negative); Blood Urine Neg (Negative); Glucose Urine UA Norm (Normal); Ketones Urine Negative (Negative); Leukocyte Esterase Urine Negative (Negative); Nitrate Urine Negative (Negative); Protein Urine Neg (Negative); Specific Gravity, Urine 1.005 (1.005-1.030); Urine Appearance Clear (CLEAR); Urine Color Yellow (Yellow); Urobilinogen Urine Neg (Negative); pH Urine 6 (5-7)
[2022-06-06 11:51] LABS: HCG, Serum Qual Negative (Negative)
[2022-06-06 11:57] LABS: Alanine Aminotransferase 14 U/L (0-33); Albumin Level 3.6 g/dL (3.5-5.2); Alkaline Phosphatase 70 U/L (35-105); Anion Gap 12.1 (5-19); Aspartate Amino Transferase 20 U/L (0-32); Blood Urea Nitrogen 11 mg/dL (6-20); Calcium 8.1 mg/dL (8.5-10.5); Carbon Dioxide 23 mmol/L (22-29); Chloride 108 mmol/L (98-107); Glomerular Filtration Rate 95.8 mL/min (90-130); Glucose 95 mg/dL (65-115); Lipase 90 U/L (13-60); Osmolality Calculated 287 mOsm/kg (285-295); Potassium 4.1 mmol/L (3.5-5.1); Sodium 139 mmol/L (136-145); Total Bilirubin 0.2 mg/dL (0.15-1.2); Total Protein 6.6 g/dL (6.6-8.7)
[2022-06-06 12:55] VITALS: BP 121/80; PULSE 75; RESP 15; O2SAT 98
[2022-06-06 13:53] VITALS: BP 113/78; PULSE 86; RESP 15; O2SAT 99
--- NOTE | 2022-06-07 09:40 | DCPLANNER ---
Addendum entered by Aaliyah Corral 07/04/22 08:08: This appointment was cancelled Addendum entered by Aaliyah Corral 06/07/22 14:44: Patient has a follow up appointment scheduled for Sunday, June 26, 2022 at 3;[address] Schmidt at general surgery. Clinic will call patient with appointment information. Original Note: custodial manager had message to schedule a follow up appointment for patient with general surgery. custodial manager sent patients information to the front office staff at general surgery. Patients information will be printed and reviewed. Clinic will call patient with appointment information.
== END 2022-06-06 13:54 | disposition home or self-care (01) ==
PROVIDERS: Emergency Provider Physician Assistant; PCP Family Medicine
DX: K92.0 Hematemesis (principal); K21.9 Gastro-esophageal reflux disease without esophagitis
CPT/HCPCS: 74177; 80053; 81003; 83690; 84703; 85025; 96374; 96375; 99285; C9113; J2270; J2405; J7030; Q9967

== ENCOUNTER 2022-06-14 15:55 | Emergency (ER) | payer BC, MEDICAID, SELFPAY ==
[2022-06-14 16:08] VITALS: BP 111/77; PULSE 97; RESP 16; TEMP 36.6; O2SAT 97
[2022-06-14 17:27] LABS: Basophils % 0.4 %; Eosinophils # 0.1 10^3/uL (0.0-0.8); Eosinophils % 1.5 %; Hematocrit 42.9 % (37.0-47.0); Hemoglobin 13.4 g/dL (11.5-15.3); Lymphocytes # 2.6 10^3/uL (0.8-4.8); Lymphocytes % 28.1 %; Mean Corpuscular HGB Conc 31.2 g/dL (30.0-36.0); Mean Corpuscular Hemoglobin 28.2 pg (28.0-34.0); Mean Corpuscular Volume 90.1 fl (81-99); Monocytes # 0.5 10^3/uL (0.2-0.9); Monocytes % 4.9 %; Neutrophils % 64.7 %; Nucleated Red Blood Cells % 0 %; Platelet Count 488 10^3/cmm (130-400); Red Blood Count 4.76 10^6/uL (4.1-5.3); Red Cell Distribution Width 12.8 % (12.1-15.1); White Blood Count 9.1 10^3/uL (4.0-10.0)
[2022-06-14 17:59] LABS: Alanine Aminotransferase 26 U/L (0-33); Albumin Level 4.3 g/dL (3.5-5.2); Alkaline Phosphatase 98 U/L (35-105); Anion Gap 13.9 (5-19); Aspartate Amino Transferase 28 U/L (0-32); Blood Urea Nitrogen 12 mg/dL (6-20); Calcium 9.5 mg/dL (8.5-10.5); Carbon Dioxide 27 mmol/L (22-29); Chloride 99 mmol/L (98-107); Creatinine Clr Calc Pharmacy 152.6077; Globulin 3.3 g/dL (1.3-4.6); Glomerular Filtration Rate 114.4 mL/min (90-130); Glucose 94 mg/dL (65-115); Magnesium 2.2 mg/dL (1.7-2.3); Osmolality Calculated 282 mOsm/kg (285-295); Potassium 3.9 mmol/L (3.5-5.1); Prolactin 7.63 ng/mL (4.8-23.3); Sodium 136 mmol/L (136-145); Thyroid Stimulating Hormone 0.61 uIU/mL (0.27-4.20); Total Bilirubin 0.5 mg/dL (0.15-1.2); Total Protein 7.6 g/dL (6.6-8.7)
--- NOTE | 2022-06-14 18:40 | ED_ITS ---
HPI - Neuro Symptoms/Deficit General: Chief Complaint: Neuro Symptoms/Deficit Stated Complaint: possible neuro issues Time Seen by Provider: 06/14/22 18:40 History of Present Illness: Ms. Cronin is a 32-year-old lady with complex past medical history including possible seizure disorder, complex migraines, under investigation for neuromuscular disorder presenting to the emergency department for possible strokelike symptoms. She reports being at her baseline health and last night had an event where she had sudden loss of vision in her left eye and possible seizure-like episode. She was found on the ground and confused initially unable to talk. She had loss of continence associated with this episode. She took a prolonged time to recover and mostly recovered by 3 AM or so. However today she notes intermittent episodes of speech slurring, continued blurry vision in the left eye, green hue in the right eye, headache, and generalized malaise. Denies similar neurologic symptoms in the past. No other specific changes in health, exacerbating, or alleviating factors identified. Timing confirmed by: spouse Location: speech, altered and other Severity: moderate Quality: other Relieving factors: time Exacerbating factors: none Context: sudden onset and found down On Anticoagulants: No Associated symptoms: Reports headache(s), malaise and other Review of Systems General: Reports: 10 or more systems reviewed and unremarkable except in HPI and below Const: Reports: malaise Neuro: Reports: headache(s) PFSH ED PFSH: Medical History Bilateral arm pain Cholecystectomy planned (~04/22/18) Migraine No pertinent past medical history Denies asthma, hypertension, seizures, DVT/PE PCP: Dr. Rios Surgical History S/P tubal ligation 12/04/2019--laparoscopic procedure [place] teeth extracted (~04/22/17) Family History Mother Diabetes Hypertension Hyperlipidemia Heart disease Thyroid condition Brain aneurysm Father Diabetes Hypertension Hyperlipidemia Family/Other Diabetes paternal uncles Uterine cancer maternal aunt, age at diagnosis unknown Grandmother Breast cancer maternal, diagnosed in her 40s Stroke paternal Denies family history of Colon cancer Ovarian cancer Social History Smoking and tobacco status: current every day smoker Physical Exam Const: COMMON NORMALS: alert GENERAL APPEARANCE: cooperative and well developed HENMT: COMMON NORMALS: normocephalic and atraumatic HEAD & SCALP: normocephalic and atraumatic THROAT: posterior oropharynx normal Eye: COMMON NORMALS: conjunctivae normal CONJUNCTIVA: Yes conjunctivae normal SCLERA: sclerae normal Neck/C-Spine: COMMON NORMALS: supple GENERAL: Yes trachea midline Resp: COMMON NORMALS: normal respiratory effort EFFORT & INSPECTION: Yes able to speak in complete sentences Cardio: COMMON NORMALS: regular rate and regular rhythm RATE: regular rate RHYTHM: regular rhythm GI: COMMON NORMALS: Soft to palpation PALPATION: Yes Soft to palpation and No Tenderness to palpation present (GI) PERCUSSION: normal to percussion Extremity: GENERAL: Yes normal exam except as noted and No edema Neuro: COMMON NORMALS: moves all extremities SENSORIUM/ORIENTATION: Yes alert and No Orientation impaired OTHER: Subjective right face, right upper extremity, right lower extremity sensory changes, mildly different Psych: COMMON NORMALS: mental status grossly normal and Normal thought process present THOUGHT PROCESS: Normal thought process present Course Vital Signs: Vital signs: Vital Signs Temperature 97.8 F 06/14/22 16:08 Pulse Rate 97 06/14/22 16:08 Respiratory Rate 16 06/14/22 16:08 Blood Pressure 111/77 06/14/22 16:08 Pulse Oximetry 97 06/14/22 16:08 MDM - Neuro Symptoms/Deficit Medical Decision Making 32-year-old lady with complex history presenting with continued neurologic symptoms after unwitnessed possible seizure-like episode. Neurologic exam as noted above. Patient is outside of tPA window and etiology is unlikely to be large vessel occlusion. CT head demonstrates stable left frontal arachnoid cyst and no other acute intracranial abnormality. Labs with essentially unremarkable hematologic and metabolic panel. On reassessment patient continues to have mild symptoms. Broad range of neurologic etiologies is possible including stroke, seizure, other. I discussed the case with stroke neurology at [facility] who is on-call for us for neurology. They recommend MRI and if normal initiation of antiepileptic for seizure-like episode which is likely. MRI demonstrates no acute intracranial finding. Most likely etiology of symptoms is unclear, possibly related to seizure episode. I will initiate antiepileptic per neurology recommendations. Seizure precautions discussed with patient. The results of ED evaluation were discussed with the patient including prescriptions and/or symptomatic cares (if applicable) including appropriate and responsible use, followup plan, and return precautions. The patient verbalized understanding and felt safe for discharge. Medical Records I reviewed the patient's medical records. Lab Data I reviewed the patient's lab results. 06/14/22 17:07 06/14/22 17:[address] 06/14/22 19:04 IMPRESSION: 1. No acute intracranial abnormality. 2. Stable left frontal arachnoid cyst. Head MRI 06/14/22 19:51 IMPRESSION: 1. Stable left frontal extra axial CSF density mass consistent with an arachnoid cyst. Stable adjacent gliosis in the left frontal lobe. 2. No acute intracranial findings. Laboratory Results WBC 9.1 10^3/uL (4.0-10.0) 06/14/22 17:07 RBC 4.76 10^6/uL (4.1-5.3) 06/14/22 17:07 Hgb 13.4 g/dL (11.5-15.3) 06/14/22 17:07 Hct 42.9 % (37.0-47.0) 06/14/22 17:07 MCV 90.1 fl (81-99) 06/14/22 17:07 MCH 28.2 pg (28.0-34.0) 06/14/22 17:07 MCHC 31.2 g/dL (30.0-36.0) 06/14/22 17:07 RDW 12.8 % (12.1-15.1) 06/14/22 17:07 Plt Count 488 10^3/cmm (130-400) H 06/14/22 17:07 MPV 9.0 fL (7.4-10.4) 06/14/22 17:07 Neut % (Auto) 64.7 % 06/14/22 17:07 Lymph % (Auto) 28.1 % 06/14/22 17:07 [place] % (Auto) 4.9 % 06/14/22 17:07 Eos % (Auto) 1.5 % 06/14/22 17:07 Baso % (Auto) 0.4 % 06/14/22 17:07 Neut # (Auto) 5.90 10^3/uL (1.8-7.7) 06/14/22 17:07 Lymph # (Auto) 2.6 10^3/uL (0.8-4.8) 06/14/22 17:07 [place] # (Auto) 0.5 10^3/uL (0.2-0.9) 06/14/22 17:07 Eos # (Auto) 0.1 10^3/uL (0.0-0.8) 06/14/22 17:07 Baso # (Auto) 0.0 10^3/uL (0.0-0.1) 06/14/22 17:07 Nucleated RBC % (auto) 0 % 06/14/22 17:07 Nucleated RBCs # 0.0 /100WBC 06/14/22 17:07 Sodium 136 mmol/L (136-145) 06/14/22 17:07 Potassium 3.9 mmol/L (3.5-5.1) 06/14/22 17:07 Chloride 99 mmol/L (98-107) 06/14/22 17:07 Carbon Dioxide 27 mmol/L (22-29) 06/14/22 17:07 Anion Gap 13.9 (5-19) 06/14/22 17:07 BUN 12 mg/dL (6-20) 06/14/22 17:07 Creatinine 0.6 mg/dL (0.5-0.9) 06/14/22 17:07 GFR Calculation 114.4 mL/min (90-130) 06/14/22 17:07 Glucose 94 mg/dL (65-115) 06/14/22 17:07 Calculated Osmolality 282 mOsm/kg (285-295) L 06/14/22 17:07 Calcium 9.5 mg/dL (8.5-10.5) 06/14/22 17:07 Magnesium 2.2 mg/dL (1.7-2.3) 06/14/22 17:07 Total Bilirubin 0.5 mg/dL (0.15-1.2) 06/14/22 17:07 AST 28 U/L (0-32) 06/14/22 17:07 ALT 26 U/L (0-33) 06/14/22 17:07 Alkaline Phosphatase 98 U/L (35-105) 06/14/22 17:07 Total Protein 7.6 g/dL (6.6-8.7) 06/14/22 17:07 Albumin 4.3 g/dL (3.5-5.2) 06/14/22 17:07 Globulin 3.3 g/dL (1.3-4.6) 06/14/22 17:07 TSH 0.61 uIU/mL (0.27-4.20) 06/14/22 17:07 Prolactin 7.63 ng/mL (4.8-23.3) 06/14/22 17:07 Discharge Plan Discharge Patient Disposition: Home Clinical Impression: Seizure, Neurologic abnormality Condition: Stable Prescriptions: New Keppra 750 mg tablet 750 mg PO BID Qty: 60 2RF No Action diazepam [Valium] 5 mg tablet 5 mg PO TID PRN (Reason: muscle spasm) Qty: 60 0RF albuterol sulfate 90 mcg/actuation aero powdr breath act w/sensor 2 inh inhalation Q6H PRN (Reason: shortness of breath or wheezing) Qty: 1 0RF pantoprazole 40 mg Tablet,Delayed Release (Dr/Ec) 40 mg PO BID hydrocodone-acetaminophen 5-325 mg tablet 1 tab PO Q6H PRN (Reason: pain) Qty: 10 0RF methocarbamol 750 mg tablet 750 mg PO Q6H PRN (Reason: spasms) Qty: 20 0RF naproxen [Naprosyn] 500 mg tablet 500 mg PO BID PRN (Reason: pain) Qty: 20 0RF Emgality Pen 120 mg/mL pen injector 120 mg SUBCUT Q30D Vitamin D2 1,250 mcg (50,000 unit) Capsule 1,250 mcg PO Q7D Rx Instructions: On duloxetine 60 mg Capsule,Delayed Release(Dr/Ec) 60 mg PO DAILY ondansetron 4 mg tablet,disintegrating 4 mg PO Q8H PRN (Reason: nausea and vomiting) Qty: 14 0RF ondansetron 4 mg tablet,disintegrating 4 mg PO Q8H PRN (Reason: nausea and vomiting) Qty: 15 0RF Discharge Orders: Discharge ED (Routine); Ordered 06/14/22 Ordered By: Jitendra Beltre Referrals: Roque Rios MD [Primary Care Provider] - Discharge Diet: Usual diet Discharge Activity: Limit activity as instructed Patient Instructions: Altered Mental Status (ED), New-Onset Seizure in Adults (ED) Activity Restrictions/Additional Instructions: Thank you for visiting the emergency department. You were seen and evaluated for abnormal neurologic symptoms. The exact cause your symptoms is unclear though may be related to seizure. In discussion with neurology we will initiate antiseizure medication. Please follow-up with your neurologist. Follow all seizure precautions as discussed. No driving, no swimming in swimming pools or bodies of water, no baths and bath tubs with standing water, no cooking over open flames, do not operate machinery or climb tall objects, do not otherwise perform tasks which would be dangerous if you were to have another event. Return to the emergency department for recurrent symptoms, any new neurologic symptoms, or anything else that you are concerned about and feel needs emergency department evaluation. Stand Alone Forms: Work/School Release Coding Level of Care Code ED Grants Administrator for Clayton Awan
--- NOTE | 2022-06-14 19:04 | CTR_ITS ---
PROCEDURE INFORMATION: Exam: CT Head Without Contrast Exam date and time: 06/14/2022 8:20 PM Age: 32 years old Clinical indication: Condition or disease; Convulsions or seizures; Additional info: Strokelike symptoms, seizure TECHNIQUE: Imaging protocol: Computed tomography of the head without contrast. Radiation optimization: All CT scans at this facility use at least one of these dose optimization techniques: automated exposure control; mA and/or kV adjustment per patient size (includes targeted exams where dose is matched to clinical indication); or iterative reconstruction. REPORTING DATA: Count of CT and Cardiac NM exams in prior 12 months: This patient has received 5 known CTs and 0 known cardiac nuclear medicine studies in the 12 months prior to the current study. COMPARISON: MR head wo/w con [id number] 11/02/2021 2:37 PM RADIATION DOSE METRICS: Total DLP (mGy-cm): 1011.08 FINDINGS: Brain: No acute infarct. No hemorrhage. Unremarkable white matter. Unchanged left frontal convexity arachnoid cyst measuring 5.5 cm maximum size with stable minimal adjacent gliosis. Stable minimal mass effect. No midline shift. Cerebral ventricles: No ventriculomegaly. Stable cavum septum et vergae. Paranasal sinuses: Visualized sinuses are unremarkable. No fluid levels. Mastoid air cells: Visualized mastoid air cells are well aerated. Bones/joints: Unremarkable. No acute fracture. Soft tissues: Unremarkable. CT/CT head wo con* [id number] IMPRESSION: 1. No acute intracranial abnormality. 2. Stable left frontal arachnoid cyst.
[2022-06-14] MEDS: sodium chloride 0.9% 1,000 ML 999 ML IV (19:27)
[2022-06-14] MEDS: metoclopramide 5 mg/mL SDV 2 mL 10 MG IVP (19:28)
[2022-06-14] MEDS: ketorolac 30 mg/mL INJ 15 MG IVP (19:28)
[2022-06-14] MEDS: diphenhydrAMINE 50 mg/mL SDV 1mL 12.5 MG IVP (19:28)
--- NOTE | 2022-06-14 19:51 | MRR_ITS ---
PROCEDURE INFORMATION: Exam: MR Head Without and With Contrast Exam date and time: 06/14/2022 8:59 PM Age: 32 years old Clinical indication: Weakness, extremity; Right; Additional info: Stroke symptoms, L vision disturbence, R side sensory TECHNIQUE: Imaging protocol: Magnetic resonance imaging of the head without and with contrast. Contrast material: MULTIHANCE; Contrast volume: 20 ml; Contrast route: INTRAVENOUS (IV); COMPARISON: CT head wo con* [id number] 06/14/2022 8:20 PM FINDINGS: Brain: 5.2 x 3.1 x 4.2 cm left frontal extra-axial CSF density mass is unchanged with the comparison CT scan and the previous MRI from 11/02/2021. No enhancement is seen within the mass on the postcontrast images. Adjacent gliosis in the left frontal lobe is unchanged. The region of gliosis has associated stable hemosiderin staining. This does not definitively communicate with the adjacent frontal horn of the left lateral ventricle. Minimal associated mass effect is unchanged. Chronic remodeling of the adjacent left frontal bone is unchanged. No midline shift. No acute infarct. Preserved salazar-white matter differentiation. Cerebral ventricles: Ventricles are normal in size with stable cavum septum pellucidum et vergae. Bones/joints: No acute osseous injury. Paranasal sinuses: Normal as visualized. No acute sinusitis. Mastoid air cells: Normal as visualized. No mastoid effusion. Orbital cavities: Unremarkable. Soft tissues: Unremarkable. MR/MR head wo/w con [id number] IMPRESSION: 1. Stable left frontal extra axial CSF density mass consistent with an arachnoid cyst. Stable adjacent gliosis in the left frontal lobe. 2. No acute intracranial findings.
[2022-06-14] MEDS: gadobenate dimeglumine 20 mL vial IV (21:12)
== END 2022-06-14 22:30 | disposition home or self-care (01) ==
PROVIDERS: Emergency Provider Emergency Medicine; PCP Family Medicine
DX: R56.9 Unspecified convulsions (principal); R29.90 Unspecified symptoms and signs involving the nervous system; F17.210 Nicotine dependence, cigarettes, uncomplicated
CPT/HCPCS: 36415; 70450; 70553; 80053; 83735; 84146; 84443; 85025; 96361; 96374; 96375; 99285; A9577; J1200; J1885; J2765; J7030

== ENCOUNTER → 2022-07-03 10:30 | Outpatient (BNVA) | payer BC, MEDICAID, SELFPAY | PROVIDERS: PCP Family Medicine; Visit Provider Nurse Practitioner Women's Health | DX: B37.9 Candidiasis, unspecified (principal); Z01.419 Encounter for gynecological examination (general) (routine) without abnormal findings | CPT/HCPCS: 87624 ==

== ENCOUNTER 2022-08-01 23:54 | Emergency (ER) | payer BC, MEDICAID, SELFPAY ==
[2022-08-01 23:58] VITALS: BP 123/85; PULSE 98; RESP 20; TEMP 36.3; O2SAT 97; BMI 40.4
--- NOTE | 2022-08-02 00:22 | ED_ITS ---
HPI - Abdominal Pain General: Chief Complaint: Abdominal Pain Stated Complaint: left side and abd pain Time Seen by Provider: 08/02/22 00:07 History of Present Illness: Ms Humphries is a 32-year-old lady presenting to the emergency department for left flank pain. She notes initially mild symptoms approximately 5 days ago without known provoking event. Since that time has had worsening frequency, intensity of symptoms. Sharp stabbing with radiation from the back all the way to the p eriumbilical/epigastric region. Mild associated fevers and generalized malaise. She notes burning with urination. No other specific changes in health, exacerbating, or alleviating factors identified. Onset (ago): day(s) Location: L flank Severity: moderate Exacerbating factors: eating and movement Relieving factors: nothing Associated Symptoms: Reports dysuria, fever(s), nausea and other Review of Systems General: Reports: 10 or more systems reviewed and unremarkable except in HPI and below Const: Reports: fever(s) GI: Reports: nausea and other : Reports: dysuria PFSH ED PFSH: Medical History Bilateral arm pain Cholecystectomy planned (~04/22/18) Migraine No pertinent past medical history Denies asthma, hypertension, seizures, DVT/PE PCP: Dr. Rios Surgical History S/P tubal ligation 12/04/2019--laparoscopic procedure [place] teeth extracted (~04/22/17) Family History Mother Diabetes Hypertension Hyperlipidemia Heart disease Thyroid condition Brain aneurysm Father Diabetes Hypertension Hyperlipidemia Family/Other Diabetes paternal uncles Uterine cancer maternal aunt, age at diagnosis unknown Grandmother Breast cancer maternal, diagnosed in her 40s Stroke paternal Denies family history of Colon cancer Ovarian cancer Social History Smoking and tobacco status: current every day smoker Physical Exam Const: COMMON NORMALS: alert GENERAL APPEARANCE: cooperative and well developed HENMT: COMMON NORMALS: normocephalic and atraumatic HEAD & SCALP: normocephalic and atraumatic Eye: COMMON NORMALS: conjunctivae normal CONJUNCTIVA: Yes conjunctivae normal SCLERA: sclerae normal Neck/C-Spine: COMMON NORMALS: supple GENERAL: Yes trachea midline Resp: COMMON NORMALS: normal respiratory effort EFFORT & INSPECTION: Yes able to speak in complete sentences Cardio: COMMON NORMALS: regular rate and regular rhythm RATE: regular rate RHYTHM: regular rhythm GI: COMMON NORMALS: Soft to palpation PALPATION: Yes Soft to palpation, Yes Tenderness to palpation present (GI), No Guarding due to palpation present (GI) and No Rigid due to palpation Extremity: GENERAL: Yes normal exam except as noted and No edema Neuro: COMMON NORMALS: moves all extremities SENSORIUM/ORIENTATION: Yes alert and No Orientation impaired Psych: COMMON NORMALS: mental status grossly normal and Normal thought process present THOUGHT PROCESS: Normal thought process present Course Vital Signs: Vital signs: Vital Signs Temperature 97.3 F L 08/01/22 23:58 Pulse Rate 89 08/02/22 04:45 Respiratory Rate 16 08/02/22 04:45 Blood Pressure 124/71 08/02/22 01:57 Pulse Oximetry 100 08/02/22 04:45 Oxygen Delivery Me thod Room Air 08/02/22 01:57 MDM - Abdominal Pain Medical Decision Making 32-year-old lady presenting with abdominal symptoms. Exam as above. Patient is nontoxic and there is no evidence of acute surgical abdomen. Labs with no leukocytosis, no other significant hematologic or metabolic abnormalities. No convincing evidence of urinary tract infection. CT demonstrates no acute pathology to explain symptoms. Incidental findings discussed. Patient proved with antiemetic, analgesia, antispasmodic. She is able to tolerate p.o. intake. The results of ED evaluation were discussed with the patient including prescriptions and/or symptomatic cares (if applicable) including appropriate and responsible use, followup plan, and return precautions. The patient verbalized understanding and felt safe for discharge. Medical Records I reviewed the patient's medical records. Lab Data I reviewed the patient's lab results. 08/02/22 01:34 08/02/22 01:34 Labs/Radiology: Radiology Impressions Abdomen/Pelvis CT 08/02/22 02:10 IMPRESSION: 1. No acute abdominopelvic abnormality identified. 2. No renal or ureteral stones. No perinephric or periureteral fat stranding. No signs of urinary obstruction. 3. Colonic diverticulosis without signs of acute diverticulitis. COMMENTS: Evaluation of solid organs and vascular structures is limited as no IV contrast was administered. Laboratory Results WBC 10.7 10^3/uL (4.0-10.0) H 08/02/22 01:34 RBC 4.32 10^6/uL (4.1-5.3) 08/02/22 01:34 Hgb 12.2 g/dL (11.5-15.3) 08/02/22 01:34 Hct 38.2 % (37.0-47.0) 08/02/22 01:34 MCV 88.4 fl (81-99) 08/02/22 01:34 MCH 28.2 pg (28.0-34.0) 08/02/22 01:34 MCHC 31.9 g/dL (30.0-36.0) 08/02/22 01:34 RDW 13.0 % (12.1-15.1) 08/02/22 01:34 Plt Count 382 10^3/cmm (130-400) 08/02/22 01:34 MPV 8.7 fL (7.4-10.4) 08/02/22 01:34 Neut % (Auto) 54.0 % 08/02/22 01:34 Lymph % (Auto) 36.3 % 08/02/22 01:34 [place] % (Auto) 7.2 % 08/02/22 01:34 Eos % (Auto) 1.7 % 08/02/22 01:34 Baso % (Auto) 0.4 % 08/02/22 01:34 Neut # (Auto) 5.79 10^3/uL (1.8-7.7) 08/02/22 01:34 Lymph # (Auto) 3.9 10^3/uL (0.8-4.8) 08/02/22 01:34 [place] # (Auto) 0.8 10^3/uL (0.2-0.9) 08/02/22 01:34 Eos # (Auto) 0.2 10^3/uL (0.0-0.8) 08/02/22 01:34 Baso # (Auto) 0.0 10^3/uL (0.0-0.1) 08/02/22 01:34 Nucleated RBC % (auto) 0 % 08/02/22 01:34 Nucleated RBCs # 0.0 /100WBC 08/02/22 01:34 Sodium 141 mmol/L (136-145) 08/02/22 01:34 Potassium 3.5 mmol/L (3.5-5.1) 08/02/22 01:34 Chloride 105 mmol/L (98-107) 08/02/22 01:34 Carbon Dioxide 27 mmol/L (22-29) 08/02/22 01:34 Anion Gap 12.5 (5-19) 08/02/22 01:34 BUN 8 mg/dL (6-20) 08/02/22 01:34 Creatinine 0.7 mg/dL (0.5-0.9) 08/02/22 01:34 GFR Calculation 95.8 mL/min (90-130) 08/02/22 01:34 Glucose 85 mg/dL (65-115) 08/02/22 01:34 Calculated Osmolality 290 mOsm/kg (285-295) 08/02/22 01:34 Lactate 0.7 mmol/L (0.5-2.2) 08/02/22 01:53 Calcium 8.9 mg/dL (8.5-10.5) 08/02/22 01:34 Total Bilirubin 0.2 mg/dL (0.15-1.2) 08/02/22 01:34 AST 17 U/L (0-32) 08/02/22 01:34 ALT 20 U/L (0-33) 08/02/22 01:34 Alkaline Phosphatase 73 U/L (35-105) 08/02/22 01:34 NT-Pro-B Natriuret Pep 36 pg/mL (0-125) 08/02/22 01:34 Total Protein 7.1 g/dL (6.6-8.7) 08/02/22 01:34 Albumin 3.7 g/dL (3.5-5.2) 08/02/22 01:34 Globulin 3.4 g/dL (1.3-4.6) 08/02/22 01:34 Lipase 43 U/L (13-60) 08/02/22 01:34 HCG, Qual Negative (Negative) 08/02/22 01:34 Urine Color Yellow (Yellow) 08/02/22 01:27 Urine Appearance Hazy (CLEAR) A 08/02/22 01:27 Urine pH 5 (5-7) 08/02/22 01:27 Ur Specific [place] 1.030 (1.005-1.030) 08/02/22 01:27 Urine Protein Neg (Negative) 08/02/22 01:27 Urine Glucose (UA) Norm (Normal) 08/02/22 01:27 Urine Ketones 1+ (Negative) H 08/02/22 01:27 Urine Blood 2+ (Negative) H 08/02/22 01:27 Urine Nitrate Negative (Negative) 08/02/22 01:27 Urine Bilirubin Neg (Negative) 08/02/22 01:27 Urine Urobilinogen Neg mg/dL (Negative) 08/02/22 01:27 Ur Leukocyte Esterase Negative (Negative) 08/02/22 01:27 Urine RBC 5-10 /hpf (0-2) H 08/02/22 01:27 Urine WBC 0-4 /hpf (0-5) H 08/02/22 01:27 Ur Squamous Epith Cells 5-10 /hpf (0-5) H 08/02/22 01:27 Amorphous Sediment Not Reportable 08/02/22 01:27 Urine Bacteria 1+ /hpf (NONE) H 08/02/22 01:27 Urine Mucus 2+ /hpf 08/02/22 01:27 Discharge Plan Discharge Patient Disposition: Home Clinical Impression: Abdominal pain Condition: Stable Prescriptions: New ondansetron 4 mg tablet,disintegrating 4 mg PO Q8H PRN (Reason: nausea and vomiting) Qty: 15 0RF oxycodone 5 mg tablet 5 mg PO Q4H PRN (Reason: pain) Qty: 10 0RF No Action diazepam [Valium] 5 mg tablet 5 mg PO TID PRN (Reason: muscle spasm) Qty: 60 0RF levonorgestrel-ethinyl estrad [Aviane] 0.1-20 mg-mcg tablet 1 tab PO DAILY nystatin-triamcinolone 100,000-0.1 unit/gram-% ointment 1 applic topical BID Qty: 30 3RF Rexulti 0.5 mg tablet 0.5 mg PO DAILY albuterol sulfate 90 mcg/actuation aero powdr breath act w/sensor 2 inh inhalation Q6H PRN (Reason: shortness of breath or wheezing) Qty: 1 0RF pantoprazole 40 mg Tablet,Delayed Release (Dr/Ec) 40 mg PO BID hydrocodone-acetaminophen 5-325 mg tablet 1 tab PO Q6H PRN (Reason: pain) Qty: 10 0RF methocarbamol 750 mg tablet 750 mg PO Q6H PRN (Reason: spasms) Qty: 20 0RF naproxen [Naprosyn] 500 mg tablet 500 mg PO BID PRN (Reason: pain) Qty: 20 0RF Emgality Pen 120 mg/mL pen injector 120 mg SUBCUT Q30D Vitamin D2 1,250 mcg (50,000 unit) Capsule 1,250 mcg PO Q7D Rx Instructions: On duloxetine 60 mg Capsule,Delayed Release(Dr/Ec) 60 mg PO DAILY ondansetron 4 mg tablet,disintegrating 4 mg PO Q8H PRN (Reason: nausea and vomiting) Qty: 14 0RF ondansetron 4 mg tablet,disintegrating 4 mg PO Q8H PRN (Reason: nausea and vomiting) Qty: 15 0RF Discharge Orders: Discharge ED (Routine); Ordered 08/02/22 Ordered By: Jitendra Beltre Referrals: Roque Rios MD [Primary Care Provider] - Discharge Diet: Advance as tolerated and Clear Liquid Discharge Activity: Increase activity as tolerated Patient Instructions: Abdominal Pain (ED), Opioid Safety Activity Restrictions/Additional Instructions: Thank you for visiting the emergency department. You were seen and evaluated for abdominal/flank plain. The exact cause of your symptoms is unclear though does not appear to need hospitalization at this time. I would expect improvement in the next few days. I will prescribe oxycodone, use this cautiously as it is an opioid. You may use durt-koe-sqzabof medications such as acetaminophen and ibuprofen for pain however please do not exceed the daily recommended dosage as listed on the packaging and please keep in mind that many namebrand medications contain the same active ingredients. Please avoid these medications if previously instructed to do so by another physician due to other underlying medical condition. Please follow-up with your primary care provider. Return to the emergency department for anything that you are concerned about and feel needs emergency department evaluation. Coding Level of Care Code ED Aggregate Conveyor Operator for Clayton Awan
[2022-08-02] MEDS: ondansetron 2 mg/ML SDV 2 mL 4 MG IVP (01:38)
[2022-08-02] MEDS: morphine 4 mg/mL SDV 1 mL IVP ×2 (01:38→03:32)
[2022-08-02 01:44] LABS: Basophils % 0.4 %; Eosinophils # 0.2 10^3/uL (0.0-0.8); Eosinophils % 1.7 %; Hematocrit 38.2 % (37.0-47.0); Hemoglobin 12.2 g/dL (11.5-15.3); Lymphocytes # 3.9 10^3/uL (0.8-4.8); Lymphocytes % 36.3 %; Mean Corpuscular HGB Conc 31.9 g/dL (30.0-36.0); Mean Corpuscular Hemoglobin 28.2 pg (28.0-34.0); Mean Corpuscular Volume 88.4 fl (81-99); Mean Platelet Volume 8.7 fL (7.4-10.4); Monocytes # 0.8 10^3/uL (0.2-0.9); Monocytes % 7.2 %; Neutrophils # 5.79 10^3/uL (1.8-7.7); Nucleated Red Blood Cells % 0 %; Platelet Count 382 10^3/cmm (130-400); Red Blood Count 4.32 10^6/uL (4.1-5.3); White Blood Count 10.7 10^3/uL (4.0-10.0)
[2022-08-02 01:51] LABS: Bilirubin Urine Neg (Negative); Blood Urine 2+ (Negative); Glucose Urine UA Norm (Normal); Ketones Urine 1+ (Negative); Leukocyte Esterase Urine Negative (Negative); Nitrate Urine Negative (Negative); Protein Urine Neg (Negative); Urine Appearance Hazy (CLEAR); Urine Color Yellow (Yellow); Urobilinogen Urine Neg (Negative); pH Urine 5 (5-7)
[2022-08-02 01:52] LABS: Add Urine Microscopic? YES; Bacteria Urine 1+ /hpf; Mucus Urine 2+ /hpf; WBC Urine 0-4 /hpf (0-5)
[2022-08-02 01:53] LABS: Add Urine Culture? No
[2022-08-02 01:57] VITALS: BP 124/71; PULSE 96; RESP 18; O2SAT 100
[2022-08-02 01:57] LABS: HCG, Serum Qual Negative (Negative)
--- NOTE | 2022-08-02 02:10 | CTR_ITS ---
PROCEDURE INFORMATION: Exam: CT Abdomen And Pelvis Without Contrast Exam date and time: 08/02/2022 2:18 AM Age: 32 years old Clinical indication: Abdominal pain; Prior surgery; Surgery type: Gb. Tubal; Patient HX: Left flank pain with hematuria. ; Additional info: L flank pain TECHNIQUE: Imaging protocol: Computed tomography of the abdomen and pelvis without contrast. Radiation optimization: All CT scans at this facility use at least one of these dose optimization techniques: automated exposure control; mA and/or kV adjustment per patient size (includes targeted exams where dose is matched to clinical indication); or iterative reconstruction. REPORTING DATA: Count of CT and Cardiac NM exams in prior 12 months: This patient has received 6 known CTs and 0 known cardiac nuclear medicine studies in the 12 months prior to the current study. COMPARISON: CT abdomen pelvis w con* [id number] 06/06/2022 12:21 PM RADIATION DOSE METRICS: Total DLP (mGy-cm): 961.39 FINDINGS: Liver: The liver is normal in size and contour. Gallbladder and bile ducts: The gallbladder is surgically absent. Pancreas: The pancreas appears normal. Spleen: The spleen appears normal. Adrenal glands: The adrenals appear normal. Kidneys and ureters: No renal or ureteral stones. No perinephric or periureteral fat stranding. No signs of urinary obstruction. Stomach and bowel: The stomach appears unremarkable. The small bowel loops are not abnormally dilated. The large bowel loops are not abnormally dilated. Colonic diverticulosis without signs of acute diverticulitis. Appendix: The appendix appears normal. Intraperitoneal space: No ascites or significant fluid collection. Vasculature: The aorta is nonaneurysmal. The IVC appears normal. Lymph nodes: There are no enlarged lymph nodes. Urinary bladder: The urinary bladder is not well distended, therefore not well evaluated. Reproductive: Unremarkable as visualized. Bones/joints: Unremarkable. Soft tissues: Unremarkable. CT/CT kidney stone [id number] IMPRESSION: 1. No acute abdominopelvic abnormality identified. 2. No renal or ureteral stones. No perinephric or periureteral fat stranding. No signs of urinary obstruction. 3. Colonic diverticulosis without signs of acute diverticulitis. COMMENTS: Evaluation of solid organs and vascular structures is limited as no IV contrast was administered.
[2022-08-02 02:14] LABS: Alanine Aminotransferase 20 U/L (0-33); Albumin Level 3.7 g/dL (3.5-5.2); Alkaline Phosphatase 73 U/L (35-105); Anion Gap 12.5 (5-19); Aspartate Amino Transferase 17 U/L (0-32); Blood Urea Nitrogen 8 mg/dL (6-20); Calcium 8.9 mg/dL (8.5-10.5); Carbon Dioxide 27 mmol/L (22-29); Chloride 105 mmol/L (98-107); Globulin 3.4 g/dL (1.3-4.6); Glomerular Filtration Rate 95.8 mL/min (90-130); Glucose 85 mg/dL (65-115); Lipase 43 U/L (13-60); NT Pro B Type Natriuretic Pept 36 pg/mL (0-125); Osmolality Calculated 290 mOsm/kg (285-295); Potassium 3.5 mmol/L (3.5-5.1); Sodium 141 mmol/L (136-145); Total Bilirubin 0.2 mg/dL (0.15-1.2); Total Protein 7.1 g/dL (6.6-8.7)
[2022-08-02 02:15] LABS: Lactate (Lactic Acid level) 0.7 mmol/L (0.5-2.2)
[2022-08-02 03:32] VITALS: RESP 16
[2022-08-02] MEDS: dicyclomine 10 mg Capsule PO (03:32)
[2022-08-02] MEDS: ketorolac 30 mg/mL INJ 15 MG IVP (03:33)
[2022-08-02 04:45] VITALS: PULSE 89; RESP 16; O2SAT 100
== END 2022-08-02 04:46 | disposition home or self-care (01) ==
PROVIDERS: Emergency Provider Emergency Medicine; PCP Family Medicine
DX: K57.30 Diverticulosis of large intestine without perforation or abscess without bleeding (principal); F17.210 Nicotine dependence, cigarettes, uncomplicated
CPT/HCPCS: 74176; 80053; 81001; 83605; 83690; 83880; 84703; 85025; 96374; 96375; 96376; 99285; J1885; J2270; J2405

== ENCOUNTER 2022-11-14 12:41 | Emergency (ER) | payer BC, MEDICAID, SELFPAY ==
[2022-11-14 12:47] VITALS: BMI 38.4
[2022-11-14 12:50] VITALS: BP 110/76; PULSE 86; RESP 16; TEMP 36.8; O2SAT 98
[2022-11-14 14:01] VITALS: PULSE 92; RESP 16; O2SAT 99
--- NOTE | 2022-11-14 14:04 | CT_ITS ---
WS: [id number] CT NECK TECHNIQUE: Contrast-enhanced CT of the neck with coronal and sagittal reformatted images. CLINICAL INFORMATION: Throat pain and swelling, voice change COMPARISON: CT December 08, 2021 DLP: 261.[address] scans at [facility] use at least one of these dose optimization techniques: automated e xposure control; mA and/or kV adjustment per patient size (includes targeted exams where dose is matc hed to clinical indication); or iterative reconstruction. FINDINGS: Mastoid air cells and paranasal sinuses are well aerated. Normal posterior nasopharynx. Normal paraph aryngeal fat. Normal palatine tonsils. Parotid glands are normal. Normal RIGHT submandibular gland. L EFT submandibular gland is absent. No evidence of supraglottic or glottic mass. Normal subglottic air way. Normal vallecula and piriform sinuses. No evidence of retropharyngeal fluid or abscess. Straightening of the normal cervical lordosis. Slight anterolisthesis C4 on C5. Lung apices are well aerated. Low-attenuation RIGHT thyroid nodule measuring 2.1 x 1.1 CM. No cervical lymphadenopathy. CT/CT neck w con* [id number] IMPRESSION: 1. Normal posterior nasopharynx. Normal parapharyngeal fat. 2. No evidence of supraglottic or glottic mass. Normal subglottic airway. 3. RIGHT thyroid nodule measuring 2.1 x 1.1 CM. No significant mass effect on the adjacent trachea or airway. This appears unchanged since the prior cervical spine CT April 23, 2022 4. No other suspicious findings. Notified MAAME Saucedo at 11/14/2022 2:58 PM.
--- NOTE | 2022-11-14 14:12 | W.ED.GENADLT ---
HPI - General Adult General: Chief complaint: General Medical Stated complaint: UC sent, can't swallow, poss. thyroid mass Time Seen by Provider: 11/14/22 13:50 History of Present Illness: Patient is a 32-year-old female who comes to the ED with throat pain and swelling. Patient says she was diagnosed with lump on her thyroid approximately a year ago and a biopsy was performed and it showed the mass was benign. Patient had an ultrasound done on thyroid about 4 months ago and it showed that the mass has gotten larger. She is currently in the process of getting set up with an self contained behavior unit teacher. She states that the throat pain and swelling have gotten worse over the past couple days. She rates her pain currently a 5 out of 10 and its on the right side of her throat and states that it hurts to swallow. This morning when she woke up she had lost her voice. She states that whenever she tries to talk pain gets worse. Associated symptoms: Deny chest pain, dyspnea, headache(s), nausea, rash, palpitations or vomiting Review of Systems Const: Denies: fever(s), chills or fatigue Eyes: Denies: change in vision or eye discomfort ENMT: Reports: throat pain and odynophagia; Denies: nasal discharge or nasal congestion Card: Denies: chest pain, palpitations, edema, swelling of feet/ankles, dyspnea on exertion or orthopnea Resp: Denies: dyspnea, productive cough or non-productive cough GI: Denies: abdominal pain, nausea, vomiting, diarrhea, constipation or hematochezia : Denies: flank pain, dysuria or hematuria Musc: Denies: neck pain, back pain or extremity swelling Skin/Breast: Denies: rash or new lesions Neuro: Denies: headache(s), numbness in extremities or weakness in extremities PFSH ED PFSH: Medical History Bilateral arm pain Cholecystectomy planned (~04/22/18) Migraine No pertinent past medical history Denies asthma, hypertension, seizures, DVT/PE PCP: Dr. Rios Surgical History S/P tubal ligation 12/04/2019--laparoscopic procedure [place] teeth extracted (~04/22/17) Family History Mother Diabetes Hypertension Hyperlipidemia Heart disease Thyroid condition Brain aneurysm Father Diabetes Hypertension Hyperlipidemia Family/Other Diabetes paternal uncles Uterine cancer maternal aunt, age at diagnosis unknown Grandmother Breast cancer maternal, diagnosed in her 40s Stroke paternal Denies family history of Colon cancer Ovarian cancer Social History Smoking and tobacco status: current every day smoker Female Reproductive History: Date of last menstrual period: 10/18/22 Physical Exam Const: COMMON NORMALS: no acute distress, patient oriented x3, healthy appearing and alert OTHER: Patient's voice is soft and raspy HENMT: COMMON NORMALS: normocephalic HEAD & SCALP: normocephalic MOUTH: Normal oral and palatal mucosa present THROAT: posterior oropharynx normal and uvula midline Neck/C-Spine: COMMON NORMALS: supple GENERAL: Yes normal visual inspection OTHER: Right anterior neck?tenderness to palpation. No erythema, mass or warmth noted. Resp: COMMON NORMALS: normal respiratory effort, No retractions, No use of accessory muscles and clear to auscultation bilaterally AUSCULTATION: clear to auscultation bilaterally Cardio: COMMON NORMALS: regular rate, regular rhythm, S1 normal heart sound present, S2 normal heart sound present, No gallops present (Cardio), No clicks present (Cardio), No murmurs present (Cardio) and Peripheral pulses 2+ throughout RATE: regular rate RHYTHM: regular rhythm HEART SOUNDS: S1 normal heart sound present and S2 normal heart sound present PERIPHERAL PULSES: Peripheral pulses 2+ throughout GI: COMMON NORMALS: Normal to inspection, nondistended, normoactive bowel sounds present, Soft to palpation, non-tender and no masses PALPATION: Yes Soft to palpation : COMMON NORMALS: Yes no CVA tenderness BLADDER/KIDNEY EXAM: Yes no CVA tenderness Back/Pelvis: COMMON NORMALS: no CVA tenderness Neuro: COMMON NORMALS: patient oriented x3 SENSORIUM/ORIENTATION: Yes alert GAIT: Yes Normal gait present Skin: GENERAL SKIN EXAM: dry skin Course Vital Signs: Vital signs: Vital Signs Temperature 98.2 F 11/14/22 12:50 Pulse Rate 92 11/14/22 14:01 Respiratory Rate 16 11/14/22 14:01 Blood Pressure 110/76 11/14/22 12:50 Pulse Oximetry 99 11/14/22 14:01 Oxygen Delivery Me thod Room Air 11/14/22 12:50 MDM - General Adult Medical Decision Making Patient is a 32-year-old female who comes to the ED with throat pain and swelling. Patient says she was diagnosed with lump on her thyroid approximately a year ago and a biopsy was performed and it showed the mass was benign. Patient had an ultrasound done on thyroid about 4 months ago and it showed that the mass has gotten larger. She is currently in the process of getting set up with an self contained behavior unit teacher. She states that the throat pain and swelling have gotten worse over the past couple days. She rates her pain currently a 5 out of 10 and its on the right side of her throat and states that it hurts to swallow. This morning when she woke up she had lost her voice. She states that whenever she tries to talk pain gets worse. Vital stable. Patient's voice is soft and raspy. right anterior neck?tenderness to palpation. No erythema, mass or warmth noted. CBC, CMP and TSH are all unremarkable. Neck CT shows a right thyroid nodule but no significant mass effect on trachea or airway. No abscess or supraglottic or glottic mass seen. Normal airway. Patient was diagnosed with right thyroid nodule and was stable for discharge home. Patient has a follow-up appointment with an self contained behavior unit teacher in the next couple weeks. Return to ED precautions given. Patient understood and agreed with plan. Lab Data I reviewed the patient's lab results. 11/14/22 13:58 11/14/22 13:[address] 11/14/22 14:04 IMPRESSION: 1. Normal posterior nasopharynx. Normal parapharyngeal fat. 2. No evidence of supraglottic or glottic mass. Normal subglottic airway. 3. RIGHT thyroid nodule measuring 2.1 x 1.1 CM. No significant mass effect on the adjacent trachea or airway. This appears unchanged since the prior cervical spine CT April 23, 2022 4. No other suspicious findings. Notified MAAME Saucedo at 11/14/2022 2:58 PM. Laboratory Results WBC 7.9 10^3/uL (4.0-10.0) 11/14/22 13:58 RBC 4.95 10^6/uL (4.1-5.3) 11/14/22 13:58 Hgb 14.2 g/dL (11.5-15.3) 11/14/22 13:58 Hct 43.3 % (37.0-47.0) 11/14/22 13:58 MCV 87.5 fl (81-99) 11/14/22 13:58 MCH 28.7 pg (28.0-34.0) 11/14/22 13:58 MCHC 32.8 g/dL (30.0-36.0) 11/14/22 13:58 RDW 13.1 % (12.1-15.1) 11/14/22 13:58 Plt Count 387 10^3/cmm (130-400) 11/14/22 13:58 MPV 8.8 fL (7.4-10.4) 11/14/22 13:58 Neut % (Auto) 56.7 % 11/14/22 13:58 Lymph % (Auto) 35.2 % 11/14/22 13:58 [place] % (Auto) 5.7 % 11/14/22 13:58 Eos % (Auto) 1.3 % 11/14/22 13:58 Baso % (Auto) 0.8 % 11/14/22 13:58 Neut # (Auto) 4.51 10^3/uL (1.8-7.7) 11/14/22 13:58 Lymph # (Auto) 2.8 10^3/uL (0.8-4.8) 11/14/22 13:58 [place] # (Auto) 0.5 10^3/uL (0.2-0.9) 11/14/22 13:58 Eos # (Auto) 0.1 10^3/uL (0.0-0.8) 11/14/22 13:58 Baso # (Auto) 0.1 10^3/uL (0.0-0.1) 11/14/22 13:58 Nucleated RBC % (auto) 0 % 11/14/22 13:58 Nucleated RBCs # 0.0 /100WBC 11/14/22 13:58 Sodium 137 mmol/L (136-145) 11/14/22 13:58 Potassium 4.3 mmol/L (3.5-5.1) 11/14/22 13:58 Chloride 103 mmol/L (98-107) 11/14/22 13:58 Carbon Dioxide 23 mmol/L (22-29) 11/14/22 13:58 Anion Gap 15.3 (5-19) 11/14/22 13:58 BUN 9 mg/dL (6-20) 11/14/22 13:58 Creatinine 0.8 mg/dL (0.5-0.9) 11/14/22 13:58 GFR Calculation 82.1 mL/min (90-130) L 11/14/22 13:58 Glucose 80 mg/dL (65-115) 11/14/22 13:58 Calculated Osmolality 282 mOsm/kg (285-295) L 11/14/22 13:58 Calcium 9.4 mg/dL (8.5-10.5) 11/14/22 13:58 Total Bilirubin 0.5 mg/dL (0.15-1.2) 11/14/22 13:58 AST 21 U/L (0-32) 11/14/22 13:58 ALT 29 U/L (0-33) 11/14/22 13:58 Alkaline Phosphatase 84 U/L (35-105) 11/14/22 13:58 Total Protein 7.0 g/dL (6.6-8.7) 11/14/22 13:58 Albumin 4.4 g/dL (3.5-5.2) 11/14/22 13:58 Globulin 2.6 g/dL (1.3-4.6) 11/14/22 13:58 TSH 0.95 uIU/mL (0.27-4.20) 11/14/22 13:58 HCG, Qual Negative (Negative) 11/14/22 13:58 Discharge Plan Discharge Patient Disposition: Home Clinical Impression: Right thyroid nodule Condition: Stable Prescriptions: No Action nystatin-triamcinolone 100,000-0.1 unit/gram-% ointment 1 applic topical BID Qty: 30 3RF Rexulti 0.5 mg tablet 0.5 mg PO DAILY hydroxyzine pamoate [Vistaril] 25 mg capsule 25 mg PO TID Trulicity 0.75 mg/0.5 mL pen injector 0.75 mg SUBCUT DAILY albuterol sulfate 90 mcg/actuation aero powdr breath act w/sensor 2 inh inhalation Q6H PRN (Reason: shortness of breath or wheezing) Qty: 1 0RF pantoprazole 40 mg Tablet,Delayed Release (Dr/Ec) 40 mg PO BID hydrocodone-acetaminophen 5-325 mg tablet 1 tab PO Q6H PRN (Reason: pain) Qty: 10 0RF ergocalciferol (vitamin D2) [Vitamin D2] 1,250 mcg (50,000 unit) Capsule 1,250 mcg PO Q7D Rx Instructions: On duloxetine 60 mg Capsule,Delayed Release(Dr/Ec) 60 mg PO DAILY ondansetron 4 mg tablet,disintegrating 4 mg PO Q8H PRN (Reason: nausea and vomiting) Qty: 15 0RF Discharge Orders: Discharge ED (Routine); Ordered 11/14/22 Ordered By: Dionicio Luque Referrals: Roque Rios MD [Primary Care Provider] - Discharge Diet: Regular Discharge Activity: Increase activity as tolerated Patient Instructions: Thyroid Nodules (ED) Activity Restrictions/Additional Instructions: Follow-up with your self contained behavior unit teacher at your next scheduled appointment. Continue taking all home medications as previously prescribed. Return to the ER or your medical provider if condition worsens. Please read and understand discharge instructions. Thank you for choosing [facility] for your healthcare needs today. Please realize this is an emergency room and that we are providing you with a medical screening exam and this may not be complete and all inclusive of all the testing and or work up that you may need to determine your ailment or severity of your illness. It is very important that you follow up as instructed or that you return to the Emergency Department should you have concerns or if your condition changes or worsens in any way. Stand Alone Forms: Work/School Release Coding Level of Care Code ED Pulp Bleacher for Clayton Awan
[2022-11-14 14:22] LABS: Basophils # 0.1 10^3/uL (0.0-0.1); Basophils % 0.8 %; Eosinophils # 0.1 10^3/uL (0.0-0.8); Eosinophils % 1.3 %; Hematocrit 43.3 % (37.0-47.0); Hemoglobin 14.2 g/dL (11.5-15.3); Lymphocytes # 2.8 10^3/uL (0.8-4.8); Lymphocytes % 35.2 %; Mean Corpuscular HGB Conc 32.8 g/dL (30.0-36.0); Mean Corpuscular Hemoglobin 28.7 pg (28.0-34.0); Mean Corpuscular Volume 87.5 fl (81-99); Mean Platelet Volume 8.8 fL (7.4-10.4); Monocytes # 0.5 10^3/uL (0.2-0.9); Monocytes % 5.7 %; Neutrophils # 4.51 10^3/uL (1.8-7.7); Neutrophils % 56.7 %; Nucleated Red Blood Cells % 0 %; Platelet Count 387 10^3/cmm (130-400); Red Blood Count 4.95 10^6/uL (4.1-5.3); Red Cell Distribution Width 13.1 % (12.1-15.1); White Blood Count 7.9 10^3/uL (4.0-10.0)
[2022-11-14 14:33] LABS: HCG, Serum Qual Negative (Negative)
[2022-11-14] MEDS: iohexol 350 mg/mL 500 mL Btl (per mL) IV (14:35)
[2022-11-14 14:44] LABS: Alanine Aminotransferase 29 U/L (0-33); Albumin Level 4.4 g/dL (3.5-5.2); Alkaline Phosphatase 84 U/L (35-105); Anion Gap 15.3 (5-19); Aspartate Amino Transferase 21 U/L (0-32); Blood Urea Nitrogen 9 mg/dL (6-20); Calcium 9.4 mg/dL (8.5-10.5); Carbon Dioxide 23 mmol/L (22-29); Chloride 103 mmol/L (98-107); Globulin 2.6 g/dL (1.3-4.6); Glomerular Filtration Rate 82.1 mL/min (90-130); Glucose 80 mg/dL (65-115); Osmolality Calculated 282 mOsm/kg (285-295); Potassium 4.3 mmol/L (3.5-5.1); Sodium 137 mmol/L (136-145); Thyroid Stimulating Hormone 0.95 uIU/mL (0.27-4.20); Total Bilirubin 0.5 mg/dL (0.15-1.2)
== END 2022-11-14 15:59 | disposition home or self-care (01) ==
PROVIDERS: Emergency Provider Physician Assistant; PCP Family Medicine
DX: E04.1 Nontoxic single thyroid nodule (principal); F17.200 Nicotine dependence, unspecified, uncomplicated; Z79.899 Other long term (current) drug therapy
CPT/HCPCS: 70491; 80053; 84443; 84703; 85025; 99285; Q9967